=== PATIENT | male | born 1995 | race African-American/Black ===

== ENCOUNTER 2018-06-14 01:41 | Emergency (ER) | payer OTHER, SELFPAY ==
--- OUTSIDE RECORDS SUMMARY | 2018-06-14 01:43 | XMS REPORT | Summary of Care ---
:1995 Author Organization [facility] Address [address] [place], [place] [address]- Encounter HQ Encntr_alias(FIN) [id number] Date(s): 09/19/16 - 09/19/[address] [address]- [place] Discharge Disposition: Home or Self Care Attending Physician: Afshin Epperson MD Referring Physician: Afshin Epperson MD Vital Signs No data available for this section Problem List Condition Effective Dates Status Health Status Informant Seizures(Confirmed) Resolved Allergies, Adverse Reactions, Alerts Substance Reaction Severity Status NKDA Active Medications No data available for this section Results No data available for this section Immunizations No data available for this section Procedures Procedure Date Related Diagnosis Body Site CT brain w/o contrast EEG Social History No data available for this section Assessment and Plan No data available for this section
--- OUTSIDE RECORDS SUMMARY | 2018-06-14 01:43 | XMS REPORT | Continuity of Care Document ---
:1995 Author Organization Interface Problems Problem Status Onset Classification Date Comments Source Date Reported G40.[address] Seizures Resolved Problem 09/22/2016 [facility] Medications Medication Details Route Status Patient Ordering Order Source Instructions Provider Date Allergies, Adverse Reactions, Alerts Substance Category Reaction Severity Reaction Status Date Comments Source type Reported NKDA Assertion Drug Active [facility] Immunizations Immunization Date Given Site Status Last Updated Comments Source Results Order Results Value Reference Date Interpretation Comments Source Name Range Vital Signs Vital Sign Value Date Comments Source Encounters Location Location Encounter Encounter Reason Attending ADM DC Status Source Details Type Number For Provider Date Date Visit [facility] Outpatient [id number] Afshin 09/19 09/20 [facility] Edgardo Epperson /2015 [facility] Procedures Procedure Code Date Perfomer Comments Source CT brain w/o [id number] [facility] EEG [id number] [facility]
[2018-06-14] MEDS ORDERED: LORazepam 2 MG/ML VIAL ONE (02:27)
[2018-06-14] MEDS ORDERED: LEVETIRACETAM 500 MG/5 ML VIAL IV ONE (02:27)
[2018-06-14] MEDS ORDERED: NA CHLORIDE 0.9% 1,000 ML ONE (02:27)
[2018-06-14] MEDS ORDERED: FOSPHENYTOIN PE 500 MG/10 ML VIAL ONE (02:28)
[2018-06-14] MEDS ORDERED: NA CHLORIDE 0.9% 200 ML IV ONE (02:34)
[2018-06-14 02:42] LABS: Absolute Lymphocytes (CBC) 1.2 K/uL (0.7-4.9); Absolute Monocytes 0.6 K/uL (0.1-1.3); Absolute Neutrophil 3.4 K/uL (1.8-8.0); Basophils % 0.6 % (0-1.3); Eosinophils % 6.3 % (0-4.4); Hematocrit 45.5 % (39.6-49.0); Lymphocytes % 21.2 % (15.3-44.8); MCH 30.2 pg (27.0-35.0); MCV 86.9 fL (80-100); MPV 8.3 fL (7.6-11.3); Monocytes % 11.3 % (3.3-12.3); RBC Red Blood Cell Count 5.23 M/uL (4.33-5.43)
[2018-06-14 02:46] LABS: Protime INR 1.13
[2018-06-14 02:48] LABS: Urine Blood NEGATIVE (NEG); Urine Glucose NEGATIVE (NEG); Urine Protein NEGATIVE (NEG)
[2018-06-14 02:58] LABS: Barbiturates NEGATIVE (NEGATIVE); Benzodiazepines NEGATIVE (NEGATIVE); Cocaine NEGATIVE (NEGATIVE); METHAMPHETAM NEGATIVE (NEGATIVE); Methadone NEGATIVE (NEGATIVE); Opiates NEGATIVE (NEGATIVE); Phencyclidine NEGATIVE (NEGATIVE); THC Cannibis NEGATIVE (NEGATIVE)
[2018-06-14 03:14] LABS: ALT/SGPT 50 U/L (12-78); AST/SGOT 26 U/L (15-37); Albumin 4.2 g/dL (3.4-5.0); Alcohol Serum/Plasma 6 mg/dL (<3); Alkaline Phosphatase 117 U/L (45-117); BUN Blood Urea Nitrogen 7 mg/dL (7-18); Bicarbonate 30 mmol/L (21-32); Bilirubin Direct < 0.1 mg/dL (0-0.2); Bilirubin Total 0.2 mg/dL (0.2-1.0); Glucose Level 108 mg/dL (74-106); Phenytoin (Dilantin) Level 17.2 ug/mL (10.0-20.0); Potassium 3.2 mmol/L (3.5-5.1); Protein, Total 8.3 g/dL (6.4-8.2); Sodium Level 140 mmol/L (136-145)
--- NOTE | 2018-06-14 03:37 | ER ---
Nurse's Notes [facility] Name: Mari Mercado Age: 22 yrs Sex: Male : 1995 Arrival Date: 06/14/2018 Time: 01:42 Bed 3 Private MD: Diagnosis: Epilepsy and recurrent seizures;Hypokalemia Presentation: 06/14 01:44 Presenting complaint: EMS states: Arrival to home after family called for patient lp1 having seizure, unable to obtain details of seizure activity; Patient post-ictal on arrival of EMS; Hx of seizures. Transition of care: patient was not received from another setting of care. Onset of symptoms was June 14, 2018. Risk Assessment: Do you want to hurt yourself or someone else? Patient reports no desire to harm self or others. Initial Sepsis Screen: Does the patient meet any 2 criteria? No. Patient's initial sepsis screen is negative. Does the patient have a suspected source of infection? No. Patient's initial sepsis screen is negative. Care prior to arrival: Glucose check: 116. 01:44 Method Of Arrival: EMS: [facility] lp1 01:44 Acuity: ERASMO 3 lp1 Historical: - Allergies: 01:52 NKA; lp1 - Home Meds: 01:52 Dilantin Oral 100 mg four times a day [Active]; Keppra 500 mg oral tab 3 tabs 2 times lp1 per day [Active]; - PMHx: 01:52 Seizures; lp1 - PSHx: 01:52 None; lp1 - Immunization history:: Adult Immunizations unknown. - Social history:: Smoking status: Patient/guardian denies using tobacco. - Ebola Screening: : No symptoms or risks identified at this time. - Family history:: not pertinent. Screenin:47 Abuse screen: Denies threats or abuse. Denies injuries from another. Nutritional aa1 screening: No deficits noted. Tuberculosis screening: No symptoms or risk factors identified. Fall Risk None identified. Assessment: 01:47 General: Appears in no apparent distress. comfortable, Behavior is calm, cooperative, aa1 appropriate for age. Pain: Denies pain. Neuro: Level of Consciousness is awake, alert, obeys commands, Oriented to person, place, Moves all extremities. Speech is normal, Pupils are PERRLA. Respiratory: Airway is patent Respiratory effort is even, unlabored, Respiratory pattern is regular, symmetrical. GI: No signs and/or symptoms were reported involving the gastrointestinal system. : No signs and/or symptoms were reported regarding the genitourinary system. EENT: No signs and/or symptoms were reported regarding the EENT system. Derm: Skin is intact, is healthy with good turgor, Skin is pink, warm \T\ dry. Musculoskeletal: Circulation, motion, and sensation intact. Capillary refill < 3 seconds. 03:01 Reassessment: Patient appears in no apparent distress at this time. Patient and/or tl2 family updated on plan of care and expected duration. Pain level reassessed. General: Behavior is drowsy. Neuro:. Neuro: Level of Consciousness is awake, alert, obeys commands, Oriented to person, place. 03:47 Reassessment: Patient appears in no apparent distress at this time. Patient and/or aa1 family updated on plan of care and expected duration. Pain level reassessed. Patient is alert, oriented x 3, equal unlabored respirations, skin warm/dry/pink. Pt for d/c. Attempting to call mother to pick him up Patient denies pain at this time. Patient states symptoms have improved. 04:55 Reassessment: Patient appears in no apparent distress at this time. Patient is alert, aa1 oriented x 3, equal unlabored respirations, skin warm/dry/pink. Mother present to take pt home. Discussed d/c \T\ f/u instructions with pt \T\ mother; denies questions or concerns at this time. Vital Signs: 01:48 BP 144 / 85; Pulse 86; Resp 18; Temp 98.7(TE); Pulse Ox 98% on R/A; Weight 87.09 kg; lp1 Height 5 ft. 8 in. (172.72 cm); Pain 0/10; 03:00 BP 133 / 83; Pulse 91; Resp 18; Pulse Ox 100% on R/A; tl2 03:21 BP 124 / 75; Pulse 75; Resp 16; Pulse Ox 97% on R/A; Pain 0/10; aa1 04:55 BP 127 / 76; Pulse 87; Resp 16; Pulse Ox 100% on R/A; Pain 0/10; aa1 01:48 Body Mass Index 29.19 (87.09 kg, 172.72 cm) lp1 Koko Coma Score: 04:57 Eye Response: spontaneous(4). Verbal Response: oriented(5). Motor Response: obeys aa1 commands(6). Total: 15. ED Course: 01:42 Patient arrived in ED. aa1 01:47 Jennifer Santacruz, RN is Primary Nurse. aa1 01:47 Patient has correct armband on for positive identification. Bed in low position. Call aa1 light in reach. Seizure precautions initiated. Pulse ox on. NIBP on. 01:48 Triage completed. lp1 01:48 Arm band placed on right wrist. lp1 01:54 Elroy Gonzalez MD is Attending Physician. keturah 02:05 Inserted saline lock: 20 gauge in left EJ, using aseptic technique. Blood collected. By lp1 Dr. Gonzalez. 02:23 [facility]. Lab Test Sent. cc 03:36 Ha Fernandez MD is Referral Physician. keturah 04:55 No provider procedures requiring assistance completed. IV discontinued, intact, aa1 bleeding controlled, No redness/swelling at site. Pressure dressing applied. Administered Medications: 02:42 Drug: Fosphenytoin 500 mg Route: IVPB; Site: left jugular; lp1 02:58 Follow up: IV Status: Completed infusion; IV Intake: 100ml lp1 02:59 Follow up: IV Status: Completed infusion tl2 02:42 Drug: Ativan 1 mg Route: IVP; Site: left jugular; lp1 04:33 Follow up: Response: No adverse reaction; Marked relief of symptoms aa1 02:42 Drug: NS 0.9% 1000 ml Route: IV; Rate: 1 bolus; Site: left jugular; lp1 03:15 Follow up: IV Status: Completed infusion aa1 02:59 Drug: Keppra 1000 mg Route: IV; Rate: per protocol; Site: left jugular; tl2 03:30 Follow up: IV Status: Completed infusion aa1 Intake: 02:58 IV: 100ml; Total: 100ml. lp1 Outcome: 03:36 Discharge ordered by . keturah 04:55 Discharged to home ambulatory, with family. aa1 04:55 Condition: good 04:55 Discharge instructions given to patient, family, Instructed on discharge instructions, follow up and referral plans. medication usage, Demonstrated understanding of instructions, follow-up care, medications. 04:58 Patient left the ED. aa1 Signatures: Jennifer Santacruz RN RN aa1 Elroy Gonzalez MD MD cha Christian, Chelsea cc Pena, Laura, RN RN lp1 Rosalba Nichols RN RN tl2
--- NOTE | 2018-06-14 03:37 | EDPHYS ---
Physician Documentation [facility] Name: Mari Mercado Age: 22 yrs Sex: Male : 1995 Arrival Date: 06/14/2018 Time: 01:42 Bed 3 Private MD: ED Physician Elroy Gonzalez HPI: 06/14 02:06 This 22 yrs old Black Male presents to ER via EMS with complaints of Probable Seizure. keturah 02:06 The patient presents after having a single isolated seizure, that lasted 1 minute(s), keturah an unknown period of time. Character of seizure(s): Motor activity: focal activity. Seizure onset: this morning. Context: the seizure(s) was witnessed, by family. Seizure Hx: Cause: unknown, Last seizure: The patient's last seizure is unknown. Associated injury: The patient did not suffer any apparent associated injury. Historical: - Allergies: 01:52 NKA; lp1 - Home Meds: 01:52 Dilantin Oral 100 mg four times a day [Active]; Keppra 500 mg oral tab 3 tabs 2 times lp1 per day [Active]; - PMHx: 01:52 Seizures; lp1 - PSHx: 01:52 None; lp1 - Immunization history:: Adult Immunizations unknown. - Social history:: Smoking status: Patient/guardian denies using tobacco. - Ebola Screening: : No symptoms or risks identified at this time. - Family history:: not pertinent. ROS: 02:06 Constitutional: Negative for fever, chills, and weight loss, Eyes: Negative for injury, keturah pain, redness, and discharge, ENT: Negative for injury, pain, and discharge, Neck: Negative for injury, pain, and swelling, Cardiovascular: Negative for chest pain, palpitations, and edema, Respiratory: Negative for shortness of breath, cough, wheezing, and pleuritic chest pain, Abdomen/GI: Negative for abdominal pain, nausea, vomiting, diarrhea, and constipation, Back: Negative for injury and pain, : Negative for injury, bleeding, discharge, and swelling, MS/Extremity: Negative for injury and deformity, Skin: Negative for injury, rash, and discoloration, Psych: Negative for depression, anxiety, suicide ideation, homicidal ideation, and hallucinations, Allergy/Immunology: Negative for hives, rash, and allergies, Endocrine: Negative for neck swelling, polydipsia, polyuria, polyphagia, and marked weight changes, Hematologic/Lymphatic: Negative for swollen nodes, abnormal bleeding, and unusual bruising. 02:06 Neuro: Positive for seizure activity. Exam: 02:06 Constitutional: This is a well developed, well nourished patient who is awake, alert, keturah and in no acute distress. Head/Face: Normocephalic, atraumatic. Eyes: Pupils equal round and reactive to light, extra-ocular motions intact. Lids and lashes normal. Conjunctiva and sclera are non-icteric and not injected. Cornea within normal limits. Periorbital areas with no swelling, redness, or edema. ENT: Nares patent. No nasal discharge, no septal abnormalities noted. Tympanic membranes are normal and external auditory canals are clear. Oropharynx with no redness, swelling, or masses, exudates, or evidence of obstruction, uvula midline. Mucous membranes moist. Neck: Trachea midline, no thyromegaly or masses palpated, and no cervical lymphadenopathy. Supple, full range of motion without nuchal rigidity, or vertebral point tenderness. No Meningismus. Chest/axilla: Normal chest wall appearance and motion. Nontender with no deformity. No lesions are appreciated. Cardiovascular: Regular rate and rhythm with a normal S1 and S2. No gallops, murmurs, or rubs. Normal PMI, no JVD. No pulse deficits. Respiratory: Lungs have equal breath sounds bilaterally, clear to auscultation and percussion. No rales, rhonchi or wheezes noted. No increased work of breathing, no retractions or nasal flaring. Abdomen/GI: Soft, non-tender, with normal bowel sounds. No distension or tympany. No guarding or rebound. No evidence of tenderness throughout. Back: No spinal tenderness. No costovertebral tenderness. Full range of motion. Male : Normal genitalia with no discharge or lesions. Skin: Warm, dry with normal turgor. Normal color with no rashes, no lesions, and no evidence of cellulitis. MS/ Extremity: Pulses equal, no cyanosis. Neurovascular intact. Full, normal range of motion. Neuro: Awake and alert, GCS 15, oriented to person, place, time, and situation. Cranial nerves II-XII grossly intact. Motor strength 5/5 in all extremities. Sensory grossly intact. Cerebellar exam normal. Normal gait. Psych: Awake, alert, with orientation to person, place and time. Behavior, mood, and affect are within normal limits. Vital Signs: 01:48 BP 144 / 85; Pulse 86; Resp 18; Temp 98.7(TE); Pulse Ox 98% on R/A; Weight 87.09 kg; lp1 Height 5 ft. 8 in. (172.72 cm); Pain 0/10; 03:00 BP 133 / 83; Pulse 91; Resp 18; Pulse Ox 100% on R/A; tl2 03:21 BP 124 / 75; Pulse 75; Resp 16; Pulse Ox 97% on R/A; Pain 0/10; aa1 04:55 BP 127 / 76; Pulse 87; Resp 16; Pulse Ox 100% on R/A; Pain 0/10; aa1 01:48 Body Mass Index 29.19 (87.09 kg, 172.72 cm) lp1 Koko Coma Score: 04:57 Eye Response: spontaneous(4). Verbal Response: oriented(5). Motor Response: obeys aa1 commands(6). Total: 15. Procedures: 02:08 Peripheral line: by aseptic technique a peripheral line was placed in the left external keturah jugular vein. MDM: 01:55 Patient medically screened. [facility] 02:08 Data reviewed: vital signs, nurses notes, lab test result(s). [facility] 06/14 02:05 Order name: Dilantin; Complete Time: 03:34 cc 06/14 02:05 Order name: Acetaminophen; Complete Time: 03:34 keturah 06/14 02:05 Order name: Basic Metabolic Panel; Complete Time: 03:34 keturah 06/14 02:05 Order name: CBC with Diff; Complete Time: 03:34 keturah 06/14 02:05 Order name: ETOH Level; Complete Time: 03:34 keturah 06/14 02:05 Order name: Hepatic Function; Complete Time: 03:34 keturah 06/14 02:05 Order name: PT-INR; Complete Time: 03:34 keturah 06/14 02:05 Order name: Ptt, Activated; Complete Time: 03:34 keturah 06/14 02:05 Order name: Salicylate; Complete Time: 03:34 keturah 06/14 02:05 Order name: Urine Drug Screen; Complete Time: 03:34 keturah 06/14 02:08 Order name: Misc. Lab Test cc 06/14 02:39 Order name: KEPPRA (LEVETIRACETAM) EDMS 06/14 02:05 Order name: EKG; Complete Time: 02:06 [facility] 06/14 02:05 Order name: EKG - Nurse/Tech; Complete Time: 02:43 [facility] 06/14 02:05 Order name: IV Saline Lock; Complete Time: 02:23 [facility] 06/14 02:05 Order name: Labs collected and sent; Complete Time: 02:23 [facility] 06/14 02:05 Order name: Urine Dipstick-Ancillary (obtain specimen); Complete Time: 02:43 [facility] 06/14 02:05 Order name: Seizure Precautions; Complete Time: 02:08 [facility] 06/14 02:44 Order name: Urine Dipstick--Ancillary (enter results); Complete Time: 03:34 ms Administered Medications: 02:42 Drug: Fosphenytoin 500 mg Route: IVPB; Site: left jugular; lp1 02:58 Follow up: IV Status: Completed infusion; IV Intake: 100ml lp1 02:59 Follow up: IV Status: Completed infusion tl2 02:42 Drug: Ativan 1 mg Route: IVP; Site: left jugular; lp1 04:33 Follow up: Response: No adverse reaction; Marked relief of symptoms aa1 02:42 Drug: NS 0.9% 1000 ml Route: IV; Rate: 1 bolus; Site: left jugular; lp1 03:15 Follow up: IV Status: Completed infusion aa1 02:59 Drug: Keppra 1000 mg Route: IV; Rate: per protocol; Site: left jugular; tl2 03:30 Follow up: IV Status: Completed infusion aa1 Disposition: 06/14/18 03:36 Discharged to Home. Impression: Epilepsy and recurrent seizures, Hypokalemia. - Condition is Stable. - Discharge Instructions: Potassium Content of Foods, Seizure, Adult, Seizure, Adult, [id number], Hypokalemia. - Medication Reconciliation Form, Thank You Letter, Antibiotic Education, Prescription Opioid Use form. - Follow up: Private Physician; When: 2 - 3 days; Reason: Recheck today's complaints, Continuance of care, Re-evaluation by your physician. Follow up: Ha Fernandez; When: 2 - 3 days; Reason: Recheck today's complaints, Continuance of care, Re-evaluation by your physician. - Problem is new. - Symptoms have improved. Signatures: Dispatcher [employer] EDMS Jennifer Santacruz, RN RN aa1 Elroy Gonzalez MD MD cha Pena, Laura, RN RN lp1 Rosalba Nichols RN RN tl2 Corrections: (The following items were deleted from the chart) 02:39 02:08 Miscellaneous Test Lab ordered. EDWI EDWI 04:58 03:36 06/14/2018 03:36 Discharged to Home. Impression: Epilepsy and recurrent seizures; aa1 Hypokalemia. Condition is Stable. Discharge Instructions: Seizure, Adult, Seizure, Adult, [id number]. Forms are Medication Reconciliation Form, Thank You Letter, Antibiotic Education, Prescription Opioid Use. Follow up: Private Physician; When: 2 - 3 days; Reason: Recheck today's complaints, Continuance of care, Re-evaluation by your physician. Follow up: Ha Fernandez; When: 2 - 3 days; Reason: Recheck today's complaints, Continuance of care, Re-evaluation by your physician. Problem is new. Symptoms have improved. keturah
[2018-06-14 05:03] VITALS: TEMP 98.7
[2018-06-14 05:06] VITALS: BP 127/76; O2SAT 100
--- NOTE | 2018-06-14 07:02 | EKG ---
Test Date: 2018-06-14 Test Time: 02:32:06 Presiding Judge: MARCY MEASUREMENT RESULTS: Intervals: Rate: 81 TN: 136 QRSD: 94 QT: 362 QTc: 420 [place]: P: 67 TN: 136 QRS: 78 T: 57 INTERPRETIVE STATEMENTS: Normal sinus rhythm with sinus arrhythmia Normal ECG Compared to ECG 05/25/2017 19:17:37 No significant changes Electronically Signed On 06-14-18 07:01:17 CDT by Billy Valle
== END 2018-06-14 04:58 | disposition home or self-care (01) ==
LOC: ER 01:41
PROC: 05HQ33Z Insertion of Infusion Device into Left External Jugular Vein, Percutaneous Approach (ICD-10-PCS; principal; 2018-06-14)
DX: E87.6 Hypokalemia (principal)
CPT/HCPCS: 36415; 80048; 80076; 80177; 80185; 80307; 80320; 80329; 81003; 85025; 85610; 85730; 93005; 96365; 96367; 96375; 99284; J1953; J7030; Q2009

== ENCOUNTER 2019-03-10 02:22 | Emergency (ER) | payer OTHER ==
--- OUTSIDE RECORDS SUMMARY | 2019-03-10 02:24 | XMS REPORT ---
:1995 Author Organization [facility] Address [address] [place] [address] [address] [place] [address] Care Team Providers Name Role Phone Unavailable Unavailable Unavailable Problems This patient has no known problems. Allergies, Adverse Reactions, Alerts This patient has no known allergies or adverse reactions. Medications This patient has no known medications.
--- OUTSIDE RECORDS SUMMARY | 2019-03-10 02:24 | XMS REPORT | Continuity of Care Document ---
:1995 Author Organization Interface Problems Problem Status Onset Classification Date Comments Source Date Reported G40.[address] Seizures Resolved Problem 09/22/2016 [facility] Medications Medication Details Route Status Patient Ordering Order Source Instructions Provider Date Allergies, Adverse Reactions, Alerts Substance Category Reaction Severity Reaction Status Date Comments Source type Reported Immunizations Immunization Date Given Site Status Last Updated Comments Source Results Order Results Value Reference Date Interpretation Comments Source Name Range Vital Signs Vital Sign Value Date Comments Source Encounters Location Location Encounter Encounter Reason Attending ADM DC Status Source Details Type Number For Provider Date Date Visit [facility] Outpatient [id number] Afshin 09/19 09/20 [facility] Edgardo Epperson /2015 [facility] Procedures Procedure Code Date Perfomer Comments Source CT brain w/o [id number] [facility] EEG [id number] [facility]
[2019-03-10] MEDS ORDERED: NA CHLORIDE 0.9% 250 ML ONE (03:11)
[2019-03-10] MEDS ORDERED: LEVETIRACETAM 500 MG/5 ML VIAL IV ONE (03:11)
[2019-03-10 03:35] LABS: Absolute Lymphocytes (CBC) 0.5 K/uL (0.7-4.9); Absolute Monocytes 1.1 K/uL (0.1-1.3); Absolute Neutrophil 15.2 K/uL (1.8-8.0); Basophils % 0.4 % (0-1.3); Hematocrit 45.9 % (39.6-49.0); Lymphocytes % 2.7 % (15.3-44.8); MPV 8.9 fL (7.6-11.3); Monocytes % 6.4 % (3.3-12.3); RBC Red Blood Cell Count 5.21 M/uL (4.33-5.43)
[2019-03-10 03:47] LABS: ALT/SGPT 23 U/L (12-78); AST/SGOT 19 U/L (15-37); Albumin 3.9 g/dL (3.4-5.0); Alkaline Phosphatase 100 U/L (45-117); BUN Blood Urea Nitrogen 9 mg/dL (7-18); Bicarbonate 24 mmol/L (21-32); Bilirubin Total 0.6 mg/dL (0.2-1.0); Glucose Level 89 mg/dL (74-106); Protein, Total 7.6 g/dL (6.4-8.2); Sodium Level 137 mmol/L (136-145)
[2019-03-10 04:03] LABS: Blood Morphology Comment NOT SEEN (NOT SEEN); Platelet Estimate ADEQ
--- NOTE | 2019-03-10 06:35 | ER ---
Nurse's Notes [facility] Name: Mari Mercado Age: 23 yrs Sex: Male : 1995 Arrival Date: 03/10/2019 Time: 02:30 Bed 2 Private MD: Diagnosis: Epilepsy and recurrent seizures Presentation: 03/10 02:36 Presenting complaint: EMS states: pt's family reports that pt has been having seizures aa1 since 0400 this am. States he takes keppra and dilantin and was still having seizures. States pt vomited on himself and was also incontinent of urine. Upon arrival to ED pt will open his opens but no verbal response and will not participate with assessment or follow commands. Transition of care: patient was not received from another setting of care. Onset of symptoms was March 09, 2019 at 04:00. Risk Assessment: Do you want to hurt yourself or someone else? Unable to obtain. Initial Sepsis Screen: Does the patient meet any 2 criteria? HR > 90 bpm. Does the patient have a suspected source of infection? No. Patient's initial sepsis screen is negative. Care prior to arrival: Medication(s) given: Normal saline infusion, Tylenol, 1000 mg, IVP Ativan 2 mg IVP IV initiated. 22 GA, in the right antecubital area, Glucose check: 98. 02:36 Method Of Arrival: EMS: [facility] aa1 02:36 Acuity: ERASMO 2 aa1 Historical: - Allergies: 03:37 NKA; aa1 - Home Meds: 03:37 Dilantin Oral 100 mg four times a day [Active]; Keppra 500 mg Oral tab 3 tabs 2 times aa1 per day [Active]; - PMHx: 03:37 Seizures; aa1 - PSHx: 03:37 None; aa1 - Immunization history:: Adult Immunizations unknown. - Social history:: Smoking status: unknown. - Ebola Screening: : No symptoms or risks identified at this time. Screenin:40 Abuse screen: Denies threats or abuse. Denies injuries from another. Nutritional aa1 screening: No deficits noted. Tuberculosis screening: No symptoms or risk factors identified. Fall Risk None identified. Assessment: 02:40 General: Appears in no apparent distress. comfortable, unkempt, well developed, aa1 Behavior is unresponsive. Pain: Unable to use pain scale. FLACC scale score is 0 out of 10. Patient is unresponsive. Neuro: Level of Consciousness is listless, but will open eyes when moved. Moves all extremities. Facial symmetry appears normal, Pupils are PERRLA. Cardiovascular: Heart tones S1 S2 present Rhythm is regular. Respiratory: Airway is patent Respiratory effort is even, unlabored, Respiratory pattern is regular, symmetrical, Breath sounds are clear bilaterally. GI: Abdomen is non-distended, Abd is soft X 4 quads. : No signs and/or symptoms were reported regarding the genitourinary system. EENT: No signs and/or symptoms were reported regarding the EENT system. Derm: Skin is intact, is healthy with good turgor, Skin is pink, warm \T\ dry. Musculoskeletal: Circulation, motion, and sensation intact. Capillary refill < 3 seconds. 03:50 Reassessment: Patient appears in no apparent distress at this time. No changes from aa1 previously documented assessment. Awaiting provider reassessment. Pt resting quietly, eyes closed. 04:50 Reassessment: Patient appears in no apparent distress at this time. No changes from aa1 previously documented assessment. Pt still resting quietly; will continue to monitor for appropriateness for d/c. 05:50 Reassessment: Patient appears in no apparent distress at this time. Patient is alert, rr5 oriented x 3, equal unlabored respirations, skin warm/dry/pink. GCS 15/15 .linen changed,morning care done. mild drowsiness noted able to stand and walk at bedside going to sink area to wash his face. instructed to call someone to pick him up. 06:30 Reassessment: Patient appears in no apparent distress at this time. Patient is alert, rr5 oriented x 3, equal unlabored respirations, skin warm/dry/pink. awake not in distress. spoke to Cora De Paz (mother) [phone] to arrange transport for the patient going home. 06:46 Reassessment: Patient appears in no apparent distress at this time. Patient is alert, rr5 oriented x 3, equal unlabored respirations, skin warm/dry/pink. awaiting for his transport. no complaints made. Patient states feeling better. Patient states symptoms have improved. 07:05 Reassessment: Discharge ordered, awaiting transportation at this time. NAD, GCS 15, hb VSS. No seizure activity noted. Vital Signs: 02:36 BP 112 / 49; Pulse 105; Resp 14; Temp 99.2(A); Pulse Ox 99% on R/A; Pain 0/10; aa1 03:30 BP 113 / 53; Pulse 102; Resp 16; Pulse Ox 97% on R/A; Pain 0/10; aa1 04:50 BP 106 / 52; Pulse 99; Resp 20; Temp 98.9; Pulse Ox 97% on R/A; Pain 0/10; aa1 06:00 BP 132 / 70; Pulse 100; Resp 16; Temp 98.2; Pulse Ox 100% on R/A; rr5 06:49 BP 128 / 65; Pulse 100; Resp 20; Temp 98.2; Pulse Ox 98% on R/A; rr5 07:30 BP 124 / 63; Pulse 99; Resp 15; Pulse Ox 100% on R/A; hb [place] Coma Score: 07:43 Eye Response: spontaneous(4). Verbal Response: oriented(5). Motor Response: obeys hb commands(6). Total: 15. ED Course: 02:30 Patient arrived in ED. aa1 02:35 Jennifer Morin RN is Primary Nurse. aa1 02:36 Arm band placed on left wrist. aa1 02:40 Patient has correct armband on for positive identification. Placed in gown. Bed in low aa1 position. Call light in reach. Adult w/ patient. Seizure precautions initiated. cardiac monitor technician on. Pulse ox on. NIBP on. 02:42 Ralph Brink MD is Attending Physician. tw4 02:43 Triage completed. aa1 03:08 Initial lab(s) drawn, by me, sent to lab. Maintain EMS IV. Dressing intact. Site clean aa1 \T\ dry. Gauge \T\ site: 22g RAC. 06:56 No provider procedures requiring assistance completed. rr5 07:42 IV discontinued, intact, bleeding controlled, No redness/swelling at site. Pressure hb dressing applied. Administered Medications: 03:08 Drug: Keppra 1000 mg Route: IV; Rate: calculated rate; Site: right antecubital; aa1 05:00 Follow up: Response: No adverse reaction; IV Status: Completed infusion; IV Intake: rr5 250ml Intake: 05:00 IV: 250ml; Total: 250ml. rr5 Outcome: 06:34 Discharge ordered by . tw4 06:54 Condition: stable rr5 06:54 Discharge instructions given to patient, Instructed on discharge instructions, follow up and referral plans. medication usage, Demonstrated understanding of instructions, follow-up care, medications, Prescriptions given X 1. 07:42 Discharged to home ambulatory, with family. hb 07:47 Patient left the ED. hb Signatures: Jennifer Morin RN RN aa1 Renetta Maya RN RN Ralph Brink MD MD tw4 William Ochoa RN RN rr5 Corrections: (The following items were deleted from the chart) 06:50 06:30 Reassessment: Patient appears in no apparent distress at this time. Patient is rr5 alert, oriented x 3, equal unlabored respirations, skin warm/dry/pink. awake not in distress. spoke to Cora De Paz (mother) [phone] to arrange transport for the patient going home. aa1 06:50 06:46 Reassessment: Patient appears in no apparent distress at this time. Patient is rr5 alert, oriented x 3, equal unlabored respirations, skin warm/dry/pink. awaiting for his transport. no complaints made. Patient states feeling better. Patient states symptoms have improved. aa1 06:51 06:49 BP 128 / 65; Pulse 100bpm; Resp 20bpm; Pulse Ox 98% RA; Temp 98.2F; aa1 rr5
--- NOTE | 2019-03-10 06:35 | EDPHYS ---
Physician Documentation [facility] Name: Mari Mercado Age: 23 yrs Sex: Male : 1995 Arrival Date: 03/10/2019 Time: 02:30 Bed 2 Private MD: ED Physician Ralph Brink HPI: 03/10 03:42 This 23 yrs old Black Male presents to ER via EMS with complaints of Seizure. tw4 03:42 The patient presents with a history of multiple seizures, an unknown number. Character tw4 of seizure(s): Loss of consciousness: it is not known if the patient experienced loss of consciousness, Motor activity: the motor activity is unknown, Incontinence:. Seizure onset: today. Context: occurred at home. Associated injury: The patient did not suffer any apparent associated injury. The patient has not experienced similar symptoms in the past. Historical: - Allergies: 03:37 NKA; aa1 - Home Meds: 03:37 Dilantin Oral 100 mg four times a day [Active]; Keppra 500 mg Oral tab 3 tabs 2 times aa1 per day [Active]; - PMHx: 03:37 Seizures; aa1 - PSHx: 03:37 None; aa1 - Immunization history:: Adult Immunizations unknown. - Social history:: Smoking status: unknown. - Ebola Screening: : No symptoms or risks identified at this time. ROS: 03:42 Constitutional: Negative for fever, chills, and weight loss, Eyes: Negative for injury, tw4 pain, redness, and discharge, Cardiovascular: Negative for chest pain, palpitations, and edema, Respiratory: Negative for shortness of breath, cough, wheezing, and pleuritic chest pain, Abdomen/GI: Negative for abdominal pain, nausea, vomiting, diarrhea, and constipation, Back: Negative for injury and pain, MS/Extremity: Negative for injury and deformity, Skin: Negative for injury, rash, and discoloration. 03:42 Neuro: Positive for seizure activity, Negative for altered mental status, dizziness, gait disturbance, headache, hearing loss, loss of consciousness, numbness, speech changes, syncope, near syncope, tingling, tinnitus, tremor, visual changes. Exam: 03:42 Constitutional: The patient appears somnolent tw4 03:48 Head/Face: Normocephalic, atraumatic. Chest/axilla: Normal chest wall appearance and tw4 motion. Nontender with no deformity. No lesions are appreciated. Cardiovascular: Regular rate and rhythm with a normal S1 and S2. No gallops, murmurs, or rubs. Normal PMI, no JVD. No pulse deficits. Respiratory: Lungs have equal breath sounds bilaterally, clear to auscultation and percussion. No rales, rhonchi or wheezes noted. No increased work of breathing, no retractions or nasal flaring. Abdomen/GI: Soft, non-tender, with normal bowel sounds. No distension or tympany. No guarding or rebound. No evidence of tenderness throughout. Back: No spinal tenderness. No costovertebral tenderness. Full range of motion. MS/ Extremity: Pulses equal, no cyanosis. Neurovascular intact. Full, normal range of motion. Vital Signs: 02:36 BP 112 / 49; Pulse 105; Resp 14; Temp 99.2(A); Pulse Ox 99% on R/A; Pain 0/10; aa1 03:30 BP 113 / 53; Pulse 102; Resp 16; Pulse Ox 97% on R/A; Pain 0/10; aa1 04:50 BP 106 / 52; Pulse 99; Resp 20; Temp 98.9; Pulse Ox 97% on R/A; Pain 0/10; aa1 06:00 BP 132 / 70; Pulse 100; Resp 16; Temp 98.2; Pulse Ox 100% on R/A; rr5 06:49 BP 128 / 65; Pulse 100; Resp 20; Temp 98.2; Pulse Ox 98% on R/A; rr5 07:30 BP 124 / 63; Pulse 99; Resp 15; Pulse Ox 100% on R/A; hb [place]ie Coma Score: 07:43 Eye Response: spontaneous(4). Verbal Response: oriented(5). Motor Response: obeys hb commands(6). Total: 15. MDM: 02:42 Patient medically screened. tw4 06:11 Differential diagnosis: cerebral vascular accident, drug overdose, cardiac arrhythmia. tw4 Data reviewed: vital signs, nurses notes. Data interpreted: Pulse oximetry: Interpretation: normal. Counseling: I had a detailed discussion with the patient and/or guardian regarding: the historical points, exam findings, and any diagnostic results supporting the discharge/admit diagnosis, lab results. 06:33 Special discussion: I discussed with the patient/guardian in detail that at this point tw4 there is no indication for admission to the hospital. It is understood, however, that if the symptoms persist or worsen the patient needs to return immediately for re-evaluation. ED course: Pt was awake and alert oriented times threeand able to call a ride to take him home. 03/10 02:43 Order name: CBC with Diff; Complete Time: 06:11 tw4 03/10 06:11 Interpretation: Normal except: WBC 16.8; LYM% 2.7; NAKITA% 90.5; NEUT A 15.2. tw4 03/10 02:43 Order name: CMP; Complete Time: 06:11 tw4 03/10 03:38 Order name: Manual Differential; Complete Time: 06:11 EDLA 03/10 06:11 Interpretation: Normal except: LYM 4; BANDS [F] 3; SEGS 88. tw4 Administered Medications: 03:08 Drug: Keppra 1000 mg Route: IV; Rate: calculated rate; Site: right antecubital; aa1 05:00 Follow up: Response: No adverse reaction; IV Status: Completed infusion; IV Intake: rr5 250ml Disposition: 03/10/19 06:34 Discharged to Home. Impression: Epilepsy and recurrent seizures. - Condition is Stable. - Discharge Instructions: Seizure, Adult. - Prescriptions for Keppra 750 mg Oral Tablet - take 1 tablet by ORAL route every 12 hours; 20 tablet. - Medication Reconciliation Form, Thank You Letter, Antibiotic Education, Prescription Opioid Use form. - Follow up: Private Physician; When: Upon discharge from the Emergency Department; Reason: If symptoms return, Recheck today's complaints, Continuance of care. - Problem is an ongoing problem. - Symptoms have improved. Signatures: Dispatcher [employer] EDJennifer Almaguer RN RN aa1 Renetta Maya RN RN Ralph Brink MD MD tw4 William Ochoa RN rr5 Corrections: (The following items were deleted from the chart) 07:47 06:34 03/10/2019 06:34 Discharged to Home. Impression: Epilepsy and recurrent seizures. hb Condition is Stable. Forms are Medication Reconciliation Form, Thank You Letter, Antibiotic Education, Prescription Opioid Use. Follow up: Private Physician; When: Upon discharge from the Emergency Department; Reason: If symptoms return, Recheck today's complaints, Continuance of care. Problem is an ongoing problem. Symptoms have improved. tw4
[2019-03-10 07:59] VITALS: TEMP 98.2
[2019-03-10 08:05] VITALS: BP 124/63; O2SAT 100
== END 2019-03-10 07:47 | disposition home or self-care (01) ==
LOC: ER 02:22
DX: G40.909 Epilepsy, unspecified, not intractable, without status epilepticus (principal)
CPT/HCPCS: 36415; 80053; 85025; 96365; 96366; 99284; J1953

== ENCOUNTER 2019-11-29 04:36 | Emergency (ER) | payer OTHER ==
--- OUTSIDE RECORDS SUMMARY | 2019-11-29 04:50 | XMS REPORT ---
:1995 [facility] Address [address] [place] [address] [address] [place] [address] Care Team Providers Name Role Phone Unavailable Unavailable Unavailable Problems This patient has no known problems. Allergies, Adverse Reactions, Alerts This patient has no known allergies or adverse reactions. Medications This patient has no known medications.
--- OUTSIDE RECORDS SUMMARY | 2019-11-29 04:50 | XMS REPORT | Summary of Care ---
:1995 Author Organization [facility] Address [address] [place] [id number] Care Team Providers Name Role Phone George Francis Ashley Primary Care Provider Reason for Visit MRI/CAT Scan (Routine) Status Reason Specialty Diagnoses / Referred By Referred To Procedures Contact Contact Closed Diagnostic Diagnoses Seizure cerebral Shalom Scherer Radiology Procedures MR BRAIN W WO CONTRAST WITH NEUROQUANT MR BRAIN W WO CONTRAST MD Fei [address] [place] [address]. [place] [address] Encounter Details Date Type Department Care Team Description 05/22/2019 Hospital Encounter [facility] Magnetic Shalom Scherer, Arrived Resonance Imaging [address] [place] [address]. [place] [phone] Allergies No Known Allergiesdocumented as of this encounter (statuses as of 05/23/2019) Medications Medication Sig Dispensed Refills Start Date End Date Status levETIRAcetam 500 mg Take 1,500 mg by 0 03/07/2019 Active tablet mouth 2 (two) times daily. phenytoin Extended 100 Take 100 mg by 0 03/07/2019 Active mg capsule mouth 4 (four) times daily. documented as of this encounter (statuses as of 05/23/2019) Active Problems No known active problemsdocumented as of this encounter (statuses as of 2018) Social History Tobacco Use Types Packs/Day Years Used Date Unknown If Ever Smoked Smokeless Tobacco: Current User Chew Alcohol Use Drinks/Week oz/Week Comments Yes Sex Assigned at Date Recorded Not on file Job Start Date Occupation Industry Not on file Not on file Not on file Travel History Travel Start Travel End No recent travel history available. documented as of this encounter Last Filed Vital Signs Not on filedocumented in this encounter Plan of Treatment Health Maintenance Due Date Last Done Comments VARICELLA VACCINES (1 of 2 - 13+ 2006 2-dose series) DTaP,Tdap,and Td Vaccines (1 - 2012 Tdap) INFLUENZA VACCINE 06/29/2019 HPV VACCINES Aged Out No longer eligible based on patient's age to complete this topic PNEUMOCOCCAL 0-64 YEARS COMBINED Aged Out No longer eligible based on SERIES patient's age to complete this topic documented as of this encounter Procedures Procedure Name Priority Date/Time Associated Comments Diagnosis MR BRAIN W WO Routine 05/22/2019 1:52 PM Seizure cerebral Results for this CONTRAST WITH CDT procedure are in NEUROQUANT the results section. documented in this encounter Results MR BRAIN W WO CONTRAST WITH NEUROQUANT (05/22/2019 1:52 PM CDT) Specimen Impressions Performed At PACS/VR/DOSE No acute intracranial abnormality. No evidence of mesial temporal sclerosis. The Neuroquant values for hippocampal volume listed above are within normal limits for the matched age. No structural abnormality identified to account for patient's seizures. IZuleika MD., have reviewed this study and agree with the above report. Narrative Performed At MR BRAIN W WO CONTRAST WITH NEUROQUANT PACS/VR/DOSE COMPARISON: None HISTORY: grand mal seizure TECHNIQUE: Multisequence multiplanar MRI of the brain was performed before and after the administration of 20 cc IV dotarem contrast on a 3 Maria L. Quantitative volumetry of the brain was performed using NeuroQuant ([employer], [place], [place]) software package. The NeuroQuant analysis was based on a sagittal 3D volumetric MPRAGE pulse sequence. Sequence-checking was performed to ensure appropriate high-resolution and contrast image parameters. Correction for field/gradient inhomogeneities, removal of the overlying calvaria, alignment to the probabilistic atlas of stereotypical anatomy and segmented volumetry of predetermined anatomic areas derived from multiple subjects of multiple age groups was performed. Two automated reports were generated. FINDINGS: The ventricles and cerebral sulci are normal in caliber and configuration. No midline shift, hydrocephalus or pathological extra-axial fluid collection is present. The basal cisterns are unremarkable. No restricted diffusion is present to suggest acute infarct. No parenchymal signal abnormality. No abnormal gradient blooming. No enhancing lesions are identified. The T2 flow voids for the major intracranial vessels are unremarkable. No abnormal fluid signal is present in the mastoid air cells or paranasal air sinuses. The hippocampi are normal in size and symmetric. No abnormal signal or enhancement identified in the mesial temporal lobes. No evidence of migrational disorders or cortical dysplasia. The Hippocampal volume report demonstrates: Left Hippocampal volume: 4.15 cm3 Right Hippocampal volume: 4.31 cm3 Asymmetry Index: -3.6 Procedure Note [facility], Radiant Results Inft User - 05/22/2019 3:29 PM CDT MR BRAIN W WO CONTRAST WITH NEUROQUANT COMPARISON: None HISTORY: grand mal seizure TECHNIQUE: Multisequence multiplanar MRI of the brain was performed before and after the administration of 20 cc IV dotarem contrast on a 3 Maria L. Quantitative volumetry of the brain was performed using NeuroQuant ([employer], [place], [place]) software package. The NeuroQuant analysis was based on a sagittal 3D volumetric MPRAGE pulse sequence. Sequence-checking was performed to ensure appropriate high-resolution and contrast image parameters. Correction for field/gradient inhomogeneities, removal of the overlying calvaria, alignment to the probabilistic atlas of stereotypical anatomy and segmented volumetry of predetermined anatomic areas derived from multiple subjects of multiple age groups was performed. Two automated reports were generated. FINDINGS: The ventricles and cerebral sulci are normal in caliber and configuration. No midline shift, hydrocephalus or pathological extra-axial fluid collection is present. The basal cisterns are unremarkable. No restricted diffusion is present to suggest acute infarct. No parenchymal signal abnormality. No abnormal gradient blooming. No enhancing lesions are identified. The T2 flow voids for the major intracranial vessels are unremarkable. No abnormal fluid signal is present in the mastoid air cells or paranasal air sinuses. The hippocampi are normal in size and symmetric. No abnormal signal or enhancement identified in the mesial temporal lobes. No evidence of migrational disorders or cortical dysplasia. The Hippocampal volume report demonstrates: Left Hippocampal volume: 4.15 cm3 Right Hippocampal volume: 4.31 cm3 Asymmetry Index: -3.6 IMPRESSION No acute intracranial abnormality. No evidence of mesial temporal sclerosis. The Neuroquant values for hippocampal volume listed above are within normal limits for the matched age. No structural abnormality identified to account for patient's seizures. Zuleika Zarate MD., have reviewed this study and agree with the above report. Performing Organization Address City/State/Zipcode Phone Number PACS/VR/DOSE documented in this encounter Visit Diagnoses Diagnosis Seizure cerebral Acute, but ill-defined, cerebrovascular disease documented in this encounter Administered Medications Medication Order MAR Action Action Date Dose Rate Site gadoterate meglumine Given 05/22/2019 2:00 PM CDT 20 mL Right Arm (DOTAREM-20 mL) injection 0.2 mL/kg 0.2 mL/kg, Intravenous, ONCE, 1 dose, Verónica 05/22/19 at 1400, Routine documented in this encounter Insurance Payer Benefit Plan / Subscriber ID Effective Phone Address Type Group Dates [employer] [address] [place] [id number] [place] [address] documented as of this encounter
[2019-11-29 05:33] LABS: Urine Blood NEGATIVE (NEG); Urine Glucose NEGATIVE (NEG); Urine Protein NEGATIVE (NEG); Urine Specific Gravity <1.005 (1.005-1.030)
[2019-11-29 05:37] LABS: Barbiturates NEGATIVE (NEGATIVE); Benzodiazepines NEGATIVE (NEGATIVE); Cocaine NEGATIVE (NEGATIVE); METHAMPHETAM NEGATIVE (NEGATIVE); Methadone NEGATIVE (NEGATIVE); Opiates NEGATIVE (NEGATIVE); Phencyclidine NEGATIVE (NEGATIVE); THC Cannibis NEGATIVE (NEGATIVE)
[2019-11-29 05:46] LABS: Absolute Lymphocytes (CBC) 1.3 K/uL (0.7-4.9); Basophils % 0.8 % (0-1.3); Lymphocytes % 13.9 % (15.3-44.8); MPV 8.5 fL (7.6-11.3); RBC Red Blood Cell Count 5.34 M/uL (4.33-5.43)
[2019-11-29 05:50] LABS: Protime INR 1.14
[2019-11-29 06:07] LABS: ALT/SGPT 50 U/L (12-78); AST/SGOT 37 U/L (15-37); Albumin 4.1 g/dL (3.4-5.0); Alkaline Phosphatase 113 U/L (45-117); BUN Blood Urea Nitrogen 8 mg/dL (7-18); Bicarbonate 27 mmol/L (21-32); Bilirubin Direct < 0.1 mg/dL (0-0.2); Bilirubin Total 0.2 mg/dL (0.2-1.0); Glucose Level 80 mg/dL (74-106); Potassium 3.7 mmol/L (3.5-5.1); Protein, Total 8.7 g/dL (6.4-8.2); Sodium Level 141 mmol/L (136-145)
[2019-11-29] MEDS ORDERED: PHENYTOIN ER 100 MG CAP PO ONE ×2 (06:27→06:29)
--- NOTE | 2019-11-29 06:46 | ER ---
Nurse's Notes [facility] Name: Mari Mercado Age: 23 yrs Sex: Male : 1995 Arrival Date: 11/29/2019 Time: 04:37 Bed 18 Private MD: Diagnosis: Epilepsy and recurrent seizures Presentation: 11/29 04:56 Presenting complaint: EMS states: they were toned out by patient for report of possible bb seizure pt states he "woke up walking down the street naked with a towel" pt has hx of seizures and takes dilantin and keppra. Transition of care: patient was not received from another setting of care. Onset of symptoms is unknown. Risk Assessment: Do you want to hurt yourself or someone else? Patient reports no desire to harm self or others. Initial Sepsis Screen: Does the patient meet any 2 criteria? No. Patient's initial sepsis screen is negative. Does the patient have a suspected source of infection? No. Patient's initial sepsis screen is negative. Care prior to arrival: None. 04:56 Method Of Arrival: EMS: [facility] 04:56 Acuity: ERASMO 3 bb Triage Assessment: 05:00 General: Appears in no apparent distress. unkempt, Behavior is calm, cooperative, mild rr5 delay in response. Historical: - Allergies: 05:01 NKA; bb - Home Meds: 05:01 Dilantin Oral 100 mg four times a day [Active]; Keppra 500 mg Oral tab 3 tabs 2 times bb per day [Active]; - PMHx: 05:01 Seizures; bb - PSHx: 05:01 None; bb - Immunization history:: Adult Immunizations up to date. - Coronavirus screen:: The patient has NOT traveled to [place], [place], or [place] in the past 14 days. Proceed with normal triage process as indicated. - Social history:: Smoking status: Patient reports use of chewing tobacco. Patient uses alcohol. - Ebola Screening: : No symptoms or risks identified at this time. Screenin:36 Abuse screen: Denies threats or abuse. Denies injuries from another. Nutritional rr5 screening: No deficits noted. Tuberculosis screening: No symptoms or risk factors identified. Fall Risk Secondary diagnosis (15 points) seizures, IV access (20 points). Total Wilson Fall Scale indicates Low Risk Score (25-44 pts). Fall prevention measures have been instituted. Side Rails Up X 2 Placed close to Nursing Station Frequent Obs/Assesments occuring As available Patient and Family Educated on Fall Prevention Program and strategies. Assessment: 05:00 General: Appears in no apparent distress. unkempt, Behavior is calm, cooperative, EMS rr5 report had an episode of seizure.. 05:00 Pain: Denies pain. Neuro: Level of Consciousness is awake, alert, obeys commands, rr5 Oriented to person, place, situation, mild delay in response. Cardiovascular: Capillary refill < 3 seconds Patient's skin is warm and dry. Respiratory: Airway is patent Respiratory effort is even, unlabored, Respiratory pattern is regular, symmetrical. GI: No signs and/or symptoms were reported involving the gastrointestinal system. : No signs and/or symptoms were reported regarding the genitourinary system. EENT: No signs and/or symptoms were reported regarding the EENT system. Derm: Skin is intact, is healthy with good turgor, Skin temperature is warm. Musculoskeletal: Circulation, motion, and sensation intact. Capillary refill < 3 seconds. 06:09 Reassessment: Patient appears in no apparent distress at this time. Patient is alert, rr5 oriented x 3, equal unlabored respirations, skin warm/dry/pink. came back from CT scan, awaiting for result. 06:56 Reassessment: Patient is alert, oriented x 3, equal unlabored respirations, skin bb warm/dry/pink. pt verbalized understanding of and agrees to plan of care discharge instructions given pt called his mother for transportation home and will wait in the [facility] for her arrival. Pt ambulated with steady gait to the [facility]. Vital Signs: 05:01 BP 117 / 81; Pulse 91; Resp 16 S; Temp 98(O); Pulse Ox 97% on R/A; Weight 84.37 kg (R); bb Height 6 ft. 1 in. (185.42 cm) (R); 06:05 BP 134 / 81; Pulse 97; Resp 16; Temp 98.1; Pulse Ox 99% on R/A; rr5 06:57 BP 136 / 78; Pulse 102; Resp 16 S; Pulse Ox 98% on R/A; bb 05:01 Body Mass Index 24.54 (84.37 kg, 185.42 cm) bb [place] Coma Score: 05:00 Eye Response: spontaneous(4). Verbal Response: oriented(5). Motor Response: obeys rr5 commands(6). Total: 15. ED Course: 04:37 Patient arrived in ED. cl3 04:44 Yoni Ching MD is Attending Physician. kdr 05:00 Triage completed. bb 05:00 Patient has correct armband on for positive identification. Placed in gown. Bed in low rr5 position. Call light in reach. Side rails up X2. Seizure precautions initiated. playground monitor on. Pulse ox on. NIBP on. 05:01 Arm band placed on Patient placed in an exam room, on a stretcher, on pulse oximetry. bb 05:19 Urine collected: clean catch specimen, clear. bb 05:33 Radiology exam delayed due to Nurse is attempting to start an IV for labs. kw1 05:35 William Ochoa, RN is Primary Nurse. rr5 05:35 Inserted saline lock: 24 gauge in right hand, using aseptic technique. Blood collected. rr5 06:07 CT Head Brain wo Cont In Process Unspecified. EDMS 06:45 Ha Fernandez MD is Referral Physician. kdr 06:58 No provider procedures requiring assistance completed. IV discontinued, intact, bb bleeding controlled, No redness/swelling at site. Pressure dressing applied. Administered Medications: 06:35 Drug: Dilantin 500 mg Route: PO; rr5 06:56 Follow up: Response: No adverse reaction bb Output: 05:49 Urine: 600ml (Voided); Total: 600ml. rr5 Outcome: 06:45 Discharge ordered by . kdr 06:58 Discharged to home ambulatory, with family. bb 06:58 Condition: stable 06:58 Discharge instructions given to patient, Instructed on discharge instructions, follow up and referral plans. Demonstrated understanding of instructions, follow-up care. 06:58 Patient left the ED. bb Signatures: Dispatcher [employer] EDMS Yoni Ching MD MD kdr Maren Canales RN RN bb Blanca Tapia kw1 William Ochoa, RN RN rr5 hSeldon Gates cl3 Corrections: (The following items were deleted from the chart) 06:11 05:00 Neuro: Level of Consciousness is awake, alert, obeys commands, Oriented to rr5 person, place, situation, rr5 06:12 05:00 General: Appears in no apparent distress. unkempt, Behavior is calm, cooperative, rr5 rr5
--- NOTE | 2019-11-29 06:46 | EDPHYS ---
Physician Documentation [facility] Name: Mari Mercado Age: 23 yrs Sex: Male : 1995 Arrival Date: 11/29/2019 Time: 04:37 Bed 18 Private MD: ED Physician Yoni Ching HPI: 11/29 04:53 This 23 yrs old Black Male presents to ER via Unassigned with complaints of Seizure. kdr 04:53 The patient reported to EMS that he had had a seizure earlier today and found himself kdr walking down the road naked except for a towel. He apparently went home and got dressed and called EMS. He now has no focal complaints. 06:46 Seizure onset: today. Context: Unknown. Seizure Hx: Seizure medications: Keppra, kdr phenytoin. Associated injury: The patient did not suffer any apparent associated injury. EMS care: none. Current symptoms: Currently, the patient is not experiencing any symptoms, the patient feels back to baseline. The patient has experienced similar episodes in the past, multiple times, chronically. The patient has not recently seen a physician. Historical: - Allergies: 05:01 NKA; bb - Home Meds: 05:01 Dilantin Oral 100 mg four times a day [Active]; Keppra 500 mg Oral tab 3 tabs 2 times bb per day [Active]; - PMHx: 05:01 Seizures; bb - PSHx: 05:01 None; bb - Immunization history:: Adult Immunizations up to date. - Coronavirus screen:: The patient has NOT traveled to [place], [place], or [place] in the past 14 days. Proceed with normal triage process as indicated. - Social history:: Smoking status: Patient reports use of chewing tobacco. Patient uses alcohol. - Ebola Screening: : No symptoms or risks identified at this time. ROS: 06:46 Constitutional: Negative for fever, chills, and weight loss, Eyes: Negative for injury, kdr pain, redness, and discharge, ENT: Negative for injury, pain, and discharge, Neck: Negative for injury, pain, and swelling, Cardiovascular: Negative for chest pain, palpitations, and edema, Respiratory: Negative for shortness of breath, cough, wheezing, and pleuritic chest pain, Abdomen/GI: Negative for abdominal pain, nausea, vomiting, diarrhea, and constipation, Back: Negative for injury and pain, : Negative for injury, bleeding, discharge, and swelling, MS/Extremity: Negative for injury and deformity, Skin: Negative for injury, rash, and discoloration, Psych: Negative for depression, anxiety, suicide ideation, homicidal ideation, and hallucinations, Allergy/Immunology: Negative for hives, rash, and allergies, Endocrine: Negative for neck swelling, polydipsia, polyuria, polyphagia, and marked weight changes, Hematologic/Lymphatic: Negative for swollen nodes, abnormal bleeding, and unusual bruising. 06:46 Neuro: Positive for altered mental status, seizure activity, weakness, Negative for headache, hearing loss, loss of consciousness, The patient was a poor historian. Exam: 06:46 Constitutional: This is a well developed, well nourished patient who is awake, alert, kdr and in no acute distress. Head/Face: Normocephalic, atraumatic. Eyes: Pupils equal round and reactive to light, extra-ocular motions intact. Lids and lashes normal. Conjunctiva and sclera are non-icteric and not injected. Cornea within normal limits. Periorbital areas with no swelling, redness, or edema. Neck: Trachea midline, no thyromegaly or masses palpated, and no cervical lymphadenopathy. Supple, full range of motion without nuchal rigidity, or vertebral point tenderness. No Meningismus. Chest/axilla: Normal chest wall appearance and motion. Nontender with no deformity. No lesions are appreciated. Cardiovascular: Regular rate and rhythm with a normal S1 and S2. No gallops, murmurs, or rubs. Normal PMI, no JVD. No pulse deficits. Respiratory: Lungs have equal breath sounds bilaterally, clear to auscultation and percussion. No rales, rhonchi or wheezes noted. No increased work of breathing, no retractions or nasal flaring. Abdomen/GI: Soft, non-tender, with normal bowel sounds. No distension or tympany. No guarding or rebound. No evidence of tenderness throughout. Back: No spinal tenderness. No costovertebral tenderness. Full range of motion. Skin: Warm, dry with normal turgor. Normal color with no rashes, no lesions, and no evidence of cellulitis. MS/ Extremity: Pulses equal, no cyanosis. Neurovascular intact. Full, normal range of motion. Neuro: Awake and alert, GCS 15, oriented to person, place, time, and situation. Cranial nerves II-XII grossly intact. Motor strength 5/5 in all extremities. Sensory grossly intact. Cerebellar exam normal. Normal gait. Psych: Awake, alert, with orientation to person, place and time. Behavior, mood, and affect are within normal limits. Vital Signs: 05:01 BP 117 / 81; Pulse 91; Resp 16 S; Temp 98(O); Pulse Ox 97% on R/A; Weight 84.37 kg (R); bb Height 6 ft. 1 in. (185.42 cm) (R); 06:05 BP 134 / 81; Pulse 97; Resp 16; Temp 98.1; Pulse Ox 99% on R/A; rr5 06:57 BP 136 / 78; Pulse 102; Resp 16 S; Pulse Ox 98% on R/A; bb 05:01 Body Mass Index 24.54 (84.37 kg, 185.42 cm) bb [place] Coma Score: 05:00 Eye Response: spontaneous(4). Verbal Response: oriented(5). Motor Response: obeys rr5 commands(6). Total: 15. MDM: 06:45 Patient medically screened. kdr 06:46 Data reviewed: vital signs, nurses notes, lab test result(s), radiologic studies. kdr Counseling: I had a detailed discussion with the patient and/or guardian regarding: the historical points, exam findings, and any diagnostic results supporting the discharge/admit diagnosis, lab results, radiology results, the need for outpatient follow up. 11/29 04:53 Order name: Acetaminophen; Complete Time: 06:16 kdr 11/29 04:53 Order name: Basic Metabolic Panel; Complete Time: 06:16 kdr 11/29 04:53 Order name: CBC with Diff; Complete Time: 05:55 kdr 11/29 04:53 Order name: ETOH Level; Complete Time: 06:16 kdr 11/29 04:53 Order name: Hepatic Function; Complete Time: 06:16 kdr 11/29 04:53 Order name: PT-INR; Complete Time: 05:55 kdr 11/29 04:53 Order name: Ptt, Activated; Complete Time: 05:55 kdr 11/29 04:53 Order name: Salicylate; Complete Time: 06:16 kdr 11/29 04:53 Order name: Urine Drug Screen; Complete Time: 05:55 kdr 11/29 04:53 Order name: IV Saline Lock; Complete Time: 05:36 kdr 11/29 04:53 Order name: Dilantin; Complete Time: 06:16 kdr 11/29 04:53 Order name: CT Head Brain wo Cont kdr 11/29 05:21 Order name: Urine Dipstick--Ancillary (enter results); Complete Time: 05:55 mw2 11/29 04:53 Order name: Labs collected and sent; Complete Time: 05:36 kdr 11/29 04:53 Order name: Urine Dipstick-Ancillary (obtain specimen); Complete Time: 05:31 kdr Administered Medications: 06:35 Drug: Dilantin 500 mg Route: PO; rr5 06:56 Follow up: Response: No adverse reaction bb Disposition: 11/29/19 06:45 Discharged to Home. Impression: Epilepsy and recurrent seizures. - Condition is Stable. - Discharge Instructions: Seizure, Adult, [id number]. - Medication Reconciliation Form, Thank You Letter form. - Follow up: Private Physician; When: 2 - 3 days; Reason: If symptoms return, Further diagnostic work-up, Recheck today's complaints, Continuance of care, Re-evaluation by your physician. Follow up: Ha Fernandez MD; When: 2 - 3 days; Reason: If symptoms return, Further diagnostic work-up, Recheck today's complaints, Continuance of care, Re-evaluation by your physician. - Problem is an acute exacerbation. - Symptoms are resolved. - Notes: Continue with your current medications Signatures: Dispatcher [employer] EDLA Yoni Ching MD MD kdr Maren Canales, RN RN bb William Ochoa, RN RN rr5 Corrections: (The following items were deleted from the chart) 06:58 06:45 11/29/2019 06:45 Discharged to Home. Impression: Epilepsy and recurrent seizures. bb Condition is Stable. Forms are Medication Reconciliation Form, Thank You Letter, Antibiotic Education, Prescription Opioid Use. Follow up: Private Physician; When: 2 - 3 days; Reason: If symptoms return, Further diagnostic work-up, Recheck today's complaints, Continuance of care, Re-evaluation by your physician. Follow up: Ha Fernandez; When: 2 - 3 days; Reason: If symptoms return, Further diagnostic work-up, Recheck today's complaints, Continuance of care, Re-evaluation by your physician. Problem is an acute exacerbation. Symptoms are resolved. kdr
[2019-11-29 07:08] VITALS: TEMP 98.1
[2019-11-29 07:09] VITALS: BP 136/78; O2SAT 98
--- NOTE | 2019-12-01 13:15 | RAD REPORT ---
EXAM DESCRIPTION: CT Head Without Intravenous Contrast CLINICAL HISTORY: The patient is 23 years old and is Male; Confused;Syncope;Seizure TECHNIQUE: Axial computed tomography images of the head/brain without intravenous contrast. Sagitt al and coronal reformatted images were created and reviewed. This CT exam was performed using one o r more of the following dose reduction techniques: automated exposure control, adjustment of the mA and/or kV according to patient size, and/or use of iterative reconstruction technique. COMPARISON: No relevant prior studies available. FINDINGS: BRAIN: Unremarkable. The bonds-white matter differentiation is preserved . No hemorrhag e. No significant white matter disease. No edema. No extra-axial fluid collections. VENTRICLES: Unremarkable. No ventriculomegaly. BONES/JOINTS: No acute fracture. SOFT TISSUES: Unremarkable. SINUSES: Unremarkable as visualized. No acute sinusitis. MASTOID AIR CELLS: Unremarkable as visualized. No mastoid effusion. ORBITS: Unremarkable as visualized. IMPRESSION: No acute intracranial findings. Electronically signed by: Yessenia Poe MD 11/29/2019 6:12 AM CIRCULATION LIBRARIAN Due to temporary technical issues with the PACS/Fluency reporting system, reports are being signed by the in house radiologist as a courtesy to ensure prompt reporting. The interpreting radiologist is f ully responsible for the content of the report.
== END 2019-11-29 06:58 | disposition home or self-care (01) ==
LOC: ER 04:36
DX: G40.802 Other epilepsy, not intractable, without status epilepticus (principal); F17.220 Nicotine dependence, chewing tobacco, uncomplicated
CPT/HCPCS: 36415; 70450; 80048; 80076; 80185; 80307; 80320; 80329; 81003; 85025; 85610; 85730; 99284

== ENCOUNTER 2021-03-30 16:30 | Emergency (ER) | payer OTHER ==
--- OUTSIDE RECORDS SUMMARY | 2021-03-30 16:33 | XMS REPORT | Continuity of Care Document ---
:1995 Author Organization [facility] t Address [address] [place] [address] Care Team Providers Name Role Phone Doctor Unassigned, Name Attending Clinician Unavailable Niesha CUMMINGS, Gene Attending Clinician Jayce Epperson Attending Clinician Problems Condition Condition Condition Status Onset Resolution Last Treating Co mments Source Name Details Category Date Date Treatment Clinician Date G40.909 Diagnosis Active 2015-102016-09-19 Me moria -16 16:07:00 l G40.909 00:00: [place] 00 Active 09/13/2016 [facility] Seizure Problem Resolve 2016-09-22 Mem oria (finding) d 02:38:55 l Seizure Edgardo (finding) Resolved Problem 09/22/2016 [facility] Allergies, Adverse Reactions, Alerts This patient has no known allergies or adverse reactions. Social History Social Habit Start Date Stop Date Quantity Comments Source Social History 2016-09-20 2016-09-20 [facility] lety 05:59:00 05:59:00 Medications This patient has no known medications. Procedures Procedure Date / Time Performed Performing Clinician Sourc e CT brain w/o contrast [facility] lety EEG [facility] Encounters Start End Encounter Admission Attending Care Care Encounter Source Date/Time Date/Time Type Type Clinicians Facility Department ID 2020-09-28 2020-09-28 Orders Doctor CRAWFORD [id number] 00:00:00 00:00:00 Only Unassigned, ESTER [id number] [place] [facility] [id number] 2020-08-24 2020-08-24 Office Niesha TXCHEMO [id number] 15:09:23 16:20:08 Visit Shalom Duran [id number] Var[place] [id number] Marycruz [id number] [facility] 2016-09-19 2016-09-19 Outpatient Zhou [facility] [id number] 10:26:00 23:59:00 Afshin 00 Jayce Results This patient has no known results.
[2021-03-30 17:09] LABS: Absolute Lymphocytes (CBC) 0.8 K/uL (0.7-4.9); Basophils % 0.9 % (0-1.3); Hematocrit 45.7 % (39.6-49.0); MPV 8.4 fL (7.6-11.3); RBC Red Blood Cell Count 5.23 M/uL (4.33-5.43)
[2021-03-30 17:14] LABS: Protime INR 1.21
--- NOTE | 2021-03-30 17:24 | RAD REPORT ---
EXAM DESCRIPTION: CT - [id number] - 03/30/2021 5:01 pm CLINICAL HISTORY: fall and hit head, possible seizure COMPARISON: No comparisons TECHNIQUE: Axial 5 mm thick images of the head were obtained. Axial 2 mm thick images of the cervic al spine were obtained with sagittal and coronal reconstruction images generated and reviewed. All CT scans are performed using dose optimization technique as appropriate and may include automated exposure control or mA/KV adjustment according to patient size. FINDINGS: No intracranial hemorrhage, mass, edema or acute intracranial finding. No suspicion for ac vasquez infarction. No extra-axial fluid collections. Mastoid air cells and paranasal sinuses are clear. No globe or orbit abnormality seen. Cervical body height and alignment are normal. No disk space narrowing. No fracture or acute bony abn ormality. Central canal detail is inherently limited. No paraspinal mass or hematoma. IMPRESSION: Negative CT head examination for acute or significant finding. Negative CT cervical spine examination for acute or significant finding.
[2021-03-30] MEDS ORDERED: NA CHLORIDE 0.9% 1,000 ML ONE (17:38)
[2021-03-30 17:43] LABS: Urine Blood Negative (Negative); Urine Glucose Negative (Negative); Urine Protein Negative (Negative); Urine Specific Gravity 1.025 (1.005-1.030)
[2021-03-30 18:00] LABS: Barbiturates NEGATIVE (NEGATIVE); Benzodiazepines NEGATIVE (NEGATIVE); Cocaine NEGATIVE (NEGATIVE); METHAMPHETAM NEGATIVE (NEGATIVE); Methadone NEGATIVE (NEGATIVE); Opiates NEGATIVE (NEGATIVE); Phencyclidine NEGATIVE (NEGATIVE); THC Cannibis NEGATIVE (NEGATIVE)
[2021-03-30 18:09] LABS: ALT/SGPT 45 U/L (12-78); AST/SGOT 33 U/L (15-37); Albumin 3.8 g/dL (3.4-5.0); Alkaline Phosphatase 119 U/L (45-117); BUN Blood Urea Nitrogen 6 mg/dL (7-18); Bicarbonate 27 mmol/L (21-32); Bilirubin Direct < 0.1 mg/dL (0-0.2); Bilirubin Total 0.3 mg/dL (0.2-1.0); Glucose Level 90 mg/dL (74-106); Potassium 3.7 mmol/L (3.5-5.1); Protein, Total 8.2 g/dL (6.4-8.2); Sodium Level 139 mmol/L (136-145)
--- NOTE | 2021-03-30 20:21 | ER ---
Nurse's Notes [facility] Name: Mari Mercado Age: 25 yrs Sex: Male : 1995 Arrival Date: 03/30/2021 Time: 16:32 Bed 24 Private MD: Diagnosis: Epilepsy and recurrent seizures Presentation: 03/30 16:41 Chief complaint: EMS states: His mom dropped him at the police station reporting he's jl7 not acting right, possible seizure/ Pt reports having a seizure this morning and hitting his head on the concrete. Pt A\T\Ox1, to self only. Coronavirus screen: Client denies travel out of the [place] in the last 14 days. At this time, the client does not indicate any symptoms associated with coronavirus-19. Ebola Screen: No symptoms or risks identified at this time. Initial Sepsis Screen: Does the patient meet any 2 criteria? No. Patient's initial sepsis screen is negative. Does the patient have a suspected source of infection? No. Patient's initial sepsis screen is negative. Risk Assessment: Do you want to hurt yourself or someone else? Patient reports no desire to harm self or others. Onset of symptoms was March 30, 2021. Care prior to arrival: Glucose check: 100. 16:41 Method Of Arrival: EMS: [facility] [place] 16:41 Acuity: ERASMO 2 jl7 Triage Assessment: 16:46 General: Appears in no apparent distress. uncomfortable, Behavior is calm, cooperative. jl7 Pain: Complains of pain in right roman catholic Pain does not radiate. Unable to use pain scale. Does not appear to understand pain scale. Neuro: Level of Consciousness is awake, alert, obeys commands, Oriented to person. Cardiovascular: Patient's skin is warm and dry. Respiratory: Airway is patent Respiratory effort is even, unlabored, Respiratory pattern is regular, symmetrical. Derm: Skin is pink, warm \T\ dry. Historical: - Allergies: 16:46 NKA; jl7 - Home Meds: 16:46 Dilantin Oral 100 mg four times a day [Active]; Keppra 500 mg Oral tab 3 tabs 2 times jl7 per day [Active]; - PMHx: 16:46 Seizures; jl7 - PSHx: 16:46 None; jl7 - Immunization history:: Adult Immunizations unknown. - Social history:: Smoking status: Patient reports use of chewing tobacco. Patient/guardian denies using alcohol, street drugs. Screenin:59 Abuse screen: Denies threats or abuse. Denies injuries from another. Nutritional jl7 screening: No deficits noted. Tuberculosis screening: No symptoms or risk factors identified. Fall Risk IV access (20 points). Mental Status- Overestimates/Forgets Limitations (15 pts.). Total Wilson Fall Scale indicates Low Risk Score (25-44 pts). Fall prevention measures have been instituted. Side Rails Up X 2 Placed close to Nursing Station Frequent Obs/Assesments occuring As available Patient and Family Educated on Fall Prevention Program and strategies. Assessment: 16:59 General: See triage assessment. jl7 19:11 Reassessment: Patient and/or family updated on plan of care and expected duration. Pain cr4 level reassessed. Pain: Denies pain. Neuro: Level of Consciousness is awake, alert, obeys commands, Oriented to person, place, patient knows it is Sunday nut does not know month.. Handkerchief Folder are equal bilaterally. Neuro: Denies light sinsitivity.. Neuro: Moves all extremities. Speech slow to respond to questions.. Respiratory: Airway is patent Respiratory effort is even, unlabored. EENT: full of chewing tobacco, had the patient spit it out.. 20:35 Reassessment: No changes from previously documented assessment. Patient and/or family cr4 updated on plan of care and expected duration. Pain level reassessed. Patient states feeling better. patient stated PgaePa was going to dc him. family called to pick him up.. Vital Signs: 16:41 BP 142 / 94; Pulse 86; Resp 15 S; Temp 98.7(O); Pulse Ox 99% on R/A; jl7 17:57 BP 119 / 71; Pulse 90; Resp 19; Pulse Ox 100% on R/A; ap3 18:46 BP 118 / 76; Pulse 82; Resp 19; Pulse Ox 100% on R/A; ap3 19:15 BP 136 / 79; Pulse 77; Resp 16; Temp 98.7; Pulse Ox 100% ; Pain 0/10; cr4 20:30 BP 131 / 82; Pulse 83; Resp 16; Temp 98.4; Pulse Ox 96% ; Pain 0/10; cr4 Koko Coma Score: 16:46 Eye Response: to voice(3). Verbal Response: confused(4). Motor Response: obeys jl7 commands(6). Total: 13. ED Course: 16:32 Patient arrived in ED. ds1 16:33 Elroy Barron PA is PHCP. cp 16:33 Ralph Brink MD is Attending Physician. cp 16:41 Kal Francis, RN is Primary Nurse. jl7 16:45 Triage completed. jl7 16:46 Arm band placed on right wrist. jl7 16:59 Patient has correct armband on for positive identification. Bed in low position. Call jl7 light in reach. Side rails up X2. Seizure precautions initiated. alarm security or surveillance monitor on. Pulse ox on. NIBP on. 16:59 Initial lab(s) drawn, by me, sent to lab. Maintain EMS IV. Dressing intact. Good blood jl7 return noted. Site clean \T\ dry. Gauge \T\ site: 20 left FA. 17:01 CT Head C Spine In Process Unspecified. EDMS 17:30 Urine collected: clean catch specimen, cloudy, EKG done, by ED staff, reviewed by Elroy ARAUJO. 18:02 Basic Metabolic Panel Sent. jl7 18:02 Acetaminophen Sent. jl7 18:02 Dilantin Sent. jl7 19:21 Primary Nurse role handed off by Kal Francis, RN cr4 19:21 Cora White, RN is Primary Nurse. cr4 20:20 Ha Fernandez MD is Referral Physician. cp 20:46 No provider procedures requiring assistance completed. IV discontinued, intact, cr4 bleeding controlled, No redness/swelling at site. Administered Medications: 07:15 Drug: NS 0.9% 1000 ml Route: IV; Rate: 1 bolus; Site: left forearm; jl7 18:01 Follow up: Response: No adverse reaction; IV Status: Completed infusion; IV Intake: jl7 1000ml 19:25 Follow up: IV Status: Completed infusion; IV Intake: 1000ml cr4 Intake: 18:01 IV: 1000ml; Total: 1000ml. jl7 19:25 IV: 1000ml; Total: 2000ml. cr4 Outcome: 20:20 Discharge ordered by . cp 20:40 Patient left the ED. cr4 20:50 Discharge instructions given to patient, Instructed on discharge instructions, follow cr4 up and referral plans. Demonstrated understanding of instructions, follow-up care. 21:08 Discharged to home via wheelchair, with family. cr4 21:08 Condition: stable Signatures: Dispatcher [employer] EDTN Jeni Hummel ds1 Cora White RN RN cr4 Elroy Barron PA PA cp Leal, Jahala RN RN jl7 Tatianna Hooker RN RN ap3 Corrections: (The following items were deleted from the chart) 17:01 16:46 Pain: Denies pain. talat jl7
--- NOTE | 2021-03-30 20:21 | EDPHYS ---
Physician Documentation [facility] Name: Mari Mercado Age: 25 yrs Sex: Male : 1995 Arrival Date: 03/30/2021 Time: 16:32 Bed 24 Private MD: ED Physician Ralph Brink HPI: 03/30 16:50 This 25 yrs old Black Male presents to ER via EMS with complaints of Possibe Seizure. cp 16:50 The patient presents after having a possible seizure episode, generalized shaking. cp 16:50 Seizure onset: today. cp 16:50 Seizure Hx: Usual frequency: unknown, Seizure medications: Keppra, Dilantin. Associated cp injury: The patient did not suffer any apparent associated injury. Current symptoms: confusion. Historical: - Allergies: 16:46 NKA; jl7 - Home Meds: 16:46 Dilantin Oral 100 mg four times a day [Active]; Keppra 500 mg Oral tab 3 tabs 2 times jl7 per day [Active]; - PMHx: 16:46 Seizures; jl7 - PSHx: 16:46 None; jl7 - Immunization history:: Adult Immunizations unknown. - Social history:: Smoking status: Patient reports use of chewing tobacco. Patient/guardian denies using alcohol, street drugs. ROS: 16:55 Constitutional: Negative for fever. cp 16:55 Unable to obtain ROS due to altered mental status. cp Exam: 17:00 Constitutional: The patient appears in no acute distress, alert, awake, cp non-diaphoretic, non-toxic, well developed, well nourished. 17:00 Head/Face: Normocephalic, atraumatic. cp 17:00 Eyes: Periorbital structures: appear normal, Pupils: equal, round, and reactive to light and accomodation, Conjunctiva: normal, no exudate, no injection, Sclera: no appreciated abnormality, Lids and lashes: appear normal, bilaterally. 17:00 ENT: External ear(s): are unremarkable, Nose: is normal, Mouth: Lips: moist, Oral mucosa: moist, Posterior pharynx: Airway: no evidence of obstruction, patent. 17:00 Neck: C-spine: vertebral tenderness, is not appreciated, crepitus, is not appreciated. 17:00 Chest/axilla: Inspection: normal, Palpation: is normal, no crepitus, no tenderness. 17:00 Cardiovascular: Rate: normal, Rhythm: regular. 17:00 Respiratory: the patient does not display signs of respiratory distress, Respirations: normal, no use of accessory muscles, no retractions, labored breathing, is not present, Breath sounds: are clear throughout, no decreased breath sounds. 17:00 Abdomen/GI: Inspection: abdomen appears normal, Palpation: abdomen is soft and non-tender, in all quadrants. 17:00 Musculoskeletal/extremity: Exam is negative for decreased range of motion, deformity, injury. 17:00 Neuro: Orientation: to person, Mentation: slow to respond, confused. 17:33 ECG was reviewed by the Attending Physician. cp Vital Signs: 16:41 BP 142 / 94; Pulse 86; Resp 15 S; Temp 98.7(O); Pulse Ox 99% on R/A; jl7 17:57 BP 119 / 71; Pulse 90; Resp 19; Pulse Ox 100% on R/A; ap3 18:46 BP 118 / 76; Pulse 82; Resp 19; Pulse Ox 100% on R/A; ap3 19:15 BP 136 / 79; Pulse 77; Resp 16; Temp 98.7; Pulse Ox 100% ; Pain 0/10; cr4 20:30 BP 131 / 82; Pulse 83; Resp 16; Temp 98.4; Pulse Ox 96% ; Pain 0/10; cr4 Koko Coma Score: 16:46 Eye Response: to voice(3). Verbal Response: confused(4). Motor Response: obeys jl7 commands(6). Total: 13. MDM: 16:35 Patient medically screened. cp 20:20 Data reviewed: vital signs, nurses notes, lab test result(s), EKG, radiologic studies, cp CT scan, and as a result, I will discharge patient. 20:20 Counseling: I had a detailed discussion with the patient and/or guardian regarding: the cp historical points, exam findings, and any diagnostic results supporting the discharge/admit diagnosis, lab results, radiology results, to return to the emergency department if symptoms worsen or persist or if there are any questions or concerns that arise at home. 20:20 ED course: VSS. Patient alert times 3 and resting comfortably in exam room. No seizure cp activity observed while monitoring patient in ED. Will discharge to home for continued monitoring. 03/30 16:42 Order name: Acetaminophen cp 03/30 16:42 Order name: Basic Metabolic Panel cp 03/30 16:42 Order name: CBC with Diff; Complete Time: 17:31 cp /02 19:03 Interpretation: Reviewed. cp 03/30 16:42 Order name: ETOH Level; Complete Time: 17:31 cp 03/30 16:42 Order name: Hepatic Function; Complete Time: 19:01 cp /02 19:03 Interpretation: Normal except: ALK 119; GLOB 4.4; A/G 0.9. cp / 16:42 Order name: PT-INR; Complete Time: 17:31 cp 02 16:42 Order name: Ptt, Activated; Complete Time: 17:31 cp 03/30 16:42 Order name: Salicylate; Complete Time: 17:31 cp 03/30 16:42 Order name: Urine Drug Screen; Complete Time: 19:01 cp 03/30 16:42 Order name: Acetaminophen Level; Complete Time: 19:01 EDMS / 16:42 Order name: Basic Metabolic Panel; Complete Time: 19:01 EDMS /02 19:20 Interpretation: Normal except: BUN 6. cp 03/30 16:54 Order name: Dilantin cp 03/30 16:55 Order name: Phenytoin (Dilantin) Level; Complete Time: 20:17 EDMS /02 17:43 Order name: Urine Dipstick-Ancillary; Complete Time: 19:01 EDMS 02 16:42 Order name: EKG; Complete Time: 16:42 cp 03/30 16:42 Order name: EKG - Nurse/Tech; Complete Time: 18:02 cp 03/30 16:42 Order name: IV Saline Lock; Complete Time: 16:58 cp 03/30 16:42 Order name: Labs collected and sent; Complete Time: 16:58 cp 03/30 16:42 Order name: Suicide Screening (Stewart); Complete Time: 16:58 cp 03/30 16:42 Order name: Urine Dipstick-Ancillary (obtain specimen); Complete Time: 18:23 cp 03/30 16:42 Order name: CT Head C Spine; Complete Time: 17:31 cp 03/30 17:31 Interpretation: Reviewed report. cp EC:33 Rate is 82 beats/min. Rhythm is regular. OH interval is normal. QRS interval is normal. cp QT interval is normal. T waves are Inverted in lead aVR. Interpreted by me. Reviewed by me. Administered Medications: 07:15 Drug: NS 0.9% 1000 ml Route: IV; Rate: 1 bolus; Site: left forearm; jl7 18:01 Follow up: Response: No adverse reaction; IV Status: Completed infusion; IV Intake: jl7 1000ml 19:25 Follow up: IV Status: Completed infusion; IV Intake: 1000ml cr4 Disposition: 20:45 Chart complete. cp Disposition: 03/30/21 20:20 Discharged to Home. Impression: Epilepsy and recurrent seizures. - Condition is Stable. - Discharge Instructions: Seizure, Adult. - Medication Reconciliation Form, Thank You Letter, Antibiotic Education, Prescription Opioid Use form. - Follow up: Ha Fernandez MD; When: 2 - 3 days; Reason: Recheck today's complaints. - Problem is an ongoing problem. - Symptoms have improved. Signatures: Dispatcher [employer] EDCora Sunshine, RN RN cr4 Elroy Barron PA PA cp Leal, Jahala, RN RN jl7 Corrections: (The following items were deleted from the chart) 20:40 20:20 03/30/2021 20:20 Discharged to Home. Impression: Epilepsy and recurrent seizures. cr4 Condition is Stable. Forms are Medication Reconciliation Form, Thank You Letter, Antibiotic Education, Prescription Opioid Use. Follow up: Ha Fernandez; When: 2 - 3 days; Reason: Recheck today's complaints. Problem is an ongoing problem. Symptoms have improved. cp
[2021-03-30 20:47] VITALS: TEMP 98.7
[2021-03-30 20:49] VITALS: O2SAT 100
[2021-03-30 20:52] VITALS: BP 136/79
--- NOTE | 2021-03-31 07:51 | EKG ---
Test Date: 2021-03-30 Test Time: 17:27:11 Precision Devices Inspector/Tester: JERSON MEASUREMENT RESULTS: Intervals: Rate: 82 OR: 134 QRSD: 90 QT: 368 QTc: 429 [place]: P: 78 OR: 134 QRS: 79 T: 61 INTERPRETIVE STATEMENTS: Normal sinus rhythm with sinus arrhythmia Normal ECG Compared to ECG 06/14/2018 02:32:06 No significant changes Electronically Signed On 03-31-21 07:50:28 CDT by Billy Valle
== END 2021-03-30 20:40 | disposition home or self-care (01) ==
LOC: ER 16:30
DX: G40.802 Other epilepsy, not intractable, without status epilepticus (principal)
CPT/HCPCS: 85025; 80048; 36415; 80320; 80329 ×2; 85610; 80076; 80307 ×8; 85730; 80185; 81003; 70450; 72125; J7030; 93005; 96360; 96361; 99284

== ENCOUNTER 2021-05-24 23:55 | Emergency (ER) | payer OTHER, SELFPAY ==
--- OUTSIDE RECORDS SUMMARY | 2021-05-24 23:58 | XMS REPORT | Continuity of Care Document ---
:1995 Author Organization [facility] t Address [address] [place] [address] Care Team Providers Name Role Phone Doctor Unassigned, Name Attending Clinician Unavailable Niesha CUMMINGS, Gene Attending Clinician Jayce Epperson Attending Clinician Problems Condition Condition Condition Status Onset Resolution Last Treating Co mments Source Name Details Category Date Date Treatment Clinician Date G40.909 Diagnosis Active 2015-102016-09-19 Me moria 16 16:07:00 l G40.909 00:00: Fitz[place]ugh 00 Active 09/13/2016 [facility] Seizure Problem Resolve 2016-09-22 Mem oria (finding) d 02:38:55 l Seizure Fitzhugh (finding) Resolved Problem 09/22/2016 [facility] Allergies, Adverse Reactions, Alerts This patient has no known allergies or adverse reactions. Social History Social Habit Start Date Stop Date Quantity Comments Source Social History 2016-09-20 2016-09-20 [facility] lety 05:59:00 05:59:00 Medications This patient has no known medications. Procedures Procedure Date / Time Performed Performing Clinician Sourc e CT brain w/o contrast [facility] lety EEG [facility] Encounters Start End Encounter Admission Attending Care Care Encounter Source Date/Time Date/Time Type Type Clinicians Facility Department ID 2020-09-28 2020-09-28 Orders Doctor CRAWFORD [id number] 00:00:00 00:00:00 Only Unassigned, ESTER [id number] [place] [facility] [id number] 2020-08-24 2020-08-24 Office Niesha [facility] [id number] 15:09:23 16:20:08 Visit Shalom Fei Duran [id number] Varun [id number] Marycruz [id number] [facility] 2016-09-19 2016-09-19 [facility] [id number] 10:26:00 23:59:00 Afshin 00 Jayce Results This patient has no known results.
[2021-05-25 00:11] LABS: Urine Blood Negative (Negative); Urine Glucose Negative (Negative); Urine Protein 2+ (Negative); Urine Specific Gravity >=1.030 (1.005-1.030)
[2021-05-25 00:49] LABS: Absolute Lymphocytes (CBC) 0.9 K/uL (0.7-4.9); Basophils % 0.7 % (0-1.3); Hematocrit 44.5 % (39.6-49.0); Lymphocytes % 10.8 % (15.3-44.8); MPV 8.8 fL (7.6-11.3); RBC Red Blood Cell Count 5.03 M/uL (4.33-5.43)
[2021-05-25 00:50] LABS: Protime INR 1.33
[2021-05-25 01:00] LABS: Barbiturates NEGATIVE (NEGATIVE); Benzodiazepines NEGATIVE (NEGATIVE); Cocaine NEGATIVE (NEGATIVE); METHAMPHETAM NEGATIVE (NEGATIVE); Methadone NEGATIVE (NEGATIVE); Opiates NEGATIVE (NEGATIVE); Phencyclidine NEGATIVE (NEGATIVE); THC Cannibis NEGATIVE (NEGATIVE)
[2021-05-25 01:23] LABS: ALT/SGPT 47 U/L (12-78); AST/SGOT 82 U/L (15-37); Alkaline Phosphatase 83 U/L (45-117); BUN Blood Urea Nitrogen 7 mg/dL (7-18); Bicarbonate 22 mmol/L (21-32); Bilirubin Direct 0.1 mg/dL (0-0.2); Bilirubin Total 0.4 mg/dL (0.2-1.0); Glucose Level 99 mg/dL (74-106); Potassium 3.2 mmol/L (3.5-5.1); Protein, Total 8.1 g/dL (6.4-8.2); Sodium Level 142 mmol/L (136-145)
--- NOTE | 2021-05-25 04:54 | ER ---
Nurse's Notes [facility] Name: Mari Mercado Age: 25 yrs Sex: Male : 1995 Arrival Date: 05/24/2021 Time: 23:57 Bed 3 Private MD: Diagnosis: Delusional disorders Presentation: 05/25 00:10 Coronavirus screen: At this time, the client does not indicate any symptoms associated ea with coronavirus-19. Ebola Screen: No symptoms or risks identified at this time. Initial Sepsis Screen: Does the patient meet any 2 criteria? No. Patient's initial sepsis screen is negative. Does the patient have a suspected source of infection? No. Patient's initial sepsis screen is negative. Risk Assessment: Do you want to hurt yourself or someone else? Patient reports no desire to harm self or others. Onset of symptoms was May 25, 2021. 00:10 Acuity: ERASMO 3 ea 00:10 Method Of Arrival: EMS: [facility] ea 00:10 Chief complaint: EMS states: called out for delirium, pt was found out on the road em being combative and hitting himself with a stick, was restrained and given 300 mg ketamine IM, mental health deputy at bedside with DAT. Coronavirus screen: Client denies travel out of the [place] in the last 14 days. Ebola Screen: Patient negative for fever greater than or equal to 101.5 degrees Fahrenheit, and additional compatible Ebola Virus Disease symptoms Patient denies exposure to infectious person. Patient denies travel to an Ebola-affected area in the 21 days before illness onset. No symptoms or risks identified at this time. Onset of symptoms was May 25, 2021. 00:10 Method Of Arrival: EMS: [facility] em 00:10 Acuity: ERASMO 3 em Historical: - Allergies: 00:14 NKA; ea - Home Meds: 00:14 Dilantin Oral 100 mg four times a day [Active]; Keppra 500 mg Oral tab 3 tabs 2 times ea per day [Active]; - PMHx: 00:14 Seizures; ea - Immunization history:: Adult Immunizations unknown. - Social history:: Patient/guardian denies using alcohol, street drugs, The patient lives with family, Smoking status: unknown. - Family history:: not pertinent. Screenin:10 Abuse screen: Denies threats or abuse. Nutritional screening: No deficits noted. ea Tuberculosis screening: No symptoms or risk factors identified. Fall Risk None identified. Assessment: 00:50 General: Appears in no apparent distress. Behavior is sedated . Pain: Unable to use ea pain scale. FLACC scale score is 0 out of 10. Neuro: Level of Consciousness is unresponsive. Respiratory: Airway is patent Respiratory effort is even, unlabored, Respiratory pattern is regular, symmetrical. Derm: Skin is pink, warm \T\ dry. 01:00 Reassessment: Resting with eyes closed, respirations even and unlabored, chest ea expansions even and unlabored. 02:00 Reassessment: Patient and/or family updated on plan of care and expected duration. Pain ea level reassessed. Resting with eyes closed, respirations even and unlabored, chest expansions even and unlabored. 03:30 Reassessment: Patient and/or family updated on plan of care and expected duration. Pain ea level reassessed. Resting with eyes closed, respirations even and unlabored, chest expansions even and unlabored. 05:14 Reassessment: Patient and/or family updated on plan of care and expected duration. Pain ea level reassessed. Patient is alert, oriented x 3, equal unlabored respirations, skin warm/dry/pink. Awaiting on family to call back for transportation back home. Vital Signs: 00:10 BP 147 / 99; Pulse 126; Resp 16; Temp 100(TE); Pulse Ox 100% ; ea 00:49 BP 152 / 106; Pulse 106; Resp 19; Pulse Ox 100% ; ea 01:00 BP 156 / 94; Pulse 99; Resp 18; Pulse Ox 99% ; ea 02:30 BP 151 / 90; Pulse 90; Resp 18; Pulse Ox 98% ; ea 05:16 BP 150 / 85; Pulse 89; Resp 18; Pulse Ox 98% ; ea ED Course: 05/24 23:57 Patient arrived in ED. mw2 23:57 Brandy Covington MD is Attending Physician. ma2 05/25 00:09 Sandhya Galaviz RN is Primary Nurse. ea 00:10 Patient has correct armband on for positive identification. Placed in gown. Bed in low ea position. Call light in reach. Side rails up X2. 00:13 Triage completed. ea 00:13 Arm band placed on right wrist. Patient placed on a stretcher, on playground monitor. ea 00:13 No provider procedures requiring assistance completed. Maintain EMS IV. Dressing ea intact. Good blood return noted. Site clean \T\ dry. Gauge \T\ site: 18G to right forearm . 00:28 CT Head Brain wo Cont In Process Unspecified. EDMS 05:16 IV discontinued, intact, bleeding controlled, No redness/swelling at site. Pressure ea dressing applied. Administered Medications: No medications were administered Outcome: 04:53 Discharge ordered by MD. moore 05:18 Discharge instructions given to patient, Instructed on discharge instructions, follow ea up and referral plans. Demonstrated understanding of instructions, follow-up care. 05:24 Discharged to home ambulatory. ea 05:24 Condition: stable 05:24 Patient left the ED. ea Signatures: Dispatcher [employer] Anthony Greene RN Sandhya Dowling RN RN ea Alzahri, Mohammad, MD MD ma2 Norma Bella [facility]
--- NOTE | 2021-05-25 04:54 | EDPHYS ---
Physician Documentation [facility] Name: Mari Mercado Age: 25 yrs Sex: Male : 1995 Arrival Date: 05/24/2021 Time: 23:57 Bed 3 Private MD: ED Physician Brandy Covington HPI: 05/25 00:01 This 25 yrs old Black Male presents to ER via Unassigned with complaints of ma2 intoxication. 00:01 Patient was incoherent delirious, he was combative in the streets, under police ma2 custody, possible intoxication, given ketamine by EMS. For sedation. Onset: The symptoms/episode began/occurred. Severity of symptoms: At their worst the symptoms were severe in the emergency department the symptoms have improved. Severity of symptoms:. The patient has experienced similar episodes in the past. Historical: - Allergies: 00:14 NKA; ea - Home Meds: 00:14 Dilantin Oral 100 mg four times a day [Active]; Keppra 500 mg Oral tab 3 tabs 2 times ea per day [Active]; - PMHx: 00:14 Seizures; ea - Immunization history:: Adult Immunizations unknown. - Social history:: Patient/guardian denies using alcohol, street drugs, The patient lives with family, Smoking status: unknown. - Family history:: not pertinent. ROS: 00:01 Unable to obtain ROS due to altered mental status. ma2 04:53 Constitutional: Negative for fever, chills, and weight loss. ma2 Exam: 00:01 Constitutional: This is a well developed, well nourished patient who is awake, alert, ma2 and in no acute distress. Head/Face: Normocephalic, atraumatic. Eyes: Pupils equal round and reactive to light, extra-ocular motions intact. Lids and lashes normal. Conjunctiva and sclera are non-icteric and not injected. Cornea within normal limits. Periorbital areas with no swelling, redness, or edema. ENT: Nares patent. No nasal discharge, no septal abnormalities noted. Tympanic membranes are normal and external auditory canals are clear. Oropharynx with no redness, swelling, or masses, exudates, or evidence of obstruction, uvula midline. Mucous membranes moist. Neck: Trachea midline, no thyromegaly or masses palpated, and no cervical lymphadenopathy. Supple, full range of motion without nuchal rigidity, or vertebral point tenderness. No Meningismus. Chest/axilla: Normal chest wall appearance and motion. Nontender with no deformity. No lesions are appreciated. Cardiovascular: Regular rate and rhythm with a normal S1 and S2. No gallops, murmurs, or rubs. Normal PMI, no JVD. No pulse deficits. Respiratory: Lungs have equal breath sounds bilaterally, clear to auscultation and percussion. No rales, rhonchi or wheezes noted. No increased work of breathing, no retractions or nasal flaring. Abdomen/GI: Soft, non-tender, with normal bowel sounds. No distension or tympany. No guarding or rebound. No evidence of tenderness throughout. Skin: Warm, dry with normal turgor. Normal color with no rashes, no lesions, and no evidence of cellulitis. MS/ Extremity: Pulses equal, no cyanosis. Neurovascular intact. Full, normal range of motion. 00:01 Neuro: Moving all extremities, otherwise unable to assess due to sedation. 00:01 Psych: Unable to assess because patient is sedated. Vital Signs: 00:10 BP 147 / 99; Pulse 126; Resp 16; Temp 100(TE); Pulse Ox 100% ; ea 00:49 BP 152 / 106; Pulse 106; Resp 19; Pulse Ox 100% ; ea 01:00 BP 156 / 94; Pulse 99; Resp 18; Pulse Ox 99% ; ea 02:30 BP 151 / 90; Pulse 90; Resp 18; Pulse Ox 98% ; ea 05:16 BP 150 / 85; Pulse 89; Resp 18; Pulse Ox 98% ; ea MDM: 05/24 23:57 Patient medically screened. [facility] 05/25 04:52 Differential Diagnosis altered mental status, sepsis, flu. Data reviewed: vital signs, il2 nurses notes. Counseling: I had a detailed discussion with the patient and/or guardian regarding: the historical points, exam findings, and any diagnostic results supporting the discharge/admit diagnosis, the presence of at least one elevated blood pressure reading (>120/80) during this emergency department visit, the need for outpatient follow up. Response to treatment: the patient's symptoms have markedly improved after treatment. 05/24 23:58 Order name: Acetaminophen ma 05/24 23:58 Order name: Basic Metabolic Panel il05/24 23:58 Order name: CBC with Diff [facility] 05/24 23:58 Order name: ETOH Level; Complete Time: 04:30 [facility] 05/24 23:58 Order name: Hepatic Function; Complete Time: 04:30 05/24 23:58 Order name: PT-INR; Complete Time: 04:30 il05/24 23:58 Order name: Ptt, Activated; Complete Time: 04:30 05/24 23:58 Order name: Salicylate; Complete Time: 04:30 05/24 23:58 Order name: Urine Drug Screen; Complete Time: 04:30 05/24 23:58 Order name: Acetaminophen Level; Complete Time: 04:30 EDMS 05/24 23:58 Order name: Basic Metabolic Panel; Complete Time: 04:30 EDMS 05/24 23:58 Order name: CBC with Automated Diff; Complete Time: 04:30 EDMS 05/25 00:06 Order name: Dilantin; Complete Time: 04:30 05/25 00:11 Order name: Urine Dipstick-Ancillary; Complete Time: 04:30 EDMS 05/24 23:58 Order name: EKG; Complete Time: 23:58 05/24 23:58 Order name: EKG - Nurse/Tech; Complete Time: 00:09 05/24 23:58 Order name: IV Saline Lock; Complete Time: 00:09 05/24 23:58 Order name: Labs collected and sent; Complete Time: 00:09 il05/24 23:58 Order name: Urine Dipstick-Ancillary (obtain specimen); Complete Time: 00:09 05/25 00:06 Order name: CT Head Brain wo Cont ma2 Administered Medications: No medications were administered Disposition Summary: 05/25/21 04:53 Discharge Ordered Location: Home ma2 Condition: Stable ma2 Diagnosis - Delusional disorders ma2 Followup: ma2 - With: Private Physician - When: Tomorrow - Reason: Continuance of care Discharge Instructions: - Discharge Summary Sheet ma2 - Psychosis ma2 Forms: - Medication Reconciliation Form ma2 - Thank You Letter ma2 - Antibiotic Education ma2 - Prescription Opioid Use ma2 Signatures: Dispatcher [employer] Sandhya Shultz RN RN ea Brandy Covington, MD ma2
--- NOTE | 2021-05-25 11:27 | RAD REPORT ---
EXAM DESCRIPTION: Head Brain Wo Cont CLINICAL HISTORY: 25 years Male CONFUSED COMPARISON: March 30, 2021 TECHNIQUE: Images were obtained in axial, sagittal, and coronal planes. This exam was performed according to our departmental dose-optimization program which includes use of Automated Exposure Control, adjustment of the mA and/or kV according to patient size and/or use o f iterative reconstruction technique. FINDINGS: Ventricular system appears normal. No abnormal areas of increased attenuation seen. No extra-axial fluid collections noted. No evidence for skull fracture. Symmetric aeration mastoid air cells bilaterally. Unremarkable parana trey sinuses. IMPRESSION: No acute intracranial abnormality. No evidence for hemorrhage, mass lesion, or large acu te infarction. Electronically signed by: Geetha Vidal MD 05/25/2021 12:51 AM CDT Due to temporary technical issues with the PACS/Fluency reporting system, reports are being signed by the in house radiologist without review as a courtesy to ensure prompt reporting. The interpreting r adiologist is fully responsible for the content of the report.
[2021-05-26 07:13] VITALS: TEMP 100
[2021-05-26 07:18] VITALS: O2SAT 98
[2021-05-26 07:20] VITALS: BP 150/85
--- NOTE | 2021-05-26 07:32 | EKG ---
Test Date: 2021-05-25 Test Time: 00:03:41 Smudger: NIDHI MEASUREMENT RESULTS: Intervals: Rate: 124 AL: 134 QRSD: 84 QT: 314 QTc: 451 [place]: P: 79 AL: 134 QRS: 80 T: 40 INTERPRETIVE STATEMENTS: Sinus tachycardia Right atrial enlargement Borderline ECG Compared to ECG 03/30/2021 17:27:11 Atrial abnormality now present Sinus rhythm no longer present Sinus arrhythmia no longer present Electronically Signed On 05-26-21 07:28:46 CDT by Billy Valle
== END 2021-05-25 05:24 | disposition home or self-care (01) ==
LOC: ER 23:55
DX: F22 Delusional disorders (principal); G40.909 Epilepsy, unspecified, not intractable, without status epilepticus
CPT/HCPCS: 36415; 70450; 80048; 80076; 80185; 80307; 80320; 80329; 81003; 85025; 85610; 85730; 93005; 99283

== ENCOUNTER 2021-05-28 05:35 | Emergency (ER) | payer SELFPAY ==
--- OUTSIDE RECORDS SUMMARY | 2021-05-28 05:38 | XMS REPORT | Continuity of Care Document ---
:1995 Author Organization [facility] t Address [address] [place] [address] Care Team Providers Name Role Phone Doctor Unassigned, Name Attending Clinician Unavailable Niesha CUMMINGS, Gene Attending Clinician Jayce Epperson Attending Clinician Problems Condition Condition Condition Status Onset Resolution Last Treating Co mments Source Name Details Category Date Date Treatment Clinician Date G40.909 Diagnosis Active 2015-102016-09-19 Me moria 16 16:07:00 l G40.909 00:00: Edgardo 00 Active 09/13/2016 [facility] Seizure Problem Resolve 2016-09-22 Mem oria (finding) d 02:38:55 l Seizure [place] (finding) Resolved Problem 09/22/2016 [facility] Allergies, Adverse Reactions, Alerts This patient has no known allergies or adverse reactions. Social History Social Habit Start Date Stop Date Quantity Comments Source Social History 2016-09-20 2016-09-20 [facility] ltey 05:59:00 05:59:00 Medications This patient has no known medications. Procedures Procedure Date / Time Performed Performing Clinician Sourc e CT brain w/o contrast [facility] EEG [facility] Encounters Start End Encounter Admission Attending Care Care Encounter Source Date/Time Date/Time Type Type Clinicians Facility Department ID 2020-09-28 2020-09-28 Orders Doctor CRAWFORD [id number] 31 00:00:00 00:00:00 Only UnassignedESTER [id number] [place] [facility] [id number] 2020-08-24 2020-08-24 Office Niesha RHINA [id number] 15:09:23 16:20:08 Visit Shalom Fei Duran [id number] [place] [id number] [place] [id number] [facility] 2016-09-19 2016-09-19 [facility] [id number] 10:26:00 23:59:00 Afshin 00 Jayce Results This patient has no known results.
--- NOTE | 2021-05-28 06:21 | ER ---
Nurse's Notes [facility] Name: Mari Mercado Age: 25 yrs Sex: Male : 1995 Arrival Date: 05/28/2021 Time: 05:38 Bed 4 Private MD: Diagnosis: Fall (on)(from) sidewalk curb Presentation: 05/28 05:42 Chief complaint: EMS states: Pt was found on the side of the road sleeping by ea bystanders PD at scene reported pt was not answering questions appropriately. Coronavirus screen: At this time, the client does not indicate any symptoms associated with coronavirus-19. Ebola Screen: No symptoms or risks identified at this time. Initial Sepsis Screen: Does the patient meet any 2 criteria? No. Patient's initial sepsis screen is negative. Does the patient have a suspected source of infection? No. Patient's initial sepsis screen is negative. Risk Assessment: Do you want to hurt yourself or someone else? Patient reports no desire to harm self or others. Onset of symptoms was May 28, 2021. 05:42 Acuity: ERASMO 3 ea 05:42 Method Of Arrival: EMS: [facility] ea Historical: - Allergies: 05:46 NKA; ea - Home Meds: 05:46 Dilantin Oral 100 mg four times a day [Active]; Keppra 500 mg Oral tab 3 tabs 2 times ea per day [Active]; - PMHx: 05:46 Seizures; ea - Immunization history:: Adult Immunizations up to date. - Social history:: Smoking status: Patient denies any tobacco usage or history of. Screenin:41 Abuse screen: Denies threats or abuse. Nutritional screening: No deficits noted. ea Tuberculosis screening: No symptoms or risk factors identified. Fall Risk None identified. Assessment: 05:47 General: Appears in no apparent distress. Behavior is calm, cooperative, appropriate ea for age. Pain: Denies pain. Neuro: Level of Consciousness is awake, alert, obeys commands, Oriented to person, place. Cardiovascular: Patient's skin is warm and dry. Respiratory: Airway is patent Respiratory effort is even, unlabored, Respiratory pattern is regular, symmetrical. Derm: Skin is pink, warm \T\ dry. Vital Signs: 05:42 BP 135 / 84; Pulse 98; Resp 18; Temp 98; Pulse Ox 98% ; Weight 77.11 kg; Height 6 ft. 2 ea in. (187.96 cm); 05:42 Body Mass Index 21.83 (77.11 kg, 187.96 cm) ea ED Course: 05:38 Patient arrived in ED. mw2 05:46 Triage completed. ea 05:46 Arm band placed on right wrist. Patient placed in an exam room, on a stretcher, on ea pulse oximetry. 05:46 Patient has correct armband on for positive identification. Bed in low position. Call ea light in reach. 05:47 Maintain EMS IV. Dressing intact. Good blood return noted. Site clean \T\ dry. Gauge \T\ ea site: 18G RAC. 06:11 Fernando Grayson PA is PHCP. jrJuan 06:11 Kings Al MD is Attending Physician. [facility] 06:33 Sandhya Galaviz, VALERIA is Primary Nurse. ea 06:33 No provider procedures requiring assistance completed. IV discontinued, intact, ea bleeding controlled, No redness/swelling at site. Pressure dressing applied. Administered Medications: No medications were administered Outcome: 06:20 Discharge ordered by . jr8 06:33 Discharged to home ambulatory. ea 06:33 Condition: stable 06:33 Discharge instructions given to patient, Instructed on discharge instructions, follow up and referral plans. Demonstrated understanding of instructions, follow-up care. 06:34 Patient left the ED. ea Signatures: Fernando Grayson PA PA jrSandhya Pleitez, RN RN Norma Gudino mw2
[2021-05-28 06:41] VITALS: BP 135/84; TEMP 98; O2SAT 98
--- NOTE | 2021-05-29 06:34 | EDPHYS ---
Physician Documentation [facility] Name: Mari Mercado Age: 25 yrs Sex: Male : 1995 Arrival Date: 05/28/2021 Time: 05:38 Bed 4 Private MD: ED Physician Kings Al HPI: 05/28 06:42 This 25 yrs old Black Male presents to ER via EMS with complaints of Nothing. jr8 06:42 This is a 25-year-old male that was brought in by EMS after being found on the side of jr8 the road sleeping. Patient stated that he was resting. Patient stated that earlier he had fallen but did not sustain any injury. Stated that he did not know why they picked him up and brought him to the emergency room. Wants to go home at this time.. Severity of symptoms: At their worst the symptoms were very mild. It is unknown whether or not the patient has had similar symptoms in the past. The patient has not recently seen a physician. Historical: - Allergies: 05:46 NKA; ea - Home Meds: 05:46 Dilantin Oral 100 mg four times a day [Active]; Keppra 500 mg Oral tab 3 tabs 2 times ea per day [Active]; - PMHx: 05:46 Seizures; ea - Immunization history:: Adult Immunizations up to date. - Social history:: Smoking status: Patient denies any tobacco usage or history of. ROS: 06:42 Constitutional: Negative for fever, chills, and weight loss, ENT: Negative for injury, jr8 pain, and discharge, Cardiovascular: Negative for chest pain, palpitations, and edema, Respiratory: Negative for shortness of breath, cough, wheezing, and pleuritic chest pain, Abdomen/GI: Negative for abdominal pain, nausea, vomiting, diarrhea, and constipation, Neuro: Negative for headache, weakness, numbness, tingling, and seizure. 06:42 All other systems are negative. Exam: 06:42 Constitutional: This is a well developed, well nourished patient who is awake, alert, jr8 and in no acute distress. Head/Face: Normocephalic, atraumatic. Neck: Trachea midline, no thyromegaly or masses palpated, and no cervical lymphadenopathy. Supple, full range of motion without nuchal rigidity, or vertebral point tenderness. No Meningismus. Chest/axilla: Normal chest wall appearance and motion. Nontender with no deformity. No lesions are appreciated. Cardiovascular: Regular rate and rhythm with a normal S1 and S2. No gallops, murmurs, or rubs. Normal PMI, no JVD. No pulse deficits. Respiratory: Lungs have equal breath sounds bilaterally, clear to auscultation and percussion. No rales, rhonchi or wheezes noted. No increased work of breathing, no retractions or nasal flaring. Abdomen/GI: Soft, non-tender, with normal bowel sounds. No distension or tympany. No guarding or rebound. No evidence of tenderness throughout. Back: No spinal tenderness. No costovertebral tenderness. Full range of motion. Skin: Warm, dry with normal turgor. Normal color with no rashes, no lesions, and no evidence of cellulitis. MS/ Extremity: Pulses equal, no cyanosis. Neurovascular intact. Full, normal range of motion. Neuro: Awake and alert, GCS 15, oriented to person, place, time, and situation. Cranial nerves II-XII grossly intact. Motor strength 5/5 in all extremities. Sensory grossly intact. Cerebellar exam normal. Normal gait. Vital Signs: 05:42 BP 135 / 84; Pulse 98; Resp 18; Temp 98; Pulse Ox 98% ; Weight 77.11 kg; Height 6 ft. 2 ea in. (187.96 cm); 05:42 Body Mass Index 21.83 (77.11 kg, 187.96 cm) MDM: 06:11 Patient medically screened. [facility] 06:42 Data reviewed: vital signs, nurses notes, and as a result, I will discharge patient. [facility] Data interpreted: Pulse oximetry: on room air is 98 %. Interpretation: normal. Counseling: I had a detailed discussion with the patient and/or guardian regarding: the historical points, exam findings, and any diagnostic results supporting the discharge/admit diagnosis, the need for outpatient follow up, a family practitioner, to return to the emergency department if symptoms worsen or persist or if there are any questions or concerns that arise at home. ED course: Patient hemodynamically stable while in the emergency room. No acute distress and no physical exam findings. Patient did not want further work-up or evaluation and wants to go home. Patient with GCS of 15. Cognizant of his surroundings and could answer all questions appropriately. Knows he can come back if he has any new changes or if he were to feel ill.. Administered Medications: No medications were administered Disposition Summary: 05/28/21 06:20 Discharge Ordered Location: Home jr8 Problem: new jr8 Symptoms: are resolved jr8 Condition: Stable jr8 Diagnosis - Fall (on)(from) sidewalk curb jr8 Followup: jr8 - With: Private Physician - When: As needed - Reason: Recheck today's complaints, Continuance of care, Re-evaluation by your physician Discharge Instructions: - Discharge Summary Sheet jr8 - Understanding Your Risk for Falls jr8 Forms: - Medication Reconciliation Form jr8 - Thank You Letter jr8 - Antibiotic Education jr8 - Prescription Opioid Use jr8 Addendum: 05/29/2021 19:00 Co-signature as Attending Physician, Kings Al MD. p Signatures: Kings Al MD MD pkFernando Melendez PA PA jr8 Sandhya Galaviz, RN RN dominic
== END 2021-05-28 06:34 | disposition home or self-care (01) ==
LOC: ER 05:35
DX: Z04.3 Encounter for examination and observation following other accident (principal); W10.1XXA Fall (on)(from) sidewalk curb, initial encounter; G40.909 Epilepsy, unspecified, not intractable, without status epilepticus
CPT/HCPCS: 99283

== ENCOUNTER 2021-06-17 03:34 | Emergency (ER) | payer OTHER ==
--- OUTSIDE RECORDS SUMMARY | 2021-06-17 03:37 | XMS REPORT | Continuity of Care Document ---
:1995 Author Organization [facility] t Address [address] [place] [address] Care Team Providers Name Role Phone Doctor Unassigned, Name Attending Clinician Unavailable Niesha CUMMINGS, Gene Attending Clinician Jayce Epperson Attending Clinician Problems Condition Condition Condition Status Onset Resolution Last Treating Co mments Source Name Details Category Date Date Treatment Clinician Date G40.909 Diagnosis Active 2015-102016-09-19 Me moria 16 16:07:00 l G40.909 00:00: Beatrice 00 Active 09/13/2016 [facility] Seizure Problem Resolve 2016-09-22 Mem oria (finding) d 02:38:55 l Seizure [place] (finding) Resolved Problem 09/22/2016 [facility] Allergies, Adverse Reactions, Alerts This patient has no known allergies or adverse reactions. Social History Social Habit Start Date Stop Date Quantity Comments Source Social History 2016-09-20 2016-09-20 [facility] 05:59:00 05:59:00 Medications This patient has no known medications. Procedures Procedure Date / Time Performed Performing Clinician Sourc e CT brain w/o contrast [facility] EEG [facility] Encounters Start End Encounter Admission Attending Care Care Encounter Source Date/Time Date/Time Type Type Clinicians Facility Department ID 2020-09-28 2020-09-28 Orders Doctor CRAWFORD [id number] 31 00:00:00 00:00:00 Only UnassignedESTER [id number] [place] [facility] [id number] 2020-08-24 2020-08-24 Office RHINA Scherer [id number] 15:09:23 16:20:08 Visit Shalom Duran [id number] [place] [id number] Mary[place] [id number] [facility] 2016-09-19 2016-09-20 Outpatient [facility] [id number] Gi 16:26:00 05:59:00 [facility] 2016-09-19 2016-09-[address] [facility] [id number] 10:26:00 23:59:00 Afshin Eduardo Results This patient has no known results.
[2021-06-17 04:07] LABS: Absolute Lymphocytes (CBC) 1.6 K/uL (0.7-4.9); Basophils % 0.7 % (0-1.3); Hematocrit 41.9 % (39.6-49.0); Lymphocytes % 11.9 % (15.3-44.8); MPV 7.7 fL (7.6-11.3)
[2021-06-17 04:12] LABS: Protime INR 1.2
[2021-06-17 04:31] LABS: Urine Blood 1+ (Negative); Urine Glucose Negative (Negative); Urine Protein 2+ (Negative); Urine Specific Gravity >=1.030 (1.005-1.030)
[2021-06-17 04:50] LABS: Potassium 3.7 mmol/L (3.5-5.1)
[2021-06-17 05:00] LABS: Barbiturates NEGATIVE (NEGATIVE); Benzodiazepines NEGATIVE (NEGATIVE); Cocaine NEGATIVE (NEGATIVE); METHAMPHETAM NEGATIVE (NEGATIVE); Methadone NEGATIVE (NEGATIVE); Opiates NEGATIVE (NEGATIVE); Phencyclidine NEGATIVE (NEGATIVE); THC Cannibis NEGATIVE (NEGATIVE)
[2021-06-17] MEDS ORDERED: NA CHLORIDE 0.9% 1,000 ML ONE (05:21)
[2021-06-17 05:36] LABS: Urine Appearance CLOUDY (Clear); Urine Bilirubin NEGATIVE (Negative); Urine Blood TRACE (Negative); Urine Color YELLOW (Yellow); Urine Glucose NEGATIVE (Negative); Urine Protein 1+ (Negative); Urine Specific Gravity 1.015 (1.005-1.030); Urine Urobilinogen 0.2 mg/dL (0.2-1.0)
[2021-06-17 05:37] LABS: Urine Microscopic Reflex ORDER UMIC
[2021-06-17] MEDS ORDERED: NA CHLORIDE 0.9% 100 ML ONE (06:02)
[2021-06-17 06:09] LABS: Urine Bacteria >50 /HPF (NONE SEEN)
[2021-06-17 06:10] LABS: Urine Amorphous Sediment 2+ /HPF (NONE SEEN); Urine Mucus 2+ /HPF (NONE SEEN)
--- NOTE | 2021-06-17 09:08 | RAD REPORT ---
EXAM DESCRIPTION: RAD - Chest Single View - 06/17/2021 4:17 am CLINICAL HISTORY: AMS COMPARISON: June 2015 TECHNIQUE: AP portable chest image was obtained 06/17/2021 4:17 am . FINDINGS: No focal lung parenchymal process. Interstitial pattern is increased compared to the prior study due mostly to differences in film technique and shallow inspiration. No significant failure or volume overload. Heart and vasculature are normal. No measurable pleural effusion and no pneumothora x. No acute bony abnormality seen. No acute aortic findings suspected. IMPRESSION: No acute cardiopulmonary process.
--- NOTE | 2021-06-17 11:09 | EKG ---
Test Date: 2021-06-17 Test Time: 03:42:38 Frame Cleaner: TLT MEASUREMENT RESULTS: Intervals: Rate: 115 [place]: 124 QRSD: 88 QT: 340 QTc: 470 [place]: P: 67 [place]: 124 QRS: 81 T: 50 INTERPRETIVE STATEMENTS: Sinus tachycardia Possible Left atrial enlargement Borderline ECG Compared to ECG 05/25/2021 00:03:41 No significant changes Electronically Signed On 06-17-21 11:07:27 CDT by Billy Valle
--- NOTE | 2021-06-17 11:12 | RAD REPORT ---
EXAM DESCRIPTION: CT - Ct Stroke Brain Wo Cont - 06/17/2021 6:52 am COMPARISON: CT head May 25, 2021 CLINICAL HISTORY: SEIZURE TECHNIQUE: Axial images were obtained from skull base to vertex without intravenous contrast. Imag es viewed on bone and brain windows. Multiplanar reformats were performed. Automated exposure contr ol was utilized on this examination as a dose lowering technique. FINDINGS: Brain parenchyma, ventricles, dura, meninges, and extra-axial spaces: Ventricles and sulci are normal. No abnormal attenuation of brain parenchyma is present. No acute intracranial hemor rhage or abnormal extra-axial fluid collections are present. Vascular structures: No hyperdense arteries or veins. Calvarium, mastoid air cells, paranasal sinuses and orbits: The calvarium is normal. The mastoid air cells are clear. Visualized paranasal sinuses are unremarkable. Orbital structures are unremarkable. IMPRESSION: No acute intracranial abnormality. Electronically signed by: Иван Haddad MD 06/17/2021 4:23 AM CDT Due to temporary technical issues with the PACS/Fluency reporting system, reports are being signed by the in house radiologist without review as a courtesy to ensure prompt reporting. The interpreting r adiologist is fully responsible for the content of the report.
--- NOTE | 2021-06-17 11:45 | ER ---
Nurse's Notes [facility] Name: Mari Mercado Age: 25 yrs Sex: Male : 1995 Arrival Date: 06/17/2021 Time: 03:52 Bed 20 Private MD: Diagnosis: Epileptic seizures related to external causes Presentation: 06/17 03:40 Acuity: ERASMO 2 lp1 03:40 Coronavirus screen: Client denies travel out of the [place] in the last 14 days. Ebola lp1 Screen: No symptoms or risks identified at this time. Initial Sepsis Screen: Does the patient meet any 2 criteria? No. Patient's initial sepsis screen is negative. Does the patient have a suspected source of infection? No. Patient's initial sepsis screen is negative. Risk Assessment: Do you want to hurt yourself or someone else? Unable to obtain. Onset of symptoms was June 17, 2021. 03:40 Method Of Arrival: EMS: [facility] lp1 04:22 Chief complaint: EMS states: EMS states that family had 5 unwitnessed seizures at home, lh3 pt has been drinking tonight and is non-compliant with seizure medications. EMS states that he had a witnessed seizure en route and was give 2mg of Ativan and has been "out of it" ever since. 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 Triage Assessment: 04:26 General: Appears in no apparent distress. Behavior is postictal. Neuro: Seizure lh3 activity reported prior to arrival. Patient is post-ictal at this time. Historical: - Immunization history:: Adult Immunizations unknown. - Social history:: Smoking status: unknown. Screenin:34 Abuse screen: unable to answer at this time. Nutritional screening: No deficits noted. lh3 Tuberculosis screening: No symptoms or risk factors identified. Fall Risk IV access (20 points). Assessment: 04:34 General: Appears in no apparent distress. lh3 13:49 Reassessment: Patient appears in no apparent distress at this time. Patient and/or ss family updated on plan of care and expected duration. Pain level reassessed. awaiting ride. Vital Signs: 03:40 BP 105 / 38; Pulse 117; Resp 22; Pulse Ox 96% on R/A; Weight 86.18 kg; lp1 04:33 BP 103 / 38; Pulse 118; Resp 18; Pulse Ox 94% ; lh3 04:36 Pulse 101; lh3 05:16 BP 117 / 54; Pulse 101; Resp 22; Pulse Ox 95% on R/A; lp1 07:06 BP 105 / 53; Pulse 86; Resp 18; Pulse Ox 100% on 2 lpm NC; lh3 07:15 BP 116 / 66; Pulse 96; Resp 18; Temp 98.6; Pulse Ox 100% ; ms4 08:12 BP 113 / 62; Pulse 93; Resp 18; Pulse Ox 96% on R/A; ms4 12:00 BP 113 / 72; Pulse 86; Resp 15; Pulse Ox 100% on R/A; Pain 0/10; ss [place] Coma Score: 03:40 Eye Response: to pain(2). Verbal Response: none(1). Motor Response: localizes pain(5). lp1 Total: 8. ED Course: 03:52 Patient arrived in ED. lp1 03:52 Arm band placed on left wrist. lp1 03:52 Patient has correct armband on for positive identification. Bed in low position. Side lp1 rails up X2. Seizure precautions initiated. quality assurance monitor body on. Pulse ox on. NIBP on. 03:52 Maintain EMS IV. Dressing intact. Good blood return noted. Site clean \\T\\ dry. Gauge \\T\\ lp 1 site: 18g to R FA. 03:53 Nena Weeks is Attending Physician. sp3 03:56 Ariana Baugh, VALERIA is Primary Nurse. lh3 03:56 Basic Metabolic Panel Sent. lh3 03:56 CBC with Diff Sent. lh3 03:56 Protime (+inr) Sent. lh3 03:56 Ptt, Activated Sent. lh3 04:06 Triage completed. lp1 04:13 CT Stroke Brain w/o Contrast In Process Unspecified. EDMS 04:18 Stroke CXR 1 View In Process Unspecified. EDMS 04:34 No provider procedures requiring assistance completed. Inserted saline lock: 18 gauge lh3 in right antecubital area, using aseptic technique. EMS placed IV. 13:49 IV discontinued, intact, bleeding controlled, No redness/swelling at site. Pressure ss dressing applied. Administered Medications: 05:00 Drug: NS 0.9% 1000 ml Route: IV; Rate: 1 bolus; Site: right forearm; lh3 05:43 Drug: Fosphenytoin 1 grams Route: IVPB; Site: right antecubital; 3 06:24 Follow up: Response: No adverse reaction; IV Status: Completed infusion 3 Outcome: 11:44 Discharge ordered by . kb 13:49 Discharged to home via wheelchair, with family. ss 13:49 Condition: good 13:49 Discharge instructions given to patient, family, Instructed on discharge instructions, follow up and referral plans. Demonstrated understanding of instructions, follow-up care. 13:50 Patient left the ED. ss Signatures: Dispatcher [employer] EDMS Amy Rincon, FINANCE ADVISOR-C FINANCE ADVISOR-Gracie Baez RN RN ss Susana Foss RN RN lp1 Nena Weeks sp3 Ksenia Mello RN RN ms4 Ariana Baugh RN RN lh3 Corrections: (The following items were deleted from the chart) 04:26 04:26 PMHx: Seizures; 3 3
--- NOTE | 2021-06-17 11:45 | EDPHYS ---
Physician Documentation [facility] Name: Mari Mercado Age: 25 yrs Sex: Male : 1995 Arrival Date: 06/17/2021 Time: 03:52 Bed 20 Private MD: ED Physician Nena Weeks HPI: 06/17 04:18 This 25 yrs old Black Male presents to ER via EMS with complaints of Seizure. sp3 04:18 1-year-old male with a history of recurrent seizures and epilepsy currently on Dilantin sp3 and Keppra presents to the ED again for multiple seizures. EMS was activated and they administered 2 mg of Ativan prior to arrival. Patient had also been consuming alcohol today. Patient arrives in a postictal state. ROS is not obtainable due to altered mental status and patient being postictal. No further information available.. Historical: - Immunization history:: Adult Immunizations unknown. - Social history:: Smoking status: unknown. ROS: 04:19 Unable to obtain ROS due to obtunded state. sp3 Exam: 04:19 Constitutional: This is a well developed, well nourished patient who is awake, alert, sp3 and in no acute distress. ENT: Nares patent. No nasal discharge, no septal abnormalities noted. External auditory canals are clear. Oropharynx with no redness, swelling, or masses, exudates, or evidence of obstruction, uvula midline. Mucous membranes moist. Neck: Trachea midline, no thyromegaly or masses palpated, and no cervical lymphadenopathy. Supple, full range of motion without nuchal rigidity, or vertebral point tenderness. No Meningismus. Chest/axilla: Normal chest wall appearance and motion. Nontender with no deformity. No lesions are appreciated. Cardiovascular: Regular rate and rhythm with a normal S1 and S2. No gallops, murmurs, or rubs. Normal PMI, no JVD. No pulse deficits. Respiratory: Lungs have equal breath sounds bilaterally, clear to auscultation and percussion. No rales, rhonchi or wheezes noted. No increased work of breathing, no retractions or nasal flaring. Abdomen/GI: Soft, non-tender, with normal bowel sounds. No distension or tympany. No guarding or rebound. No evidence of tenderness throughout. Back: No spinal tenderness. No costovertebral tenderness. Full range of motion. Skin: Warm, dry with normal turgor. Normal color with no rashes, no lesions, and no evidence of cellulitis. 04:19 Neuro: Orientation: unable to test, Mentation: somnolent, Memory: seizure activity, is not currently displayed, but the patient is post-ictal. 04:55 ECG was reviewed by the Attending Physician. EKG demonstrates sinus tachycardia at 115 sp3 bpm with normal intervals, normal QRS, normal axis, normal ST/T segments. Vital Signs: 03:40 BP 105 / 38; Pulse 117; Resp 22; Pulse Ox 96% on R/A; Weight 86.18 kg; lp1 04:33 BP 103 / 38; Pulse 118; Resp 18; Pulse Ox 94% ; lh3 04:36 Pulse 101; lh3 05:16 BP 117 / 54; Pulse 101; Resp 22; Pulse Ox 95% on R/A; lp1 07:06 BP 105 / 53; Pulse 86; Resp 18; Pulse Ox 100% on 2 lpm NC; lh3 07:15 BP 116 / 66; Pulse 96; Resp 18; Temp 98.6; Pulse Ox 100% ; ms4 08:12 BP 113 / 62; Pulse 93; Resp 18; Pulse Ox 96% on R/A; ms4 12:00 BP 113 / 72; Pulse 86; Resp 15; Pulse Ox 100% on R/A; Pain 0/10; ss [place] Coma Score: 03:40 Eye Response: to pain(2). Verbal Response: none(1). Motor Response: localizes pain(5). lp1 Total: 8. MDM: 03:55 Patient medically screened. sp3 04:20 Data reviewed: vital signs, nurses notes, EMS record, old medical records, lab test sp3 result(s), radiologic studies. ED course: CT scan and chest x-ray reviewed by me demonstrate no acute significant abnormality. Laboratory values are pending. Assuming no significant abnormalities, and patient recovers from his inebriation and postictal state, we will will be able to discharge patient home. Will replace Dilantin if level returned is low. Patient does have bottles of both Dilantin and Keppra with him today. At this point I am not suspicious of intracranial hemorrhage, sepsis, meningitis, trauma, ischemia, psychosis, or any other critical emergency at this time.. 05:27 ED course: Alcohol level is negative. I believe the patient's gap acidosis is primarily sp3 due to dehydration and mild lactic acidosis secondary to seizures given the fact that he has trace ketones in his urine creatinine is slightly elevated. His Dilantin level is also 1.7 so we will be loading him with 1 g of fosphenytoin and also normal saline 1 L. Once patient wakes up and we can verify his mental status he will discharge him safely with his phenytoin levels at therapeutic point again. CT scan is viewed by me demonstrates no acute abnormality or bleed. Will look for radiology report as well.. 06:18 ED course: Patient is more arousable to sternal rub than when he first got here. Urine sp3 drug screen is negative. Patient's vital signs are normal again with heart rate in the 90s and blood pressure 125/67. Will reassess at shift change otherwise signed patient out to a.m. team.. 06/17 03:55 Order name: Basic Metabolic Panel; Complete Time: 05:19 sp3 06/17 03:55 Order name: CBC with Diff; Complete Time: 04:30 sp3 06/17 03:55 Order name: Protime (+inr); Complete Time: 04:30 sp3 06/17 03:55 Order name: Ptt, Activated; Complete Time: 04:30 sp3 06/17 04:00 Order name: Dilantin; Complete Time: 05:19 sp3 06/17 04:00 Order name: Alcohol Level; Complete Time: 05:19 sp3 06/17 03:55 Order name: CT Stroke Brain w/o Contrast sp3 06/17 04:00 Order name: Urine Drug Screen; Complete Time: 05:19 sp3 06/17 04:00 Order name: UA; Complete Time: 06:16 sp3 06/17 04:13 Order name: Glucose, Ancillary Testing; Complete Time: 04:30 EDMS 06/17 04:30 Order name: Urine Dipstick-Ancillary; Complete Time: 04:46 EDMS 06/17 05:38 Order name: Urine Microscopic Only; Complete Time: 06:16 EDMS 06/17 05:39 Order name: Glucose, Ancillary Testing; Complete Time: 06:16 EDMS 06/17 06:10 Order name: Urine Culture EDMS 08/20 03:55 Order name: Stroke CXR 1 View; Complete Time: 09:59 sp3 06/17 03:55 Order name: EKG; Complete Time: 03:55 sp3 06/17 03:55 Order name: Accucheck; Complete Time: 04:04 sp3 06/17 03:55 Order name: Cardiac monitoring; Complete Time: 03:56 sp3 06/17 03:55 Order name: EKG - Nurse/Tech; Complete Time: 03:56 sp3 06/17 03:55 Order name: IV Saline Lock; Complete Time: 03:56 sp3 06/17 03:55 Order name: Labs collected and sent; Complete Time: 03:56 sp3 06/17 03:55 Order name: NPO; Complete Time: 03:56 sp3 06/17 03:55 Order name: O2 Per Protocol; Complete Time: 03:56 sp3 06/17 03:55 Order name: O2 Sat Monitoring; Complete Time: 03:56 sp3 Administered Medications: 05:00 Drug: NS 0.9% 1000 ml Route: IV; Rate: 1 bolus; Site: right forearm; 3 05:43 Drug: Fosphenytoin 1 grams Route: IVPB; Site: right antecubital; 3 06:24 Follow up: Response: No adverse reaction; IV Status: Completed infusion 3 Disposition Summary: 06/17/21 11:44 Discharge Ordered Location: Home kb Condition: Stable kb Diagnosis - Epileptic seizures related to external causes kb Followup: kb - With: Emergency Department - When: As needed - Reason: Worsening of condition Followup: kb - With: Private Physician - When: 2 - 3 days - Reason: Recheck today's complaints, Continuance of care, Re-evaluation by your physician Discharge Instructions: - Discharge Summary Sheet kb - Seizure, Adult, [id number] kb Forms: - Medication Reconciliation Form kb - Thank You Letter kb - Antibiotic Education kb - Prescription Opioid Use kb Signatures: Dispatcher [employer] EDMS Amy Rincon FNP-C FNP-Susana Mckenzie, RN RN lp1 Nena Weeks sp3 Ariana Baugh RN RN lh3 Corrections: (The following items were deleted from the chart) 04:26 04:26 PMHx: Seizures; 3 lh3 06:16 05:27 ED course: Alcohol level is negative. I believe the patient's gap acidosis is sp3 primarily due to dehydration given the fact that he has ketones in his urine. His Dilantin level is also 1.7 so we will be loading him with 1 g of fosphenytoin. Since patient wakes up and we can verify his mental status he will discharge him safely with his phenytoin levels at therapeutic point again. CT scan is viewed by me demonstrates no acute abnormality or bleed. Will look for radiology report as well.. sp3 06:21 05:27 ED course: Alcohol level is negative. I believe the patient's gap acidosis is sp3 primarily due to dehydration given the fact that he has ketones in his urine. His Dilantin level is also 1.7 so we will be loading him with 1 g of fosphenytoin. Once patient wakes up and we can verify his mental status he will discharge him safely with his phenytoin levels at therapeutic point again. CT scan is viewed by me demonstrates no acute abnormality or bleed. Will look for radiology report as well.. sp3
[2021-06-17 14:37] VITALS: TEMP 98.6
[2021-06-17 14:39] VITALS: BP 113/72; O2SAT 100
== END 2021-06-17 13:50 | disposition home or self-care (01) ==
LOC: ER 03:34
DX: G40.509 Epileptic seizures related to external causes, not intractable, without status epilepticus (principal)
CPT/HCPCS: 96365; 93005; 85025; 87086; 80048; 36415; 80320; 85610; 82947 ×2; 85730; 80185; 80307; 70450; 71045; 99284; J1165; J7030; 81003; 81015; 87088

== ENCOUNTER 2021-12-20 21:41 | Emergency (ER) | payer OTHER ==
--- OUTSIDE RECORDS SUMMARY | 2021-12-20 21:44 | XMS REPORT | Continuity of Care Document ---
:1995 Author Organization [facility] t Address [address] [place] [address] Care Team Providers Name Role Phone Kika BARRERA Attending Clinician Unavailable GILMA SCHERER Attending Clinician Unavailable GILMA SCHERER Attending Clinician Unavailable Doctor Unassigned, Name Attending Clinician Unavailable Gilma Scherer MD Attending Clinician Payers Payer Name Policy Type Policy Number Effective Date Expiration Date [facility] [id number] 2016 00:00:00 Problems Condition Condition Condition Status Onset Resolution Last Treating Co mments Source Name Details Category Date Date Treatment Clinician Date G40.909 Diagnosis Active 2015-102016-09-19 Me moria 11-13 16:07:00 l G40.909 00:00: [place] 00 Active 09/13/2016 [facility] Seizure Problem Resolve 2016-09-22 Mem oria (finding) d 02:38:55 l Seizure [place] (finding) Resolved Problem 09/22/2016 [facility] Allergies, Adverse Reactions, Alerts Allergy Allergy Status Severity Reaction(s) Onset Inactive Treating Comm ents Source Name Type Date Date Clinician NO KNOWN Drug Active Univers ALLERGIE Class ity of [facility] Social History Social Habit Start Date Stop Date Quantity Comments Source Social History 2016-09-20 2016-09-20 Leonardo davidson 05:59:00 05:59:00 Medications This patient has no known medications. Procedures Procedure Date / Time Performed Performing Clinician Sour e CT brain w/o contrast [facility] lety EEG [facility] Encounters Start End Encounter Admission Attending Care Care Encounter Source Date/Time Date/Time Type Type Clinicians Facility Department ID 2021-04-27 2021-04-27 Outpatient Nathan BRUCE [facility] NUT [id number] Univers 00:00:00 00:00:00 JAQUELINE [id number] [facility] 2021-04-27 2021-04-27 Outpatient Nathan BARRERA, [facility] NUT [id number] Univers 00:00:00 00:00:00 JAQUELINE [facility] 2020-09-28 2020-09-28 Outpatient R [facility] [id number] Univers 09:00:00 09:00:00 [facility] 2020-09-28 2020-09-28 Outpatient SHALOM QUILES [facility] [id number] Univers 09:00:00 09:00:00 SHALOM SCHERER [facility] 2020-09-28 2020-09-28 Orders Doctor CRAWFORD [id number] 00:00:00 00:00:00 Only Unassigned, ESTER [id number] [place] [facility] [id number] 2020-09-17 2020-09-17 Outpatient R [facility] [id number] Univers 13:00:00 13:00:00 [facility] 2020-09-17 2020-09-17 Outpatient SHALOM QUILES [facility] [id number] Univers 13:00:00 13:00:00 SHALOM SCHERER jaspreet [facility] 2020-09-16 2020-09-16 Outpatient R [facility] [id number] Univers 13:00:00 13:00:00 [id number] jaspreet [facility] 2020-09-16 2020-09-16 Outpatient SHALOM QUILES [facility] [id number] Univers 13:00:00 13:00:00 SHALOM SCHERER jaspreet [facility] 2020-08-24 2020-08-24 Office Niesha NJCHEMO [id number] 15:09:23 16:20:08 Visit Shalom Duran [id number] [place] [id number] [facility] [id number] [facility] 2020-08-24 2020-08-24 Outpatient SHALOM QUILES [facility] [id number] Univers 16:00:00 16:00:00 SHALOM SCHERER [facility] 2020-08-24 2020-08-24 Outpatient NIESHA, SHALOM [facility] [id number] Univers 15:40:00 15:40:00 SHALOM SCHERER [id number] [facility] 2020-08-24 2020-08-24 Outpatient Nathan SCHERER SHALOM [facility] [id number] Univers 15:40:00 15:40:00 SHALOM SCHERER [facility] 2016-09-19 2016-09-20 Outpatient [facility] [id number] Memoria 16:26:00 05:59:[address] Results This patient has no known results.
--- NOTE | 2021-12-20 22:23 | ER ---
Nurse's Notes [facility] Name: Mari Mercado Age: 25 yrs Sex: Male : 1995 Arrival Date: 12/20/2021 Time: 21:42 Bed 17 Private MD: Diagnosis: Presentation: 12/20 21:57 Chief complaint: Patient states: "someone is following me" and is repeatedly trying to al4 hit them, but there is nobody there. Coronavirus screen: Vaccine status: Patient reports receiving the 2nd dose of the covid vaccine. Ebola Screen: No symptoms or risks identified at this time. Initial Sepsis Screen: Does the patient meet any 2 criteria? No. Patient's initial sepsis screen is negative. Does the patient have a suspected source of infection? No. Patient's initial sepsis screen is negative. Risk Assessment: Do you want to hurt yourself or someone else? Patient reports no desire to harm self or others. Onset of symptoms is unknown. 21:57 Method Of Arrival: EMS: [facility] 21:57 Acuity: ERASMO 2 al4 Triage Assessment: 22:02 General: Appears in no apparent distress. comfortable, Behavior is agitated, anxious, al4 Reports feeling like someone is following him. Pain: Denies pain. Neuro: Level of Consciousness is awake, alert, Oriented to person, place. Cardiovascular: Capillary refill < 3 seconds Patient's skin is warm and dry. Respiratory: Airway is patent Respiratory effort is unlabored, Respiratory pattern is regular. Musculoskeletal: Range of motion: intact in all extremities. Historical: - Allergies: 22:02 No Known Allergies; al4 - Home Meds: 22:02 Dilantin Oral [Active]; Keppra Oral [Active]; al4 - Immunization history:: Adult Immunizations up to date, Client reports receiving the 2nd dose of the Covid vaccine. - Social history:: Smoking status: Patient reports use of chewing tobacco. Patient uses alcohol. Vital Signs: 21:57 BP 139 / 89; Pulse 89; Resp 18; Temp 99.1; Pulse Ox 100% ; Weight 61.23 kg; Height 6 al4 ft. 5 in. (195.58 cm); Pain 0/10; 21:57 Body Mass Index 16.01 (61.23 kg, 195.58 cm) al4 ED Course: 21:42 Patient arrived in ED. wm 21:59 Triage completed. al4 22:02 Arm band placed on. al4 22:04 Guero Obregon MD is Attending Physician. Katrina Administered Medications: No medications were administered Outcome: 22:22 Patient left the ED. sf1 Signatures: Guero Obregon MD MD 7 Wilmer Angelic Phil, Sascha al4 Connie Alberto RN RN sf1 Corrections: (The following items were deleted from the chart) 22:16 22:02 Neuro: Level of Consciousness is awake, alert, obeys commands, Oriented to al4 person, place, al4
[2021-12-21 00:37] VITALS: BP 139/89; TEMP 99.1; O2SAT 100
== END 2021-12-20 22:22 | disposition left against medical advice (07) ==
LOC: ER 21:41
DX: Z53.21 Procedure and treatment not carried out due to patient leaving prior to being seen by health care provider (principal)
CPT/HCPCS: 99282

== ENCOUNTER → 2022-01-28 | Emergency (ER) | payer OTHER ==
[~2022-01-28] MED LIST: D5.45NS W/KCL 20MEQ 1,000 ML IV ONE; DIVALPROEX DR 250 MG TAB PO ONE; ENOXAPARIN 40 MG/0.4 ML SQ ONE; FOSPHENYTOIN PE 500 MG/10 ML VIAL ONE; HALOPERIDOL LACT 5 MG/ML INJ ONE; LEVETIRACETAM 500 MG/5 ML VIAL IV ONE; LORazepam 2 MG/ML VIAL ONE; MORPHINE 4 MG/ML SYR ONE; NA CHLORIDE 0.9% 1,000 ML ONE; NA CHLORIDE 0.9% 100 ML IV ONE; NA CHLORIDE 0.9% 250 ML ONE; NA CHLORIDE 0.9% 50 ML ONE; WATER FOR INJ,STERILE 10 ML ONE; ZIPRASIDONE MESYLA 20 MG/VIAL IM ONE; clonazePAM 0.5 MG TAB ONE; levETIRAcetam 500 MG TAB ONE
--- OUTSIDE RECORDS SUMMARY | 2022-01-28 22:48 | XMS REPORT | Continuity of Care Document ---
:[address] [facility] t Address [address] [place] [address] Care Team Providers Name Role Phone Kika BARRERA Attending Clinician Unavailable GILMA SCHERER Attending Clinician Unavailable GILMA SCHERER Attending Clinician Unavailable Doctor Unassigned, Name Attending Clinician Unavailable Gilma Scherer MD Attending Clinician Payers Payer Name Policy Type Policy Number Effective Date Expiration Date [facility] [id number] 2016 00:00:00 Problems Condition Condition Condition Status Onset Resolution Last Treating Co mments Source Name Details Category Date Date Treatment Clinician Date G40.909 Diagnosis Active 2015-102016-09-19 Me moria -16 16:07:00 l G40.909 00:00: [place] 00 Active 09/13/2016 [facility] Seizure Problem Resolve 2016-09-22 Mem oria (finding) d 02:38:55 l Seizure [place] (finding) Resolved Problem 09/22/2016 [facility] Allergies, Adverse Reactions, Alerts Allergy Allergy Status Severity Reaction(s) Onset Inactive Treating Comm ents Source Name Type Date Date Clinician NO KNOWN Drug Active Univers ALLERGIE Class ity of [facility] Social History Social Habit Start Date Stop Date Quantity Comments Source Social History 2016-09-20 2016-09-20 [facility] lety 05:59:00 05:59:00 Medications This patient has no known medications. Procedures Procedure Date / Time Performed Performing Clinician Sour e CT brain w/o contrast [facility] lety EEG [facility] Encounters Start End Encounter Admission Attending Care Care Encounter Source Date/Time Date/Time Type Type Clinicians Facility Department ID 2021-04-27 2021-04-27 Outpatient Nathan BLACKMONBARRERA, [facility] NUT [id number] Univers 00:00:00 00:00:00 JAQUELINE [id number] [facility] 2021-04-27 2021-04-27 Outpatient Nathan BARRERA [facility] NUT [id number] Univers 00:00:00 00:00:00 JAQUELINE [facility] 2020-09-28 2020-09-[address] [facility] [id number] Univers 09:00:00 09:00:00 [facility] 2020-09-28 2020-09-28 Outpatient R [address]IA SCHERER [facility] [id number] Univers 09:00:00 09:00:00 OPHELIA SCHERER [facility] 2020-09-28 2020-09-28 Orders Doctor CRAWFORD [id number] 00:00:00 00:00:00 Only Unassigned, ESTER [id number] [place] [facility] [id number] 2020-09-17 2020-09-[address] [facility] [id number] Univers 13:00:00 13:00:00 [facility] 2020-09-17 2020-09-[address] [facility] [id number] Univers 13:00:00 13:00:00 OP[address]IA [address] [facility] 2020-09-16 2020-09-[address] [facility] [id number] Univers 13:00:00 13:00:00 [id number] [facility] 2020-09-16 2020-09-[address] [facility] [id number] Univers 13:00:00 13:00:[address] [facility] 2020-08-24 2020-08-24 Office Niesha [facility] [id number] 15:09:23 16:20:08 Visit Ophelia Duran [id number] [place] [id number] [facility] [id number] 2020-08-24 2020-08-[address] [facility] [id number] Univers 16:00:00 16:00:00 OPHELIA SCHERER [facility] 2020-08-24 2020-08-[address] [facility] [id number] Univers 15:40:00 15:40:00 OPHELIA SCHERER [id number] [facility] 2020-08-24 2020-08-[address] [facility] [id number] Univers 15:40:00 15:40:00 OPHELIA SCHERER [facility] 2016-09-19 2016-09-20 Outpatient [facility] [id number] Memoria 16:26:00 05:59:[address] Results This patient has no known results.
[2022-01-29 03:40] LABS: Absolute Lymphocytes (CBC) 0.6 K/uL (0.7-4.9); Lymphocytes % 7.7 % (15.3-44.8); MPV 8.2 fL (7.6-11.3); RBC Red Blood Cell Count 5.19 M/uL (4.33-5.43)
[2022-01-29 03:45] LABS: Protime INR 1.25
[2022-01-29 04:01] LABS: ALT/SGPT 31 U/L (12-78); AST/SGOT 33 U/L (15-37); Alkaline Phosphatase 76 U/L (45-117); BUN Blood Urea Nitrogen 9 mg/dL (7-18); Bicarbonate 27 mmol/L (21-32); Bilirubin Direct 0.1 mg/dL (0-0.2); Bilirubin Total 0.3 mg/dL (0.2-1.0); Glucose Level 88 mg/dL (74-106); Phenytoin (Dilantin) Level 7.6 ug/mL (10.0-20.0); Potassium 3.3 mmol/L (3.5-5.1); Protein, Total 8.3 g/dL (6.4-8.2); Sodium Level 138 mmol/L (136-145)
[2022-01-29 04:13] LABS: Barbiturates NEGATIVE (NEGATIVE); Benzodiazepines NEGATIVE (NEGATIVE); Cocaine NEGATIVE (NEGATIVE); METHAMPHETAM NEGATIVE (NEGATIVE); Methadone NEGATIVE (NEGATIVE); Opiates NEGATIVE (NEGATIVE); Phencyclidine NEGATIVE (NEGATIVE); THC Cannibis NEGATIVE (NEGATIVE)
--- NOTE | 2022-01-29 11:48 | ER ---
Nurse's Notes [facility] Name: Mari Mercado Age: 26 yrs Sex: Male : 1995 Arrival Date: 01/29/2022 Time: 02:35 Bed 20 Private MD: Diagnosis: Altered mental status, unspecified;Epileptic seizures related to external causes, not intractable, without status epilepticus Presentation: 01/29 02:48 Chief complaint: EMS states: Patient sitting in road on cell phone. Dispatched per [address] Coronavirus screen: Unable to assess. Ebola Screen: Unable to complete the Ebola screening because: Altered. Initial Sepsis Screen: Does the patient meet any 2 criteria? Altered Mental Status. No. Patient's initial sepsis screen is negative. Does the patient have a suspected source of infection? No. Patient's initial sepsis screen is negative. Risk Assessment: Do you want to hurt yourself or someone else? Unable to obtain. Onset of symptoms is unknown. 02:48 Method Of Arrival: EMS: [facility] tk1 02:48 Acuity: ERASMO 3 tk1 Triage Assessment: 02:48 General: Appears unkempt, well developed, well nourished, Behavior is Difficulty tk1 understanding questions or directives. Confused like.. Pain: Unable to use pain scale. Does not appear to understand pain scale. EENT: No deficits noted. 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 Speech Unable to understand what patient is saying. Slow to respond.. Cardiovascular: Patient's skin is warm and dry. Respiratory: Airway is patent Respiratory effort is even, unlabored, Respiratory pattern is regular, symmetrical. GI: No deficits noted. : No deficits noted. Derm: No deficits noted. Musculoskeletal: No deficits noted. Historical: - Allergies: 07:31 No Known Allergies; jd3 - Home Meds: 07:31 Dilantin Oral [Active]; Keppra Oral [Active]; jd3 - PMHx: 16:05 Seizure; Bipolar disorder; jd3 - Immunization history:: Adult Immunizations unknown. - Social history:: Smoking status: unknown. - Unable to obtain history due to: altered mental status. Screenin:31 Abuse screen: Denies threats or abuse. Nutritional screening: No deficits noted. jd3 Tuberculosis screening: No symptoms or risk factors identified. Fall Risk Ambulatory Aid- None/Bed Rest/Nurse Assist (0 pts). Gait- Normal/Bed Rest/Wheelchair (0 pts) Mental Status- Oriented to own ability (0 pts). Total Wilson Fall Scale indicates No Risk (0-24 pts). Assessment: 02:57 Reassessment: See triage assessment. tk1 03:45 Reassessment: Patient escorted back from CT to ED RM 20. Patient moving head during CT tk1 then got off of CT bed to urinate. Specimen collected sent to lab. Dr. Obregon updated. 04:10 Reassessment: Reassessment: Patient out of bed pulling monitor cables with him to leave tk1 unit. Escorted patient back in room, removed monitor cables. Patient proceeded towards exit. Greg bonds called. Security able to escort patient to Pod 1. Refusing to return to stretcher. VALERIA Santillan and Security in room with patient. 04:24 General: escorted patient back to room with security. attached patient back up to BP tw5 and pulse ox monitoring. . 04:25 Reassessment: Patient returned to CT with tech for scan. tk1 04:37 Reassessment: Patient returned from CT. Tech able to complete exam while patient slept. tk1 Patient placed back on monitor. 05:38 Reassessment: Patient resting with eyes closed. No subsequent issue with patient tk1 attempting to leave. VSS, respirations even and unlabored. Will continue to monior.. 07:30 Reassessment: Patient and/or family updated on plan of care and expected duration. Pain jd3 level reassessed. pt resting with eyes closed, even and unlabored respirations. 09:17 Reassessment: Patient appears in no apparent distress at this time. No changes from jd3 previously documented assessment. Patient and/or family updated on plan of care and expected duration. Pain level reassessed. 09:59 Reassessment: Patient appears in no apparent distress at this time. Patient and/or jd3 family updated on plan of care and expected duration. Pain level reassessed. attempted to wake pt up. pt looking at nurse, but refusing to respond. responds to verbal stimulus. charge nurse notified. 10:45 Reassessment: Patient and/or family updated on plan of care and expected duration. Pain jd3 level reassessed. seizure activity noted for 5 seconds. provider notified. post ictal at this time. 11:45 Reassessment: Patient appears in no apparent distress at this time. No changes from jd3 previously documented assessment. Patient and/or family updated on plan of care and expected duration. Pain level reassessed. 12:33 Reassessment: Patient appears in no apparent distress at this time. No changes from jd3 previously documented assessment. Patient and/or family updated on plan of care and expected duration. Pain level reassessed. remains post ictal. drowsy. opens eyes and watches nurse at bedside, but does not respond with speech. 13:56 Reassessment: Patient appears in no apparent distress at this time. Patient and/or jd3 family updated on plan of care and expected duration. Pain level reassessed. awaiting admission. pt wake up to voice, and watches nurse move around room. continues to not communicate with staff. lays head back down and closes eyes when staff exits room. resting in bed comfortably, no distress noted at this time. 15:10 Reassessment: Patient appears in no apparent distress at this time. No changes from jd3 previously documented assessment. Patient and/or family updated on plan of care and expected duration. Pain level reassessed. 16:40 Reassessment: Patient appears in no apparent distress at this time. Patient and/or lai family updated on plan of care and expected duration. Pain level reassessed. report given to Betsy SHAW. pt up and pulling on cords trying to get to restroom. pt redirected back to sit in bed and pt cleaned of incontinence. pt with continued altered mental status. A\T\O X 1. Vital Signs: 02:48 BP 124 / 75 LA Supine (auto/reg); Pulse 94 MON; Resp 18 S; Temp 98.5(O); Pulse Ox 95% tk1 on R/A; 02:48 BP 124 / 75 LA Supine (auto/reg); Pulse 90 MON; Resp 18 S; Pulse Ox 95% on R/A; tk1 04:00 BP 119 / 63 LA Supine (auto/reg); Pulse 99 MON; Resp 20 S; Pulse Ox 98% on R/A; tk1 05:00 BP 110 / 69 LA Supine (auto/reg); Pulse 88; Resp 20; Pulse Ox 98% on R/A; tk1 06:32 BP 112 / 78 LA Supine (auto/reg); Pulse 88 MON; Resp 16 S; Pulse Ox 100% on R/A; tk1 07:30 BP 131 / 98; Pulse 87; Resp 16 S; Pulse Ox 100% on R/A; jd3 09:17 BP 131 / 75; Pulse 87; Resp 17 S; Pulse Ox 100% on R/A; jd3 10:00 BP 121 / 80; Pulse 85; Resp 17 S; Pulse Ox 100% on R/A; jd3 10:49 BP 129 / 86; Pulse 87; Resp 18 S; Pulse Ox 100% on R/A; jd3 12:34 BP 104 / 64; Pulse 83; Resp 18 S; Pulse Ox 100% on R/A; jd3 13:58 BP 111 / 76; Pulse 80; Resp 18 S; Pulse Ox 100% on R/A; jd3 15:10 BP 120 / 78; Pulse 78; Resp 18 S; Pulse Ox 100% on R/A; jd3 16:42 BP 123 / 83; Pulse 77; Resp 17 S; Pulse Ox 100% on R/A; lai ED Course: 02:35 Patient arrived in ED. la1 02:48 Ana María Augustin is Primary Nurse. tk1 02:48 Arm band placed on right wrist. tk1 02:49 Guero Obregon MD is Attending Physician. [facility] 02:52 Triage completed. tk1 02:57 Patient has correct armband on for positive identification. Bed in low position. Call tk1 light in reach. Side rails up X2. Pulse ox on. NIBP on. 02:57 No provider procedures requiring assistance completed. tk1 03:25 Inserted saline lock: 18 gauge in right hand, using aseptic technique. Blood collected. tk1 04:04 Urine Drug Screen Sent. tk1 05:08 CT Head C Spine In Process Unspecified. EDMS 08:00 Attending Physician role handed off by Guero Obregon MD rn 08:00 Dereje Mcgraw MD is Attending Physician. rn 08:14 Primary Nurse role handed off by Ana María Augustin eb 08:14 Poncho Gómez, VALERIA is Primary Nurse. jd3 11:47 Colton Lazo MD is Hospitalizing Provider. rn 16:43 IV discontinued, intact, bleeding controlled, No redness/swelling at site. Pressure lai dressing applied. 17:07 Inserted saline lock: 22 gauge in right antecubital area, using aseptic technique. jl7 Administered Medications: 04:04 Drug: Ativan (LORazepam) 1 mg Route: IVP; Rate: 0.5 mg/min; Infused Over: 2 mins; Site: tk1 right hand; 04:16 Follow up: Response: No change in condition tk1 04:21 Drug: Ativan (LORazepam) 1 mg Route: IVP; Site: right hand; tw5 05:08 Follow up: Response: Marked relief of symptoms tk1 10:40 Drug: Keppra (levETIRAcetam) 1000 mg Route: IV; Rate: calculated rate; Site: right jd3 antecubital; 11:00 Follow up: Response: No adverse reaction; IV Status: Completed infusion jd3 11:02 Drug: Phenytoin 1 grams Route: IVPB; Site: right hand; jd3 11:20 Follow up: Response: No adverse reaction; IV Status: Completed infusion jd3 12:00 Drug: D5-1/2 NS with KCl 20 mEq/L 1000 ml Route: IV; Rate: 100 ml/hr; Site: right hand; jd3 18:03 Follow up: Response: No adverse reaction; IV Status: Infusion continued upon admission jd3 Outcome: 11:48 Decision to Hospitalize by Provider. rn 16:42 Admitted to Med/surg accompanied by tech, via wheelchair, room 205, with chart, Report lai called to Betsy RN 16:42 Condition: stable 16:42 Instructed on the need for admit. 17:13 Patient left the ED. jd3 Signatures: Dispatcher [employer] EDMS Dereje Mcgraw MD MD rn Attema, Lee, PAPER PLATE MACHINE TENDER-C PAPER PLATE MACHINE TENDER-Cla1 Kal Francis RN RN jl7 Poncho Gómez RN RN jd3 Rachel Erazo Maurice, MD MD Jacque Sneed tw5 Lorri-StagerRenetta RN RN ha Kirby, Tammie tk1 Corrections: (The following items were deleted from the chart) 04:16 04:07 Reassessment: Patient escorted back from CT to ED RM 20. Patient moving head tk1 during CT then got off of CT bed to urinate. Specimen collected sent to lab. Dr. Obregno updated. tk1 16:44 16:40 Reassessment: Patient appears in no apparent distress at this time. Patient lai and/or family updated on plan of care and expected duration. Pain level reassessed. report given to Betsy RN. pt up and pulling on cords trying to get to restroom. pt redirected back to sit in bed and pt cleaned of incontinence. lai
--- NOTE | 2022-01-29 11:48 | EDPHYS ---
Physician Documentation [facility] Name: Mari Mercado Age: 26 yrs Sex: Male : 1995 Arrival Date: 01/29/2022 Time: 02:35 Bed 20 Private MD: ED Physician Dereje Mcgraw HPI: 01/29 03:30 This 26 yrs old Black Male presents to ER via EMS with complaints of Altered mental mh7 status. 03:30 The patient presents with confusion. Onset: The symptoms/episode began/occurred last mh7 night. Possible causes: unknown. Associated signs and symptoms: Pertinent positives: agitation, confusion. Current symptoms: In the emergency department the patient's symptoms have improved, moderately. Patient's baseline: unknown. 03:30 Unable to obtain HPI due to altered mental status. mh7 03:30 Brought in by EMS after being seen walking on the side of the road. . mh7 Historical: - Allergies: 07:31 No Known Allergies; jd3 - Home Meds: 07:31 Dilantin Oral [Active]; Keppra Oral [Active]; jd3 - PMHx: 16:05 Seizure; Bipolar disorder; jd3 - Immunization history:: Adult Immunizations unknown. - Social history:: Smoking status: unknown. - Unable to obtain history due to: altered mental status. ROS: 03:30 Unable to obtain ROS due to altered mental status. mh7 Exam: 03:30 Eyes: Pupils equal round and reactive to light, extra-ocular motions intact. Lids and mh7 lashes normal. Conjunctiva and sclera are non-icteric and not injected. Cornea within normal limits. Periorbital areas with no swelling, redness, or edema. Neck: Trachea midline, no thyromegaly or masses palpated, and no cervical lymphadenopathy. Supple, full range of motion without nuchal rigidity, or vertebral point tenderness. No Meningismus. Chest/axilla: Normal chest wall appearance and motion. Nontender with no deformity. No lesions are appreciated. Cardiovascular: Regular rate and rhythm with a normal S1 and S2. No gallops, murmurs, or rubs. Normal PMI, no JVD. No pulse deficits. Respiratory: Lungs have equal breath sounds bilaterally, clear to auscultation and percussion. No rales, rhonchi or wheezes noted. No increased work of breathing, no retractions or nasal flaring. Abdomen/GI: Soft, non-tender, with normal bowel sounds. No distension or tympany. No guarding or rebound. No evidence of tenderness throughout. Back: No spinal tenderness. No costovertebral tenderness. Full range of motion. Skin: Warm, dry with normal turgor. Normal color with no rashes, no lesions, and no evidence of cellulitis. MS/ Extremity: Pulses equal, no cyanosis. Neurovascular intact. Full, normal range of motion. 03:30 Constitutional: The patient appears in no acute distress, alert, awake. 03:30 Head/face: Noted is contusion, that is superficial, of the posterior scalp. 03:30 Neuro: Orientation: unable to test, AMS, Mentation: responsive to voice confused, Memory: unable to test, AMS, Cranial nerves: unable to test, AMS, Cerebellar function: unable to test, AMS, Motor: moves all fours, Sensation: no obvious gross deficits, Gait: is steady, at a normal pace, without difficulty, seizure activity, is not displayed by the patient, Abnormal movements: there are no abnormal movements. Vital Signs: 02:48 BP 124 / 75 LA Supine (auto/reg); Pulse 94 MON; Resp 18 S; Temp 98.5(O); Pulse Ox 95% tk1 on R/A; 02:48 BP 124 / 75 LA Supine (auto/reg); Pulse 90 MON; Resp 18 S; Pulse Ox 95% on R/A; tk1 04:00 BP 119 / 63 LA Supine (auto/reg); Pulse 99 MON; Resp 20 S; Pulse Ox 98% on R/A; tk1 05:00 BP 110 / 69 LA Supine (auto/reg); Pulse 88; Resp 20; Pulse Ox 98% on R/A; tk1 06:32 BP 112 / 78 LA Supine (auto/reg); Pulse 88 MON; Resp 16 S; Pulse Ox 100% on R/A; tk1 07:30 BP 131 / 98; Pulse 87; Resp 16 S; Pulse Ox 100% on R/A; jd3 09:17 BP 131 / 75; Pulse 87; Resp 17 S; Pulse Ox 100% on R/A; jd3 10:00 BP 121 / 80; Pulse 85; Resp 17 S; Pulse Ox 100% on R/A; jd3 10:49 BP 129 / 86; Pulse 87; Resp 18 S; Pulse Ox 100% on R/A; jd3 12:34 BP 104 / 64; Pulse 83; Resp 18 S; Pulse Ox 100% on R/A; jd3 13:58 BP 111 / 76; Pulse 80; Resp 18 S; Pulse Ox 100% on R/A; jd3 15:10 BP 120 / 78; Pulse 78; Resp 18 S; Pulse Ox 100% on R/A; jd3 16:42 BP 123 / 83; Pulse 77; Resp 17 S; Pulse Ox 100% on R/A; lai MDM: 08:00 Patient medically screened. rn 10:37 ED course: Signed out to me by Dr. Obregon, he was not sure what was going on, states rn patient was found on side of road, picked up by police or mental health, DAT filed, apparently for bizarre behavior but no specifics. Patient given ativan prior to my arrival so unable to cooperate with exam. Had brief seizure just now, approx 15 seconds, stopped on its own, will load with phenytoin and keppra since subtherapeutic. Will cont to observe. Not really clear why on DAT and patient cannot participate with exam.. 11:43 Differential Diagnosis: electrolyte abnormality, alcohol intoxication, hypoglycemia, rn intracranial bleed, volume depletion. 11:45 Data reviewed: vital signs, nurses notes, lab test result(s), EKG, radiologic studies, rn CT scan, and as a result, I will admit patient. Counseling: I had a detailed discussion with the patient and/or guardian regarding: the historical points, exam findings, and any diagnostic results supporting the discharge/admit diagnosis, lab results, radiology results, the need for further work-up and treatment in the hospital. Response to treatment: the patient's symptoms have mildly improved after treatment, and as a result, I will admit patient. ED course: Pt still altered, has had 2 or 3 brief seizures here, will have to admit, loaded with keppra and dilantin. Admitted to hospitalist service.. 01/29 03:15 Order name: Acetaminophen; Complete Time: 04:13 mh7 01/29 03:15 Order name: Basic Metabolic Panel; Complete Time: 04:13 mh7 01/29 03:15 Order name: CBC with Diff; Complete Time: 04:13 [facility] 01/29 03:15 Order name: ETOH Level; Complete Time: 04:13 [facility] 01/29 03:15 Order name: Hepatic Function; Complete Time: 04:13 [facility] 01/29 03:15 Order name: PT-INR; Complete Time: 04:13 [facility] 01/29 03:15 Order name: Ptt, Activated; Complete Time: 04:13 [facility] 01/29 03:15 Order name: Salicylate; Complete Time: 04:13 [facility] 01/29 03:15 Order name: Urine Drug Screen; Complete Time: 04:13 [facility] 01/29 03:15 Order name: Dilantin; Complete Time: 04:13 [facility] 01/29 03:15 Order name: CT Head C Spine [facility] 01/29 11:51 Order name: COVID-19 SARS RT PCR (Document "Date of Onset" if Symptomatic); Complete ss Time: 13:21 01/29 03:15 Order name: EKG; Complete Time: 03:16 [facility] 01/29 03:15 Order name: EKG - Nurse/Tech; Complete Time: 04:03 [facility] 01/29 03:15 Order name: IV Saline Lock; Complete Time: 04:03 [facility] 01/29 03:15 Order name: Labs collected and sent; Complete Time: 04:03 [facility] 01/29 03:15 Order name: Urine Dipstick-Ancillary (obtain specimen); Complete Time: 04:04 [facility] Administered Medications: 04:04 Drug: Ativan (LORazepam) 1 mg Route: IVP; Rate: 0.5 mg/min; Infused Over: 2 mins; Site: tk1 right hand; 04:16 Follow up: Response: No change in condition tk1 04:21 Drug: Ativan (LORazepam) 1 mg Route: IVP; Site: right hand; tw5 05:08 Follow up: Response: Marked relief of symptoms tk1 10:40 Drug: Keppra (levETIRAcetam) 1000 mg Route: IV; Rate: calculated rate; Site: right jd3 antecubital; 11:00 Follow up: Response: No adverse reaction; IV Status: Completed infusion jd3 11:02 Drug: Phenytoin 1 grams Route: IVPB; Site: right hand; jd3 11:20 Follow up: Response: No adverse reaction; IV Status: Completed infusion jd3 12:00 Drug: D5-1/2 NS with KCl 20 mEq/L 1000 ml Route: IV; Rate: 100 ml/hr; Site: right hand; jd3 18:03 Follow up: Response: No adverse reaction; IV Status: Infusion continued upon admission jd3 Disposition Summary: 01/29/22 11:48 Hospitalization Ordered Hospitalization Status: Inpatient Admission rn Provider: Colton Lazo rn Location: [facility] ([facility]patient) rn Condition: Stable rn Problem: new rn Symptoms: are unchanged rn Bed/Room Type: Standard rn Room Assignment: 205(01/29/22 14:55) eb Diagnosis - Altered mental status, unspecified rn - Epileptic seizures related to external causes, not intractable, without status rn epilepticus Forms: - Medication Reconciliation Form rn - SBAR form rn Signatures: Dispatcher [employer] Dereje Cuellar MD MD rn Davies, Jonathon, RN RN Rachel Mcpherson Maurice, MD MD [facility] Jacque Toussaint 5 Ana María Augustin tk1 Corrections: (The following items were deleted from the chart) 14:55 11:48 rn eb
[2022-01-29 18:07] VITALS: TEMP 98.5
[2022-01-29 18:11] VITALS: O2SAT 100
[2022-01-29 18:22] VITALS: BP 123/83
--- NOTE | 2022-01-29 18:40 | RAD REPORT ---
EXAM DESCRIPTION: CT HEAD AND CERVICAL SPINE WITHOUT CONTRAST on 01/29/2022 3:15 AM CDT CLINICAL HISTORY: Fall COMPARISON: None. TECHNIQUE: CT HEAD AND CERVICAL SPINE WITHOUT CONTRAST This exam was performed according to our departmental dose-optimization program, which includes autom ated exposure control, adjustment of the mA and/or kV according to patient size and/or use of iterati ve reconstruction technique. FINDINGS: Brain: There is no acute hemorrhage, mass effect or midline shift. Olvio-white differentiat ion is preserved. There is no hydrocephalus. There is no significant volume loss for age. The calvarium is intact. Orbits and globes are unremarkable. The paranasal sinuses are clear. Mastoid air cells are clear. Cervical Spine: There is no acute fracture. Alignment is anatomic. Disc spaces are maintained. Vertebral body heights are preserved. Soft tissues are unremarkable. IMPRESSION: No acute postraumatic findings. Electronically signed by: Salvador Suero MD 01/29/2022 6:28 AM CDT Due to temporary technical issues with the PACS/Fluency reporting system, reports are being signed by the in house radiologists without review as a courtesy to insure prompt reporting. The interpreting radiologist is fully responsible for the content of the report.
--- NOTE | 2022-01-30 11:16 | EKG ---
Test Date: 2022-01-29 Test Time: 03:28:04 Diamond Merchant: AARON MEASUREMENT RESULTS: Intervals: Rate: 88 IA: 128 QRSD: 88 QT: 364 QTc: 440 [place]: P: 75 IA: 128 QRS: 81 T: 58 INTERPRETIVE STATEMENTS: Normal sinus rhythm Normal ECG Compared to ECG 06/17/2021 03:42:38 Sinus tachycardia no longer present Electronically Signed On 01-30-22 11:12:22 CDT by Billy Valle
== END ==
LOC: ER 22:45
DX: G40.509 Epileptic seizures related to external causes, not intractable, without status epilepticus (principal); F31.9 Bipolar disorder, unspecified; Z20.822 Contact with and (suspected) exposure to COVID-19
CPT/HCPCS: 85025; 80048; 36415; 80320; 80329 ×2; 85610; 80076; 85730; 80185; 80307; U0003; 70450; 72125; 93005; 99285

== ENCOUNTER 2022-01-29 02:54 | Inpatient (IN) | payer OTHER ==
--- OUTSIDE RECORDS SUMMARY | 2022-01-29 02:58 | XMS REPORT | Continuity of Care Document ---
:1995 Author Organization [facility] t Address [address] [place] [address] Care Team Providers Name Role Phone Kika BARRERA Attending Clinician Unavailable GILMA SCHERER Attending Clinician Unavailable GILMA SCHERER Attending Clinician Unavailable Doctor Unassigned, Name Attending Clinician Unavailable Gilma Scherer MD Attending Clinician Payers Payer Name Policy Type Policy Number Effective Date Expiration Date [facility] [id number] 2016 00:00:00 Problems Condition Condition Condition Status Onset Resolution Last Treating Co mments Source Name Details Category Date Date Treatment Clinician Date G40.909 Diagnosis Active 2015-102016-09-19 Me moria 11-13 16:07:00 l G40.909 00:00: [place] 00 Active 09/13/2016 [facility] Seizure Problem Resolve 2016-09-22 Mem oria (finding) d 02:38:55 l Seizure [place] (finding) Resolved Problem 09/22/2016 [facility] Allergies, Adverse Reactions, Alerts Allergy Allergy Status Severity Reaction(s) Onset Inactive Treating Comm ents Source Name Type Date Date Clinician NO KNOWN Drug Active [facility] Social History Social Habit Start Date Stop Date Quantity Comments Source Social History 2016-09-20 2016-09-20 Leonardo davidson 05:59:00 05:59:00 Medications This patient has no known medications. Procedures Procedure Date / Time Performed Performing Clinician Sourc e CT brain w/o contrast [facility] lety EEG [facility] Encounters Start End Encounter Admission Attending Care Care Encounter Source Date/Time Date/Time Type Type Clinicians Facility Department ID 2021-04-27 2021-04-27 Outpatient Nathan BARRERA, [facility] NUT [id number] Univers 00:00:00 00:00:00 JAQUELINE [id number] [facility] 2021-04-27 2021-04-27 Outpatient Nathan BARRERA [facility] NUT [id number] Univers 00:00:00 00:00:00 JAQUELINE [facility] 2020-09-28 2020-09-28 Outpatient R [facility] [id number] Univers 09:00:00 09:00:00 [facility] 2020-09-28 2020-09-28 Outpatient R SHALOM SCHERER [facility] [id number] Univers 09:00:00 09:00:00 SHALOM SCHERER [facility] 2020-09-28 2020-09-28 Orders Doctor CRAWFORD [id number] 00:00:00 00:00:00 Only Unassigned, ESTER [id number] Ethel [facility] [id number] 2020-09-17 2020-09-17 Outpatient R [facility] [id number] Univers 13:00:00 13:00:00 jaspreet [facility] 2020-09-17 2020-09-17 Outpatient R SHALOM SCHERER [facility] [id number] Univers 13:00:00 13:00:00 SHALOM SCHERER jaspreet [facility] 2020-09-16 2020-09-16 Outpatient R [facility] [id number] Univers 13:00:00 13:00:00 [id number] jaspreet [facility] 2020-09-16 2020-09-16 Outpatient SHALOM QUILES [facility] [id number] Univers 13:00:00 13:00:00 SHALOM SCHERER jaspreet [facility] 2020-08-24 2020-08-24 Office Niesha [facility] [id number] 15:09:23 16:20:08 Visit Shalom Duran [id number] [place] [id number] Marycruz [id number] [facility] 2020-08-24 2020-08-24 Outpatient Nathan SCHERER SHALOM [facility] [id number] Univers 16:00:00 16:00:00 SHALOM SCHERER [facility] 2020-08-24 2020-08-24 Outpatient NIESHA, SHALOM [facility] [id number] Univers 15:40:00 15:40:00 SHALOM SCHERER [id number] [facility] 2020-08-24 2020-08-24 Outpatient Nathan PUGAAna Cristina SHALOM [facility] [id number] Univers 15:40:00 15:40:00 SHALOM SCHERER [facility] 2016-09-19 2016-09-20 Outpatient [facility] [id number] Memoria 16:26:00 05:59:[address] Results This patient has no known results.
[2022-01-29 03:57] LABS: Urine Blood Trace-lysed (Negative); Urine Glucose Negative (Negative); Urine Protein Negative (Negative); Urine Specific Gravity 1.015 (1.005-1.030); Urine pH 6.5 (5.0-7.0)
[2022-01-29] MEDS ORDERED: LORazepam 2 MG/ML VIAL ONE ×2 (04:03→04:22)
[2022-01-29] MEDS ORDERED: ACETAMINOPHEN 500 MG TAB PO PRN (13:29)
[2022-01-29] MEDS ORDERED: ONDANSETRON 4 MG/2 ML VIAL IV PRN (13:29)
[2022-01-29] MEDS ORDERED: KETOROLAC 30 MG/ML INJ IV PRN (13:37)
--- NOTE | 2022-01-29 13:38 | P.HP ---
Certification for Inpatient Patient admitted to: Inpatient With expected LOS: >2 Midnights Patient will require the following post-hospital care: None Practitioner: I am a practitioner with admitting privileges, knowledge of patient current condition, hospital course, and medical plan of care. Services: Services provided to patient in accordance with Admission requirements found in Title 42 Section 412.3 of the Code of Federal Regulations Patient History Date of Service: 01/29/22 Reason for admission: AMS History of Present Illness: Patient is a 26-year-old male with a past medical history significant for seizures, hallucination, delusional disorder who presents with complaints of altered mental status. Patient currently confused and unresponsive to verbal commands. Patient was found sitting on the street and checking on his cell phone. No other signs or symptoms reported. Symptoms are aggravated or relieved by anything. Patient was brought to the hospital by the police. No other signs or symptoms reported. Symptoms are aggravated or relieved by nothing. Of note, while patient was in the ER patient had 2 episodes of seizures. Allergies No Known Drug Allergies Allergy (Unverified 11/11/14 18:46) Unknown No Known Allerg Allergy (Mild, Uncoded 12/22/17 23:44) Unknown NKA Allergy (Uncoded 05/25/17 21:33) Unknown No Known All Allergy (Uncoded 05/25/17 21:33) Unknown No Known Allergies Allergy (Uncoded 06/14/18 05:02) Unknown Home medications list reviewed: Yes Home Medications: Levetiracetam [Keppra] 1,000 mg PO BID #60 tablet 04/13/14 Phenytoin Sodium Extended [Dilantin] 200 mg PO BID #60 capsule 04/13/14 - Past Medical/Surgical History Diabetic: No -: seizures - Family History Family History: Reviewed- Non-Contributory - Social History Smoking Status: Unknown if ever smoked Smoking therapy provided: No Alcohol use: No CD- Drugs: No Caffeine use: Yes Place of Residence: Home Review of Systems is unable to be obtained (Patient not responding to commands) Physical Examination - Physical Exam General: Confused, Unresponsive HEENT: Normocephalic Neck: Supple, 2+ carotid pulse no bruit, JVD not distended Respiratory: Clear to auscultation bilaterally, Normal air movement Cardiovascular: No edema, Normal pulses Capillary refill: <2 Seconds Gastrointestinal: Normal bowel sounds Musculoskeletal: No clubbing Integumentary: No rashes, No breakdown Neurological: Other (AMS) Lymphatics: No axilla or inguinal lymphadenopathy Assessment and Plan - Plan --Seizures. Patient given Keppra IV in the ER. Neurology consulted. Neurology recommends MRI brain and EEG. Continue Keppra seizure precautions. --Acute encephalopathy. UDS and UA negative. Patient likely postictal from 2 seizures experience in the ER. Continue supportive care --History of hallucination. Continue supportive care. --Delusional disorder. Continue supportive care --DVT prophylaxis with Lovenox subQ Discharge Plan: Home Plan to discharge in: 48 Hours - Advance Directives Does patient have a Living Will: No Does patient have a Durable POA for Healthcare: No - Code Status/Comfort Care Code Status Assessed: Yes Code Status: Full Code Physician Review: Patient Assessed, Agree with Above Assessment and Plan Critical Care: No
[2022-01-29] MEDS: levETIRAcetam 1,000 MG in NA CHLORIDE 0.9% 100 ML IV SCH (15:00)
[2022-01-29 17:48] VITALS: BMI 24.8
[2022-01-29] MEDS: NA CHLORIDE 0.9% 1,000 ML IV SCH (17:52)
[2022-01-29] MEDS: PHENYTOIN ER 100 MG CAP PO SCH (21:00)
[2022-01-29 21:35] LABS: ALT/SGPT 27 U/L (12-78); AST/SGOT 31 U/L (15-37); Albumin 3.8 g/dL (3.4-5.0); Alkaline Phosphatase 78 U/L (45-117); BUN Blood Urea Nitrogen 5 mg/dL (7-18); Bicarbonate 28 mmol/L (21-32); Bilirubin Total 0.4 mg/dL (0.2-1.0); Glucose Level 90 mg/dL (74-106); Potassium 3.9 mmol/L (3.5-5.1); Sodium Level 139 mmol/L (136-145)
[2022-01-29] MEDS: LORazepam 2 MG/ML VIAL IV PRN (22:17)
[2022-01-29] MEDS ORDERED: DIPHENHYDRAMINE 50 MG/ML VIAL IV ONE (22:31)
[2022-01-30] MEDS: levETIRAcetam 1,000 MG in NA CHLORIDE 0.9% 100 ML IV SCH ×3 (01:10→23:22)
[2022-01-30] MEDS ORDERED: NA CHLORIDE 0.9% 100 ML ONE (01:11)
[2022-01-30] MEDS: NA CHLORIDE 0.9% 1,000 ML IV SCH ×2 (03:20→10:32)
[2022-01-30 05:52] LABS: ALT/SGPT 27 U/L (12-78); AST/SGOT 23 U/L (15-37); Albumin 3.4 g/dL (3.4-5.0); Alkaline Phosphatase 77 U/L (45-117); BUN Blood Urea Nitrogen 7 mg/dL (7-18); Bicarbonate 27 mmol/L (21-32); Bilirubin Total 0.5 mg/dL (0.2-1.0); Glucose Level 75 mg/dL (74-106); Potassium 3.9 mmol/L (3.5-5.1); Protein, Total 7.5 g/dL (6.4-8.2); Sodium Level 138 mmol/L (136-145)
[2022-01-30] MEDS: PHENYTOIN ER 100 MG CAP PO SCH ×2 (09:00→21:00)
[2022-01-30] MEDS: ENOXAPARIN 40 MG/0.4 ML SQ SCH (10:25)
--- NOTE | 2022-01-30 13:04 | P.PN ---
Subjective Date of Service: 01/30/22 Chief Complaint: AMS Patient awake and interactive but still drowsy this morning. No more seizure episodes. Physical Examination - Vital Signs Temperature: 96.7 F Blood Pressure: 108/54 Pulse: 87 Respirations: 16 Pulse Ox (%): 96 Assessment And Plan - Plan Physical Exam General: Somnolent HEENT: Normocephalic Neck: Supple, JVD not distended Respiratory: Clear to auscultation bilaterally, no rhonchi. Cardiovascular: No edema, Normal pulses, heart sounds 1 and 2-normal rate and regular rhythm Gastrointestinal: Normal bowel sounds, no tenderness Integumentary: No rashes, No breakdown Neurological: Somnolent, no focal motor deficit. Assessment: Seizures Acute encephalopathy Delusional disorder Plan: Continue IV Keppra. Continue home dose phenytoin. Check phenytoin level Neurology consulted MRI of the brain and EEG ordered Seizure precautions Supportive care. Physician Review: Patient Assessed, Agree with Above Assessment and Plan
[2022-01-31 05:43] LABS: Absolute Lymphocytes (CBC) 1.3 K/uL (0.7-4.9); Hematocrit 43.2 % (39.6-49.0); Lymphocytes % 21.2 % (15.3-44.8); MPV 7.9 fL (7.6-11.3)
[2022-01-31 05:56] LABS: BUN Blood Urea Nitrogen 10 mg/dL (7-18); Bicarbonate 25 mmol/L (21-32); Glucose Level 61 mg/dL (74-106); Sodium Level 138 mmol/L (136-145)
[2022-01-31] MEDS: NA CHLORIDE 0.9% 1,000 ML IV SCH (06:11)
[2022-01-31] MEDS: levETIRAcetam 1,000 MG in NA CHLORIDE 0.9% 100 ML IV SCH (08:17)
[2022-01-31] MEDS: ENOXAPARIN 40 MG/0.4 ML SQ SCH (08:17)
[2022-01-31] MEDS: PHENYTOIN ER 100 MG CAP PO SCH ×2 (08:17→20:37)
[2022-01-31] MEDS ORDERED: levETIRAcetam 500 MG TAB PO SCH ×2 (09:00→21:00)
[2022-01-31] MEDS ORDERED: VALPROATE SODIUM INJ 1,000 MG in NA CHLORIDE 0.9% 100 ML IV ONE ×2 (10:08→21:00)
--- NOTE | 2022-01-31 10:11 | P.PN ---
Subjective Date of Service: 01/31/22 Chief Complaint: AMS Patient is more awake and interactive but generally not forthcoming and suspect behavioral issues. No seizure episodes. Physical Examination - Vital Signs Temperature: 98.7 F Blood Pressure: 104/44 Pulse: 76 Respirations: 16 Pulse Ox (%): 98 Assessment And Plan - Plan Physical Exam General: Awake HEENT: Normocephalic Neck: Supple, JVD not distended Respiratory: Clear to auscultation bilaterally, no rhonchi. Cardiovascular: No edema, Normal pulses, heart sounds 1 and 2-normal rate and regular rhythm Gastrointestinal: Normal bowel sounds, no tenderness Integumentary: No rashes, No breakdown Neurological: no focal motor deficit. Assessment: Seizures Acute encephalopathy Delusional disorder/behavioral abnormalities Plan: Case discussed with Dr. Fernandez. He recommend switching Keppra to Depakote given his behavioral issues including delusional disorder Continue home dose phenytoin. Phenytoin level is therapeutic. Neurology to follow. EEG done and the result is pending MRI of the brain is pending Seizure precautions Supportive care. Diet as tolerated. Physician Review: Patient Assessed, Agree with Above Assessment and Plan
[2022-01-31] MEDS: DIVALPROEX DR 500MG TAB PO SCH (20:37)
[2022-01-31] MEDS: LORazepam 2 MG/ML VIAL IV PRN (21:39)
--- NOTE | 2022-02-01 08:36 | EEG ---
CHART: [id number] TEST ID#: [id number] DATE OF STUDY: 01-30-2022 THE EEG WAS RECORDED PORTABLE IN THE PATIENT'S ROOM ON A 17 CHANNEL MACHINE. ELECTRODES WERE APPLIED IN THE USUAL MANNER USING THE INTERNATIONAL 10-20 SYSTEM. THE WAKING BACKGROUND RHYTHM IN THIS RECORD CONSISTS OF POORLY DEVELOPED AND POORLY ORGANIZED WAVES OF 5-7 HZ., IN A WIDE DISTRIBUTION WHICH DO NOT ATTENUATE NORMALLY WITH EYE OPENING. THE AMPLITUDES ARE DEPRESSED THROUGHOUT THE STUDY. OCCASIONAL SHARP WAVES ARE NOTED IN THE LEFT FRONTO TEMPORAL REGIONS. THERE ARE NO FOCAL OR LATERALIZING FEATURES. NO EPILEPTIFORM ACTIVITY APPEARS. SLEEP DID NOT OCCUR. HYPERVENTILATION WAS NOT PERFORMED. PHOTIC STIMULATION PRODUCED NO DRIVING BILATERALLY. IMPRESSION: THIS IS A MODERATELY ABNORMAL ROUTINE EEG DUE TO A LOW-AMPLITUDE MODERATELY SLOW BACKGROUND WITH OCCASIONAL LEFT FRONTO TEMPORAL SHARP WAVES. THESE FINDINGS ARE CONSISTENT WITH A DIFFUSE DISTURBANCES IN CEREBRAL FUNCTION AND POTENTIALLY EPILEPTOGENIC LESION IN THE LEFT FRONTO TEMPORAL REGION.
[2022-02-01 08:54] VITALS: O2SAT 96
[2022-02-01] MEDS: ENOXAPARIN 40 MG/0.4 ML SQ SCH (09:00)
[2022-02-01] MEDS: PHENYTOIN ER 100 MG CAP PO SCH (10:44)
[2022-02-01] MEDS: DIVALPROEX DR 500MG TAB PO SCH (10:44)
--- NOTE | 2022-02-01 11:06 | P.DS ---
Admission Date: 01/29/22 Discharge Date: 02/01/22 Disposition: ROUTINE DISCHARGE Discharge Condition: FAIR Reason for Admission: AMS - Problems (1) Bipolar disorder Current Visit: Yes Status: Acute (2) Complex partial seizures Current Visit: No Status: Acute Qualifiers: Epilepsy type: partial symptomatic Brief History of Present Illness: Patient is a 26-year-old male with a past medical history significant for seizures, hallucination, delusional disorder who presented with complaints of altered mental status. Patient currently confused and unresponsive to verbal commands. Patient was found sitting on the street and checking on his cell phone. No other signs or symptoms reported. Patient was brought to the hospital by the police. No other signs or symptoms reported. Patient reported to have had 2 episodes of fever while in the ED. He was given loading dose of Keppra and admitted for further management. Hospital Course: Assessment: Seizures Acute encephalopathy Delusional disorder/behavioral abnormalities Patient admitted to the medical floor and treated with IV Keppra and IV Depakote. Neurology consulted, case discussed with Dr. Fernandez. He recommend switching Keppra to Depakote given his behavioral issues including delusional disorder. Patient was stable on the Dilantin and Depakote. EEG was done which demonstrated slowing and abnormal activity in the temporal lobe. 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 Phenytoin level is therapeutic on his home dose phenytoin. Patient previous MRI of the brain and multiple CT scans reviewed with neurology. Patient has been ambulatory and tolerated diet. Vitals are stable and he is deemed stable for discharge. Vital Signs/Physical Exam: Temp Pulse Resp BP Pulse Ox 97.5 F 82 18 114/56 L 96 02/01/22 04:00 02/01/22 05:33 02/01/22 04:00 02/01/22 05:33 02/01/22 04:00 General: Alert, In no apparent distress, Oriented x3 HEENT: Mucous membr. moist/pink Neck: Supple, JVD not distended Respiratory: Clear to auscultation bilaterally, Normal air movement Cardiovascular: No edema, Regular rate/rhythm, Normal S1 S2 Gastrointestinal: Normal bowel sounds, Soft and benign, Non-distended, No tenderness Musculoskeletal: No swelling Integumentary: No rashes Neurological: Normal strength at 5/5 x4 extr Laboratory Data at Discharge: WBC 6.0 K/uL (4.3-10.9) D 01/31/22 05:15 Hgb 14.7 g/dL (13.6-17.9) 01/31/22 05:15 Hct 43.2 % (39.6-49.0) 01/31/22 05:15 Plt Count 254 K/uL (152-406) 01/31/22 05:15 Sodium 138 mmol/L (136-145) 01/31/22 05:15 Potassium 4.0 mmol/L (3.5-5.1) 01/31/22 05:15 BUN 10 mg/dL (7-18) 01/31/22 05:15 Creatinine 0.89 mg/dL (0.55-1.3) 01/31/22 05:15 Glucose 61 mg/dL (74-106) L 01/31/22 05:15 Total Bilirubin 0.5 mg/dL (0.2-1.0) 01/30/22 05:19 AST 23 U/L (15-37) 01/30/22 05:19 ALT 27 U/L (12-78) 01/30/22 05:19 Alkaline Phosphatase 77 U/L (45-117) 01/30/22 05:19 Home Medications: Phenytoin Sodium Extended [Dilantin] 200 mg PO BID #60 capsule 01/31/22 Divalproex Sodium [Depakote] 500 mg PO BID #60 tablet. 02/01/22 Folic Acid 1 mg PO DAILY #30 tablet 02/01/22 New Medications: Divalproex Sodium [Depakote] 500 mg PO BID #60 tablet. Phenytoin Sodium Extended [Dilantin] 200 mg PO BID #60 capsule Folic Acid 1 mg PO DAILY #30 tablet Physician Discharge Instructions: Seizure precautions Diet: Regular Activity: Fall precautions Followup: Unknown,U [Primary Care Provider] - Keith Linton MD [ACTIVE - CAN ADMIT] - 1 Week Time spent managing pt's care (in minutes): 37
[2022-02-01] MEDS: LORazepam 2 MG/ML VIAL IV PRN (11:08)
[2022-02-01 11:26] VITALS: BP 104/56; TEMP 98.4
== END 2022-02-01 13:19 | disposition home or self-care (01) | DRG 101 ==
LOC: ER 02:54 → ERHOLD 13:24 → 2ND 16:42
PROVIDERS: ADMIT Internal Medicine; ATTEND Internal Medicine Sleep Medicine
DX: G40.209 Localization-related (focal) (partial) symptomatic epilepsy and epileptic syndromes with complex partial seizures, not intractable, without status epilepticus (principal); G93.40 Encephalopathy, unspecified; F22 Delusional disorders; F91.9 Conduct disorder, unspecified; F31.9 Bipolar disorder, unspecified
CPT/HCPCS: 36415; 70450; 72125; 80048; 80053; 80185; 81003; 82947; 85025; 93005; 95819; 99285; J1200; J1650; J1953; J7030

== ENCOUNTER 2022-02-01 22:53 | Inpatient (IN) | payer OTHER ==
--- OUTSIDE RECORDS SUMMARY | 2022-02-01 22:55 | XMS REPORT | Continuity of Care Document ---
:1995 Author Organization [facility] t Address [address] [place] [address] Care Team Providers Name Role Phone Kika BARRERA Attending Clinician Unavailable GILMA SCHERER Attending Clinician Unavailable GILMA SCHERER Attending Clinician Unavailable Doctor Unassigned, Name Attending Clinician Unavailable Gilma Scherer MD Attending Clinician Payers Payer Name Policy Type Policy Number Effective Date Expiration Date [facility] [id number] 2016 00:00:00 Problems Condition Condition Condition Status Onset Resolution Last Treating Co mments Source Name Details Category Date Date Treatment Clinician Date G40.909 Diagnosis Active 2015-102016-09-19 Me moria 11-13 16:07:00 l G40.909 00:00: [place] 00 Active 09/13/2016 [facility] Seizure Problem Resolve 2016-09-22 Mem oria (finding) d 02:38:55 l Seizure [place] (finding) Resolved Problem 09/22/2016 [facility] Allergies, Adverse Reactions, Alerts Allergy Allergy Status Severity Reaction(s) Onset Inactive Treating Comm ents Source Name Type Date Date Clinician NO KNOWN Drug Active [facility]ERGIE Class [facility] of [facility] Social History Social Habit Start Date Stop Date Quantity Comments Source Social History 2016-09-20 2016-09-20 Leonardo davidson 05:59:00 05:59:00 Medications This patient has no known medications. Procedures Procedure Date / Time Performed Performing Clinician Sourc e CT brain w/o contrast [facility] lety EEG [facility] Encounters Start End Encounter Admission Attending Care Care Encounter Source Date/Time Date/Time Type Type Clinicians Facility Department ID 2021-04-27 2021-04-27 Outpatient Nathan BARRERA, [facility] NUT [id number] Univers 00:00:00 00:00:00 JAQUELINE [id number] [facility] 2021-04-27 2021-04-27 Outpatient Nathan BARRERA [facility] N[facility] [id number] Univers 00:00:00 00:00:00 JAQUELINE [facility] 2020-09-28 2020-09-28 Outpatient R [facility] [id number] Univers 09:00:00 09:00:00 [facility] 2020-09-28 2020-09-28 Outpatient R SHALOM SCHERER [facility] [id number] Univers 09:00:00 09:00:00 SHALOM SCHERER [facility] 2020-09-28 2020-09-28 Orders Doctor CRAWFORD [id number] 00:00:00 00:00:00 Only Unassigned, ESTER [id number] [place] [facility] [id number] 2020-09-17 2020-09-17 Outpatient R [facility] [id number] Univers 13:00:00 13:00:00 jaspreet [facility] 2020-09-17 2020-09-17 Outpatient R SHALOM SCHERER [facility] [id number] Univers 13:00:00 13:00:00 SHALOM SCHERER jaspreet [facility] 2020-09-16 2020-09-16 Outpatient R [facility] [id number] Univers 13:00:00 13:00:00 [id number] jaspreet [facility] 2020-09-16 2020-09-16 Outpatient SHALOM QUILES [facility] [id number] Univers 13:00:00 13:00:00 SHALOM SCHERER jaspreet [facility] 2020-08-24 2020-08-24 Office Niesha [facility] [id number] 15:09:23 16:20:08 Visit Shalom Duran [id number] [place] [id number] [place] [id number] nal [id number] [facility] 2020-08-24 2020-08-24 Outpatient Nathan SCHERER SHALOM [facility] [id number] Univers 16:00:00 16:00:00 SHALOM SCHERER [facility] 2020-08-24 2020-08-24 Outpatient NIESHA, SHALOM [facility] [id number] Univers 15:40:00 15:40:00 SHALOM SCHERER [id number] [facility] 2020-08-24 2020-08-24 Outpatient Nathan PUGAAna Cristina SHALOM [facility] [id number] Univers 15:40:00 15:40:00 SHALOM SCHERER [facility] 2016-09-19 2016-09-20 Outpatient [facility] [id number] [place] 16:26:00 05:59:[address] Results This patient has no known results.
[2022-02-02 00:14] LABS: Urine Blood Trace-intact (Negative); Urine Glucose Negative (Negative); Urine Protein Negative (Negative); Urine Specific Gravity 1.015 (1.005-1.030); Urine pH 6.5 (5.0-7.0)
[2022-02-02 00:40] LABS: Barbiturates NEGATIVE (NEGATIVE); Benzodiazepines NEGATIVE (NEGATIVE); Cocaine NEGATIVE (NEGATIVE); METHAMPHETAM NEGATIVE (NEGATIVE); Methadone NEGATIVE (NEGATIVE); Opiates NEGATIVE (NEGATIVE); Phencyclidine NEGATIVE (NEGATIVE); THC Cannibis NEGATIVE (NEGATIVE)
[2022-02-02 00:52] LABS: Absolute Lymphocytes (CBC) 1.2 K/uL (0.7-4.9); Hematocrit 46.2 % (39.6-49.0); Lymphocytes % 15.5 % (15.3-44.8); MPV 8.3 fL (7.6-11.3); RBC Red Blood Cell Count 5.21 M/uL (4.33-5.43)
[2022-02-02 00:53] LABS: Protime INR 1.16
[2022-02-02 02:47] LABS: Phenytoin (Dilantin) Level 5.5 ug/mL (10.0-20.0)
[2022-02-02 03:39] LABS: ALT/SGPT 37 U/L (12-78); Albumin 3.8 g/dL (3.4-5.0); Alkaline Phosphatase 94 U/L (45-117); BUN Blood Urea Nitrogen 7 mg/dL (7-18); Bicarbonate 26 mmol/L (21-32); Bilirubin Total 0.2 mg/dL (0.2-1.0); Glucose Level 90 mg/dL (74-106); Protein, Total 8.4 g/dL (6.4-8.2); Sodium Level 137 mmol/L (136-145)
[2022-02-02 03:40] LABS: AST/SGOT 31 U/L (15-37); Bilirubin Direct < 0.1 mg/dL (0-0.2); Potassium 3.8 mmol/L (3.5-5.1)
--- NOTE | 2022-02-02 21:43 | ER ---
Nurse's Notes [facility] Name: Mari Mercado Age: 26 yrs Sex: Male : 1995 Arrival Date: 02/01/2022 Time: 22:55 Bed 20 Private MD: Diagnosis: Other seizures;Catatonic disorder due to known physiological condition;Altered mental status, unspecified Presentation: 02/01 23:19 Chief complaint: EMS states: pt was discharged from hospital this morning went home mom bb gave him his medication and states she can't deal with him so EMS was called. Coronavirus screen: At this time, the client does not indicate any symptoms associated with coronavirus-19. Ebola Screen: No symptoms or risks identified at this time. Initial Sepsis Screen: Does the patient meet any 2 criteria? No. Patient's initial sepsis screen is negative. Does the patient have a suspected source of infection? No. Patient's initial sepsis screen is negative. Risk Assessment: Do you want to hurt yourself or someone else? Patient reports no desire to harm self or others. Onset of symptoms was February 01, 2022. 23:19 Method Of Arrival: [facility] [place] 23:19 Acuity: ERASMO 2 bb 02/06 10:00 Note tech at bedside assisting patient with breakfast. ap3 Historical: - Allergies: 02/01 23:22 No Known Allergies; bb - Home Meds: 23:22 Dilantin Oral [Active]; Keppra Oral [Active]; bb - PMHx: 23:22 Bipolar disorder; Seizure; bb - Immunization history:: Adult Immunizations unknown. - Social history:: Smoking status: unknown. - Family history:: not pertinent. Screenin:00 Abuse screen: unable to determine. Nutritional screening: No deficits noted. bb Tuberculosis screening: No symptoms or risk factors identified. Fall Risk Secondary diagnosis (15 points) seizures, IV access (20 points). Ambulatory Aid- None/Bed Rest/Nurse Assist (0 pts). Gait- Normal/Bed Rest/Wheelchair (0 pts) Mental Status- Overestimates/Forgets Limitations (15 pts.). Total Wilson Fall Scale indicates High Risk Score (45 or more points). Fall prevention measures have been instituted. Side Rails Up X 2 Placed Close to Nursing Station. Assessment: 23:00 General: Appears slender, unkempt, Behavior is uncooperative. General: pt unable to bb control secretions mouth full of saliva Dr Gonzalez notified. Pt smells of urine and feces during triage pt stood up from bed and urinated on floor through his clothes, pt redirected back to bed but does not understand pt helped back to bed. Pt taken to decon room via wheelchair and given shower to clean him of incontinence of bowel and bladder. Pt placed back in clean gown, socks and a warm blanket before being placed back in bed. Pain: Unable to use pain scale. FLACC scale score is 0 out of 10. Neuro: Level of Consciousness is awake, Oriented to none. Cardiovascular: Capillary refill < 3 seconds Patient's skin is warm and dry. Respiratory: Respiratory effort is even, unlabored, Respiratory pattern is regular. GI: No deficits noted. Derm: Skin is dry, Skin is normal, Skin temperature is warm. Musculoskeletal: Circulation, motion, and sensation intact. 02/02 00:00 Reassessment: pt resting quietly in bed no signs of distress noted. bb 01:00 Reassessment: pt sleeping, eyes closed, resp unlabored. bb 01:56 Reassessment: pt resting in bed resp unlabored, makes an occasional groan/outcry, bb oriented to none. 03:11 Reassessment: pt sleeping, eyes closed, resp unlabored, will continue to monitor. bb 04:57 Reassessment: pt is awake, resp unlabored, oriented to none, IV site intact, patent bb with fluids infusing. 05:11 Reassessment: pt had possible seizure lasting approx [address] Gonzalez notified new bb orders received pt medicated see DEC. 06:12 Reassessment: pt resting quietly, resp unlabored, oriented to none, IV site intact, bb patent with fluids infusing. 07:00 Reassessment: RECD REPORT FROM APARNA SHAW. 26YO BM P/W AMS. SOCIAL WORK C/S PENDING. bp 07:33 Reassessment: order placed in [facility] for social services specialist consult. ss 08:50 Reassessment: Spoke with Tali, dependency case manager with social services specialist who suggest to call PD to go to address listed for mother. PO box only listed. Attempted to call Tali back, no answer. Awaiting return phone call. Memo, ED director notified of delay. 10:34 Reassessment: Patient appears in no apparent distress at this time. No changes from bp previously documented assessment. 10:59 Reassessment: PT OOB EXPOSING HIMSELF AND URINATING ON FLOOR. AOx0 AND NOT VERBAL, NOT bp RESPONDING TO REDIRECTION, REQUIRING PHYSICAL REDIRECTION TO RETURN TO BED. 15:00 Reassessment: Patient appears in no apparent distress at this time. PT QUIET. NO DISPO ke1 AT THIS TIME. 19:15 Derm: abrasion L side forehead. ke1 20:01 Reassessment: Patient appears in no apparent distress at this time. No changes from ke1 previously documented assessment. 21:08 Reassessment: Patient appears in no apparent distress at this time. ke1 22:00 Reassessment: Patient appears in no apparent distress at this time. sleeping. ke1 23:00 Reassessment: No changes from previously documented assessment. ke1 0408 00:00 Reassessment: No changes from previously documented assessment. ke1 01:00 Reassessment: No changes from previously documented assessment. ke1 02:00 Reassessment: Patient appears in no apparent distress at this time. No changes from ke1 previously documented assessment. sleeping. 02:30 Reassessment: Spoke to Elian Holman from [facility], patient does not meet ke1 criteria because he will need DAT or Warrant. 03:28 Reassessment: No changes from previously documented assessment. ke1 05:26 Reassessment: Patient awake and non verbal agitated in bed. ke1 05:38 Reassessment:. Neuro: Seizure activity noted at this time. ke1 05:42 Reassessment:. Neuro: Seizure activity Seizure lasted approximately 1 minutes. no ke1 injuries post seizure. 06:23 Reassessment: Patient appears in no apparent distress at this time. sleeping. ke1 06:40 Reassessment: Patient appears in no apparent distress at this time. notified of ke1 change in BP patient sleeping. 07:39 Reassessment: Patient appears in no apparent distress at this time. Pt asleep w/ arms ph above head in bed, respirations even and unlabored. 10:21 Reassessment: Spoke to Dereck at [facility] who had questions as to whether the ph pt is usually incontinent, I informed him that I had not witnessed the pt have any incontinence but that the previous nurse documented the pt was urinating on the floor. 10:45 Reassessment: Patient appears in no apparent distress at this time. [facility] counselor at bedside to assess pt, pt is refusing to speak. 12:01 Reassessment: Patient's mother, Cora called stating that she is headed up to the hospital to discuss patients disposition. 13:00 Reassessment: Patient appears in no apparent distress at this time. No changes from previously documented assessment. Pt remains asleep family at bedside waiting to speak w/ Dr Mcdaniel. 14:15 Reassessment: Patient appears in no apparent distress at this time. Pt's mother left ED, told clinical case manager that she would return to pear picker pt because she did not have room in her vehicle at this time and needed to drop some people off. Said that she would return in 1 hour. 15:34 Reassessment: Patient appears in no apparent distress at this time. [facility] again at bedside, pt refusing to speak to them, head covered w/ blanket, attempted to call mother who is supposed to come back to hospital to pear picker pt upon d/c but no answer. 17:08 Reassessment: Marisol with intake at [facility] called stating that they would have to deny him at this time as he does not "fit their patient population.". 17:50 Reassessment: Pt is selectively mute at this time. Is able to perform ADLs with ss prompting by medical staff. 02/06 07:15 Reassessment: patient up out of bed, A/O x's 0. Patient states he needs to use the ap3 restroom. head grinder assisted patient to restroom, without incident. head grinder reports patient didn't use the restroom, instead looked at himself in the mirror. Patient was easily redirected and assisted back into the bed, Bed is locked in lowest position, side rails are up X's 2 and the call light is within reach. Respirations are even and unlabored at this time. 11:25 Reassessment: patient awake, stating he needs to go to the restroom. Patient was ap3 assisted to the restroom without incident, however patient didn't utilize the commode. PT was easily redirected and assisted to his room where the behavioral technician assisted pt with use of urinal at the bedside. 12:42 Reassessment: patient was able to feed himself lunch without assistance. ap3 14:32 Reassessment: [facility] is at the bedside at this time. ap3 15:10 General: patient up out of bed, with behavioral technician at the bedside. patient was easily ap3 redirected and assisted into the bed without incident. bed is locked in lowest position, side rails are up X's 2. . 19:32 Reassessment: The pt is in both [employer] and [employer]. MAR is in [employer] and [employer] boy documentation is there, as well. The pt recv'd Geodon 10 mg IM to rt thigh at this time. 02/07 02:48 Reassessment: The pt is sleeping. boy 19:53 Reassessment: Most of the pt's documentation is in [employer], but the pt remains boy sleeping, occasionally rousing. He is in 2 pt restraint, so that we can protect his IVs, given his seizures. Vital Signs: 02/01 23:19 BP 135 / 87; Pulse 101; Resp 12 S; Temp 98.6(TE); Pulse Ox 99% on R/A; Weight 68.04 kg bb (R); Height 5 ft. 9 in. (175.26 cm); 02/02 03:24 BP 119 / 68; Pulse 87; Resp 16 S; Pulse Ox 97% on R/A; bb 04:57 BP 113 / 57; Pulse 82; Resp 16 S; Pulse Ox 97% on R/A; bb 06:12 BP 127 / 81; Pulse 82; Resp 16 S; Pulse Ox 99% on R/A; bb 08:00 BP 105 / 58; Pulse 75; Resp 16; Pulse Ox 97% ; bp 10:00 BP 104 / 56; Pulse 72; Resp 16; Pulse Ox 99% ; bp 13:00 Pulse 89; Resp 16; Pulse Ox 99% ; bp 15:00 Pulse 72; Resp 12; Pulse Ox 98% ; bp 19:37 BP 118 / 72; Pulse 77; Resp 17; Pulse Ox 100% on R/A; ke1 02/03 06:14 BP 127 / 69; Pulse 110; Resp 16; Pulse Ox 94% on R/A; ke1 06:31 BP 98 / 51; Pulse 101; Resp 17; Pulse Ox 93% on R/A; ke1 06:35 BP 92 / 46; Pulse 100; ke1 06:39 BP 101 / 52; Pulse 101; Resp 18; Pulse Ox 94% ; ke1 06:43 BP 98 / 48; Pulse 98; Resp 17; Pulse Ox 94% on R/A; ke1 06:50 BP 102 / 54; Pulse 97; Resp 18; Pulse Ox 94% on R/A; ke1 07:40 BP 98 / 52; Pulse 90; Resp 18; Pulse Ox 91% on R/A; ph 08:45 BP 101 / 52; Pulse 91; Resp 16; Pulse Ox 92% on R/A; ph 10:00 BP 103 / 65; Pulse 78; Resp 16; Pulse Ox 98% on R/A; ph 11:00 BP 107 / 79; Pulse 74; Resp 18; Pulse Ox 96% on R/A; ph 12:30 BP 102 / 56; Pulse 79; Resp 18; Pulse Ox 95% on R/A; ph 13:47 BP 110 / 52; Pulse 89; Resp 18; Pulse Ox 98% on R/A; ph 04/ 23:19 Body Mass Index 22.15 (68.04 kg, 175.26 cm) bb 07:40 arms elevated above head during BP, pt asleep ph [employer] Coma Score: 02/02 01:11 Eye Response: spontaneous(4). Verbal Response: oriented(5). Motor Response: obeys keturah commands(6). Total: 15. ED Course: 02/01 22:55 Patient arrived in ED. mw2 23:00 Elroy Gonzalez MD is Attending Physician. keturah 23:00 Patient has correct armband on for positive identification. Placed in gown. Bed in low bb position. Side rails up X2. Warm blanket given. Pillow given. 23:19 Maren Canales, VALERIA is Primary Nurse. bb 23:22 Triage completed. bb 23:22 Arm band placed on Patient placed in an exam room, on a stretcher, on pulse oximetry. bb 02/02 00:10 Straight cath inserted, using sterile technique, 16 Fr. Returned clear yellow urine. bb Patient tolerated well. 00:15 Initial lab(s) drawn, by ED staff, sent to lab. Inserted saline lock: 18 gauge in right bb upper arm, using aseptic technique. ,using aseptic technique. by Yonatan Mclaughlin RN Blood collected. 07:08 Primary Nurse role handed off by Maren Canales, VALERIA bp 07:08 Rick Arellano, RN is Primary Nurse. bp 07:48 Attending Physician role handed off by Elroy Gonzalez MD kdr 07:48 Yoni Ching MD is Attending Physician. kdr 19:12 Attending Physician role handed off by Yoni Ching MD ms3 19:12 Ziggy Taylor DO is Attending Physician. ms3 02/03 02:01 faxed transfer paperwork to [facility], [facility], [address], [facility], [facility], [facility], [facility], [facility]. 05:50 Joseph Mcgill is Hospitalizing Provider. ms3 06:08 Hospitalizing Provider role handed off by Joseph Mcgill ms3 06:08 Brandy Gunter MD is Hospitalizing Provider. ms3 06:08 Placed in gown. Bed in low position. Side rails up X2. Seizure precautions initiated. tw5 Pulse ox on. NIBP on. Noise minimized. Bath given. Cleaned of incontinence. Linen changed. 08:35 called and left a message for Sumit from [facility] at [phone]/. eb 08:40 faxed over patient info to the following facilities in attempt to find placement./ [facility], [facility], and [facility]. 08:47 spoke with Sumit from [facility] he will see what he can do from his end but asks if eb i would call [facility] and see if they could try to screen him. 08:49 called the [facility] Crisis Line / Clotilde took patient info and will reach out to her eb screeners. 10:18 connected Dereck Shaw from [facility] with Maco for nurse to nurse. eb 10:23 screener from [facility] here to attempt a screening/. eb 11:06 Monserrat from the [facility] was unable to screen patient due to patient no eb responding/ She consulted [facility]/ He's going to see what he can do on his end/ we are to call the police department and see if they can find patient's mother, he also wants APS to be called and made aware of the situation. We are to call her if we hear anything on her cell at [phone]. 11:43 called the [facility] police department/ spoke with dispatch / she said she would eb try to make contact with the mother. and have her call up here. I let her know we would really like her to come up here if she could let the mother know the doctors caring for her son are needing to speak to her. 15:44 faxed patient records to [facility] at the recommendation of mejia German from [facility]. 15:47 called the [facility] spoke with Caren/ she will be looking out eb for the chart for review. 02/04 07:37 Austin Gates RN is Primary Nurse. 1 19:22 Primary Nurse role handed off by Austin Gates RN [facility] 20:57 Refaxed again to [facility], [facility], [facility] and [address] 02/06 07:[address] [facility]. bd 08:07 pt denied at [facility]. hospital unable to take pts insurance. bd 08:46 Tatianna Hooker, VALERIA is Primary Nurse. ap3 17:06 refaxed chart to [facility]. bd 02/07 23:27 Jacque Toussaint is Primary Nurse. tw5 23:46 Primary Nurse role handed off by Jacque Toussaint tw5 23:46 Maren Holguin, RN is Primary Nurse. tw5 02/08 07:25 Primary Nurse role handed off by Maren Holguin, VALERIA bd Administered Medications: 02/02 03:24 Drug: NS 0.9% 500 ml Route: IV; Rate: bolus; Site: right upper arm; bb 04:30 Follow up: IV Status: Completed infusion; IV Intake: 500ml bb 04:35 Drug: NS 0.9% 1000 ml Route: IV; Rate: 125 ml/hr; Site: right upper arm; bb 05:11 Drug: Keppra (levETIRAcetam) 1000 mg Route: IV; Rate: per protocol; Site: right upper bb arm; 11:08 Drug: Ativan (LORazepam) 2 mg Route: IVP; Site: right upper arm; bp 19:03 Follow up: Response: No adverse reaction bp 14:39 Drug: Ativan (LORazepam) 2 mg Route: IVP; Site: right upper arm; bp 19:03 Follow up: Response: No adverse reaction bp 14:40 Drug: HALdol (haloperidol) 5 mg Route: IVP; Site: right upper arm; bp 19:04 Follow up: Response: No adverse reaction bp 08 05:54 Drug: Ativan (LORazepam) 2 mg Route: IVP; Site: right upper arm; ke1 06:14 Follow up: Response: Marked relief of symptoms ke1 06:14 Drug: Fosphenytoin 15 mg/kg Route: IVPB; Infused Over: 15 mins; Site: right upper arm; ke1 06:33 Follow up: Response: Blood pressure is lowered ke1 06:33 Follow up: IV Status: Completed infusion ke1 02/06 07:30 Drug: Ativan (LORazepam) 2 mg {Note: administered by Rick Arellano RN in the right ap3 deltoid.} Route: IVP; Site: Other; 11:07 Follow up: Response: No adverse reaction ap3 17:42 Drug: Ativan (LORazepam) 2 mg Route: IVP; Site: right upper arm; ap3 Intake: 02/02 04:30 IV: 500ml; Total: 500ml. bb Outcome: 21:42 ER care complete, transfer ordered by . ms3 02/03 05:51 Decision to Hospitalize by Provider. ms3 02/08 12:04 Patient left the ED. ph Signatures: Susan Verde Corey, MD MD cha Rittger, Kevin, MD MD kdr Ballard, Brenda, RN RN bb Smirch, Shelby, RN RN ss Hall, Patricia, RN RN ph Peltier, Brian, RN RN bp Prokisch, Amanda, RN RN ap3 Norma Bella 2 Rachel Erazo Lynsay, RN RN 1 Ziggy Taylor, DO ms3 Jacque Toussaint [facility] Joslyn Paige cs9 Maren Holguin, RN Yusuf Chamorro RN RN ke1 Corrections: (The following items were deleted from the chart) 02/02 20:01 15:00 Reassessment: Patient appears in no apparent distress at this time. PT QUIET. NO ke1 DISPO AT THIS TIME bp 20:02 19:15 Reassessment: . ke1 ke1 02/03 02:19 04 23:19 Chief complaint: EMS states: pt was discharged from hospital this morning ke1 went home mom gave him his medication and states she can't deal with him so EMS was called bb 02/03 05:29 05:26 Reassessment: Patient awake and non verbal lying in bed. ke1 ke1 05:55 05:54 Ativan (LORazepam) 2 mg IVP in right antecubital ke1 ke1 06:24 02/02 19:15 Derm: abrasion L side forehead ke1 ke1 02/03 06:58 06:40 Reassessment: Patient appears in no apparent distress at this time. MD notified ke of change in BP sleeping. ke1 10:32 10:18 connected RUSLAN Rn from [facility] with Pj for nurse to nurse eb eb 02/06 16:45 07:15 Reassessment: patient up out of bed, A/O x's 0. Patient states he needs to use ap3 the restroom. head grinder assisted patient to restroom, without incident. head grinder reports patient didn't use the restroom, instead looked at himself in the mirror. Patient was assisted back into the bed. Bed is locked in lowest position, side rails are up X's 2 and the call light is within reach. Respirations are even and unlabored at this time. ap3 16:45 11:25 Reassessment: patient awake, stating he needs to go to the restroom. Patient was ap3 assisted to the restroom without incident, however patient didn't utilize the commode. behavioral technician assisted pt with use of urinal at the bedside. ap3
--- NOTE | 2022-02-02 21:43 | EDPHYS ---
Physician Documentation [facility] Name: Mari Mercado Age: 26 yrs Sex: Male : 1995 Arrival Date: 02/01/2022 Time: 22:55 Bed 20 Private MD: ED Physician Ziggy Taylor HPI: 02/02 01:10 This 26 yrs old Black Male presents to ER via EMS with complaints of ams, bipolar do keturah and uncooperative. 01:10 The patient presents with trouble concentrating. Onset: The symptoms/episode keturah began/occurred 3 day(s) ago. Possible causes: unknown. Associated signs and symptoms: Pertinent positives: confusion. Current symptoms: In the emergency department the patient's symptoms are unchanged from the initial presentation. Patient's baseline: Neuro: alert and fully oriented. The patient has experienced similar episodes in the past, several times. Historical: - Allergies: 02/01 23:22 No Known Allergies; bb - Home Meds: 23:22 Dilantin Oral [Active]; Keppra Oral [Active]; bb - PMHx: 23:22 Bipolar disorder; Seizure; bb - Immunization history:: Adult Immunizations unknown. - Social history:: Smoking status: unknown. - Family history:: not pertinent. ROS: 02/02 01:10 Constitutional: Negative for fever, chills, and weight loss, Eyes: Negative for injury, keturah pain, redness, and discharge, ENT: Negative for injury, pain, and discharge, Neck: Negative for injury, pain, and swelling, Cardiovascular: Negative for chest pain, palpitations, and edema, Respiratory: Negative for shortness of breath, cough, wheezing, and pleuritic chest pain, Abdomen/GI: Negative for abdominal pain, nausea, vomiting, diarrhea, and constipation, Back: Negative for injury and pain, : Negative for injury, bleeding, discharge, and swelling, MS/Extremity: Negative for injury and deformity, Skin: Negative for injury, rash, and discoloration, Neuro: Negative for headache, weakness, numbness, tingling, and seizure, Allergy/Immunology: Negative for hives, rash, and allergies, Endocrine: Negative for neck swelling, polydipsia, polyuria, polyphagia, and marked weight changes, Hematologic/Lymphatic: Negative for swollen nodes, abnormal bleeding, and unusual bruising. Psych: Positive for depression, non verbal. Exam: 01:11 Constitutional: This is a well developed, well nourished patient who is awake, alert, keturah and in no acute distress. Head/Face: Normocephalic, atraumatic. Eyes: Pupils equal round and reactive to light, extra-ocular motions intact. Lids and lashes normal. Conjunctiva and sclera are non-icteric and not injected. Cornea within normal limits. Periorbital areas with no swelling, redness, or edema. ENT: Nares patent. No nasal discharge, no septal abnormalities noted. Tympanic membranes are normal and external auditory canals are clear. Oropharynx with no redness, swelling, or masses, exudates, or evidence of obstruction, uvula midline. Mucous membranes moist. Neck: Trachea midline, no thyromegaly or masses palpated, and no cervical lymphadenopathy. Supple, full range of motion without nuchal rigidity, or vertebral point tenderness. No Meningismus. Chest/axilla: Normal chest wall appearance and motion. Nontender with no deformity. No lesions are appreciated. Cardiovascular: Regular rate and rhythm with a normal S1 and S2. No gallops, murmurs, or rubs. Normal PMI, no JVD. No pulse deficits. Respiratory: Lungs have equal breath sounds bilaterally, clear to auscultation and percussion. No rales, rhonchi or wheezes noted. No increased work of breathing, no retractions or nasal flaring. Abdomen/GI: Soft, non-tender, with normal bowel sounds. No distension or tympany. No guarding or rebound. No evidence of tenderness throughout. Back: No spinal tenderness. No costovertebral tenderness. Full range of motion. Male : Normal genitalia with no discharge or lesions. Skin: Warm, dry with normal turgor. Normal color with no rashes, no lesions, and no evidence of cellulitis. MS/ Extremity: Pulses equal, no cyanosis. Neurovascular intact. Full, normal range of motion. Neuro: Awake and alert, GCS 15, oriented to person, place, time, and situation. Cranial nerves II-XII grossly intact. Motor strength 5/5 in all extremities. Sensory grossly intact. Cerebellar exam normal. Normal gait. 06:41 ECG was reviewed by the Attending Physician. [facility] Vital Signs: 02/01 23:19 BP 135 / 87; Pulse 101; Resp 12 S; Temp 98.6(TE); Pulse Ox 99% on R/A; Weight 68.04 kg bb (R); Height 5 ft. 9 in. (175.26 cm); 02/02 03:24 BP 119 / 68; Pulse 87; Resp 16 S; Pulse Ox 97% on R/A; bb 04:57 BP 113 / 57; Pulse 82; Resp 16 S; Pulse Ox 97% on R/A; bb 06:12 BP 127 / 81; Pulse 82; Resp 16 S; Pulse Ox 99% on R/A; bb 08:00 BP 105 / 58; Pulse 75; Resp 16; Pulse Ox 97% ; bp 10:00 BP 104 / 56; Pulse 72; Resp 16; Pulse Ox 99% ; bp 13:00 Pulse 89; Resp 16; Pulse Ox 99% ; bp 15:00 Pulse 72; Resp 12; Pulse Ox 98% ; bp 19:37 BP 118 / 72; Pulse 77; Resp 17; Pulse Ox 100% on R/A; ke1 08 06:14 BP 127 / 69; Pulse 110; Resp 16; Pulse Ox 94% on R/A; ke1 06:31 BP 98 / 51; Pulse 101; Resp 17; Pulse Ox 93% on R/A; ke1 06:35 BP 92 / 46; Pulse 100; ke1 06:39 BP 101 / 52; Pulse 101; Resp 18; Pulse Ox 94% ; ke1 06:43 BP 98 / 48; Pulse 98; Resp 17; Pulse Ox 94% on R/A; ke1 06:50 BP 102 / 54; Pulse 97; Resp 18; Pulse Ox 94% on R/A; ke1 07:40 BP 98 / 52; Pulse 90; Resp 18; Pulse Ox 91% on R/A; ph 08:45 BP 101 / 52; Pulse 91; Resp 16; Pulse Ox 92% on R/A; ph 10:00 BP 103 / 65; Pulse 78; Resp 16; Pulse Ox 98% on R/A; ph 11:00 BP 107 / 79; Pulse 74; Resp 18; Pulse Ox 96% on R/A; ph 12:30 BP 102 / 56; Pulse 79; Resp 18; Pulse Ox 95% on R/A; ph 13:47 BP 110 / 52; Pulse 89; Resp 18; Pulse Ox 98% on R/A; ph 04/06 23:19 Body Mass Index 22.15 (68.04 kg, 175.26 cm) bb 07:40 arms elevated above head during BP, pt asleep ph Koko Coma Score: 02/02 01:11 Eye Response: spontaneous(4). Verbal Response: oriented(5). Motor Response: obeys [facility] commands(6). Total: 15. MDM: 02/01 23:00 Patient medically screened. [facility] 02/02 01:12 Differential Diagnosis: hypoglycemia, seizure. Data reviewed: vital signs, nurses keturah notes, lab test result(s). 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 Counseling: I had a detailed discussion with the patient and/or guardian regarding: the historical points, exam findings, and any diagnostic results supporting the discharge/admit diagnosis, lab results. 17:02 ED course: Patient continues to be stable in the ED. For most of the afternoon he has kdr been sleeping. Occasionally he arouses and becomes somewhat belligerent. At that time he has been medicated for behavior control. At one point he did urinate on the floor in the room but otherwise has been resting comfortably in bed and without need for other intervention. nutritional services host was contacted and came to the patient's room and after evaluation had little to offer at this time. They felt that as long as the patient was nonverbal that they would not have much success in placement. Patient is again currently nontoxic and not requiring any further intervention for management of his behavior. 02/03 05:49 ED course: While awaiting transfer to [facility] patient had 2 generalized seizures ms3 with rightward eye gaze. 2 mg Ativan and 15 mg/kg Fosphenytoin ordered. Patient given IV Keppra earlier in ED. Will admit to hospital for seizures.. 06:09 ED course: Discussed case with Dr Gunter and he accepts patient. All questions answered.. ms3 02/06 14:37 ED course: Pt was agitated this AM, nursing requested sedation, 2mg ativan given and rn patient improved. Now more alert and ambulatory, no longer agitated. Being reevaluated by [facility]. . 02/01 23:00 Order name: Acetaminophen; Complete Time: 05:05 keturah 02/01 23:00 Order name: Basic Metabolic Panel; Complete Time: 05:05 [facility] 02/01 23:00 Order name: CBC with Diff; Complete Time: 03:04 [facility] 02/01 23:00 Order name: ETOH Level; Complete Time: 03:04 [facility] 02/01 23:00 Order name: Hepatic Function; Complete Time: 05:05 [facility] 02/01 23:00 Order name: PT-INR; Complete Time: 03:04 [facility] 02/01 23:00 Order name: Ptt, Activated; Complete Time: 03:04 [facility] 02/01 23:00 Order name: Salicylate; Complete Time: 03:04 [facility] 02/01 23:00 Order name: Urine Drug Screen; Complete Time: 03:04 [facility] 02/01 23:21 Order name: Dilantin; Complete Time: 03:04 [facility] 02/01 23:21 Order name: Depakote; Complete Time: 03:04 [facility] 02/02 00:14 Order name: Urine Dipstick-Ancillary; Complete Time: 03:04 EDWA 02/03 06:25 Order name: SARS-COV-2 RT PCR (Document "Date of Onset" if Symptomatic); Complete Time: ke1 21:13 02/03 08:08 Order name: Glucose, Ancillary Testing; Complete Time: 21:13 EDMS 02/03 06:35 Order name: EEG Request EDMS 02/04 04:28 Order name: CBC with Automated Diff; Complete Time: 21:13 EDMS 02/04 04:42 Order name: Comprehensive Metabolic Panel; Complete Time: 21:13 EDMS 02/07 08:45 Order name: CBC with Automated Diff EDMS 02/07 08:56 Order name: Basic Metabolic Panel EDMS 02/07 08:56 Order name: Valproic Acid (Depakene) Level EDMS 02/07 15:49 Order name: CT EDMS 02/07 18:21 Order name: Glucose, Ancillary Testing EDMS 02/08 05:35 Order name: Phenytoin (Dilantin) Level EDMS 02/08 05:35 Order name: Valproic Acid (Depakene) Level EDMS 02/01 23:00 Order name: EKG - Nurse/Tech; Complete Time: 06:42 [facility] 02/01 23:00 Order name: IV Saline Lock; Complete Time: 00:39 [facility] 02/01 23:00 Order name: Labs collected and sent; Complete Time: 00:39 [facility] 02/01 23:00 Order name: Suicide Precautions; Complete Time: 00:39 keturah 02/01 23:00 Order name: Urine Dipstick-Ancillary (obtain specimen); Complete Time: 00:39 keturah 02/01 23:21 Order name: Seizure Precautions; Complete Time: 00:39 keturah 02/02 07:35 Order name: Social Service Consult EDMS 02/03 07:21 Order name: EKG Electrocardiogram EDMS 02/03 16:57 Order name: Diet Finger Food; Complete Time: 16:58 ph 02/06 08:21 Order name: Diet Finger Food; Complete Time: 08:21 bd 02/06 11:23 Order name: Diet Finger Food; Complete Time: 11:23 bd 02/06 15:25 Order name: Diet Finger Food; Complete Time: 15:25 bd 02/07 07:21 Order name: Diet Regular; Complete Time: 07:21 aa5 02/07 07:21 Order name: Diet Finger Food; Complete Time: 07:22 bd 02/07 11:02 Order name: Diet Finger Food; Complete Time: 11:02 bd EC/07 06:41 Rate is 80 beats/min. Rhythm is regular. QRS [place] is Normal. MT interval is normal. QRS keturah interval is normal. QT interval is normal. No Q waves. T waves are Normal. No ST changes noted. Clinical impression: Normal ECG and No evidence of ischemia. Interpreted by me. Reviewed by me. Administered Medications: 03:24 Drug: NS 0.9% 500 ml Route: IV; Rate: bolus; Site: right upper arm; bb 04:30 Follow up: IV Status: Completed infusion; IV Intake: 500ml 04:35 Drug: NS 0.9% 1000 ml Route: IV; Rate: 125 ml/hr; Site: right upper arm; bb 05:11 Drug: Keppra (levETIRAcetam) 1000 mg Route: IV; Rate: per protocol; Site: right upper bb arm; 11:08 Drug: Ativan (LORazepam) 2 mg Route: IVP; Site: right upper arm; bp 19:03 Follow up: Response: No adverse reaction bp 14:39 Drug: Ativan (LORazepam) 2 mg Route: IVP; Site: right upper arm; bp 19:03 Follow up: Response: No adverse reaction bp 14:40 Drug: HALdol (haloperidol) 5 mg Route: IVP; Site: right upper arm; bp 19:04 Follow up: Response: No adverse reaction bp 02/03 05:54 Drug: Ativan (LORazepam) 2 mg Route: IVP; Site: right upper arm; ke1 06:14 Follow up: Response: Marked relief of symptoms ke1 06:14 Drug: Fosphenytoin 15 mg/kg Route: IVPB; Infused Over: 15 mins; Site: right upper arm; ke1 06:33 Follow up: Response: Blood pressure is lowered ke1 06:33 Follow up: IV Status: Completed infusion ke1 02/06 07:30 Drug: Ativan (LORazepam) 2 mg {Note: administered by Rick Arellano RN in the right ap3 deltoid.} Route: IVP; Site: Other; 11:07 Follow up: Response: No adverse reaction ap3 17:42 Drug: Ativan (LORazepam) 2 mg Route: IVP; Site: right upper arm; ap3 Disposition Summary: 02/03/22 05:51 Hospitalization Ordered Hospitalization Status: Inpatient Admission ms3 Condition: Stable(02/03/22 05:51) ms3 Problem: new(02/03/22 05:51) ms3 Symptoms: are unchanged(02/03/22 05:51) ms3 Bed/Room Type: Standard ms3 Provider: Brandy Gunter(02/03/22 06:08) ms3 Location: [facility] ER HOLD(02/03/22 14:24) Room Assignment: ERHOLD-(02/03/22 14:24) Diagnosis - Other seizures ms3 - Catatonic disorder due to known physiological condition(02/03/22 05:51) ms3 - Altered mental status, unspecified ms3 Forms: - Medication Reconciliation Form ms3 - SBAR form ms3 Signatures: Dispatcher [employer] EDMS Elroy Gonzalez MD MD cha Rittger, Kevin, MD MD kdr Ballard, Brenda, RN RN bb Nieto, Roman, MD MD rn Smirch, Shelby, RN RN ss Rick Arellano RN RN bp Prokisch, Amanda, RN RN ap3 Ziggy Taylor DO DO ms3 Yusuf Gomez RN RN ke1 Faith Villela PA PA sb3 Corrections: (The following items were deleted from the chart) 02/02 00:39 02/01 23:00 Suicide Screening ([place]) ordered. keturah clay 02/03 05:50 02/02 21:42 Psychiatric facility ms3 ms3 02/03 05:50 02/02 21:42 Psych Facility ms3 ms3 02/03 05:50 02/02 21:42 Higher level of care ms3 ms3 02/03 05:50 02/02 21:42 Stable ms3 ms3 02/03 05:50 02/02 21:42 new ms3 ms3 02/03 05:50 02/02 21:42 are unchanged ms3 ms3 02/03 05:50 02/02 21:42 Catatonic disorder due to known physiological condition ms3 ms3 02/03 06:08 05:51 Joseph Mcgill ms3 ms3 14:24 05:51 Telemetry/MedSurg (Inpatient) ms3 ss 14:24 05:51 ms3 ss
--- NOTE | 2022-02-03 07:49 | EKG ---
Test Date: 2022-02-02 Test Time: 06:33:01 Sales Management Trainee: ALEX MEASUREMENT RESULTS: Intervals: Rate: 80 AK: 128 QRSD: 90 QT: 370 QTc: 426 [place]: P: 71 AK: 128 QRS: 73 T: 46 INTERPRETIVE STATEMENTS: Normal sinus rhythm ST elevation, probably due to early repolarization Borderline ECG Compared to ECG 01/29/2022 03:28:04 ST (T wave) deviation now present Early repolarization now present Electronically Signed On 02-03-22 07:46:18 CDT by Billy Valle
[2022-02-03] MEDS ORDERED: QUETIAPINE 25 MG TAB PO SCH (09:00)
[2022-02-03] MEDS: levETIRAcetam 1,000 MG in NA CHLORIDE 0.9% 100 ML IV SCH ×2 (15:30→20:19)
[2022-02-03] MEDS: DIVALPROEX DR 250 MG TAB PO SCH ×2 (15:30→20:19)
[2022-02-03] MEDS: clonazePAM 0.5 MG TAB PO SCH ×2 (15:30→20:19)
[2022-02-03 16:57] VITALS: BMI 22.1
[2022-02-03] MEDS: ENOXAPARIN 40 MG/0.4 ML SQ SCH (17:00)
[2022-02-03] MEDS ORDERED: ONDANSETRON 4 MG/2 ML VIAL IV PRN (17:21)
[2022-02-03] MEDS: NA CHLORIDE 0.9% 1,000 ML IV SCH (18:00)
[2022-02-03] MEDS: HALOPERIDOL LACT 5 MG/ML INJ IV PRN (19:40)
[2022-02-03] MEDS: QUETIAPINE 100MG TAB PO SCH (20:20)
[2022-02-04] MEDS: HALOPERIDOL LACT 5 MG/ML INJ IV PRN ×2 (02:50→18:15)
[2022-02-04 04:19] LABS: Absolute Lymphocytes (CBC) 1.6 K/uL (0.7-4.9); Hematocrit 45.6 % (39.6-49.0); Lymphocytes % 37.7 % (15.3-44.8); MPV 8.1 fL (7.6-11.3); RBC Red Blood Cell Count 5.16 M/uL (4.33-5.43)
[2022-02-04 04:42] LABS: ALT/SGPT 44 U/L (12-78); AST/SGOT 35 U/L (15-37); Albumin 3.3 g/dL (3.4-5.0); Alkaline Phosphatase 83 U/L (45-117); BUN Blood Urea Nitrogen 5 mg/dL (7-18); Bicarbonate 26 mmol/L (21-32); Bilirubin Total 0.4 mg/dL (0.2-1.0); Glucose Level 68 mg/dL (74-106); Potassium 3.8 mmol/L (3.5-5.1); Protein, Total 7.4 g/dL (6.4-8.2); Sodium Level 139 mmol/L (136-145)
[2022-02-04] MEDS: levETIRAcetam 1,000 MG in NA CHLORIDE 0.9% 100 ML IV SCH ×2 (08:40→21:00)
[2022-02-04] MEDS: NA CHLORIDE 0.9% 1,000 ML IV SCH ×2 (08:41→20:40)
[2022-02-04] MEDS: DIVALPROEX DR 250 MG TAB PO SCH ×3 (09:00→21:00)
[2022-02-04] MEDS: QUETIAPINE 100MG TAB PO SCH ×2 (09:00→21:00)
[2022-02-04] MEDS: clonazePAM 0.5 MG TAB PO SCH ×3 (09:00→21:00)
[2022-02-04] MEDS ORDERED: clonazePAM 0.5 MG TAB ONE ×2 (13:55→20:58)
[2022-02-04] MEDS ORDERED: DIVALPROEX DR 250 MG TAB PO ONE ×2 (13:56→20:59)
[2022-02-04] MEDS ORDERED: ENOXAPARIN 40 MG/0.4 ML SQ ONE (13:56)
[2022-02-04] MEDS: ENOXAPARIN 40 MG/0.4 ML SQ SCH (17:00)
[2022-02-04] MEDS ORDERED: HALOPERIDOL LACT 5 MG/ML INJ ONE (18:05)
--- NOTE | 2022-02-04 20:15 | CON ---
Reason For Consultation: Consultation called because of seizures. History Of Present Illness: Mr. Mercado is a 26-year-old right handed patient with bipolar disorder and long-standing epilepsy, who was largely nonverbal and has had multiple admission s to [facility] with recurrent seizures and low anti-epileptic medication levels and comes aga in with another episode of seizures and low anti-epileptic medication level. The event is reportedly generalized tonic colonic. His Dilantin level was 5.5. He has a toxicology screen, otherwise unrem arkable. COVID-19 test was negative. His complete blood count with differential was normal. Coagul ation panel shows INR 1.16. Chemistries essentially unremarkable. Liver function studies were chevy l. Urinalysis showed a trace blood, otherwise unremarkable. The patient was treated with 1 g of lev etiracetam in addition to Depakote 250 mg twice daily and has been on Seroquel. He has not had addit ional seizures since his hospitalization. The patient's mother apparently has not been able to be co ntacted. He lives with her and as the discharge is attempted it is difficult to reach her and Adult Protective Services are being contacted and asked to assist with the case. Past Medical History: As noted above with bipolar disorder and seizures. Allergies: NO KNOWN DRUG ALLERGIES. Home Medications: Dilantin 300 mg at night, he should be on that and Keppra 500 mg twice daily as we ll apparently noncompliant. Social History: Lives with his parents, largely nonverbal. Review of Systems: Not possible at this point. Physical Examination: Vital Signs: Blood pressure 111/61, pulse 84, respiratory rate 17, and temperature 98.1, oxygen satu ration 99%, weight 150 pounds, height 5 feet 9 inches, BMI 22. General: Mr. Mercado is lying on his left side in bed. He does have a snack of chopped pudding, it is actually spilled on his bed on his feet. He get alert to his name and covered his head, which was covered with the sheet. Looked over and smile, but did not verbalize. He did not follow any instru ctions when asked to count fingers, move his arms or legs, but spontaneously moves all extremities wi thout any difficulty. Face did appear symmetric as appears to be breathing without any difficulty an d does not have any cyanosis, clubbing, edema in the extremities. Neurologically: Unable to really assess fully, but he does not have any focal deficits, just on obse rvation of his movement of his face, arm, and leg. Assessment: Mr. Mercado is a 26-year-old patient with schizophrenia, bipolar disorder and long-stand ing epilepsy, who is not compliant with anti-epileptic medications and likely requires 24-hour superv ision for management of his medications and his well-being. Plan: He may be best served by Adult Protective Services stepping in to manage medications and addre ss his well being including his diet, his medications, his living arrangements, and other situations such that he is unable to manage or maintain himself. Currently, Keppra 500 mg twice daily, Depakote 250 mg twice daily, and Dilantin 300 mg daily may be used. He may be discharged once his mother can be contacted. SHOBHA/MARLON Voice ID: [id number] Report ID: [id number]
[2022-02-04] MEDS ORDERED: WATER FOR INJ,STERILE 10 ML IM PRN (20:28)
[2022-02-04] MEDS ORDERED: LORazepam 2 MG/ML VIAL ONE (21:15)
[2022-02-04] MEDS ORDERED: LEVETIRACETAM 500 MG/5 ML VIAL IV ONE (21:15)
[2022-02-04] MEDS ORDERED: NA CHLORIDE 0.9% 100 ML IV ONE (21:15)
[2022-02-04] MEDS ORDERED: QUETIAPINE 100MG TAB ONE (21:32)
[2022-02-04] MEDS: LORazepam 2 MG/ML VIAL IV PRN (21:53)
[2022-02-05] MEDS ORDERED: LORazepam 2 MG/ML VIAL ONE (03:58)
[2022-02-05] MEDS ORDERED: NA CHLORIDE 0.9% 1,000 ML ONE (03:59)
[2022-02-05] MEDS: LORazepam 2 MG/ML VIAL IV PRN (05:23)
[2022-02-05] MEDS: levETIRAcetam 1,000 MG in NA CHLORIDE 0.9% 100 ML IV SCH (09:00)
[2022-02-05] MEDS: clonazePAM 0.5 MG TAB PO SCH ×3 (09:00→20:01)
[2022-02-05] MEDS: DIVALPROEX DR 250 MG TAB PO SCH ×3 (09:00→20:01)
--- NOTE | 2022-02-05 16:57 | P.HP ---
Certification for Inpatient Patient admitted to: Inpatient With expected LOS: >2 Midnights Patient will require the following post-hospital care: None Practitioner: I am a practitioner with admitting privileges, knowledge of patient current condition, hospital course, and medical plan of care. Services: Services provided to patient in accordance with Admission requirements found in Title 42 Section 412.3 of the Code of Federal Regulations Patient History Date of Service: 02/03/22 Reason for admission: Acute psychosis/seizure disorder History of Present Illness: Patient is a 26-year-old gentleman who has a history of seizure disorder. Patient has been coming into the hospital for quite a while with seizure disorder. He came to the emergency room because he has been acting very differently. He has not been really interacting appropriately. He normally is at home with his family and likes to play basketball and play with his friends. Over the last few months he has had some issues with paranoid and delusional thoughts. He has not been to [facility]. He has had some issues with having paranoid thoughts after his seizures. Recent EEG showed epileptiform discharges as well. We will go ahead and repeat the EEG as patient is currently having seizures. He is having the seizures whenever he does not take his antiepileptics. He has had a recurrent issue with noncompliance since 2012 but he did not have paranoid and delusional thoughts until a few months ago according to his mother. Since then he has been a little hard for them to manage at home because he really gets upset and leaves the house. They have been trying to get him some help but unfortunately they have not been able to obtain that help. He is brought into the hospital for acute psychosis. He has been in the emergency room from February 01 at 2253. He has been there for almost 36 hours. While waiting for psychiatric placement, he was refusing his antiepileptics and had 2 seizures. I was contacted by the emergency room physician, Dr. Taylor to assist with admitting the patient to the hospital since he was having some medical issues that need to be stabilized prior to transfer to a psychiatric facility. He could get transferred to a medical psychiatric facility. But at this time since he has been in the ER for so long we will go ahead and admit him to our service to assist the ER staff. We will get another EEG and consult neurology for assistance with patient's management. Allergies No Known Drug Allergies Allergy (Unverified 11/11/14 18:46) Unknown No Known Allerg Allergy (Mild, Uncoded 12/22/17 23:44) Unknown NKA Allergy (Uncoded 05/25/17 21:33) Unknown No Known All Allergy (Uncoded 05/25/17 21:33) Unknown No Known Allergies Allergy (Uncoded 06/14/18 05:02) Unknown Home Medications: Phenytoin Sodium Extended [Dilantin] 200 mg PO BID #60 capsule 01/31/22 Divalproex Sodium [Depakote] 500 mg PO BID #60 tablet. 02/01/22 Folic Acid 1 mg PO DAILY #30 tablet 02/01/22 - Past Medical/Surgical History Diabetic: No -: seizures Past Surgical History: Patient denies surgical history - Family History Father Family History: Reviewed- Non-Contributory - Social History Smoking Status: Unknown if ever smoked Alcohol use: No CD- Drugs: No Caffeine use: No Review of Systems is unable to be obtained Physical Examination - Vital Signs Temperature: 97.8 F Blood Pressure: 132/64 Pulse: 86 Respirations: 16 Pulse Ox (%): 100 - Physical Exam General: Other (Patient is catatonic and does not really answer questions) HEENT: Atraumatic, PERRLA, Mucous membr. moist/pink, EOMI, Sclerae nonicteric Neck: Supple, 2+ carotid pulse no bruit, No LAD, Without JVD or thyroid abnormality Respiratory: Clear to auscultation bilaterally, Normal air movement Cardiovascular: Regular rate/rhythm, Normal S1 S2 Gastrointestinal: Normal bowel sounds, Soft and benign, Non-distended, No tenderness Musculoskeletal: No clubbing, No swelling, No tenderness Integumentary: Other (Laceration to the scalp) Neurological: Normal gait, Normal speech, Normal strength at 5/5 x4 extr, Normal tone, Sensation intact, Cranial nerves 3-12 intact, Normal affect Lymphatics: No axilla or inguinal lymphadenopathy Assessment & Plan - Problems (Diagnosis) (1) Acute psychosis Current Visit: Yes Status: Acute (2) Bipolar disorder Current Visit: No Status: Acute (3) Complex partial seizures Current Visit: No Status: Acute Qualifiers: Epilepsy type: partial symptomatic - Plan PLAN: 1. EEG 2. Neurology consultation 3. Start antipsychotics 4. Antiepileptics 5. [facility] consultation 6. Transfer for inpatient psych/medical therapy 7. GI DVT prophylaxis Discharge Plan: Psychiatry Plan to discharge in: Greater than 2 days - Advance Directives Does patient have a Living Will: No Does patient have a Durable POA for Healthcare: No - Code Status/Comfort Care Code Status Assessed: Yes Code Status: Full Code Critical Care: No Time Spent Managing PTS Care (In Minutes): 45
[2022-02-05] MEDS: ENOXAPARIN 40 MG/0.4 ML SQ SCH ×2 (17:00→19:30)
--- NOTE | 2022-02-05 17:33 | P.PN ---
Subjective Date of Service: 02/04/22 Subjective: No new changes, No C/O voiced, Improving Review of Systems 10-point ROS is otherwise unremarkable Physical Examination - Vital Signs Temperature: 97.8 F Blood Pressure: 132/64 Pulse: 86 Respirations: 16 Pulse Ox (%): 100 - Physical Exam General: Alert, In no apparent distress HEENT: Atraumatic, PERRLA, EOMI Neck: Supple, JVD not distended Respiratory: Clear to auscultation bilaterally, Normal air movement Cardiovascular: Regular rate/rhythm, Normal S1 S2 Gastrointestinal: Normal bowel sounds, No tenderness Musculoskeletal: No tenderness Integumentary: No rashes Neurological: Normal speech, Normal tone, Normal affect Lymphatics: No axilla or inguinal lymphadenopathy - Studies Medications List Reviewed: Yes Assessment & Plan - Problems (Diagnosis) (1) Acute psychosis Current Visit: Yes Status: Acute (2) Bipolar disorder Current Visit: No Status: Acute (3) Complex partial seizures Current Visit: No Status: Acute Qualifiers: Epilepsy type: partial symptomatic - Plan PLAN: 1. EEG 2. Neurology consultation appreciated 3. Start antipsychotics 4. Antiepileptics 5. [facility] consultation appreciated; attempting transfer 6. Transfer for inpatient psych/medical therapy 7. GI DVT prophylaxis - Advance Directives Does patient have a Living Will: No Does patient have a Durable POA for Healthcare: No - Code Status/Comfort Care Code Status Assessed: Yes Code Status: Full Code Critical Care: No Time Spent Managing PTS Care (In Minutes): 35
--- NOTE | 2022-02-05 17:34 | P.PN ---
Date of Service: 02/05/22 Subjective Subjective: Patient looks to be improving. He try to eat some of his breakfast. He is a little lethargic but overall he is more calm and relaxed. He tends to be more engaging and smiles and even spoke to the nurse. He seems to be coming out of his catatonic state. May adjust his antipsychotics a little bit more. Continue with antiepileptics. Review of Systems 10-point ROS is otherwise unremarkable Physical Examination - Vital Signs reviewed - Physical Exam General: Alert, In no apparent distress Respiratory: Clear to auscultation bilaterally, Normal air movement Cardiovascular: Regular rate/rhythm, Normal S1 S2 Gastrointestinal: Normal bowel sounds, No tenderness Musculoskeletal: No tenderness Neurological: Normal speech, Normal tone, Normal affect Assessment & Plan - Problems (Diagnosis) (1) Acute psychosis Current Visit: Yes Status: Acute (2) Bipolar disorder Current Visit: No Status: Acute (3) Complex partial seizures Current Visit: No Status: Acute Qualifiers: Epilepsy type: partial symptomatic - Plan PLAN: 1. EEG results from 02/03 pending 2. Increase Seroquel 3. Continue with antiepileptics 4. OOB and ambulate 5. Advance diet 6. Spoke to patient's mother and if she continues to improve she may be willing to take him home. She is really concerned about his psychosis. However, he is eating and engaging more. We will continue the Depakote as well as the Seroquel. Transfer still pending at this time. However, if he improves Ms. Stuart, , patient's mother, may be open to taking him home. - Advance Directives Does patient have a Living Will: No Does patient have a Durable POA for Healthcare: No
[2022-02-05] MEDS: ZIPRASIDONE MESYLA 20 MG/VIAL IM PRN (18:36)
[2022-02-05] MEDS ORDERED: LORazepam 2 MG/ML VIAL IM PRN (19:26)
[2022-02-05] MEDS: QUETIAPINE 100MG TAB PO SCH (20:01)
[2022-02-05] MEDS: levETIRAcetam 500 MG TAB PO SCH (20:01)
[2022-02-06] MEDS: ZIPRASIDONE MESYLA 20 MG/VIAL IM PRN ×2 (01:05→19:29)
--- NOTE | 2022-02-06 07:45 | EEG ---
CHART: [id number] TEST ID#: [id number] DATE OF STUDY: 02/03/2022 THE EEG WAS RECORDED [place] IN THE EMERGENCY ROOM ON A 17 CHANNEL MACHINE. ELECTRODES WERE APPLIED IN THE USUAL MANNER USING THE INTERNATIONAL 10-20 SYSTEM. THE WAKING BACKGROUND RHYTHM IN THIS RECORD CONSISTS OF POORLY DEVELOPED AND POORLY ORGANIZED WAVES OF 4-5 HZ., IN A WIDE DISTRIBUTION WHICH DO NOT ATTENUATE NORMALLY WITH EYE OPENING. MODERATE VOLTAGE 1.5-3 HZ ACTIVITY IS EXPRESSED IN THE FRONTAL REGIONS. AMPLITUDES ARE DEPRESSED THROUGHOUT THE STUDY. THERE ARE NO FOCAL OR LATERALIZING FEATURES. NO EPILEPTIFORM ACTIVITY APPEARS. SLEEP DID NOT OCCUR. HYPERVENTILATION WAS NOT PERFORMED. PHOTIC STIMULATION PRODUCED NO DRIVING BILATERALLY. IMPRESSION: THIS IS A MODERATELY ABNORMAL ROUTINE EEG DUE TO A MODERATELY SLOW BACKGROUND. THIS IS A NON-SPECIFIC FINDING CONSISTENT WITH THE PRESENCE OF A MODERATE DIFFUSE DISTURBANCE IN CEREBRAL FUNCTION. NO EPILEPTIFORM ACTIVITY WAS RECORDED.
[2022-02-06] MEDS: QUETIAPINE 100MG TAB PO SCH ×2 (09:00→20:21)
[2022-02-06] MEDS: DIVALPROEX DR 250 MG TAB PO SCH ×3 (09:00→20:20)
[2022-02-06] MEDS: levETIRAcetam 500 MG TAB PO SCH ×2 (09:00→21:00)
[2022-02-06] MEDS: clonazePAM 0.5 MG TAB PO SCH ×3 (09:00→20:21)
[2022-02-06] MEDS: NA CHLORIDE 0.9% 1,000 ML IV SCH (12:40)
[2022-02-06] MEDS: ENOXAPARIN 40 MG/0.4 ML SQ SCH (14:51)
[2022-02-06] MEDS ORDERED: LORazepam 2 MG/ML VIAL ONE (17:42)
[2022-02-06] MEDS ORDERED: clonazePAM 0.5 MG TAB ONE (20:15)
[2022-02-06] MEDS ORDERED: DIVALPROEX DR 250 MG TAB PO ONE (20:16)
[2022-02-07] MEDS: NA CHLORIDE 0.9% 1,000 ML IV SCH ×2 (02:00→15:20)
--- NOTE | 2022-02-07 07:46 | P.PN ---
Subjective Date of Service: 02/07/22 Chief Complaint: Acute psychosis/seizure disorder Subjective: No new changes, Improving Physical Examination - Vital Signs Temperature: 97.9 F Blood Pressure: 126/79 Pulse: 76 Respirations: 17 Pulse Ox (%): 99 - Physical Exam General: Alert, Cooperative HEENT: Atraumatic, Normocephalic Neck: Supple Respiratory: Normal air movement Cardiovascular: Regular rate/rhythm, Normal S1 S2 Gastrointestinal: Soft and benign - Studies Medications List Reviewed: Yes Assessment And Plan - Plan Seizure disorder Agitation Medication noncompliant Psychosis Plan: Patient continued to have episode of altered mentation and wandering. We will continue to address seizures with antiseizure medication as per neurology. We will monitor drug levels for appropriate therapeutic range. He has been scheduled for evaluation by psychiatrist/psychiatric service provider secondary to altered mentation/lethargy in the setting of psychosis. We will follow patient's lab and clinical symptomatology while admitted.
[2022-02-07] MEDS ORDERED: levETIRAcetam 1,000 MG in NA CHLORIDE 0.9% 100 ML IV ONE (08:00)
[2022-02-07 08:43] LABS: Hematocrit 45.2 % (39.6-49.0); Lymphocytes % 19.5 % (15.3-44.8); MPV 7.7 fL (7.6-11.3); RBC Red Blood Cell Count 5.18 M/uL (4.33-5.43)
[2022-02-07] MEDS ORDERED: LORazepam 2 MG/ML VIAL IV ONE (08:45)
[2022-02-07 08:55] LABS: Potassium 3.4 mmol/L (3.5-5.1)
[2022-02-07] MEDS: DIVALPROEX DR 250 MG TAB PO SCH (09:00)
[2022-02-07] MEDS: QUETIAPINE 100MG TAB PO SCH ×2 (09:00→20:20)
[2022-02-07] MEDS: clonazePAM 0.5 MG TAB PO SCH ×3 (09:00→21:00)
[2022-02-07] MEDS: levETIRAcetam 500 MG TAB PO SCH (09:00)
[2022-02-07] MEDS ORDERED: VALPROATE SODIUM INJ 1,000 MG in NA CHLORIDE 0.9% 100 ML IV ONE (09:06)
[2022-02-07] MEDS ORDERED: LORazepam 2 MG/ML VIAL IV PRN (09:09)
[2022-02-07] MEDS: HALOPERIDOL LACT 5 MG/ML INJ IV PRN (11:03)
[2022-02-07] MEDS ORDERED: HALOPERIDOL LACT 5 MG/ML INJ ONE (11:04)
[2022-02-07] MEDS ORDERED: LORazepam 2 MG/ML VIAL ONE (12:30)
--- NOTE | 2022-02-07 12:31 | P.PN ---
Subjective Date of Service: 02/07/22 Chief Complaint: Acute psychosis/seizure disorder Subjective: Worsening (had recurrent seizure this am.) Physical Examination - Vital Signs Temperature: 97.4 F Blood Pressure: 99/57 Pulse: 85 Respirations: 16 Pulse Ox (%): 97 - Physical Exam General: Delirious HEENT: Atraumatic, Normocephalic Neck: Supple Respiratory: Normal air movement Cardiovascular: Regular rate/rhythm, Normal S1 S2 Gastrointestinal: Soft and benign Musculoskeletal: No swelling Neurological: Other (delirious.) - Studies Medications List Reviewed: Yes
[2022-02-07] MEDS ORDERED: VALPROATE SODIUM INJ 500 MG in NA CHLORIDE 0.9% 100 ML IV ONE ×3 (13:15→16:15)
[2022-02-07] MEDS ORDERED: PHENYTOIN IV STA (13:55)
[2022-02-07] MEDS ORDERED: NA CHLORIDE 0.9% IV STA (13:55)
--- NOTE | 2022-02-07 15:48 | RAD REPORT ---
EXAM DESCRIPTION: CT - Head Brain Wo Cont - 02/07/2022 3:30 pm CLINICAL HISTORY: seizures COMPARISON: CT head 06/17/2021 TECHNIQUE: Axial 5 mm thick images of the head were obtained without IV contrast. All CT scans are performed using dose optimization technique as appropriate and may include automated exposure control or mA/KV adjustment according to patient size. FINDINGS: No intracranial hemorrhage, mass, edema or shift of mid-line structures. No acute infarcti on changes seen. No abnormal extra-axial fluid collections. Ventricles are normal. Mastoid air cells and visualized portions of the paranasal sinuses are clear. No acute bony findings. No significant change from comparison. IMPRESSION: Negative non-contrast CT head examination.
[2022-02-07] MEDS: ENOXAPARIN 40 MG/0.4 ML SQ SCH (16:59)
--- NOTE | 2022-02-07 17:28 | P.DS ---
Admission Date: 02/03/22 Discharge Date: 02/07/22 Disposition: TRANSFER TO [facility] Discharge Condition: SERIOUS Reason for Admission: Acute psychosis/seizure disorder Consultations: Neurology, neuro critical care Brief History of Present Illness: 26-year-old male patient with history of seizure disorder and psychosis was evaluated for episode of altered mentation and agitation. He was also noted to have significantly low drug levels of phenytoin and he was started on other medication for seizure management which include Keppra and Depakote with as needed lorazepam. He was admitted for inpatient care. Neurology was consulted to assist with management recommendation for his seizure disorder and abnormal labs. Hospital Course: He was put on antiseizure medication and he had significant amounts of breakthrough seizures despite appropriate levels of Keppra and Depakote. Overnight today he began to get more agitated and he had significant repeat seizures which were more than 7 since daybreak. He has never had recovery of full neurologic function to baseline in between seizure and he was deemed to be having status epilepticus neurology was asked to evaluate patient and recommendation was the patient she was sent to the lab level of care for ICU level care because of concerns for suspected status epilepticus. No injury to the head reported overnight admission, no fever no chills no rigors. There was no nuchal rigidity. He was discussed with loan documentation specialist at [facility] in [facility] and he was in agreement to have patient transferred. Patient patient had significant headway compromise he was to be intubated prior to transfer. Vital Signs/Physical Exam: Temp Pulse Resp BP Pulse Ox 97.8 F 76 15 105/68 100 02/07/22 16:00 02/07/22 17:00 02/07/22 17:00 02/07/22 17:00 02/07/22 17:00 General: Delirious HEENT: Atraumatic, Normocephalic Neck: Supple Respiratory: Normal air movement Cardiovascular: Regular rate/rhythm, Normal S1 S2 Gastrointestinal: Soft and benign Musculoskeletal: No swelling Neurological: Other (Delirium.), Abnormal affect Laboratory Data at Discharge: WBC 5.0 K/uL (4.3-10.9) D 02/07/22 08:34 Hgb 15.3 g/dL (13.6-17.9) 02/07/22 08:34 Hct 45.2 % (39.6-49.0) 02/07/22 08:34 Plt Count 275 K/uL (152-406) 02/07/22 08:34 PT 12.8 SECONDS (9.5-12.5) H 02/02/22 00:14 INR 1.16 02/02/22 00:14 APTT 23.5 SECONDS (24.3-36.9) L 02/02/22 00:14 Sodium 141 mmol/L (136-145) 02/07/22 08:34 Potassium 3.4 mmol/L (3.5-5.1) L 02/07/22 08:34 BUN 4 mg/dL (7-18) L 02/07/22 08:34 Creatinine 1.20 mg/dL (0.55-1.3) 02/07/22 08:34 Glucose 89 mg/dL (74-106) 02/07/22 08:34 Total Bilirubin 0.4 mg/dL (0.2-1.0) 02/04/22 04:01 AST 35 U/L (15-37) 02/04/22 04:01 ALT 44 U/L (12-78) 02/04/22 04:01 Alkaline Phosphatase 83 U/L (45-117) 02/04/22 04:01 Home Medications: Phenytoin Sodium Extended [Dilantin] 200 mg PO BID #60 capsule 01/31/22 Divalproex Sodium [Depakote] 500 mg PO BID #60 tablet. 02/01/22 Folic Acid 1 mg PO DAILY #30 tablet 02/01/22 Physician Discharge Instructions: Ok to discharge to ICU level of care for status epilepticus. Activity: Fall precautions Followup: Unknown,U [Primary Care Provider] -
[2022-02-07] MEDS: levETIRAcetam 1,000 MG in NA CHLORIDE 0.9% 100 ML IV SCH (20:57)
[2022-02-07] MEDS ORDERED: DIVALPROEX DR 500MG TAB PO SCH (21:00)
[2022-02-07] MEDS: PHENYTOIN NA 100 MG/2 ML IV SCH (22:00)
--- NOTE | 2022-02-08 00:09 | PN ---
Subjective: Mr. Mercado has been having multiple seizures throughout the day, at least se izures, while on now 3 antiepileptic medications, Keppra, Dilantin, Depakote, and multiple doses of A tivan. However, after his most recent loading of Dilantin 500 mg with a maintenance 3 patria es daily along with his Keppra 1000 mg daily and Depakote 500 mg daily, he has not had a seizure in 1 or 2 hours. However, it is not clear, the patient has actually stopped seizures, which may not lois fest externally with obvious semiology. His head CT scan showed no acute ischemic or hemorrhagic fin dings. Study was unremarkable. No hemorrhage. It should be noted he does have a psychiatric histor y and has been practically nonverbal, responding to 1 or 2 answers at times; however, in my interacti on with the patient, I have not got him to respond at all to any verbal interaction. Objective: VITAL SIGNS: Blood pressure 103/65, pulse 81, respiratory rate 18, temperature 97.9, O2 saturation 100%. GENERAL: Mr. Mercado again is resting in bed. He has had seizures where it begin in legs extensivel y, head arches up and eyes rolls. Events may last less than 30 seconds and he responds to Ativan and now a load of Dilantin along with Depakote and Keppra. His level of responsiveness is at this point to noxious stimulus only with local withdrawals. Laboratory Studies: Complete blood count with differential is completely normal. Coagulation panel; INR 1.13. Chemistries; sodium 141, potassium 3.4, creatinine 1.20, glucose of 79, calcium 9.0. Belkys er function studies are normal. Urinalysis shows a trace of blood, otherwise unremarkable. His toxi cology screen shows Dilantin level on the 7th was low at 5.5 and Depakote drawn today was 52 and no p ositives on that screen and his COVID-19 test is negative. Assessment: Mr. Mercado is a 26-year-old patient, likely status epilepticus. He does have a psychia tric history, is on psychiatric medications including Haldol and Seroquel. He received multiple dose s of lorazepam after having status epilepticus and is now on Dilantin and Keppra. Plan: The patient should be transferred for higher level of care. Continue his bedside EEG monitori ng to determine brain function electrically and rule out ongoing seizures. He may require additional antiepileptic medications, however, that would not be advisable without bedside monitoring. As a re sult, the patient should be transferred for a higher level of care where there is continuous bedside monitoring available. At this point, we will continue his current regimen of anti-epileptic medicati ons, which includes levetiracetam 1000 mg twice daily, phenytoin 100 mg every 8 hours IV, and the Dep akote 500 mg IV 12 hours. SHOBHA/MARLON Voice ID: [id number] Report ID: [id number]
[2022-02-08 05:35] LABS: Phenytoin (Dilantin) Level 4.8 ug/mL (10.0-20.0); Valproic Acid (Depakene) Level 76.5 ug/mL (50-100)
[2022-02-08] MEDS ORDERED: NA CHLORIDE 0.9% 50 ML ONE (08:52)
[2022-02-08] MEDS ORDERED: NA CHLORIDE 0.9% 1,000 ML ONE (08:53)
[2022-02-08] MEDS ORDERED: VALPROATE SODIUM INJ 500 MG in NA CHLORIDE 0.9% 100 ML IV SCH (09:00)
[2022-02-08] MEDS: PHENYTOIN NA 100 MG/2 ML IV SCH (09:00)
[2022-02-08] MEDS: NA CHLORIDE 0.9% 1,000 ML IV SCH (09:00)
[2022-02-08] MEDS: levETIRAcetam 1,000 MG in NA CHLORIDE 0.9% 100 ML IV SCH (09:15)
[2022-02-08 09:53] VITALS: BP 106/56; TEMP 98.3
[2022-02-08 09:59] VITALS: O2SAT 100
== END 2022-02-08 12:00 | disposition short-term general hospital (02) | DRG 101 ==
LOC: ER 22:53 → ERHOLD 02-03 16:26
PROVIDERS: ADMIT Hospitalist; ATTEND Internal Medicine Nephrology
DX: G40.201 Localization-related (focal) (partial) symptomatic epilepsy and epileptic syndromes with complex partial seizures, not intractable, with status epilepticus (principal); F23 Brief psychotic disorder; F31.9 Bipolar disorder, unspecified; F20.9 Schizophrenia, unspecified; F06.1 Catatonic disorder due to known physiological condition; R45.1 Restlessness and agitation; Z91.14 Patient's other noncompliance with medication regimen; Z79.899 Other long term (current) drug therapy; Z20.822 Contact with and (suspected) exposure to COVID-19
CPT/HCPCS: 36415; 51702; 70450; 80048; 80053; 80164; 80177; 80185; 80307; 82947; 85025; 93005; 95819; 99285; J1165; J1630; J1650; J1953; J7030; U0003

== ENCOUNTER 2022-07-02 04:04 | Emergency (ER) | payer OTHER ==
--- OUTSIDE RECORDS SUMMARY | 2022-07-02 04:09 | XMS REPORT | Continuity of Care Document ---
:1995 Author Organization [facility] t Address [address] [place] [address] Care Team Providers Name Role Phone DIANA QUILES Attending Clinician Unavailable NALLELY BARROS Attending Clinician Unavailable Diana Quiles MD Attending Clinician [phone] Nallely Barros MD Attending Clinician JAQUELINE BARRERA Attending Clinician Unavailable SHALOM SCHERER Attending Clinician Unavailable SHALOM SCHERER Attending Clinician Unavailable Doctor Unassigned, [address] Attending Clinician Unavailable Shalom Scherer MD Attending Clinician Afshin Epperson Attending Clinician DIANA QUILES Admitting Clinician Unavailable NALLELY BARROS Admitting Clinician Unavailable Payers Payer Name Policy Type Policy Number Effective Date Expiration Date S ource MEDICAID [employer] [id number] 2021 00:00:00 [facility] [id number] 2016 00:00:00 Problems Condition Condition Condition Status Onset Resolution Last Treating Co mments Source Name Details Category Date Date Treatment Clinician Date High risk High risk Disease Active [facility] social social 4-19 [facility] situation situation 00:00: Medi kiesha 00 Center Seizure Seizure Disease Active [facility] 00:[facility]: [facility] 00 [place] Epileptic Epileptic Disease Active [facility] psychosis psychosis 4-13 [facility] 00:00: Medical 00 [place] G40.909 G40.909 Diagnosis Active 2015-102016-09-19 Memoria Active 11-13 16:07:00 l 09/13/2016 00:00: Eliel bird [address] Allergies, Adverse Reactions, Alerts Allergy Allergy Status Severity Reaction(s) Onset Inactive Treating Comm ents Source Name Type Date Date Clinician No Known DA Active [facility] Allergie 00:00: s 00 NO KNOWN Drug Active [facility] ALLERGIE Class ity of S [facility] NO KNOWN Allergy Active [facility] ALLERGIE [facility] Social History Social Habit Start Date Stop Date Quantity Comments Source Social History 2016-09-20 2016-09-20 [facility] 05:59:00 05:59:00 Sex Assigned At [address] Mariah kes 00:00:00 00:00:00 [facility] Medications Ordered Filled Start Stop Current Ordering Indication Dosage Frequency Signature Comments Components Source Medication Medication Date Date Medication? Clinician (SIG) Name Name phenytoin Yes 400mg QD Take 2 [facility] extended [facility] (DILANTIN) 00:00: (400 mg Medi kiesha 200 MG ER 00 total) by Cente r capsule mouth daily. phenytoin 2021- No 400mg QD Take [address] (DILANTIN) 4-19 04-18 capsules Luke s 200 MG ER 00:00: 00:00 (400 mg Medi kiesha capsule 00 :00 total) by Center mouth daily. levETIRAcet Yes 1500mg Q.5D Take [address] (KEPPRA) 4-18 tablets [facility] 750 MG 00:00: (1,500 mg Medica l tablet 00 total) by Center mouth 2 (two) times daily. levETIRAcet 2021- No 1500mg Q.5D Take [address] [facility] (KEPPRA) 4-18 04-18 tablets Luke s 750 MG 00:00: 00:00 (1,500 mg Medic al tablet 00 :00 total) by Center mouth 2 (two) times daily. Vital Signs Vital Name Observation Time Observation Value Comments Source Diastolic blood 2022-02-13 15:17:00 57 mm[Hg] [facility] Heart rate 2022-02-13 15:17:00 82 /min [facility] Body temperature 2022-02-13 15:17:00 36.44 [facility] Respiratory rate 2022-02-13 15:17:00 16 /min [facility] Oxygen saturation in 2022-02-13 15:17:00 100 /min [facility] Arterial blood by Medical Ce nter Pulse oximetry Systolic blood 2022-02-13 15:17:00 108 mm[Hg] [facility] Procedures Procedure Date / Time Performed Performing Clinician Sour e EEG 12-26 HR CONTINUOUS 2022-02-10 06:05:00 Nallely Barros [facility] MONITORING WITH VIDEO Medical Ce nter PHENYTOIN LEVEL, TOTAL 2022-02-09 10:51:00 Luzmaria Rodriguez [facility] EEG 12-26 HR CONTINUOUS 2022-02-09 06:15:00 Kelly Johnson [facility] MONITORING WITH VIDEO Medical Ce nter BASIC METABOLIC PANEL 2022-02-09 04:28:00 [facility] (7) [facility] MAGNESIUM 2022-02-09 04:28:00 [facility] PHOSPHORUS 2022-02-09 04:28:00 [facility] CBC W/PLT COUNT & AUTO 2022-02-09 04:28:00 [facility] DIFFERENTIAL [facility] CBC W/PLT COUNT & AUTO 2022-02-09 04:28:00 [facility] ECG 12-LEAD 2022-02-08 21:19:01 Elliot Caballero [facility] EKG-SCANNED 2022-02-08 00:00:00 Provider, Ko [facility] CT brain w/o contrast [facility] EEG [facility] Plan of Care Planned Activity Planned Date Details Comments Source Future Scheduled 2022-06-[address] [facility] Test 00:00:00 (#1) [code = Medical Center INFLUENZA VACCINE (#1)] Future Scheduled 2021-10-[address] [facility] Test 00:00:00 (12+) [code = Medical Center DEPRESSION SCREENING (12+)] Future Scheduled 2012 DTAP/TDAP/TD VACCINES [facility] Test 00:00:00 (1 - Tdap) [code = Medical C enter DTAP/TDAP/TD VACCINES (1 - Tdap)] Future Scheduled 2011-12-30 HEPATITIS C SCREENING [facility] Test 00:00:00 [code = HEPATITIS C Medical Center SCREENING] Future Scheduled 1994-07-01 COVID-19 VACCINE (#1) [facility] Test 00:00:00 [code = COVID-[address] VACCINE (#1)] Encounters Start End Encounter Admission Attending Care Care Encounter Source Date/Time Date/Time Type Type Clinicians Facility Department ID 2022-02-07 Inpatient ER [facility] Neurology [id number] [facility] 20:41:50 [facility] 2022-02-07 Inpatient ER [facility] Neurology [id number] 20:28:16 [facility] 2022-02-07 Inpatient ER [facility] Neuro ICU [id number] 14:31:43 [facility] 2022-02-03 Outpatient [facility] [id number] [facility] 10:44:[address] [place] [address] 2021-04-27 Inpatient [facility] [id number] [facility] 05:42:00 64 2022-02-08 2022-02-13 Inpatient ER [facility] Neurology [id number] [facility] 12:54:00 18:44:00 NALLELY 2022-02-08 2022-02-13 [facility] [id number] [facility] 12:54:00 18:44:00 Encounter Nallely Barros [facility] 2022-02-08 2022-02-08 Outpatient [facility] [id number] 00:00:00 23:59:00 [facility] 2021-04-27 2021-04-27 Emergency [facility] [id number] [facility] 05:42:00 05:42:00 64 2021-04-27 2021-04-27 Outpatient Nathan [facility]ARRERA [facility] NUT [id number] Univers 00:00:00 00:00:[id number] [facility] 2021-04-27 2021-04-27 Outpatient Nathan BARRERA [facility] NUT [id number] Univers 00:00:00 00:00:[address] [facility] 2020-09-28 2020-09-28 Outpatient R [facility] [id number] Univers 09:00:00 09:00:[address] [facility] 2020-09-28 2020-09-28 Outpatient R SHALOM SCHERER [facility] [id number] Univers 09:00:00 09:00:[address] [facility] 2020-09-28 2020-09-28 Orders Doctor CRAWFORD [id number] 00:00:00 00:00:00 Only Unassigned, ESTER [id number] [facility] [id number] 2020-09-17 2020-09-17 Outpatient R [facility] [id number] Univers 13:00:00 13:00:[address] [facility] 2020-09-17 2020-09-17 Outpatient SHALOM QUILES [facility] [id number] Univers 13:00:00 13:00:00 SHALOM SCHERER [facility] 2020-09-16 2020-09-16 Outpatient R [facility] [id number] Univers 13:00:00 13:00:[id number] [facility] 2020-09-16 2020-09-16 Outpatient R SHALOM SCHERER [facility] [id number] Univers 13:00:00 13:00:[address] [facility] 2020-08-24 2020-08-24 Office Niesha VACHEMO [id number] 15:09:23 16:20:08 Visit Shalom Duran [id number] [place] [id number] Marycruz [id number] [facility] 2020-08-24 2020-08-24 Outpatient SHALOM QUILES [facility] [id number] Univers 16:00:00 16:00:[address] [facility] 2020-08-24 2020-08-24 Outpatient SHALOM SCHERER [facility] [id number] Univers 15:40:00 15:40:00 SHALOM SCHERER [id number] [facility] 2020-08-24 2020-08-24 Outpatient SHALOM QUILES [facility] [id number] Univers 15:40:00 15:40:[address] [facility] 2016-09-19 2016-09-20 Outpatient [facility] [id number] Memoria 16:26:00 05:59:[address] 2016-09-19 2016-09-20 Outpatient [facility] [id number] Memoria 16:26:00 05:59:[address] 2016-09-19 2016-09-19 Outpatient Zhou [facility] [id number] 10:26:00 23:59:00 Afshin Roma Jayce Results Test Description Test Time Test Comments Results Result Comments Source PHENYTOIN LEVEL, TOTAL 2022-02-09 11:29:09 Test Item Value Reference Range Interpretation Comme nts PHENYTOIN (DILANTIN) (BEAKER) (test code = 605) 18.3 ug/mL 10.0-2 0.0 [employer] [employer] Installer ID - [id number] 05:11:05 Test Item Value Reference Range Interpretation Comments MAGNESIUM (BEAKER) (test code = 1.9 mg/dL 1.6-2.6 627) [facility]idential [employer] Installer ID - [id number] 05:11:05 Test Item Value Reference Range Interpretation Comments PHOSPHORUS (BEAKER) (test code = 4.9 mg/dL 2.3-4.7 H 604) Residential [employer] Installer ID - ADMINBASIC METABOLIC [id number] 05:11:04 Test Item Value Reference Range Interpretation Comments SODIUM (BEAKER) 143 meq/L 136-145 (test code = 381) POTASSIUM (BEAKER) 5.3 meq/L 3.5-5.1 H (test code = 379) CHLORIDE (BEAKER) 105 meq/L 98-107 (test code = 382) CO2 (BEAKER) (test 25 meq/L 22-29 code = 355) BLOOD UREA NITROGEN 7 mg/dL 7-21 (BEAKER) (test code = 354) CREATININE (BEAKER) 0.99 mg/dL 0.57-1.25 (test code = 358) GLUCOSE RANDOM 95 mg/dL 70-105 (BEAKER) (test code = 652) CALCIUM (BEAKER) 9.5 mg/dL 8.4-10.2 (test code = 697) EGFR (BEAKER) (test 109 mL/min/1.73 ESTIM ATED GFR IS code = 1092) sq m NOT ACCURATE CREATININE CLEARANCE IN PREDICTING GLOMERULAR FILTRATION RATE . ESTIMATED GFR I S NOT APPLICABLE FOR DIALYSIS PATIEN TS. Residential Door Installer ID - ADMINCBC W/PLT COUNT & AUTO [id number] 04:41:57 Test Item Value Reference Range Interpretation Comments WHITE BLOOD CELL COUNT (BEAKER) 8.1 K/ L 3.5-10.5 (test code = 775) RED BLOOD CELL COUNT (BEAKER) 5.14 M/ L 4.63-6.08 (test code = 761) HEMOGLOBIN (BEAKER) (test code = 15.1 GM/DL 13.7-17.5 410) HEMATOCRIT (BEAKER) (test code = 44.5 % 40.1-51.0 411) MEAN CORPUSCULAR VOLUME (BEAKER) 86.6 fL 79.0-92.2 (test code = 753) MEAN CORPUSCULAR HEMOGLOBIN 29.4 pg 25.7-32.2 (BEAKER) (test code = 751) MEAN CORPUSCULAR HEMOGLOBIN CONC 33.9 GM/DL 32.3-36.5 (BEAKER) (test code = 752) RED CELL DISTRIBUTION WIDTH 12.0 % 11.6-14.4 (BEAKER) (test code = 412) PLATELET COUNT (BEAKER) (test 246 K/CU MM 150-450 code = 756) MEAN PLATELET VOLUME (BEAKER) 9.5 fL 9.4-12.4 (test code = 754) NUCLEATED RED BLOOD CELLS 0 /100 WBC 0-0 (BEAKER) (test code = 413) NEUTROPHILS RELATIVE PERCENT 80 % (BEAKER) (test code = 429) LYMPHOCYTES RELATIVE PERCENT 11 % (BEAKER) (test code = 430) MONOCYTES RELATIVE PERCENT 8 % (BEAKER) (test code = 431) EOSINOPHILS RELATIVE PERCENT 1 % (BEAKER) (test code = 432) BASOPHILS RELATIVE PERCENT 0 % (BEAKER) (test code = 437) NEUTROPHILS ABSOLUTE COUNT 6.43 K/ L 1.78-5.38 H (BEAKER) (test code = 670) LYMPHOCYTES ABSOLUTE COUNT 0.89 K/ L 1.32-3.57 L (BEAKER) (test code = 414) MONOCYTES ABSOLUTE COUNT (BEAKER) 0.63 K/ L 0.30-0.82 (test code = 415) EOSINOPHILS ABSOLUTE COUNT 0.04 K/ L 0.04-0.54 (BEAKER) (test code = 416) BASOPHILS ABSOLUTE COUNT (BEAKER) 0.03 K/ L 0.01-0.08 (test code = 417) IMMATURE GRANULOCYTES-RELATIVE 0 % 0-1 PERCENT (BEAKER) (test code = 2801) Complete Blood Count Auto [id number] 07:30:00 Test Item Value Reference Range Interpretation Comments White Blood Count (test code = 6.4 x10 3/uL 4.4-10.5 N WBCT) Red Blood Count (test code = 5.05 x10 6/uL 4.10-5.70 N RBC) Hemoglobin (test code = HGBT) 14.6 g/dL 13.4-17.4 N Hematocrit (test code = HCTT) 43.3 % 38.7-52.0 N Mean Corpuscular Volume (test 85.70 fL 80.00-100.00 N code = MCV) Mean Corpuscular Hemoglobin 28.9 pg 27.0-32.5 N (test code = MCH) Mean Corpuscular HGB Conc 33.70 g/dL 32.00-37.50 N (test code = MCHC) RDW Coefficient of Variation 12.1 % 11.5-14.5 N (test code = RDWCV) Platelet Count (test code = 246.0 x10 3/uL 140.0-440.0 N PLTT) Mean Platelet Volume (test 9.7 fL code = MPV) Immature Granulocytes % (Auto) 0.2 % 0.0-5.0 N (test code = IMMGRAN%) Neutrophils % (Auto) (test 49.5 % 36.0-70.0 N code = NE%) Lymphocytes % (Auto) (test 32.6 % 12.0-44.0 N code = LY%) Monocytes % (Auto) (test code 8.5 % 0.0-11.0 N = MO%) Eosinophils % (Auto) (test 8.6 % 0.0-7.0 H code = EO%) Basophils % (Auto) (test code 0.6 % 0.0-2.0 N = BA%) Immature Granulocytes # (Auto) 0.01 x10 3/uL (test code = IMMGRAN#) Neutrophils # (Auto) (test 3.2 x10 3/uL 1.6-7.4 N code = NE#) Lymphocytes # (Auto) (test 2.08 x10 3/uL 0.50-4.60 N code = LY#) Monocytes # (Auto) (test code 0.54 x10 3/uL 0.00-1.20 N = MO#) Eosinophils # (Auto) (test 0.55 x10 3/uL 0.00-0.74 N code = EO#) Basophils # (Auto) (test code 0.04 x10 3/uL 0.00-0.21 N = BA#) nRBC Abs (test code = NRBCA) 0 nRBC Pct (test code = NRBCP) 0 % Comprehensive Metabolic [id number] 07:30:00 Test Item Value Reference Range Interpretation Comments SODIUM (test code = NA) 138.0 mmol/L 136.0-145.0 N Potassium,K (test code = K) 4.0 mmol/L 3.0-5.1 N Chloride (test code = CL) 106 mmol/L 98-107 N Carbon Dioxide (test code = 28 mmol/L 20-31 N CO2) Anion Gap (test code = GAP) 4 mmol/L 5-15 L Blood Urea Nitrogen (test code 10 mg/dL 9-23 N = BUN) Creatinine (test code = CREATT) 0.92 mg/dL 0.55-1.02 N Creatinine Clr Calc Pharmacy 136.30 mL/min (test code = CRCLPHA) Estimated GFR ( Darcy > 60 mL/min/1.73m2 (test code = EGFRAA) Estimated GFR (Non Afr Darcy > 60 mL/min/1.73m2 (test code = EGFRNAA) BUN/Creatinine Ratio (test code 11 ratio 10-20 N = BCRATIO) Glucose (test code = GLU) 93 mg/dL 74-106 N Osmolality,Calculated (test 284.5 code = OSMOC) Calcium (test code = CA) 8.9 mg/dL 8.3-10.6 N Bilirubin,Total (test code = 0.2 mg/dL 0.2-1.1 N BILIT) Aspartate Amino Transferase 34 U/L 0-34 N (test code = AST) Alanine Aminotransferase (test 38 U/L 10-49 N code = ALT) Total Protein (test code = TP) 7.7 g/dL 5.7-8.2 N Albumin Level (test code = ALB) 4.4 g/dL 3.2-4.8 N Globulin (test code = GLOB) 3.3 mg/dL 2.3-3.5 N Albumin/Globulin Ratio (test 1.3 ratio 0.8-2.0 N code = AGRATIO) Alkaline Phosphatase (test code 112 U/L 46-116 N = ALP) Ethanol [id number] 07:30:00 Test Item Value Reference Range Interpretation Comments Ethanol (test code = ETOH) < 3 mg/dL Coronavirus PCR, COVID19 [id number] 07:30:00 Test Item Value Reference Range Interpretation Comments Coronavirus PCR, For use under Emergency COVID19 Rapid (test Use Authorization (EUA) code = SARSCOV2) only. Coronavirus PCR, Reference Range: COVID19 Rapid (test Negative code = KTSSIFE56.1) SARS-CoV-2 PCR Result: Negative by PCR (test code = SARS-CoV-2 PCR Result:) Comment: psych clearanceCOVID-19 Status: AsymptomaticDrug Screen,[id number] 06:32:00 Test Item Value Reference Range Interpretation Comments PCP Phencyclidine Screen,Urine (test Negative Negative code = PCPU) Amphetamine Screen,Urine (test code Negative Negative = AMPU) Methadone Screen,Urine (test code = Negative Negative METHU) Opiate Screen,Urine (test code = Negative Negative UOPIS) Barbituates Screen,Urine (test code Negative Negative = BARBU) Benzodiazepines Screen,Urine (test Negative Negative code = UBENZS) Cocaine Screen,Urine (test code = Negative Negative UCOCS) Cannabinoid Screen,Urine (test code Negative Negative = UTHCS) Propoxyphene Screen, Urine (test Negative Negative code = UPROP) UA, Urinalysis w [id number] 06:32:00 Test Item Value Reference Range Interpretation Comments Color,Urine (test code = Yellow Y UCOL) Clarity,Urine (test code = Clear Clear UCLAR) Ph, Urine (test code = UPH) 7.0 5.0-8.0 N Specific Mallie,Urine 1.015 1.005-1.030 N (test code = USG) Blood,Urine (test code = Negative cells/uL Negative UBLD) Protein,Urine (test code = Negative mg/dL Negative UPRO) Glucose,Urine (UA) (test Negative mg/dL Negative code = UGLU) Ketones,Urine (test code = Negative mg/dL Negative UKET) Nitrate,Urine (test code = Negative Negative UNIT) Bilirubin,Urine (test code Negative mg/dL Negative = UBIL) Urobilinogen,Urine (test 0.2 mg/dL Negative code = UURO) Leukocyte Esterase,Urine Negative cells/uL Negative (test code = ULEU) RBC,Urine (test code = 0-1 /HPF None Seen URBC.XX) WBC,Urine (test code = 0-1 /HPF None Seen UWBC.XX)
[2022-07-02 04:53] LABS: Absolute Lymphocytes (CBC) 0.7 K/uL (0.7-4.9); Hematocrit 42.2 % (39.6-49.0); Lymphocytes % 9.6 % (15.3-44.8); MCV 88.6 fL (80-100); MPV 8.4 fL (7.6-11.3); RBC Red Blood Cell Count 4.76 M/uL (4.33-5.43)
[2022-07-02] MEDS ORDERED: NA CHLORIDE 0.9% 1,000 ML ONE (04:54)
[2022-07-02] MEDS ORDERED: NA CHLORIDE 0.9% 100 ML ONE ×3 (04:54→05:47)
[2022-07-02] MEDS ORDERED: LEVETIRACETAM 500 MG/5 ML VIAL IV ONE ×2 (04:54→05:29)
[2022-07-02 04:58] LABS: Protime INR 1.25
[2022-07-02] MEDS ORDERED: NA CHLORIDE 0.9% 50 ML ONE (05:12)
[2022-07-02] MEDS ORDERED: FOSPHENYTOIN PE 500 MG/10 ML VIAL ONE ×3 (05:12→05:46)
[2022-07-02 05:15] LABS: ALT/SGPT 20 U/L (12-78); AST/SGOT 19 U/L (15-37); Albumin 3.7 g/dL (3.4-5.0); Alkaline Phosphatase 83 U/L (45-117); BUN Blood Urea Nitrogen 5 mg/dL (7-18); Bicarbonate 25 mmol/L (21-32); Bilirubin Direct < 0.1 mg/dL (0-0.2); Bilirubin Total 0.2 mg/dL (0.2-1.0); Glomerular Filtration Rate 82 ml/min (=/>90); Glucose Level 109 mg/dL (74-106); Potassium 3.4 mmol/L (3.5-5.1); Protein, Total 7.5 g/dL (6.4-8.2); Sodium Level 138 mmol/L (136-145)
[2022-07-02] MEDS ORDERED: LORazepam 2 MG/ML VIAL ONE (05:24)
--- NOTE | 2022-07-02 06:11 | ER ---
Nurse's Notes [facility] Name: Mari Mercado Age: 26 yrs Sex: Male : 1995 Arrival Date: 07/02/2022 Time: 04:08 Bed 18 Private MD: Diagnosis: Epileptic seizures related to external causes, not intractable;Bipolar disorder, unspecified;Abnormal level of other drugs, medicaments and biological substances in specimens from other organs, systems and tissues;Hypokalemia Presentation: 07/02 04:09 Chief complaint: EMS states: pt with witnessed seizure, lasted approximately a minute. kd3 pt now post ictal. Coronavirus screen: Vaccine status:. Ebola Screen: No symptoms or risks identified at this time. Initial Sepsis Screen: Does the patient meet any 2 criteria? No. Patient's initial sepsis screen is negative. Does the patient have a suspected source of infection? No. Patient's initial sepsis screen is negative. Risk Assessment: Do you want to hurt yourself or someone else? Patient reports no desire to harm self or others. Onset of symptoms was July 02, 2022. 04:09 Method Of Arrival: EMS: [facility] [place] [place] [facility] kd3 04:09 Acuity: ERASMO 3 kd3 Triage Assessment: 04:12 General: Appears in no apparent distress. Behavior is post ictal . Pain: Unable to use kd3 pain scale. Patient is disoriented. Neuro: Level of Consciousness is post ictal. Historical: - Home Meds: 04:12 Dilantin Oral [Active]; Keppra Oral [Active]; kd3 - PMHx: 04:12 Bipolar disorder; Seizure; kd3 - Immunization history:: Adult Immunizations up to date. - Social history:: Smoking status: unknown. - Family history:: not pertinent. Screenin:13 Abuse screen: Denies threats or abuse. Denies injuries from another. Nutritional kd3 screening: No deficits noted. Tuberculosis screening: No symptoms or risk factors identified. Fall Risk Secondary diagnosis (15 points) post ictal . IV access (20 points). Assessment: 04:13 General: see triage . kd3 04:20 General: suction set up in the room. . tw5 04:20 Cardiovascular: Patient's skin is warm and dry. Rhythm is sinus rhythm. tw5 05:51 Reassessment: Patient and/or family updated on plan of care and expected duration. Pain tw5 level reassessed. Patient is alert, oriented x 3, equal unlabored respirations, skin warm/dry/pink. PT seen resting quietly, eyes closed. PT snoring. Pt head of bed raised to 30 degrees to improve breathing. 06:40 General: delay in pt discharge. pt respond to painful stimuli. pt vitals stable. . kd3 07:13 Reassessment: Patient will not wake up to answer questions, unable to discharge until mb8 patient is more alert. . 07:53 Reassessment: Dr. Gonzalez came to re-evaluate patient. Patient will respond to painful mb8 stimuli, open eyes and move his head but will not speak. Blood glucose is 84.. 08:29 Reassessment: supervisor sound technician reports patient woke up when they move him to their exam table mb8 and spoke to them. Patient still only opening eyes to painful stimuli and will not speak to me. . 09:06 Reassessment: Patient still not waking up fully to answer questions. . mb8 10:09 Reassessment: Patient still only responding to painful stimuli, this time he woke up a mb8 little more and said "yo" this time but would not answer any questions. . 11:18 Reassessment: Patient speaking more this time, was able to tell me where he is. Reports mb8 his niece could possible come get him. He does not have a phone number. . 12:06 Reassessment: Attempted to contact family with numbers listed on chart but no luck.. mb8 12:13 Reassessment: Spoke with Augusto on patient's contact sheet, he is at work but will mb8 contact other family to arrange transport for patient. . 12:50 Reassessment: Patient's mom called and said she will be here to filler picker patient. mb8 Patient is answering questions more, still tired due to medications given in ED. Patient ambulated in room to wheelchair on his own. IV removed and paperwork gone over with patient. . Vital Signs: 04:09 BP 127 / 40; Pulse 101; Resp 16; Temp 99.1; Pulse Ox 95% on R/A; Weight 82 kg; kd3 05:53 BP 108 / 62; Pulse 88; Resp 18; Pulse Ox 97% on R/A; tw5 06:07 BP 115 / 56; Pulse 89; Resp 18; Pulse Ox 98% on R/A; kd3 06:40 BP 108 / 57; Pulse 87; Resp 19; Pulse Ox 97% on R/A; kd3 07:38 BP 111 / 60; Pulse 82; Resp 22 S; Pulse Ox 97% on R/A; mb8 08:23 BP 111 / 67; Pulse 75; Resp 18; Pulse Ox 100% on R/A; mb8 09:06 BP 104 / 58; Pulse 81; Resp 18; Pulse Ox 99% ; mb8 10:09 BP 106 / 62; Pulse 75; Resp 18; Pulse Ox 99% ; mb8 11:18 BP 125 / 85; Pulse 73; Resp 14; Pulse Ox 99% ; mb8 12:49 BP 116 / 79; Pulse 79; Resp 20; Pulse Ox 97% ; mb8 Vitals: 07:38 Cardiac Rhythm Assessment Sinus rhythm. mb8 10:09 Cardiac Rhythm Assessment Sinus rhythm. mb8 [place] Coma Score: 04:12 Eye Response: to voice(3). Verbal Response: confused(4). Motor Response: obeys kd3 commands(6). Total: 13. ED Course: 04:08 Patient arrived in ED. kd3 04:12 Triage completed. kd3 04:12 Arm band placed on right wrist. kd3 04:13 Seizure precautions initiated. kd3 04:15 Elroy Gonzalez MD is Attending Physician. [facility] 04:20 Makenzie Rocha RN is Primary Nurse. kd3 04:20 Client placed on continuous cardiac and pulse oximetry monitoring. NIBP monitoring tw5 applied. 04:39 Salicylate Sent. kd3 04:39 Ptt, Activated Sent. kd3 04:39 PT-INR Sent. kd3 04:39 Hepatic Function Sent. kd3 04:39 ETOH Level Sent. kd3 04:39 CBC with Diff Sent. kd3 04:39 Basic Metabolic Panel Sent. kd3 04:39 Acetaminophen Sent. kd3 04:40 Patient has correct armband on for positive identification. Placed in gown. Bed in low mh5 position. Call light in reach. Side rails up X2. Warm blanket given. alarm security or surveillance monitor on. Pulse ox on. NIBP on. 06:10 Ha Fernandez MD is Referral Physician. keturah 07:08 Primary Nurse role handed off by AjMakenzie ryan RN mb8 07:08 Valeriano Manuel, RN is Primary Nurse. mb8 08:14 CT Head Brain wo Cont In Process Unspecified. EDMS 12:51 IV discontinued, intact, bleeding controlled, No redness/swelling at site. Pressure mb8 dressing applied. 12:51 No provider procedures requiring assistance completed. mb8 Administered Medications: 05:07 Drug: NS 0.9% 1000 ml Route: IV; Rate: 1 bolus; Site: right forearm; kd3 05:08 Drug: Fosphenytoin 500 mg Route: IVPB; Site: right forearm; kd3 05:35 Drug: Keppra (levETIRAcetam) 1000 mg Route: IV; Rate: per protocol; Site: right forearm;kd3 06:09 Follow up: Response: No adverse reaction; Rate change 100 ml; IV Status: Completed kd3 infusion 05:35 Drug: Ativan (LORazepam) 1 mg Route: IVP; Site: right forearm; kd3 06:10 Follow up: Response: No adverse reaction kd3 05:47 Drug: Fosphenytoin 500 mg Route: IVPB; Site: right forearm; tw5 12:41 Drug: Potassium Effervescent Tablet 25 mEq Route: PO; mb8 12:51 Follow up: Response: No adverse reaction mb8 Medication: 04:14 VIS not applicable for this client. kd3 Outcome: 06:11 Discharge ordered by . keturah 13:30 Discharged to home ambulatory, discharged with patient's mom mb8 13:30 Condition: stable 13:30 Discharge instructions given to patient, family, Instructed on discharge instructions, follow up and referral plans. medication usage, Demonstrated understanding of instructions, follow-up care, medications, Prescriptions given X 2. 13:31 Patient left the ED. mb8 Signatures: Dispatcher [employer] EDMS Elroy Gonzalez MD MD cha Martinez, Maria Patito Toussaint Jacque tw5 Makenzie Rocha RN RN kd3 Bates, Michael, VALERIA RN mb8 Corrections: (The following items were deleted from the chart) 05:53 05:52 General: suction set up in the room. . tw5 tw5 11:23 11:18 Reassessment: Patient not speaking or opening his eyes. Will move his head and mb8 moan. . mb8
--- NOTE | 2022-07-02 06:11 | EDPHYS ---
Physician Documentation [facility] Name: Mari Mercado Age: 26 yrs Sex: Male : 1995 Arrival Date: 07/02/2022 Time: 04:08 Bed 18 Private MD: ED Physician Elroy Gonzalez HPI: 07/02 05:28 This 26 yrs old Black Male presents to ER via EMS with complaints of Seizure. keturah 05:28 The patient presents after having a single isolated seizure, that lasted 1 minute(s). keturah Character of seizure(s): Loss of consciousness: the patient experienced loss of consciousness, Motor activity: generalized, Incontinence: none, Apnea: the patient did not experience apnea, Circulation: the patient did not experience evidence of pulse disturbance. Seizure onset: just prior to arrival. Context: the seizure(s) was witnessed, by family, occurred at home. Seizure Hx: it is unknown whether or not the patient has a previous seizure history, Usual frequency: unknown. Associated injury: The patient did not suffer any apparent associated injury. EMS care: none. Current symptoms: confusion. The patient has experienced similar episodes in the past, several times. Historical: - Home Meds: 04:12 Dilantin Oral [Active]; Keppra Oral [Active]; kd3 - PMHx: 04:12 Bipolar disorder; Seizure; kd3 - Immunization history:: Adult Immunizations up to date. - Social history:: Smoking status: unknown. - Family history:: not pertinent. ROS: 05:28 Constitutional: Negative for fever, chills, and weight loss, Eyes: Negative for injury, keturah pain, redness, and discharge, ENT: Negative for injury, pain, and discharge, Neck: Negative for injury, pain, and swelling, Cardiovascular: Negative for chest pain, palpitations, and edema, Respiratory: Negative for shortness of breath, cough, wheezing, and pleuritic chest pain, Abdomen/GI: Negative for abdominal pain, nausea, vomiting, diarrhea, and constipation, Back: Negative for injury and pain, : Negative for injury, bleeding, discharge, and swelling, MS/Extremity: Negative for injury and deformity, Skin: Negative for injury, rash, and discoloration, Psych: Negative for depression, anxiety, suicide ideation, homicidal ideation, and hallucinations, Allergy/Immunology: Negative for hives, rash, and allergies, Endocrine: Negative for neck swelling, polydipsia, polyuria, polyphagia, and marked weight changes, Hematologic/Lymphatic: Negative for swollen nodes, abnormal bleeding, and unusual bruising. 05:28 Neuro: Positive for altered mental status, weakness. Exam: 05:28 Constitutional: This is a well developed, well nourished patient who is awake, alert, keturah and in no acute distress. Head/Face: Normocephalic, atraumatic. Eyes: Pupils equal round and reactive to light, extra-ocular motions intact. Lids and lashes normal. Conjunctiva and sclera are non-icteric and not injected. Cornea within normal limits. Periorbital areas with no swelling, redness, or edema. ENT: Nares patent. No nasal discharge, no septal abnormalities noted. Tympanic membranes are normal and external auditory canals are clear. Oropharynx with no redness, swelling, or masses, exudates, or evidence of obstruction, uvula midline. Mucous membranes moist. Neck: Trachea midline, no thyromegaly or masses palpated, and no cervical lymphadenopathy. Supple, full range of motion without nuchal rigidity, or vertebral point tenderness. No Meningismus. Chest/axilla: Normal chest wall appearance and motion. Nontender with no deformity. No lesions are appreciated. Cardiovascular: Regular rate and rhythm with a normal S1 and S2. No gallops, murmurs, or rubs. Normal PMI, no JVD. No pulse deficits. Respiratory: Lungs have equal breath sounds bilaterally, clear to auscultation and percussion. No rales, rhonchi or wheezes noted. No increased work of breathing, no retractions or nasal flaring. Abdomen/GI: Soft, non-tender, with normal bowel sounds. No distension or tympany. No guarding or rebound. No evidence of tenderness throughout. Back: No spinal tenderness. No costovertebral tenderness. Full range of motion. Male : Normal genitalia with no discharge or lesions. Skin: Warm, dry with normal turgor. Normal color with no rashes, no lesions, and no evidence of cellulitis. MS/ Extremity: Pulses equal, no cyanosis. Neurovascular intact. Full, normal range of motion. Psych: Awake, alert, with orientation to person, place and time. Behavior, mood, and affect are within normal limits. 05:28 Neuro: Orientation: to person, place, Not oriented to time, situation, Mentation: slow to respond, confused, Memory: unable to test, Cranial nerves: grossly normal, is grossly normal based on the patient's age, no acute changes, Cerebellar function: is grossly normal, is grossly normal based on the patient's age, Motor: moves all fours, strength is normal, Sensation: no obvious gross deficits, appropriate no acute changes, Gait: not tested. seizure activity, is not displayed by the patient. 05:38 ECG was reviewed by the Attending Physician. keturah Vital Signs: 04:09 BP 127 / 40; Pulse 101; Resp 16; Temp 99.1; Pulse Ox 95% on R/A; Weight 82 kg; kd3 05:53 BP 108 / 62; Pulse 88; Resp 18; Pulse Ox 97% on R/A; tw5 06:07 BP 115 / 56; Pulse 89; Resp 18; Pulse Ox 98% on R/A; kd3 06:40 BP 108 / 57; Pulse 87; Resp 19; Pulse Ox 97% on R/A; kd3 07:38 BP 111 / 60; Pulse 82; Resp 22 S; Pulse Ox 97% on R/A; mb8 08:23 BP 111 / 67; Pulse 75; Resp 18; Pulse Ox 100% on R/A; mb8 09:06 BP 104 / 58; Pulse 81; Resp 18; Pulse Ox 99% ; mb8 10:09 BP 106 / 62; Pulse 75; Resp 18; Pulse Ox 99% ; mb8 11:18 BP 125 / 85; Pulse 73; Resp 14; Pulse Ox 99% ; mb8 12:49 BP 116 / 79; Pulse 79; Resp 20; Pulse Ox 97% ; mb8 [place] Coma Score: 04:12 Eye Response: to voice(3). Verbal Response: confused(4). Motor Response: obeys kd3 commands(6). Total: 13. MDM: 04:15 Patient medically screened. keturah 05:28 Differential diagnosis: cerebral vascular accident, drug overdose, cardiac arrhythmia, keturah seizure. Data reviewed: vital signs, nurses notes, EMS record, lab test result(s), EKG, radiologic studies, CT scan. Data interpreted: compliance monitor: rate is 101 beats/min, rhythm is regular, Pulse oximetry: on room air is 95 %. Test interpretation: by ED physician or midlevel provider: ECG, plain radiologic studies. Counseling: I had a detailed discussion with the patient and/or guardian regarding: the historical points, exam findings, and any diagnostic results supporting the discharge/admit diagnosis, lab results, radiology results, the need for outpatient follow up, for definitive care, a family practitioner, a neurologist. 07/02 04:16 Order name: Acetaminophen; Complete Time: 05:26 [facility] 07/02 04:16 Order name: Basic Metabolic Panel; Complete Time: 05: [facility] 07/02 04:16 Order name: CBC with Diff; Complete Time: 05: [facility] 07/02 04:16 Order name: ETOH Level; Complete Time: 05: [facility] 07/02 04:16 Order name: Hepatic Function; Complete Time: 05: [facility] 07/02 04:16 Order name: PT-INR; Complete Time: 05: [facility] 07/02 04:16 Order name: Ptt, Activated; Complete Time: 05:26 [facility] 07/02 04:16 Order name: Salicylate; Complete Time: 05:26 [facility] 07/02 04:16 Order name: Urine Drug Screen; Complete Time: 07:47 [facility] 07/02 04:44 Order name: Glucose, Ancillary Testing; Complete Time: 05:26 [facility] 07/02 05:00 Order name: Dilantin; Complete Time: 06:04 [facility] 07/02 06:34 Order name: Urine Dipstick-Ancillary; Complete Time: 07:47 [facility] 07/02 07:56 Order name: CT Head Brain wo Cont; Complete Time: 16:51 [facility] 07/02 08:03 Order name: Glucose, Ancillary Testing; Complete Time: 16:51 [facility] 07/02 04:16 Order name: EKG; Complete Time: 04:17 [facility] 07/02 04:16 Order name: EKG - Nurse/Tech; Complete Time: 04:39 07/02 04:16 Order name: IV Saline Lock; Complete Time: 04:39 07/02 04:16 Order name: Labs collected and sent; Complete Time: 04:39 07/02 04:16 Order name: Suicide Screening ([place]); Complete Time: 04:39 07/02 04:16 Order name: Urine Dipstick-Ancillary (obtain specimen); Complete Time: 06:41 [facility] 09/04 04:16 Order name: Seizure Precautions; Complete Time: 04:39 keturah EC:38 Rate is 97 beats/min. Rhythm is regular. QRS [place] is Normal. TN interval is normal. QRS keturah interval is normal. QT interval is normal. No Q waves. T waves are Normal. No ST changes noted. Clinical impression: NSR w/ Non-specific ST/T Changes and No evidence of ischemia. Interpreted by me. Reviewed by me. Administered Medications: 05:07 Drug: NS 0.9% 1000 ml Route: IV; Rate: 1 bolus; Site: right forearm; kd3 05:08 Drug: Fosphenytoin 500 mg Route: IVPB; Site: right forearm; kd3 05:35 Drug: Keppra (levETIRAcetam) 1000 mg Route: IV; Rate: per protocol; Site: right forearm;kd3 06:09 Follow up: Response: No adverse reaction; Rate change 100 ml; IV Status: Completed kd3 infusion 05:35 Drug: Ativan (LORazepam) 1 mg Route: IVP; Site: right forearm; kd3 06:10 Follow up: Response: No adverse reaction kd3 05:47 Drug: Fosphenytoin 500 mg Route: IVPB; Site: right forearm; tw5 12:41 Drug: Potassium Effervescent Tablet 25 mEq Route: PO; mb8 12:51 Follow up: Response: No adverse reaction mb8 Disposition Summary: 07/02/22 06:11 Discharge Ordered Location: Home keturah Problem: new keturah Symptoms: have improved keturah Condition: Stable keturah Diagnosis - Epileptic seizures related to external causes, not intractable keturah - Bipolar disorder, unspecified keturah - Abnormal level of other drugs, medicaments and biological substances in specimens keturah from other organs, systems and tissues - Hypokalemia keturah Followup: keturah - With: Private Physician - When: 2 - 3 days - Reason: Recheck today's complaints, Continuance of care, Re-evaluation by your physician Followup: keturah - With: - When: 2 - 3 days - Reason: Recheck today's complaints, Re-evaluation by your physician Discharge Instructions: - Discharge Summary Sheet keturah - Seizure, Adult keturah - Seizure, Adult, [id number] keturah - Hypokalemia keturah - Supporting Someone With Bipolar Disorder keturah Forms: - Medication Reconciliation Form keturah - Thank You Letter keturah - Antibiotic Education keturah - Prescription Opioid Use keturah Prescriptions: - Dilantin [place] 100 mg Oral Capsule - take 1 capsule by ORAL route every 8 hours; 60 capsule; Refills: 0, Product [facility] Selection Permitted - Keppra 750 mg Oral Tablet - take 1 tablet by ORAL route every 12 hours; 40 tablet; Refills: 0, Product [facility] Selection Permitted Signatures: Dispatcher [employer] Elroy Benitez MD MD cha Rittger, Kevin, MD MD kdr Wood, Tiffany tw5 Makenzie Rocha RN RN kd3 Valeriano Manuel RN RN mb8 Corrections: (The following items were deleted from the chart) 06:41 04:16 Urine Test ordered. [facility] kd3
[2022-07-02 06:34] LABS: Urine Blood Trace-lysed (Negative); Urine Glucose Negative (Negative); Urine Protein 1+ (Negative)
[2022-07-02 06:52] LABS: Barbiturates NEGATIVE (NEGATIVE); Benzodiazepines NEGATIVE (NEGATIVE); Cocaine NEGATIVE (NEGATIVE); METHAMPHETAM NEGATIVE (NEGATIVE); Methadone NEGATIVE (NEGATIVE); Opiates NEGATIVE (NEGATIVE); Phencyclidine NEGATIVE (NEGATIVE); THC Cannibis NEGATIVE (NEGATIVE)
--- NOTE | 2022-07-02 08:20 | RAD REPORT ---
EXAM DESCRIPTION: CT - Head Brain Wo Cont - 07/02/2022 8:12 am CLINICAL HISTORY: Seizure/confusion COMPARISON: 2020 TECHNIQUE: Computed axial tomography of the head was obtained. IV contrast was not requested. All CT scans are performed using dose optimization technique as appropriate and may include automated exposure control or mA/KV adjustment according to patient size. FINDINGS: An intracranial bleed is not seen . The ventricles are normal in caliber. No significant hypodense areas within the brain visualized No extra-axial fluid collection is noted. Fluid within the sinuses/ mastoids is not seen. IMPRESSION: No acute intracranial abnormality is seen. If patient's symptoms persist MRI of the bra in would be recommended.
[2022-07-02] MEDS ORDERED: POTASSIUM 25 MEQ EFFERV TAB ONE (12:52)
[2022-07-02 13:47] VITALS: TEMP 99.1
[2022-07-02 14:09] VITALS: BP 116/79; O2SAT 97
--- NOTE | 2022-07-04 14:36 | EKG ---
Test Date: 2022-07-02 Test Time: 04:31:46 Crib Pad Maker: JOHANA MEASUREMENT RESULTS: Intervals: Rate: 97 SD: 124 QRSD: 86 QT: 350 QTc: 444 [place]: P: 74 SD: 124 QRS: 76 T: 60 INTERPRETIVE STATEMENTS: Normal sinus rhythm Normal ECG Compared to ECG 02/02/2022 06:33:01 ST (T wave) deviation no longer present Early repolarization no longer present Electronically Signed On 07-04-22 14:32:25 CDT by Jorge Luis Dumont
== END 2022-07-02 13:31 | disposition home or self-care (01) ==
LOC: ER 04:04
DX: G40.509 Epileptic seizures related to external causes, not intractable, without status epilepticus (principal); E87.6 Hypokalemia; R89.2 Abnormal level of other drugs, medicaments and biological substances in specimens from other organs, systems and tissues; F31.9 Bipolar disorder, unspecified
CPT/HCPCS: 96365; 93005; 85025; 80048; 36415; 80320; 80329 ×2; 85610; 82947 ×2; 80076; 85730; 80185; 81003; 80307; 70450; 96375; 99284; Q2009 ×2; J1953 ×2; J7030

== ENCOUNTER 2022-07-04 02:07 | Emergency (ER) | payer OTHER ==
--- OUTSIDE RECORDS SUMMARY | 2022-07-04 02:24 | XMS REPORT | Continuity of Care Document ---
:[address] [facility] t Address [address] [place] [address] Care Team Providers Name Role Phone DIANA QUILES Attending Clinician Unavailable NALLELY BARROS Attending Clinician Unavailable Diana Quiles MD Attending Clinician [phone] Nallely Barros MD Attending Clinician JAQUELINE BARRERA Attending Clinician Unavailable SHALOM SCHERER Attending Clinician Unavailable SHALOM SCHERER Attending Clinician Unavailable Doctor Unassigned, Jena Attending Clinician Unavailable Shalom Scherer MD Attending Clinician Afshin Epperson Attending Clinician DIANA QUILES Admitting Clinician Unavailable NALLELY BARROS Admitting Clinician Unavailable Payers Payer Name Policy Type Policy Number Effective Date Expiration Date S ource MEDICAID [employer] [id number] 2021 00:00:00 [facility] [id number] 2016 00:00:00 Problems Condition Condition Condition Status Onset Resolution Last Treating Co mments Source Name Details Category Date Date Treatment Clinician Date High risk High risk Disease Active [facility] situation situation 00:00: kiesha [address] [place] [address] Seizure Seizure Disease Active [facility] 00:[facility]: Medical 00 [place] Epileptic Epileptic Disease Active [facility] psychosis psychosis 4-13 [facility] 00:00: Medical 00 [place] G40.909 G40.909 Diagnosis Active 2015-102016-09-19 Memoria Active 11-13 16:07:00 l 09/13/2016 00:00: Eliel bird [address] Allergies, Adverse Reactions, Alerts Allergy Allergy Status Severity Reaction(s) Onset Inactive Treating Comm ents Source Name Type Date Date Clinician No Known DA Active [facility] Drug 6-30 Allergie 00:00: s 00 NO KNOWN Drug Active [facility] NO KNOWN Allergy Active [facility] Social History Social Habit Start Date Stop Date Quantity Comments Source Social History 2016-09-20 2016-09-20 [facility] 05:59:00 05:59:00 Sex Assigned At [address] Mariah kes 00:00:00 00:00:00 [facility] Medications Ordered Filled Start Stop Current Ordering Indication Dosage Frequency Signature Comments Components Source Medication Medication Date Date Medication? Clinician (SIG) Name Name phenytoin Yes 400mg QD Take 2 [facility] (DILANTIN) 00:00: (400 mg Medi kiesha 200 MG ER 00 total) by Cente r capsule mouth daily. phenytoin 2021-0 Yes 400mg QD Take 2 [facility] (DILANTIN) 00:00: (400 mg Medi kiesha 200 MG ER 00 total) by Cente r capsule mouth daily. phenytoin 2021-0 Yes 400mg QD Take 2 [facility] (DILANTIN) 00:00: (400 mg Medi kiesha 200 MG ER 00 total) by Cente r capsule mouth daily. phenytoin 2021- No 400mg QD Take [address] [facility] [address] (DILANTIN) 4-19 04-18 capsules Luke s 200 MG ER 00:00: 00:00 (400 mg Medi kiesha capsule 00 :00 total) by Center mouth daily. phenytoin 2021-0 2021- No 400mg QD Take [address] [facility] (DILANTIN) 4-19 04-18 capsules Luke s 200 MG ER 00:00: 00:00 (400 mg Medi kiesha capsule 00 :00 total) by Center mouth daily. phenytoin 2021- No 400mg QD Take [address] [facility] [address] (DILANTIN) 02-1418 capsules Luke s 200 MG ER 00:00: 00:00 (400 mg Medi kiesha capsule 00 :00 total) by Center mouth daily. levETIRAcet Yes 1500mg Q.5D Take [address] (KEPPRA) 18 tablets [facility] 750 MG 00:00: (1,500 mg Medica l tablet 00 total) by Center mouth 2 (two) times daily. levETIRAcet Yes 1500mg Q.5D Take [address] [facility] (KEPPRA) 18 tablets [facility] 750 MG 00:00: (1,500 mg Medica l tablet 00 total) by Center mouth 2 (two) times daily. levETIRAcet Yes 1500mg Q.5D Take [address] [facility] (KEPPRA) 18 tablets [facility] 750 MG 00:00: (1,500 mg Medica l tablet 00 total) by Center mouth 2 (two) times daily. levETIRAcet 2021- No 1500mg Q.5D Take [address] [facility] (KEPPRA) 02-13 tablets Luke s 750 MG 00:00: 00:00 (1,500 mg Medic al tablet 00 :00 total) by Center mouth 2 (two) times daily. levETIRAcet 2021- No 1500mg Q.5D Take [address] [facility] (KEPPRA) 02-1318 tablets Luke s 750 MG 00:00: 00:00 (1,500 mg Medic al tablet 00 :00 total) by Center mouth 2 (two) times daily. levETIRAcet 2021- No 1500mg Q.5D Take [address] [facility] (KEPPRA) 02-1318 tablets Luke s 750 MG 00:00: 00:00 (1,500 mg Medic al tablet 00 :00 total) by Center mouth 2 (two) times daily. Vital Signs Vital Name Observation Time Observation Value Comments Source Diastolic blood 2022-02-13 15:17:00 57 mm[Hg] [facility] Heart rate 2022-02-13 15:17:00 82 /min [facility] Body temperature 2022-02-13 15:17:00 36.44 [facility] Respiratory rate 2022-02-13 15:17:00 16 /min [facility] Oxygen saturation in 2022-02-13 15:17:00 100 /min [facility] Arterial blood by Medical Ce nter Pulse oximetry Systolic blood 2022-02-13 15:17:00 108 mm[Hg] [facility] Procedures Procedure Date / Time Performed Performing Clinician Sour e EEG 12-26 HR CONTINUOUS 2022-02-10 06:05:00 Nallely Barros [facility] MONITORING WITH VIDEO Medical Ce nter PHENYTOIN LEVEL, TOTAL 2022-02-09 10:51:00 Luzmaria Rodriguez [facility] EEG 12-26 HR CONTINUOUS 2022-02-09 06:15:00 Kelly Johnson [facility] MONITORING WITH VIDEO Medical Ce nter BASIC METABOLIC PANEL 2022-02-09 04:28:00 [facility] (7) [facility] MAGNESIUM 2022-02-09 04:28:00 [facility] PHOSPHORUS 2022-02-09 04:28:00 [facility] CBC W/PLT COUNT & AUTO 2022-02-09 04:28:00 [facility] DIFFERENTIAL [facility] CBC W/PLT COUNT & AUTO 2022-02-09 04:28:00 [facility] ECG 12-LEAD 2022-02-08 21:19:01 Elliot Caballero [facility] EKG-SCANNED 2022-02-08 00:00:00 Provider, Ko [facility] Scanning [facility] CT brain w/o contrast [facility] EEG [facility] Plan of Care Planned Activity Planned Date Details Comments Source Future Scheduled 2022-06-29 INFLUENZA VACCINE [facility] Test 00:00:00 (#1) [code = Medical Center INFLUENZA VACCINE (#1)] Future Scheduled 2022-06-[address] [facility] Test 00:00:00 (#1) [code = Medical Center INFLUENZA VACCINE (#1)] Future Scheduled 2022-06-[address] [facility] Test 00:00:00 (#1) [code = Medical Center INFLUENZA VACCINE (#1)] Future Scheduled 2021-10-[address] [facility] Test 00:00:00 (12+) [code = Medical Center DEPRESSION SCREENING (12+)] Future Scheduled 2021-10-[address] [facility] Test 00:00:00 (12+) [code = Medical Center DEPRESSION SCREENING (12+)] Future Scheduled 2021-10-[address] [facility] Test 00:00:00 (12+) [code = Medical Center DEPRESSION SCREENING (12+)] Future Scheduled 2012 DTAP/TDAP/TD VACCINES [facility] Test 00:00:00 (1 - Tdap) [code = Medical C enter DTAP/TDAP/TD VACCINES (1 - Tdap)] Future Scheduled 2012 DTAP/TDAP/TD VACCINES [facility] Test 00:00:00 (1 - Tdap) [code = Medical C enter DTAP/TDAP/TD VACCINES (1 - Tdap)] Future Scheduled 2012 DTAP/TDAP/TD VACCINES [facility] Test 00:00:00 (1 - Tdap) [code = Medical C enter DTAP/TDAP/TD VACCINES (1 - Tdap)] Future Scheduled 2011-12-30 HEPATITIS C SCREENING [facility] Test 00:00:00 [code = HEPATITIS C Medical Center SCREENING] Future Scheduled 2011-12-30 HEPATITIS C [facility]CREENING [facility] Test 00:00:00 [code = HEPATITIS C Medical Center SCREENING] Future Scheduled 2011-12-30 HEPATITIS C [facility]CREENING [facility] Test 00:00:00 [code = HEPATITIS C Medical Center SCREENING] Future Scheduled 1994-07-01 COVID-19 VACCINE (#1) [facility] Test 00:00:00 [code = COVID-[address] VACCINE (#1)] Future Scheduled 1994-07-01 COVID-19 VACCINE (#1) [facility] Test 00:00:00 [code = COVID-[address] VACCINE (#1)] Future Scheduled 1994-07-01 COVID-19 VACCINE (#1) [facility] Test 00:00:00 [code = COVID-[address] VACCINE (#1)] Encounters Start End Encounter Admission Attending Care Care Encounter Source Date/Time Date/Time Type Type Clinicians Facility Department ID 2022-02-07 Inpatient ER [facility] Neurology [id number] 20:41:50 [facility] 2022-02-07 Inpatient ER [facility] Neurology [id number] 20[facility]16 [facility] 2022-02-07 Inpatient ER [facility] Neuro ICU [id number] 14:31:43 [facility] 2022-02-03 Outpatient [facility] [id number] [place] 10:44:[address] [place] [address] 2021-04-27 Inpatient [facility] [id number] [facility] 05:42:00 64 2022-02-08 2022-02-13 Inpatient ER [facility] Neurology [id number] [facility] 12:54:00 18:44:00 NALLELY 2022-02-08 2022-02-13 [facility] [id number] [facility] 12:54:00 18:44:00 Encounter Nallely Barros [facility] 2022-02-08 2022-02-13 [facility] [id number] [facility] 12:54:00 18:44:00 Encounter Nallely Barros [facility] 2022-02-08 2022-02-08 Outpatient [facility] [id number] [facility] 00:00:00 23:59:00 Reji 2021-04-27 2021-04-27 Emergency [facility] [id number] [facility] 05:42:00 05:42:00 64 2021-04-27 2021-04-27 Outpatient Nathan BARRERA [facility] NUT [id number] Univers 00:00:00 00:00:00 JAQUELINE [id number] [facility] 2021-04-27 2021-04-27 Outpatient R BARRERA, [facility] [id number] Univers 00:00:00 00:00:00 JAQUELINE [facility] 2020-09-28 2020-09-28 Outpatient R [facility] [id number] Univers 09:00:00 09:00:00 [facility] 2020-09-28 2020-09-28 Outpatient R NIESHA, SHALOM [facility] [id number] Univers 09:00:00 09:00:00 NIESHASHALOM [facility] 2020-09-28 2020-09-28 Orders Doctor CRAWFORD [id number] 00:00:00 00:00:00 Only Unassigned, ESTER [id number] [facility] [id number] [facility] 2020-09-17 2020-09-17 Outpatient R [facility] [id number] Univers 13:00:00 13:00:00 jaspreet [facility] 2020-09-17 2020-09-17 Outpatient R NIESHA SHALOM [facility] [id number] Univers 13:00:00 13:00:00 NIESHASHALOM jaspreet [facility] 2020-09-16 2020-09-16 Outpatient R [facility] [id number] Univers 13:00:00 13:00:00 [id number] jaspreet [facility] 2020-09-16 2020-09-16 Outpatient R NIESHA SHALOM [facility] [id number] Univers 13:00:00 13:00:00 NIESHA SHALOM jaspreet [facility] 2020-08-24 2020-08-24 Office Niesha [facility] [id number] 15:09:23 16:20:08 Visit Shalom Duran [id number] Varun [id number] Professio [id number] community health2 [facility] 2020-08-24 2020-08-24 Outpatient Nathan NIESHA SHALOM [facility] [id number] Univers 16:00:00 16:00:00 SHALOM SCHERER [facility] 2020-08-24 2020-08-24 Outpatient SHALOM SCHERER [facility] [id number] Univers 15:40:00 15:40:00 SHALOM SCHERER [id number] [facility] 2020-08-24 2020-08-24 Outpatient R SHALOM SCHERER [facility] [id number] Univers 15:40:00 15:40:00 SHALOM SCHERER [facility] 2016-09-19 2016-09-20 Outpatient [facility] [id number] [facility]oria 16:26:00 05:59:[address] 2016-09-19 2016-09-20 Outpatient [facility] [id number] Memoria 16:26:00 05:59:[address] 2016-09-19 2016-09-19 Outpatient Zhou [facility] [id number] 10:26:00 23:59:00 Afshin Roma Eduardo Results Test Description Test Time Test Comments Results Result Comments Source PHENYTOIN LEVEL, TOTAL 2022-02-09 11:29:09 Test Item Value Reference Range Interpretation Comme nts PHENYTOIN (DILANTIN) (BEAKER) (test code = 605) 18.3 ug/mL 10.0-2 0.0 Applications Development Consultant ID - [id number] 05:11:05 Test Item Value Reference Range Interpretation Comments MAGNESIUM (BEAKER) (test code = 1.9 mg/dL 1.6-2.6 627) Applications Development Consultant ID - [id number] 05:11:05 Test Item Value Reference Range Interpretation Comments PHOSPHORUS (BEAKER) (test code = 4.9 mg/dL 2.3-4.7 H 604) Applications Development Consultant ID - ADMINBASIC METABOLIC [id number] 05:11:04 Test Item Value Reference Range Interpretation [...] S NOT APPLICABLE FOR DIALYSIS PATIEN TS. Applications Development Consultant ID - ADMINCBC W/PLT COUNT & AUTO [id number] 04:41:57 Test Item Value Reference Range Interpretation [...] code = 2801) Complete Blood Count Auto [id number] 07:30:00 Test Item Value Reference Range Interpretation [...] code = NRBCP) 0 % Comprehensive Metabolic [id number] 07:30:00 Test Item Value Reference Range Interpretation [...] 112 U/L 46-116 N = ALP) Ethanol [id number] 07:30:00 Test Item Value Reference Range Interpretation Comments Ethanol (test code = ETOH) < 3 mg/dL Coronavirus PCR, COVID19 [id number] 07:30:00 Test Item Value Reference Range Interpretation Comments Coronavirus PCR, For use under Emergency COVID19 Rapid (test Use Authorization (EUA) code = SARSCOV2) only. Coronavirus PCR, Reference Range: COVID19 Rapid (test Negative code = VAHXDNH38.1) SARS-CoV-2 PCR Result: Negative by PCR (test code = SARS-CoV-2 PCR Result:) Comment: psych clearanceCOVID-19 Status: AsymptomaticDrug Screen,[id number] 06:32:00 Test Item Value Reference Range Interpretation [...] Negative code = UPROP) UA, Urinalysis w [id number] 06:32:00 Test Item Value Reference Range Interpretation Comments Color,Urine (test code = Yellow Y UCOL) Clarity,Urine (test code = Clear Clear UCLAR) Ph, Urine (test code = UPH) 7.0 5.0-8.0 N Specific [place],Urine 1.015 1.005-1.030 N (test code = USG) [...]
[2022-07-04] MEDS ORDERED: LEVETIRACETAM 500 MG/5 ML VIAL IV ONE (04:13)
[2022-07-04 05:02] LABS: Absolute Lymphocytes (CBC) 1.3 K/uL (0.7-4.9); Hematocrit 46.4 % (39.6-49.0); Lymphocytes % 15.2 % (15.3-44.8); MCV 87.6 fL (80-100); MPV 8.5 fL (7.6-11.3)
[2022-07-04 05:07] LABS: ALT/SGPT 55 U/L (12-78); AST/SGOT 48 U/L (15-37); Albumin 4.1 g/dL (3.4-5.0); Alkaline Phosphatase 95 U/L (45-117); BUN Blood Urea Nitrogen 4 mg/dL (7-18); Bicarbonate 27 mmol/L (21-32); Bilirubin Direct 0.2 mg/dL (0-0.2); Bilirubin Total 0.4 mg/dL (0.2-1.0); Glomerular Filtration Rate 101 ml/min (=/>90); Glucose Level 92 mg/dL (74-106); Potassium 3.1 mmol/L (3.5-5.1); Protein, Total 8.5 g/dL (6.4-8.2); Sodium Level 141 mmol/L (136-145)
[2022-07-04] MEDS ORDERED: DIAZEPAM 10 MG/2 ML INJ SYRINGE ONE (05:26)
[2022-07-04] MEDS ORDERED: WATER FOR INJ,STERILE 10 ML ONE (05:26)
[2022-07-04] MEDS ORDERED: ZIPRASIDONE MESYLA 20 MG/VIAL IM ONE (05:26)
[2022-07-04 05:35] LABS: Protime INR 1.23
[2022-07-04] MEDS ORDERED: KCL 20 MEQ/100 mL IVPB 100 ML IV ONE (07:08)
--- NOTE | 2022-07-04 07:27 | ER ---
Nurse's Notes [facility] Name: Mari Mercado Age: 26 yrs Sex: Male : 1995 Arrival Date: 07/04/2022 Time: 02:09 Bed 6 Private MD: Diagnosis: Major depressive disorder, recurrent, moderate;Suicidal ideations;Epileptic seizures related to external causes, not intractable;Hypokalemia;Bipolar disorder, unspecified Presentation: 07/04 02:28 Chief complaint: Patient states: Patient previous brought in by EMS- denied wanting tw5 treatment. Patient later stated " I guess I want to be seen.". Coronavirus screen: uknown. Initial Sepsis Screen:. 02:28 Method Of Arrival: Ambulatory tw5 02:35 Ebola Screen: No symptoms or risks identified at this time. Initial Sepsis Screen: Does aa9 the patient meet any 2 criteria? No. Patient's initial sepsis screen is negative. Does the patient have a suspected source of infection? No. Patient's initial sepsis screen is negative. Risk Assessment: Do you want to hurt yourself or someone else? Patient reports no desire to harm self or others. 02:35 Onset of symptoms Onset of symptoms was July 04, 2022. aa9 02:38 Acuity: ERASMO 2 aa9 Triage Assessment: 02:28 General: Appears unkempt, Behavior is uncooperative. tw5 Historical: - Allergies: 05:15 Unable to obtain; aa9 - Home Meds: 05:15 Keppra Oral [Active]; Dilantin Oral [Active]; aa9 - PMHx: 05:15 Bipolar disorder; Seizure; aa9 - PSHx: 05:15 Unable to Obtain; aa9 - Immunization history:: unable to obtain. - Social history:: Smoking status: unknown. - Family history:: not pertinent. Screenin:16 Abuse screen: Denies threats or abuse. Denies injuries from another. Nutritional aa9 screening: No deficits noted. Tuberculosis screening: No symptoms or risk factors identified. Fall Risk None identified. Assessment: 02:38 General: Appears unkempt, Behavior is quiet. Respiratory: Airway is patent Trachea aa9 midline Respiratory effort is even, unlabored, Respiratory pattern is regular. 03:30 Reassessment: Patient and/or family updated on plan of care and expected duration. Pain vc1 level reassessed. General: Behavior is cooperative. 04:30 General: Behavior is cooperative. Pain: Denies pain. vc1 04:30 Reassessment: Patient and/or family updated on plan of care and expected duration. Pain vc1 level reassessed. 05:11 General: Behavior is combative, restless, police at the bedside. . tw5 05:11 Neuro: Level of Consciousness is confused, post ictal. tw5 06:41 Reassessment: pt low gomez's in bed, eyes closed, suction at bedside, VS WNL, seizure aa9 precautions established. Respiratory: Airway is patent Trachea midline Respiratory effort is even, unlabored, Respiratory pattern is regular, symmetrical. 07:00 Reassessment: RECD REPORT FROM ELIO SHAW. 26YO BM P/W AMS S/P SZ. KNOWN H/O SAME. bp 07:30 Reassessment: PT D/C OWN PIV OUT OF BED, URINATING IN ROOM. VERBALLY REDIRECTED TO BED. bp 08:00 Reassessment: ATTEMPTED TO CONTACT FAMILY, BOTH LISTED NUMBERS INOPERABLE. bp 10:39 Reassessment: PT AMBULATING TO BATHROOM WITH STEADY, DC HOME AMBULATORY. bp Vital Signs: 04:00 BP 132 / 79; Pulse 79; Resp 17; Pulse Ox 99% ; vc1 05:08 BP 132 / 79; Pulse 77; Resp 17 S; Pulse Ox 96% on R/A; aa9 05:44 BP 156 / 80; Pulse 72; Resp 19; Pulse Ox 97% on R/A; tw5 06:40 BP 118 / 75; Pulse 73; Resp 18 S; Pulse Ox 97% on R/A; aa9 ED Course: 02:09 Patient arrived in ED. ja2 02:28 Elroy Gonzalez MD is Attending Physician. keturah 02:28 Arm band placed on left wrist. tw5 03:09 CT Head C Spine In Process Unspecified. EDMS 04:53 Elio Persaud RN is Primary Nurse. vc1 05:10 Initial lab(s) drawn, by me, sent to lab. Inserted saline lock: 22 gauge in left tw5 forearm, using aseptic technique. Blood collected. 05:15 Triage completed. aa9 05:16 Patient has correct armband on for positive identification. aa9 07:27 Ha Fernandez MD is Referral Physician. keturah 07:35 No provider procedures requiring assistance completed. IV discontinued. bp 09:08 Primary Nurse role handed off by Elio Persaud RN em1 10:39 Rick Arellano, VALERIA is Primary Nurse. bp Administered Medications: 05:11 Drug: NS 0.9% 1000 ml Route: IV; Rate: 1 bolus; Site: left forearm; tw5 10:40 Follow up: IV Status: Completed infusion; IV Intake: 1000ml bp 05:11 Drug: Keppra (levETIRAcetam) 1000 mg Route: IV; Rate: per protocol; Site: left forearm; tw5 10:40 Follow up: IV Status: Completed infusion; IV Intake: 100ml bp 05:21 CANCELLED (Duplicate Order): Fosphenytoin 1 grams IVPB once; (mix in 50 to 100mL NS) keturah 05:29 Drug: Geodon (ziprasidone) 20 mg Route: IM; Site: right deltoid; tw5 10:41 Follow up: Response: No adverse reaction bp 05:30 Drug: Valium (diazepam) 5 mg Route: IVP; Site: left forearm; tw5 10:41 Follow up: Response: No adverse reaction bp 07:06 Drug: Potassium Chloride 20 mEq Route: IV; Rate: per protocol; Site: left forearm; vc1 10:40 Follow up: IV Status: Completed infusion; IV Intake: 100ml bp Intake: 10:40 IV: 100ml; Total: 100ml. bp 10:40 IV: 1000ml; Total: 1100ml. bp 10:40 IV: 100ml; Total: 1200ml. bp Outcome: 07:26 Discharge ordered by . keturah 10:40 Discharged to home via wheelchair. bp 10:40 Condition: stable 10:40 Discharge instructions given to patient, Instructed on discharge instructions, follow up and referral plans. medication usage, Demonstrated understanding of instructions, follow-up care, medications, Prescriptions given X 2. 10:41 Patient left the ED. bp Signatures: Dispatcher [employer] EDMS Elryo Gonzalez MD MD cha Martinez, Eric em1 Rick Arellano, VALERIA SHAW bp Néstor DonnaJacque Liao tw5 Elio Persaud RN RN vc1 Tatiana Horta RN RN aa9 Corrections: (The following items were deleted from the chart) 05:43 05:11 General: police at the bedside. . tw5 tw5
--- NOTE | 2022-07-04 07:28 | EDPHYS ---
Physician Documentation [facility] Name: Mari Mercado Age: 26 yrs Sex: Male : 1995 Arrival Date: 07/04/2022 Time: 02:09 Bed 6 Private MD: ED Physician Elroy Gonzalez HPI: 07/04 03:49 This 26 yrs old Black Male presents to ER via Ambulatory with complaints of psychosis. keturah 03:49 The patient presents to the emergency department with anxiety, depression, psychosis. keturah Onset: The symptoms/episode began/occurred yesterday. Past psychiatric history: Prior diagnosis: depression, schizophrenia, Psychiatric medications include: keppra, dilantin. psychosis. The patient presents after having a possible seizure episode. Character of seizure(s): Loss of consciousness: the patient experienced loss of consciousness, Motor activity:. Seizure onset: the onset is not known. Context:. Seizure Hx: Cause: unknown. Associated injury: The patient did not suffer any apparent associated injury. Historical: - Allergies: 05:15 Unable to obtain; aa9 - Home Meds: 05:15 Keppra Oral [Active]; Dilantin Oral [Active]; aa9 - PMHx: 05:15 Bipolar disorder; Seizure; aa9 - PSHx: 05:15 Unable to Obtain; aa9 - Immunization history:: unable to obtain. - Social history:: Smoking status: unknown. - Family history:: not pertinent. ROS: 03:52 Constitutional: Negative for fever, chills, and weight loss, Eyes: Negative for injury, keturah pain, redness, and discharge, ENT: Negative for injury, pain, and discharge, Neck: Negative for injury, pain, and swelling, Cardiovascular: Negative for chest pain, palpitations, and edema, Respiratory: Negative for shortness of breath, cough, wheezing, and pleuritic chest pain, Abdomen/GI: Negative for abdominal pain, nausea, vomiting, diarrhea, and constipation, Back: Negative for injury and pain, : Negative for injury, bleeding, discharge, and swelling, MS/Extremity: Negative for injury and deformity, Skin: Negative for injury, rash, and discoloration, Allergy/Immunology: Negative for hives, rash, and allergies, Endocrine: Negative for neck swelling, polydipsia, polyuria, polyphagia, and marked weight changes, Hematologic/Lymphatic: Negative for swollen nodes, abnormal bleeding, and unusual bruising. 03:52 Neuro: Positive for gait disturbance, weakness. Exam: 03:52 Constitutional: This is a well developed, well nourished patient who is awake, alert, keturah and in no acute distress. Head/Face: Normocephalic, atraumatic. Eyes: Pupils equal round and reactive to light, extra-ocular motions intact. Lids and lashes normal. Conjunctiva and sclera are non-icteric and not injected. Cornea within normal limits. Periorbital areas with no swelling, redness, or edema. ENT: Nares patent. No nasal discharge, no septal abnormalities noted. Tympanic membranes are normal and external auditory canals are clear. Oropharynx with no redness, swelling, or masses, exudates, or evidence of obstruction, uvula midline. Mucous membranes moist. Neck: Trachea midline, no thyromegaly or masses palpated, and no cervical lymphadenopathy. Supple, full range of motion without nuchal rigidity, or vertebral point tenderness. No Meningismus. Chest/axilla: Normal chest wall appearance and motion. Nontender with no deformity. No lesions are appreciated. Cardiovascular: Regular rate and rhythm with a normal S1 and S2. No gallops, murmurs, or rubs. Normal PMI, no JVD. No pulse deficits. Respiratory: Lungs have equal breath sounds bilaterally, clear to auscultation and percussion. No rales, rhonchi or wheezes noted. No increased work of breathing, no retractions or nasal flaring. Abdomen/GI: Soft, non-tender, with normal bowel sounds. No distension or tympany. No guarding or rebound. No evidence of tenderness throughout. Back: No spinal tenderness. No costovertebral tenderness. Full range of motion. Male : Normal genitalia with no discharge or lesions. Skin: Warm, dry with normal turgor. Normal color with no rashes, no lesions, and no evidence of cellulitis. MS/ Extremity: Pulses equal, no cyanosis. Neurovascular intact. Full, normal range of motion. Neuro: Awake and alert, GCS 15, oriented to person, place, time, and situation. Cranial nerves II-XII grossly intact. Motor strength 5/5 in all extremities. Sensory grossly intact. Cerebellar exam normal. Normal gait. Psych: Awake, alert, with orientation to person, place and time. Behavior, mood, and affect are within normal limits. 04:13 ECG was reviewed by the Attending Physician. keturah Vital Signs: 04:00 BP 132 / 79; Pulse 79; Resp 17; Pulse Ox 99% ; vc1 05:08 BP 132 / 79; Pulse 77; Resp 17 S; Pulse Ox 96% on R/A; aa9 05:44 BP 156 / 80; Pulse 72; Resp 19; Pulse Ox 97% on R/A; tw5 06:40 BP 118 / 75; Pulse 73; Resp 18 S; Pulse Ox 97% on R/A; aa9 MDM: 02:29 Patient medically screened. keturah 04:16 Differential diagnosis: drug withdrawal. acute psychotic break, depression, psychosis keturah secondary to non-compliance. Differential Diagnosis altered mental status. Differential diagnosis: drug overdose, seizure. Data reviewed: vital signs, nurses notes, lab test result(s), EKG. Data interpreted: body liner: rate is 90 beats/min, rhythm is regular, Pulse oximetry: on room air is 99 %. Test interpretation: by ED physician or midlevel provider: ECG. Counseling: I had a detailed discussion with the patient and/or guardian regarding: the historical points, exam findings, and any diagnostic results supporting the discharge/admit diagnosis, lab results, the need for outpatient follow up, for definitive care, a psychiatrist. 07/04 02:31 Order name: Acetaminophen; Complete Time: 05:20 [facility] 07/04 02:31 Order name: Basic Metabolic Panel; Complete Time: 05:20 [facility] 07/04 02:31 Order name: CBC with Diff; Complete Time: 05:20 [facility] 07/04 02:31 Order name: ETOH Level; Complete Time: 07:26 [facility] 07/04 02:31 Order name: Hepatic Function; Complete Time: 05:20 [facility] 07/04 02:31 Order name: PT-INR; Complete Time: 07:26 [facility] 07/04 02:31 Order name: Ptt, Activated; Complete Time: 07:26 [facility] 07/04 02:31 Order name: Salicylate; Complete Time: 05:20 [facility] 07/04 02:31 Order name: CT Head C Spine [facility] 07/04 03:18 Order name: Dilantin; Complete Time: 05:20 [facility] 07/04 02:31 Order name: EKG; Complete Time: 02:32 [facility] 07/04 02:31 Order name: EKG - Nurse/Tech; Complete Time: 04:14 [facility] 07/04 02:31 Order name: IV Saline Lock; Complete Time: 05:11 [facility] 07/04 02:31 Order name: Labs collected and sent; Complete Time: 05:11 [facility] 07/04 02:31 Order name: Suicide Screening ([place]); Complete Time: 03:08 [facility] 07/04 07:08 Order name: EKG Electrocardiogram EDUT 07/04 09:43 Order name: Social Service Consult EDMS EC:13 Rate is 90 beats/min. Rhythm is regular. QRS [place] is Normal. MA interval is normal. QRS keturah interval is normal. QT interval is normal. No Q waves. T waves are Normal. No ST changes noted. Clinical impression: Normal ECG and No evidence of ischemia. Interpreted by me. Reviewed by me. Administered Medications: 05:11 Drug: NS 0.9% 1000 ml Route: IV; Rate: 1 bolus; Site: left forearm; tw5 10:40 Follow up: IV Status: Completed infusion; IV Intake: 1000ml bp 05:11 Drug: Keppra (levETIRAcetam) 1000 mg Route: IV; Rate: per protocol; Site: left forearm; tw5 10:40 Follow up: IV Status: Completed infusion; IV Intake: 100ml bp 05:21 CANCELLED (Duplicate Order): Fosphenytoin 1 grams IVPB once; (mix in 50 to 100mL NS) keturah 05:29 Drug: Geodon (ziprasidone) 20 mg Route: IM; Site: right deltoid; tw5 10:41 Follow up: Response: No adverse reaction bp 05:30 Drug: Valium (diazepam) 5 mg Route: IVP; Site: left forearm; tw5 10:41 Follow up: Response: No adverse reaction bp 07:06 Drug: Potassium Chloride 20 mEq Route: IV; Rate: per protocol; Site: left forearm; vc1 10:40 Follow up: IV Status: Completed infusion; IV Intake: 100ml bp Disposition Summary: 07/04/22 07:26 Discharge Ordered Location: Home keturah Problem: new keturah Symptoms: have improved keturah Condition: Fair keturah Diagnosis - Major depressive disorder, recurrent, moderate keturah - Suicidal ideations keturah - Epileptic seizures related to external causes, not intractable keturah - Hypokalemia keturah - Bipolar disorder, unspecified keturah Followup: keturah - With: Private Physician - When: 2 - 3 days - Reason: Recheck today's complaints, Continuance of care, Re-evaluation by your physician Followup: keturah - With: Ha Fernandez MD - When: 2 - 3 days - Reason: Recheck today's complaints, Continuance of care, Re-evaluation by your physician Discharge Instructions: - Discharge Summary Sheet keturah - Potassium Content of Foods keturah - Seizure, Adult keturah - Seizure, Adult, [id number] keturah - Managing Bipolar Disorder keturah - Mixed Bipolar Disorder keturah - Supporting Someone With Bipolar Disorder keturah Forms: - Medication Reconciliation Form keturah - Thank You Letter keturah - Antibiotic Education keturah - Prescription Opioid Use keturah Prescriptions: - Keppra 500 mg Oral Tablet - take 1 tablet by ORAL route every 12 hours; 20 tablet; Refills: 0, Product keturah Selection Permitted - Dilantin Kapseal 100 mg Oral Capsule - take 1 capsule by ORAL route every 8 hours; 30 capsule; Refills: 0, Product keturah Selection Permitted Signatures: Dispatcher [employer] EDElroy Flores MD MD cha Wood, Tiffany tw5 Monica Persaud RN RN vc1 Faith Villela PA PA sb3 Tatiana Horta, VALERIA RN aa9 Rick Arellano RN bp Corrections: (The following items were deleted from the chart) 05:21 04:57 Fosphenytoin 1 grams IVPB once; (mix in 50 to 100mL NS) ordered. keturah keturah
[2022-07-04 12:12] VITALS: O2SAT 97
[2022-07-04 12:14] VITALS: BP 118/75
[2022-07-04] MEDS ORDERED: LIDOCAINE 1% MPF 5 ML VIAL ONE (14:05)
--- NOTE | 2022-07-04 14:30 | EKG ---
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
--- NOTE | 2022-07-04 14:30 | EKG ---
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
--- NOTE | 2022-07-04 14:35 | RAD REPORT ---
EXAM DESCRIPTION: CT - CTHCSPWOC - 07/04/2022 6:45 am CLINICAL HISTORY: Fall TECHNIQUE: Axial computed tomography images of the head/brain and cervical spine without intravenous contrast. Sagittal and coronal reformatted images were created and reviewed. This CT exam was pe rformed using one or more of the following dose reduction techniques: automated exposure control, a djustment of the mA and/or kV according to patient size, and/or use of iterative reconstruction techn ique. COMPARISON: CT Head Cervical Spine dated 01/29/2022 FINDINGS: Brain: Unremarkable. No hemorrhage. No significant white matter disease. No edema. Ventricles: Unremarkable. No ventriculomegaly. Skull: No acute fracture. Sinuses: Unremarkable as visualized. No acute sinusitis. Mastoid air cells: Unremarkable as visualized. No mastoid effusion. Vertebrae: Unremarkable. No acute fracture. Normal alignment. Discs/spinal canal/neural foramina: No acute findings. No spinal canal stenosis. Soft tissues: Unremarkable. IMPRESSION: 1. No acute intracranial or extra-axial abnormality. 2. No acute cervical spine injury. Electronically signed by: Jem Nicole MD 07/04/2022 3:45 AM CDT Due to temporary technical issues with the PACS/Fluency reporting system, reports are being signed by the in house radiologists without review as a courtesy to insure prompt reporting. The interpreting radiologist is fully responsible for the content of the report.
== END 2022-07-04 10:41 | disposition home or self-care (01) ==
LOC: ER 02:07
DX: F33.1 Major depressive disorder, recurrent, moderate (principal); R45.851 Suicidal ideations; G40.509 Epileptic seizures related to external causes, not intractable, without status epilepticus; E87.6 Hypokalemia
CPT/HCPCS: 93005 ×2; 85025; 80048; 36415; 80320; 80329 ×2; 85610; 80076; 85730; 80185; 70450; 72125; J3480; J3360; J3486; J1953; 96365; 96366; 96372; 96375; 99285; J2001

== ENCOUNTER 2022-07-04 12:40 | Emergency (ER) | payer OTHER ==
--- OUTSIDE RECORDS SUMMARY | 2022-07-04 12:44 | XMS REPORT | Continuity of Care Document ---
:1995 Author Organization [facility] t Address [address] [place] [address] Care Team Providers Name Role Phone DIANA QUILES Attending Clinician Unavailable Diana Quiles MD Attending Clinician [phone] Nallely Barros MD Attending Clinician NALLELY BARROS Attending Clinician Unavailable JAQUELINE BARERRA Attending Clinician Unavailable SHALOM SCHERER Attending Clinician Unavailable SHALOM SCHERER Attending Clinician Unavailable Doctor Unassigned, [place] Attending Clinician Unavailable Shalom Scherer MD Attending Clinician Afshin Epperson Attending Clinician DIANA QUILES Admitting Clinician Unavailable NALLELY BARROS Admitting Clinician Unavailable Payers Payer Name Policy Type Policy Number Effective Date Expiration Date S ource MEDICAID [employer] [id number] 2021 00:00:00 [facility] [id number] 2016 00:00:00 Problems Condition Condition Condition Status Onset Resolution Last Treating Co mments Source Name Details Category Date Date Treatment Clinician Date High risk High risk Disease Active [facility] social social 4-19 [facility] situation situation [facility] Medi kiesha 00 Center Seizure Seizure Disease Active [facility]: [facility] 00 [place] Epileptic Epileptic Disease Active [facility] psychosis psychosis 4-13 [facility] 00:00: Medical 00 [place] G40.909 G40.909 Diagnosis Active 2015-102016-09-19 [facility] Active 11-13 16:07:00 l 09/13/2016 00:00: Eliel bird [address] Allergies, Adverse Reactions, Alerts Allergy Allergy Status Severity Reaction(s) Onset Inactive Treating Comm ents Source Name Type Date Date Clinician No Known DA Active [facility]30 Allergie 00:00: s 00 NO KNOWN Allergy Active [facility] NO KNOWN Drug Active [facility] ALLERGIE Class ity of [facility] Social History Social Habit Start Date Stop Date Quantity Comments Source Social History 2016-09-20 2016-09-20 [facility] 05:59:00 05:59:00 Sex Ass[birth year] At [birth year] [facility] Mariah kes 00:00:00 00:00:00 [facility] Medications Ordered Filled Start Stop Current Ordering [...] Cente r capsule mouth daily. phenytoin 2021-0 2021- No 400mg QD Take [address] [facility] (DILANTIN) 4-19 04-18 capsules Luke s 200 MG ER 00:00: 00:00 (400 mg Medi kiesha capsule 00 :00 total) by Center mouth daily. phenytoin 2021-0 2021- No 400mg QD Take [address] [facility] (DILANTIN) 02-14-18 capsules Luke s 200 MG ER 00:00: 00:00 (400 mg Medi kiesha capsule 00 :00 total) by Center mouth daily. phenytoin 2021-0 2021- No 400mg QD Take [address] [facility] (DILANTIN) 02-14-18 capsules Luke s 200 MG ER 00:00: 00:00 (400 mg Medi kiesha capsule 00 :00 total) by Center mouth daily. phenytoin 2021-0 2021- No 400mg QD Take [address] [facility] (DILANTIN) 02-14-18 capsules Luke [facility] 200 MG ER 00:00: 00:00 (400 mg Medi kiesha capsule 00 :00 total) by Center mouth daily. levETIRAcet 2021-0 Yes 1500mg Q.5D Take [address] (KEPPRA) 4-18 tablets [facility] 750 MG 00:00: (1,500 mg Medica l tablet 00 total) by Center mouth 2 (two) times daily. levETIRAcet 2021-0 Yes 1500mg Q.5D Take [address] [facility] (KEPPRA) 4-18 tablets [facility] 750 MG 00:00: (1,500 mg Medica l tablet 00 total) by Center mouth 2 (two) times daily. levETIRAcet 2021-0 Yes 1500mg Q.5D Take [address] [facility] (KEPPRA) 4-18 tablets [facility] 750 MG 00:00: (1,500 mg Medica l tablet 00 total) by Center mouth 2 (two) times daily. levETIRAcet 2021-0 Yes 1500mg Q.5D Take [address] [facility] (KEPPRA) 4-18 tablets [facility] 750 MG 00:00: (1,500 mg Medica l tablet 00 total) by Center mouth 2 (two) times daily. levETIRAcet 2021-0 2022- No 1500mg Q.5D Take [address] [facility] (KEPPRA) 4-18 04-18 tablets Luke s 750 MG 00:00: 00:00 (1,500 mg Medic al tablet 00 :00 total) by Center mouth 2 (two) times daily. levETIRAcet No 1500mg Q.5D Take [address] am (KEPPRA) 02-1318 tablets Luke s 750 MG 00:00: 00:00 (1,500 mg Medic al tablet 00 :00 total) by Center mouth 2 (two) times daily. levETIRAcet No 1500mg Q.5D Take [address] am (KEPPRA) 02-13 tablets Luke s 750 MG 00:00: 00:00 (1,500 mg Medic al tablet 00 :00 total) by Center mouth 2 (two) times daily. levETIRAcet No 1500mg Q.5D Take [address] am (KEPPRA) 02-13 tablets Luke s 750 MG 00:00: 00:00 (1,500 mg Medic al tablet 00 :00 total) by Center mouth 2 (two) times daily. Vital Signs Vital Name Observation Time Observation Value Comments Source Diastolic blood 2022-02-13 15:17:00 57 mm[Hg] [facility] Heart rate 2022-02-13 15:17:00 82 /min [facility] Body temperature 2022-02-13 15:17:00 36.44 Anne [facility] Respiratory rate 2022-02-13 15:17:00 16 /min [facility] Oxygen saturation in 2022-02-13 15:17:00 100 /min [facility] Arterial blood by Medical Ce nter Pulse oximetry Systolic blood 2022-02-13 15:17:00 108 mm[Hg] [facility] Procedures Procedure Date / Time Performed Performing Clinician Sour e EEG 12-26 HR CONTINUOUS 2022-02-10 06:05:00 Nallely Barros [facility] MONITORING WITH VIDEO Medical Ce nter PHENYTOIN LEVEL, TOTAL 2022-02-09 10:51:00 Luzmaria Rodriguez [facility] EEG 12-26 HR CONTINUOUS 2022-02-09 06:15:00 Kelly Johnson [facility] MONITORING WITH VIDEO Medical Ce nter PHOSPHORUS 2022-02-09 04:28:00 Lakisha Madera [facility] CBC W/PLT COUNT & AUTO 2022-02-09 04:28:00 Lakisha Madera [facility] S [facility] DIFFERENTIAL [facility] CBC W/PLT COUNT & AUTO 2022-02-09 04:28:00 Lakisha Madera [facility] S t [facility] DIFFERENTIAL [facility] Center BASIC METABOLIC PANEL 2022-02-09 04:28:00 Lakisha Madera [facility] (7) Medical Center MAGNESIUM 2022-02-09 04:28:00 Lakisha Madera [facility] ECG 12-LEAD 2022-02-08 21:19:[address] [facility] EKG-SCANNED 2022-02-08 00:00:00 Ko Real [facility] es Scanning [facility] CT brain w/o contrast [facility] EEG [facility] Plan of Care Planned Activity Planned Date [...] Clinicians Facility Department ID 2022-02-07 Inpatient ER [facility] Neurology [id number] [facility] [facility] 20:41:50 [facility] 2022-02-07 Inpatient ER [facility] Neurology [id number] 20:28:16 [facility] 2022-02-07 Inpatient ER [facility] Neuro ICU [id number] [facility] 14:31:43 [facility] 2022-02-03 Outpatient [facility] [id number] [place] 10:44:[address] [place] [address] 2021-04-27 Inpatient [facility] [id number] [facility] 05:42:00 62 2022-02-08 2022-02-13 [facility] [id number] [facility] 12:54:00 18:44:00 Encounter Nallely Barros [facility] 2022-02-08 2022-02-13 Inpatient ER [facility] Neurology [id number] [facility] 12:54:00 18:44:00 NALLELY 2022-02-08 2022-02-13 [facility] [id number] [facility] 12:54:00 18:44:00 Encounter Nallely Barros [facility] 2022-02-08 2022-02-08 Outpatient [facility] [id number] [facility] 00:00:00 23:59:00 Reji 2021-04-27 2021-04-27 Emergency [facility] [id number] 05:42:00 05:42:00 64 2021-04-27 2021-04-27 Outpatient Nathan BARRERA [facility] NUT [id number] Univers 00:00:00 00:00:00 JAQUELINE [id number] [facility] 2021-04-27 2021-04-27 Outpatient Nathan BARRERA [facility] NUT [id number] [facility] 00:00:00 00:00:00 JAQUELINE jaspreet [facility] 2020-09-28 2020-09-28 Outpatient R [facility] [id number] Univers 09:00:00 09:00:00 jaspreet [facility] 2020-09-28 2020-09-28 Outpatient R SHALOM SCHERER [facility] [id number] Univers 09:00:00 09:00:00 SHALOM SCHERER jaspreet [facility] 2020-09-28 2020-09-28 Orders Doctor CRAWFORD [id number] 00:00:00 00:00:00 Only Unassigned, ESTER [id number] [place] [facility] [id number] 2020-09-17 2020-09-17 Outpatient R [facility] [id number] Univers 13:00:00 13:00:00 [facility] 2020-09-17 2020-09-17 Outpatient Nathan NIESHASHALOM De La Paz [facility] [id number] Univers 13:00:00 13:00:00 NIESHASHALOM [place] jaspreet [facility] 2020-09-16 2020-09-16 Outpatient R [facility] [id number] Univers 13:00:00 13:00:00 [id number] onelia [facility] 2020-09-16 2020-09-16 Outpatient R SHALOM SCHERER [facility] [id number] Univers 13:00:00 13:00:00 NIESHASHALOM [place] jaspreet [facility] 2020-08-24 2020-08-24 Office Niesha [facility] [id number] 15:09:23 16:20:08 Visit Shalom Duran [id number] Varun [id number] Marycruz [id number] [facility] 2020-08-24 2020-08-24 Outpatient SHALOM QUILES [facility] [id number] [facility] 16:00:00 16:00:00 NIESHASHALOM [place] jaspreet [facility] 2020-08-24 2020-08-24 Outpatient NIESHASHALOM De La Paz [facility] [id number] Univers 15:40:00 15:40:00 SHALOM SCHERER [id number] [facility] 2020-08-24 2020-08-24 Outpatient SHALOM QUILES [facility] [id number] [facility] 15:40:00 15:40:00 NIESHA, SHALOM [facility] 2016-09-19 2016-09-20 Outpatient [facility] [id number] [facility] 16:26:00 05:59:00 r [place] 00 [facility] 2016-09-19 2016-09-20 Outpatient [facility] [id number] [facility] 16:26:00 05:59:00 r [place] 00 [facility] 2016-09-19 2016-09-19 Outpatient Zhou [facility] [id number] 10:26:00 23:59:00 Afshin 00 Jayce Results Test Description Test Time Test Comments Results Result Comments Source PHENYTOIN LEVEL, TOTAL 2022-02-09 11:29:09 Test Item Value Reference Range Interpretation Comme nts PHENYTOIN (DILANTIN) (BEAKER) (test code = 605) 18.3 ug/mL 10.0-2 0.0 [facility] - [id number] 05:11:05 Test Item Value Reference Range Interpretation Comments MAGNESIUM (BEAKER) (test code = 1.9 mg/dL 1.6-2.6 627) [facility] ID - [id number] 05:11:05 Test Item Value Reference Range Interpretation Comments PHOSPHORUS (BEAKER) (test code = 4.9 mg/dL 2.3-4.7 H 604) [facility] ID - ADMINBASIC METABOLIC [id number] 05:11:04 Test Item Value Reference Range Interpretation Comments SODIUM (BEAKER) 143 meq/L 136-145 (test code = 381) POTASSIUM (BEAKER) 5.3 meq/L 3.5-5.1 H (test code = 379) CHLORIDE (BEAKER) 105 meq/L 98-107 (test code = 382) CO2 (BEAKER) (test 25 meq/L -29 code = 355) BLOOD UREA NITROGEN 7 [...] S NOT APPLICABLE FOR DIALYSIS PATIEN TS. [facility] ID - ADMINCBC W/PLT COUNT & AUTO [id number] 04:41:57 Test Item Value Reference Range Interpretation [...] code = 2801) Complete Blood Count Auto [id number] 07:30:00 Test Item Value Reference Range Interpretation [...] code = NRBCP) 0 % Comprehensive Metabolic [id number] 07:30:00 Test Item Value Reference Range Interpretation [...] 112 U/L 46-116 N = ALP) Ethanol [id number] 07:30:00 Test Item Value Reference Range Interpretation Comments Ethanol (test code = ETOH) < 3 mg/dL Coronavirus PCR, COVID19 [id number] 07:30:00 Test Item Value Reference Range Interpretation Comments Coronavirus PCR, For use under Emergency COVID19 Rapid (test Use Authorization (EUA) code = SARSCOV2) only. Coronavirus PCR, Reference Range: COVID19 Rapid (test Negative code = COVTQGO93.1) SARS-CoV-2 PCR Result: Negative by PCR (test code = SARS-CoV-2 PCR Result:) Comment: psych clearanceCOVID-19 Status: AsymptomaticDrug Screen,[id number] 06:32:00 Test Item Value Reference Range Interpretation [...] Negative code = UPROP) UA, Urinalysis w [id number] 06:32:00 Test Item Value Reference Range Interpretation Comments Color,Urine (test code = Yellow Y UCOL) Clarity,Urine (test code = Clear Clear UCLAR) Ph, Urine (test code = UPH) 7.0 5.0-8.0 N Specific [place],Urine 1.015 1.005-1.030 N (test code = USG) [...]
--- NOTE | 2022-07-04 13:44 | RAD REPORT ---
EXAM DESCRIPTION: CT - CTFB CLINICAL HISTORY: facial trauma COMPARISON: Head Brain Wo Cont dated 07/02/2022; Head C Spine Mpr Wo Con dated 01/29/2022 TECHNIQUE: Axial 2 mm thick images of the face were obtained with sagittal and coronal reconstructio n images. All CT scans are performed using dose optimization technique as appropriate and may include automated exposure control or mA/KV adjustment according to patient size. FINDINGS: There is a fracture of the alveolar ridge associated with the right central incisor.The ma ndible is intact. The globes and orbital contents are grossly unremarkable.The paranasal sinuses and mastoids are clear . IMPRESSION: Fracture of the right maxillary central incisor alveolar ridge.
--- NOTE | 2022-07-04 13:49 | RAD REPORT ---
EXAM DESCRIPTION: CT - Head C Spine Cap Wo Con - 07/04/2022 1:34 pm CLINICAL HISTORY: Trauma, head and neck injury. Chest, abdomen and pelvis pain. facial trauma COMPARISON: No comparisons TECHNIQUE: CT head without contrast. CT cervical spine without contrast with coronal and sagittal reformatted images. CT chest, abdomen and pelvis with coronal and sagittal reformatted images of the spine. All CT scans are performed using dose optimization technique as appropriate and may include automated exposure control or mA/KV adjustment according to patient size. FINDINGS: CT HEAD WITHOUT CONTRAST: No intracranial hemorrhage, hydrocephalus or extra-axial fluid collection. No acute large vascular te rritory infarct. The paranasal sinuses and mastoids are clear. The calvarium is intact. CT CERVICAL SPINE WITHOUT CONTRAST: No fracture or subluxation. The prevertebral soft tissues are normal in thickness. CT CHEST, ABDOMEN, PELVIS: Thorax: Chest Wall: No abnormal mass Lungs: No acute abnormality. Pleura: No effusions or pneumothorax. Harper/Mediastinum: No lymphadenopathy. Aorta/Pulmonary Arteries: Unremarkable Heart: Normal size. Abdomen/Pelvis: Liver: No acute abnormality or suspicious lesions. Biliary: No biliary ductal dilatation. Stomach: No significant focal abnormality. Duodenum: No significant focal abnormality. Pancreas: No significant abnormality. Spleen: No significant abnormality. Adrenal: No suspicious lesions. Kidney/ureter: No hydronephrosis. No renal calculi. Retroperitoneum: No retroperitoneal adenopathy. Vascular: No aneurysm. Bowel: No significant focal abnormality. Peritoneum: No ascites or free air. Bladder: Grossly unremarkable. Reproductive: No adnexal masses. Bones: No acute fracture. Other: n/a IMPRESSION: Negative for acute traumatic findings. Negative for acute traumatic findings. Reference facial CT for additional findings.
[2022-07-04 14:28] LABS: Absolute Lymphocytes (CBC) 0.8 K/uL (0.7-4.9); Hematocrit 46.9 % (39.6-49.0); Lymphocytes % 17.3 % (15.3-44.8); MCV 87.5 fL (80-100); RBC Red Blood Cell Count 5.36 M/uL (4.33-5.43)
[2022-07-04 14:31] LABS: Protime INR 1.17
[2022-07-04 14:36] LABS: Potassium 3.4 mmol/L (3.5-5.1)
--- NOTE | 2022-07-04 15:14 | EDPHYS ---
Physician Documentation [facility] Name: Mari Mercado Age: 26 yrs Sex: Male : 1995 Arrival Date: 07/04/2022 Time: 12:56 Bed 15 Private MD: ED Physician Dereje Mcgraw HPI: 07/04 13:19 This 26 yrs old Black Male presents to ER via EMS with complaints of Fall Injury, rn Facial Injury. 13:19 Details of fall: The patient fell from an upright position. Onset: The symptoms/episode rn began/occurred just prior to arrival. Associated injuries: The patient sustained injury to the head. Severity of symptoms: At their worst the symptoms were moderate, in the emergency department the symptoms have improved. The patient has experienced similar episodes in the past. The patient has been recently seen at the [facility] Emergency Department, today. Pt seen here recently, discharged a few hours ago, EMS called after bystanders saw him face-plant on concrete, unsure if seizure activity, none once they arrived. Pt reports only pain to face, no other injuries. . Historical: - Allergies: 13:18 Unable to obtain; jd3 - Home Meds: 13:18 Dilantin Oral [Active]; Keppra Oral [Active]; jd3 - PMHx: 13:18 Bipolar disorder; Seizure; jd3 - Immunization history: Last tetanus immunization: unknown. - Social history:: Smoking status: unknown. - Family history:: not pertinent. - Hospitalizations: : No recent hospitalization is reported. ROS: 13:19 Constitutional: Negative for fever, chills, and weight loss, Eyes: Negative for injury, rn pain, redness, and discharge, ENT: + pain and laceration to lower lip, + injury to teeth Neck: Negative for injury, pain, and swelling, Cardiovascular: Negative for chest pain, palpitations, and edema, Respiratory: Negative for shortness of breath, cough, wheezing, and pleuritic chest pain, Abdomen/GI: Negative for abdominal pain, nausea, vomiting, diarrhea, and constipation, Back: Negative for injury and pain, MS/Extremity: Negative for injury and deformity, Neuro: Negative for headache, weakness, numbness, tingling Exam: 13:19 Constitutional: This is a well developed, well nourished patient who is awake, alert, rn and in no acute distress. Head/Face: Normocephalic Eyes: Pupils equal round and reactive to light, extra-ocular motions intact. ENT: + complex stellate laceration approx 4 cm total inner lower lip, does not seem to go through outer lip. + fractures of front two upper teeth. Neck: In ccollar, no midline tenderness Chest/axilla: Normal chest wall appearance and motion. Nontender with no deformity. No lesions are appreciated. Cardiovascular: Regular rate and rhythm. No pulse deficits. Respiratory: No increased work of breathing, no retractions or nasal flaring. Abdomen/GI: Soft, non-tender Skin: Warm, dry MS/ Extremity: Pulses equal, no cyanosis. Neuro: Awake and alert, GCS 15 Vital Signs: 12:55 BP 134 / 82; Pulse 94; Resp 17; Pulse Ox 96% on R/A; vg1 14:00 BP 131 / 81; Pulse 81; Resp 16; Temp 98; Pulse Ox 99% on R/A; jd3 15:46 BP 136 / 52; Pulse 80; Resp 15; Pulse Ox 100% on R/A; jd3 16:48 BP 129 / 82; Pulse 86; Resp 16; Pulse Ox 100% on R/A; jd3 18:14 BP 121 / 85; Pulse 86; Resp 17 S; Pulse Ox 100% on R/A; jd3 [place] Coma Score: 13:07 Eye Response: to voice(3). Verbal Response: confused(4). Motor Response: localizes jd3 pain(5). Total: 12. 14:00 Eye Response: spontaneous(4). Verbal Response: oriented(5). Motor Response: obeys jd3 commands(6). Total: 15. 15:46 Eye Response: spontaneous(4). Verbal Response: oriented(5). Motor Response: obeys jd3 commands(6). Total: 15. 16:48 Eye Response: spontaneous(4). Verbal Response: oriented(5). Motor Response: obeys jd3 commands(6). Total: 15. Trauma Score (Adult): 13:07 Eye Response: to voice(0); Verbal Response: confused(1); Motor Response: obeys jd3 commands(2); Systolic BP: > 89 mm Hg(4); Respiratory Rate: 10 to 29 per min(4); Koko Score: 13; Trauma Score: 11 14:00 Eye Response: spontaneous(1); Verbal Response: oriented(1); Motor Response: obeys jd3 commands(2); Systolic BP: > 89 mm Hg(4); Respiratory Rate: 10 to 29 per min(4); Koko Score: 15; Trauma Score: 12 15:46 Eye Response: spontaneous(1); Verbal Response: oriented(1); Motor Response: obeys jd3 commands(2); Systolic BP: > 89 mm Hg(4); Respiratory Rate: 10 to 29 per min(4); Koko Score: 15; Trauma Score: 12 16:48 Eye Response: spontaneous(1); Verbal Response: oriented(1); Motor Response: obeys jd3 commands(2); Systolic BP: > 89 mm Hg(4); Respiratory Rate: 10 to 29 per min(4); Koko Score: 15; Trauma Score: 12 Laceration: 15:43 Wound Repair of 3.5cm ( 1.4in ) subcutaneous laceration to lower lip. Irregularly pm1 shaped.. Distal neuro/vascular/tendon intact. Anesthesia: Local anesthetic administered with 3 mls of 1% lidocaine. Wound prep: Extensive cleansing with betadine by me, Wound irrigation with saline by me, Wound explored extensively, Copious irrigation. Skin closed with 8 5-0 Vicryl using simple sutures and sterile technique. Patient tolerated well. MDM: 12:59 Patient medically screened. rn 15:12 Differential diagnosis: contusion, fracture. Data reviewed: vital signs, nurses notes, property management intern test result(s), radiologic studies, CT scan, and as a result, I will admit patient. Counseling: I had a detailed discussion with the patient and/or guardian regarding: the historical points, exam findings, and any diagnostic results supporting the discharge/admit diagnosis, radiology results, the need to transfer to another facility, for higher level of care, [facility] does not immediately have the required specialist. Response to treatment: the patient's symptoms have mildly improved after treatment, and as a result, I will admit patient. Admission orders: after a detailed discussion of the patient's condition and case, the admit orders are written by me. 18:28 ED course: Pt accepted for transfer to [facility], patient agrees to go.. rn 07/04 14:32 Order name: CBC with Automated Diff; Complete Time: 14:48 EDMS 07/04 14:32 Order name: Protime (+INR); Complete Time: 14:48 EDMS 07/04 13:00 Order name: CT Head C Spine rn 07/04 13:00 Order name: CT Facial Bones W/O Con rn 07/04 13:45 Order name: CT; Complete Time: 14:48 EDMS 07/04 13:50 Order name: CT; Complete Time: 14:48 EDMS 07/04 14:32 Order name: PTT, Activated Partial Thromb; Complete Time: 14:48 EDMS 07/04 14:36 Order name: Basic Metabolic Panel; Complete Time: 14:48 EDMS 07/04 17:58 Order name: SARS-COV-2 Antigen Rapid EDMS 07/04 13:00 Order name: IV Start; Complete Time: 14:12 rn 07/04 13:00 Order name: Glucose Level; Complete Time: 13:20 rn 07/04 13:00 Order name: Cardiac monitoring; Complete Time: 13:20 rn 07/04 13:00 Order name: O2 Sat Monitoring; Complete Time: 13:20 rn 07/04 13:05 Order name: Suture Tray at Bedside; Complete Time: 14:12 rn Administered Medications: 15:13 Drug: Lidocaine (1 %) 1 vials Volume: 5 ml; Route: Infiltration; jd3 16:00 Follow up: Response: No adverse reaction jd3 16:04 Drug: Ancef (cefazolin) 2 grams Route: IVPB; Infused Over: 30 mins; Site: left forearm; jd3 17:00 Follow up: Response: No adverse reaction; IV Status: Completed infusion jd3 Disposition: 17:50 Co-signature as Attending Physician, Dereje Mcgraw MD. rn Disposition Summary: 07/04/22 15:13 Transfer Ordered Transfer Location: [facility] rn Reason: Higher level of care rn Condition: Stable rn Problem: new rn Symptoms: have improved rn Accepting Physician: (07/04/22 20:21) jb4 Diagnosis - Fracture of alveolus of maxilla, initial encounter for open fracture rn - Fracture of tooth (traumatic) rn Forms: - Medication Reconciliation Form rn - SBAR form rn Signatures: Dispatcher [employer] MS Mcgraw, Dereje, Murray Lopez MD, rn, BATCH AND FURNACE OPERATOR BATCH AND FURNACE OPERATOR pm1 Nicola Mclaughlin RN RN jb4 Poncho Gómez RN RN jd3 Corrections: (The following items were deleted from the chart) 20:21 15:13 Dr. fonseca jb4
--- NOTE | 2022-07-04 15:14 | ER ---
Nurse's Notes [facility] Name: Mari Mercado Age: 26 yrs Sex: Male : 1995 Arrival Date: 07/04/2022 Time: 12:56 Bed 15 Private MD: Diagnosis: Fracture of alveolus of maxilla, initial encounter for open fracture;Fracture of tooth (traumatic) Presentation: 07/04 12:55 Chief complaint: EMS states: Pt was seen walking by the [facility], witness fall onto face. [place] PD was called and upon arrival pt became combative. 12:55 Care prior to arrival: Bleeding of injury controlled. Cervical collar in place. vg1 Mechanism of Injury: Fall from standing position. Trauma event details: Injury occurred in the [facility]. 12:55 Acuity: ERASMO 3 vg1 12:55 Method Of Arrival: EMS: [facility] vg1 13:17 Coronavirus screen: At this time, the client does not indicate any symptoms associated jd3 with coronavirus-19. Ebola Screen: No symptoms or risks identified at this time. Initial Sepsis Screen: Does the patient meet any 2 criteria? No. Patient's initial sepsis screen is negative. Does the patient have a suspected source of infection? No. Patient's initial sepsis screen is negative. Risk Assessment: Do you want to hurt yourself or someone else? Patient reports no desire to harm self or others. Onset of symptoms was July 04, 2022. Trauma Activation: Physician: ED Physician; Name: Lucien; Notified At: ; Arrived At: Physician: General Surgeon; Name: ; Notified At: ; Arrived At: Physician: Radiology; Name: ; Notified At: ; Arrived At: Physician: Respiratory; Name: ; Notified At: ; Arrived At: Physician: Lab; Name: ; Notified At: ; Arrived At: Historical: - Allergies: 13:18 Unable to obtain; jd3 - Home Meds: 13:18 Dilantin Oral [Active]; Keppra Oral [Active]; jd3 - PMHx: 13:18 Bipolar disorder; Seizure; jd3 - Immunization history: Last tetanus immunization: unknown. - Social history:: Smoking status: unknown. - Family history:: not pertinent. - Hospitalizations: : No recent hospitalization is reported. Screenin:07 Abuse screen: Denies threats or abuse. Nutritional screening: No deficits noted. jd3 Tuberculosis screening: No symptoms or risk factors identified. 13:19 Fall Risk Fall in past 12 months (25 points). Mental Status- Overestimates/Forgets jd3 Limitations (15 pts.). Total Wilson Fall Scale indicates Low Risk Score (25-44 pts). Fall prevention measures have been instituted. Side Rails Up X 2 Placed close to Nursing Station Frequent Obs/Assesments occuring As available Patient and Family Educated on Fall Prevention Program and strategies. Primary Survey: 13:07 NO uncontrolled hemorrhage observed. A: The client responds to verbal stimuli. Airway: jd3 patent, No supplemental oxygen in use on arrival. Oral cavity: clear, Trauma to teeth noted: upper right central incisor (#8) and upper left central incisor (#9) Trachea midline. Breathing/Chest: Spontaneous respiratory effort, equal unlabored respirations, breath sounds clear bilaterally, regular pattern, symmetrical chest rise and fall. Respiratory effort: spontaneous, unlabored, Breath sounds: clear, bilaterally. Respiratory pattern: regular, Chest inspection: symmetrical rise and fall of the chest. Circulation: No external hemorrhage present. Regular and strong central pulse, skin warm/dry/normal color. Hemorrhage: small amount of bleeding noted to bottom lip. bleeding stopped with pressure. Pulses: palpable right radial artery, right dorsalis pedis artery, left radial artery and left dorsalis pedis artery. Skin color: pink, Skin temperature: warm, Heart tones present. Disability Pupils are equal, round, reactive to light and accommodation. Client responds to verbal stimuli. Exposure/Environment: All clothing and personal items were removed. Forensic evidence collection is not deemed to be indicated at this time. Items placed in patient belonging bag. There is no evidence of uncontrolled external bleeding. Obvious injury(ies) are noted at this time: small laceration noted to bottom lip and abrasion noted to forehead above the right eye. 14:03 Reassessment Alertness and Airway: Awake and alert. The airway is patent. Breathing: jd3 Spontaneous respiratory effort, equal unlabored respirations, breath sounds clear bilaterally, regular pattern with symmetrical chest rise and fall. Circulation: No external hemorrhage noted. Regular and strong central pulse, skin warm/dry/normal color. Disability: Pupils Pupils are equal, round, reactive to light and accomodation. Alert. Secondary Survey: 13:07 HEENT: No deficits noted. Gastrointestinal: No deficits noted. : No signs and/or jd3 symptoms were reported regarding the genitourinary system. Musculoskeletal: No signs and/or symptoms reported regarding the musculoskeletal system. Assessment: 13:00 General: Appears uncomfortable, Behavior is cooperative, drowsy. Pain: Pain: Complains em6 of pain in face. Neuro: Estrada Agitation-Sedation Scale (RASS): -1 Drowsy Level of Consciousness is awake, alert, obeys commands. Cardiovascular: Heart tones present Capillary refill < 3 seconds Patient's skin is warm and dry. Rhythm is sinus rhythm. Respiratory: Airway is patent Respiratory effort is even, unlabored, Respiratory pattern is regular, symmetrical, Breath sounds are clear bilaterally. GI: No signs and/or symptoms were reported involving the gastrointestinal system. Abdomen is non-distended, Bowel sounds present X 4 quads. Abd is soft and non tender. : No signs and/or symptoms were reported regarding the genitourinary system. EENT: No signs and/or symptoms were reported regarding the EENT system. Derm: Skin Skin is pink, warm \T\ dry. Musculoskeletal: Range of motion: intact in all extremities. Injury Description: Laceration sustained to right eyebrow. 13:03 General: Appears uncomfortable, Behavior is cooperative, drowsy. Pain: Complains of jd3 pain in face. Neuro: Estrada Agitation-Sedation Scale (RASS): -1 Drowsy Level of Consciousness is awake, alert, obeys commands, Oriented to pt not answering questions choosing to only mumble yes and no.. EENT: No signs and/or symptoms were reported regarding the EENT system. Cardiovascular: Heart tones present Capillary refill < 3 seconds Patient's skin is warm and dry. Rhythm is regular. Respiratory: Airway is patent Respiratory effort is even, unlabored, Respiratory pattern is regular, symmetrical, Breath sounds are clear bilaterally. Denies cough, shortness of breath. GI: No signs and/or symptoms were reported involving the gastrointestinal system. : No signs and/or symptoms were reported regarding the genitourinary system. Derm: Skin is intact, Skin is dry, Skin is normal, Skin temperature is warm Wound noted forehead and mouth Wound is abrasion noted to forehead above right eye and laceration noted to bottom lip. Musculoskeletal: Circulation, motion, and sensation intact. Range of motion: intact in all extremities. Injury Description: Laceration sustained to lower lip is jagged, 0.5 to 2.5 cm long, not bleeding. 14:04 Reassessment: Patient and/or family updated on plan of care and expected duration. Pain jd3 level reassessed. Patient is alert, oriented x 3, equal unlabored respirations, skin warm/dry/pink. Patient states feeling better. General: Appears in no apparent distress. comfortable, Behavior is calm, cooperative, appropriate for age. Neuro: Estrada Agitation-Sedation Scale (RASS): 0 - Alert and Calm Level of Consciousness is awake, alert, obeys commands, Oriented to person, place, time, situation. 15:49 Reassessment: Patient appears in no apparent distress at this time. Patient and/or jd3 family updated on plan of care and expected duration. Pain level reassessed. Patient is alert, oriented x 3, equal unlabored respirations, skin warm/dry/pink. 16:46 Reassessment: Patient appears in no apparent distress at this time. Patient and/or jd3 family updated on plan of care and expected duration. Pain level reassessed. Patient is alert, oriented x 3, equal unlabored respirations, skin warm/dry/pink. awaiting disposition. resting in bed using cell phone. 17:45 Reassessment: Patient appears in no apparent distress at this time. Patient and/or jd3 family updated on plan of care and expected duration. Pain level reassessed. Patient is alert, oriented x 3, equal unlabored respirations, skin warm/dry/pink. 18:13 Reassessment: Patient appears in no apparent distress at this time. Patient and/or jd3 family updated on plan of care and expected duration. Pain level reassessed. Patient is alert, oriented x 3, equal unlabored respirations, skin warm/dry/pink. report given to RN at [facility]. pt signed transfer paperwork. 19:20 Reassessment: Pt is standing and pacing in the room. Respirations are even and jb4 unlabored with no s/s of pain or distress noted. 20:16 Reassessment: Patient appears in no apparent distress at this time. Patient and/or jb4 family updated on plan of care and expected duration. Pain level reassessed. Pt transferred to receiving Facility by EMS. pt is currently cooperative. Vital Signs: 12:55 BP 134 / 82; Pulse 94; Resp 17; Pulse Ox 96% on R/A; vg1 14:00 BP 131 / 81; Pulse 81; Resp 16; Temp 98; Pulse Ox 99% on R/A; jd3 15:46 BP 136 / 52; Pulse 80; Resp 15; Pulse Ox 100% on R/A; jd3 16:48 BP 129 / 82; Pulse 86; Resp 16; Pulse Ox 100% on R/A; jd3 18:14 BP 121 / 85; Pulse 86; Resp 17 S; Pulse Ox 100% on R/A; jd3 Koko Coma Score: 13:07 Eye Response: to voice(3). Verbal Response: confused(4). Motor Response: localizes jd3 pain(5). Total: 12. 14:00 Eye Response: spontaneous(4). Verbal Response: oriented(5). Motor Response: obeys jd3 commands(6). Total: 15. 15:46 Eye Response: spontaneous(4). Verbal Response: oriented(5). Motor Response: obeys jd3 commands(6). Total: 15. 16:48 Eye Response: spontaneous(4). Verbal Response: oriented(5). Motor Response: obeys jd3 commands(6). Total: 15. Trauma Score (Adult): 13:07 Eye Response: to voice(0); Verbal Response: confused(1); Motor Response: obeys jd3 commands(2); Systolic BP: > 89 mm Hg(4); Respiratory Rate: 10 to 29 per min(4); Koko Score: 13; Trauma Score: 11 14:00 Eye Response: spontaneous(1); Verbal Response: oriented(1); Motor Response: obeys jd3 commands(2); Systolic BP: > 89 mm Hg(4); Respiratory Rate: 10 to 29 per min(4); Koko Score: 15; Trauma Score: 12 15:46 Eye Response: spontaneous(1); Verbal Response: oriented(1); Motor Response: obeys jd3 commands(2); Systolic BP: > 89 mm Hg(4); Respiratory Rate: 10 to 29 per min(4); Koko Score: 15; Trauma Score: 12 16:48 Eye Response: spontaneous(1); Verbal Response: oriented(1); Motor Response: obeys jd3 commands(2); Systolic BP: > 89 mm Hg(4); Respiratory Rate: 10 to 29 per min(4); Koko Score: 15; Trauma Score: 12 ED Course: 12:55 Patient maintains SpO2 saturation greater than 95% on room air. vg1 12:56 Patient arrived in ED. em1 12:59 Dereje Mcgraw MD is Attending Physician. rn 13:01 Poncho Gómez RN is Primary Nurse. jd3 13:07 Patient has correct armband on for positive identification. Placed in gown. Bed in low jd3 position. Call light in reach. Side rails up X2. Valuables Left with patient. Client placed on continuous cardiac and pulse oximetry monitoring. NIBP monitoring applied. monitoring coordinator on. Pulse ox on. NIBP on. 13:07 Patient maintains SpO2 saturation greater than 95% on room air. Thermoregulation: warm jd3 blanket given to patient. 13:15 Triage completed. vg1 13:18 Arm band placed on. jd3 14:07 Missed attempt(s): 22 gauge in right forearm. Bleeding controlled, band aid applied, ll1 catheter tip intact. 14:11 Inserted saline lock: 22 gauge in left forearm, using aseptic technique. Blood ll1 collected. 15:26 [facility] [place] contacted to initiate transfer; call dropped. em1 15:41 [facility] contacted to initiate transfer; call dropped. em1 15:50 Assist provider with laceration repair on lower lip that was between 2.6 to 7.5 cm jd3 using sutures. Set up tray. Performed by Murray Mckeon NP Patient tolerated well. 16:20 [facility] contacted to initiate transfer; call dropped. em1 20:16 Patient transferred, IV remains in place. jb4 Administered Medications: 15:13 Drug: Lidocaine (1 %) 1 vials Volume: 5 ml; Route: Infiltration; jd3 16:00 Follow up: Response: No adverse reaction jd3 16:04 Drug: Ancef (cefazolin) 2 grams Route: IVPB; Infused Over: 30 mins; Site: left forearm; jd3 17:00 Follow up: Response: No adverse reaction; IV Status: Completed infusion jd3 Medication: 16:49 VIS not applicable for this client. jd3 Output: 16:20 Urine: 300ml (Voided); Total: 300ml. jd3 18:15 Urine: 200ml (Voided); Total: 500ml. jd3 Outcome: 15:13 ER care complete, transfer ordered by . rn 20:16 Transferred by ground EMS to [facility], Transfer form completed. X-rays sent jb4 w/ patient. 20:16 Condition: stable 20:16 Discharge instructions given to patient, Instructed on the need for transfer, Demonstrated understanding of instructions. 20:21 Patient left the ED. jb4 Signatures: Dereje Mcgraw MD MD rn Martinez, Eric em1 Nicola Mclaughlin RN RN jb4 Poncho Gómez RN RN jd3 Vidya Isidro RN RN vg1 Austin Gates RN RN ll1 Jacque Byers RN RN tp1 Norma Ryan RN RN em6 Corrections: (The following items were deleted from the chart) 13:11 13:10 Chief complaint: tp1 tp1 13:17 13:03 Derm: Skin is intact, Skin is dry, Skin is normal, Skin temperature is warm jd3 jd3 14:05 13:03 Neuro: Estrada Agitation-Sedation Scale (RASS): -1 Drowsy Level of Consciousness jd3 is awake, alert, obeys commands, Oriented to person, place, time, situation, jd3 14:05 14:04 Reassessment: Patient and/or family updated on plan of care and expected jd3 duration. Pain level reassessed. Patient is alert, oriented x 3, equal unlabored respirations, skin warm/dry/pink. jd3 16:49 15:26 [facility] [place] contacted to initiate transfer; call dropped em1 em1 18:15 14:00 BP 131 / 81; Pulse 81bpm; Resp 16bpm; Pulse Ox 99% RA; jd3 jd3 18:16 16:48 PO 250, (Water), Intake Total 250; Urine 300, (Voided), Output Total 300. jd3 jd3
[2022-07-04] MEDS ORDERED: CEFAZOLIN 2 GM in NA CHLORIDE 0.9% 100 ML IVPB ONE (16:00)
[2022-07-04 17:57] LABS: SARS-CoV-2 Antigen Rapid Res Negative (Negative)
[2022-07-04 23:09] VITALS: TEMP 98
[2022-07-04 23:11] VITALS: O2SAT 100
[2022-07-04 23:30] VITALS: BP 121/85
== END 2022-07-04 20:21 | disposition short-term general hospital (02) ==
LOC: ER 12:40
PROC: 0CQ1XZZ Repair Lower Lip, External Approach (ICD-10-PCS; principal; 2022-07-04)
DX: S02.42XA Fracture of alveolus of maxilla, initial encounter for closed fracture (principal); S02.5XXA Fracture of tooth (traumatic), initial encounter for closed fracture; S01.511A Laceration without foreign body of lip, initial encounter; F31.9 Bipolar disorder, unspecified; Z20.822 Contact with and (suspected) exposure to COVID-19
CPT/HCPCS: 85025; 80048; 36415; 85610; 85730; 70450; 71250; 72125; 70486; 76377; 87811; 12013; J0690; 96365; 99285

== ENCOUNTER 2022-09-04 21:59 | Emergency (ER) | payer OTHER ==
--- OUTSIDE RECORDS SUMMARY | 2022-09-04 22:04 | XMS REPORT | Continuity of Care Document ---
:1995 Author Organization [facility] t Address [address] [place] [address] Care Team Providers Name Role Phone DIANA QUILES Attending Clinician Unavailable FILIPE FERNANDEZ Attending Clinician Unavailable Avani Chaves Attending Clinician AVANI CHAVES Attending Clinician Unavailable Marc Issa Attending Clinician Diana Quiles MD Attending Clinician Nallely Barros MD Attending Clinician NALLELY BARROS Attending Clinician Unavailable JAQUELINE BARRERA Attending Clinician Unavailable SHALOM SCHERER Attending Clinician Unavailable SHALOM SCHERER Attending Clinician Unavailable Doctor Unassigned, [place] Attending Clinician Unavailable Shalom Scherer MD Attending Clinician DIANA QUILES Admitting Clinician Unavailable FILIPE FERNANDEZ Admitting Clinician Unavailable Marc Issa Admitting Clinician MARC ISSA Admitting Clinician Unavailable NALLELY BARROS Admitting Clinician Unavailable Payers Payer Name Policy Type Policy Number Effective Date Expiration Date [employer] [place] [employer] [id number] 2016 PLUS 00:00:00 MEDICAID [facility] [id number] 2021 00:00:00 [facility] [id number] 2016 00:00:00 Problems Condition Condition Condition Status Onset Resolution Last Treating Co mments Source Name Details Category Date Date Treatment Clinician Date FRACTURE FRACTURE Diagnosis Active 2022-07-19 Memoria Active 07-04 21:50:00 l 07/04/2022 00:00: Eliel bird [address] High risk High risk Disease [facility] situation situation 00:00: [address] Seizure Seizure Disease [facility] 00:[facility]: [address] 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 ALLERGIE Class ity of [facility] NO KNOWN Allergy Active [facility] Social History Social Habit Start Date Stop Date Quantity Comments Source Social History 2016-09-20 2016-09-20 [facility] 05:59:00 05:59:00 Sex Ass[birth year] At [birth year] [facility] 00:00:00 00:00:00 [facility] Smoking Status Start Date Stop Date Source Social History [facility] Medications Ordered Filled Start Stop Current Ordering Indication Dosage Frequency Signature Comments Components Source Medication Medication Date Date Medication? Clinician (SIG) Name Name Versed No 2 mg, Memoria 07-08 Route: IM, l 18:58: ONCE, kg, Edgardo 00 Priority: STAT, Start date: 07/08/22 13:58:00 CDT, Stop date: 07/08/22 13:58:00 CDT Haldol No 5 mg, Memoria 07-08 Route: IM, l 18:57: ONCE, kg, Theodore 00 Priority: STAT, Start date: 07/08/22 13:57:00 CDT, Stop date: 07/08/22 13:57:00 CDT phenytoin No Notes: Memori a 07-08 Hazardous l 14:00: Drug Group 2:Non-anti neoplastic Hazardous Drug -- Refer to safe handling procedure PPE Matrix (Same as: Dilantin) Do not open, crush, or chew. risperiDONE No Notes: Oliver robi 07-08 (Same as: l 02:00: Risperdal) Hazardous Drug Group 2:Non-anti neoplastic Hazardous Drug -- Refer to safe handling procedure PPE Matrix fosphenytoi No Notes: Oliver robi n + Sodium 07-07 (Same as: l Chloride 20:50: Cerebyx) Rachel nn 0.9% IV 50 00 Stated mg mL = mgPE. Refriger ate ANTICONVUL ELLI Do not confuse with celebrex. For adult patients only: Round to nearest 50 mg per Medical Staff approval Hazardous Drug Group 2:Non-anti neoplastic Hazardous Drug -- Refer to safe handling procedure PPE Matrix MEDICATION WASTE Product Size: 500 mg Product Wasted: ___ mg Keppra No 1,000 mg, Memori a 07-07 Route: l 20:49: IVPB, Drug form: INJ, ONCE, kg, Loading Dose, Priority: STAT, Start date: 07/07/22 15:49:00 CDT, Stop date: 07/07/22 15:49:00 CDT Haldol No Notes: Memoria 07-06 (Same as: l 22:27: Haldol) Ativan No Notes: Memoria 07-06 (Same as: l 22:27: Ativan) Benadryl No Notes: Memoria 07-06 (Same as: l 22:27: Benadryl) risperiDONE No Notes: Oliver robi 07-06 (Same as: l 02:00: Risperdal) Hazardous Drug Group 2:Non-anti neoplastic Hazardous Drug -- Refer to safe handling procedure PPE Matrix acetaminoph No 650 mg, Mem oria en 07-05 Route: PO, l 15:35: Drug form: TAB, ONCE, kg, Priority: STAT, Start date: 07/05/22 10:35:00 CDT, Stop date: 07/05/22 10:35:00 CDT Keppra 750 No Notes: Memor ia mg oral 07-05 Same as l tablet 14:00: Keppra phenytoin No Notes: Memori a 07-05 Hazardous l 12:50: Drug Group 2:Non-anti neoplastic Hazardous Drug -- Refer to safe handling procedure PPE Matrix (Same as: Dilantin) Do not open, crush, or chew. Isolyte S No Notes: Memori a PH-7.4 07-05 (Same as: l (Bolus) IV 08:59: Isolyte S He PH7.4, Normosol-R PH 7.4, Plasma-Lyt e A ) phenytoin 0 Yes 400mg QD Take 2 [facility] (DILANTIN) 00:00: (400 mg Medi kiesha 200 MG ER 00 total) by Cente r capsule mouth daily. phenytoin 2021-0 Yes 400mg QD Take 2 [facility] (DILANTIN) 00:00: (400 mg Medi kiesha 200 MG ER 00 total) by Cente r capsule mouth daily. phenytoin 2022-0 Yes 400mg QD Take 2 [facility] (DILANTIN) 00:00: (400 mg Medi kiesha 200 MG ER 00 total) by Cente r capsule mouth daily. phenytoin 2021-0 Yes 400mg QD Take 2 [facility] (DILANTIN) 00:00: (400 mg Medi kiesha 200 MG ER 00 total) by Cente r capsule mouth daily. phenytoin 2-0 Yes 400mg QD Take 2 [facility] (DILANTIN) 00:00: (400 mg Medi kiesha 200 MG ER 00 total) by Cente r capsule mouth daily. phenytoin 2021-0 2022- No 400mg QD Take [address] [facility] (DILANTIN) 4-19 04-18 capsules [facility] 200 MG ER 00:00: 00:00 (400 mg Medi kiesha capsule 00 :00 total) by Center mouth daily. phenytoin 2021-0 2022- No 400mg QD Take [address] [facility] (DILANTIN) 4-19 04-18 capsules [facility] 200 MG ER 00:00: 00:00 (400 mg Medi kiesha capsule 00 :00 total) by Center mouth daily. phenytoin 2-0 2022- No 400mg QD Take [address] [facility] (DILANTIN) 4-19 04-18 capsules Luke [facility] 200 MG ER 00:00: 00:00 (400 mg Medi kiesha capsule 00 :00 total) by Center mouth daily. phenytoin 2021-0 2022- No 400mg QD Take [address] [facility] (DILANTIN) 4-19 04-18 capsules Luke [facility] 200 MG ER 00:00: 00:00 (400 mg Medi kiesha capsule 00 :00 total) by Center mouth daily. phenytoin 2-0 2- No 400mg QD Take [address] [facility] (DILANTIN) 4-19 04-18 capsules [facility] 200 MG ER 00:00: 00:00 (400 mg Medi kiesha capsule 00 :00 total) by Center mouth daily. levETIRAcet 2-0 Yes 1500mg Q.5D Take [address] [facility] (KEPPRA) 4-18 tablets [facility] 750 MG 00:00: (1,500 mg Medica l tablet 00 total) by Center mouth 2 (two) times daily. levETIRAcet 2022-0 Yes 1500mg Q.5D Take [address] [facility] (KEPPRA) 4-18 tablets [facility] 750 MG 00:00: (1,500 mg Medica l tablet 00 total) by Center mouth 2 (two) times daily. levETIRAcet 2022-0 Yes 1500mg Q.5D Take [address] am (KEPPRA) 4-18 tablets [facility] 750 MG 00:00: (1,500 mg Medica l tablet 00 total) by Center mouth 2 (two) times daily. levETIRAcet 0 Yes 1500mg Q.5D Take 2 CH I [...] mouth 2 (two) times daily. levETIRAcet 2021-0 2021- No 1500mg Q.5D Take 2 C [...] mouth 2 (two) times daily. levETIRAcet 2021-0 2021- No 1500mg Q.5D Take [address] am (KEPPRA) 4-18 04-18 tablets Luke s 750 MG 00:00: 00:00 (1,500 mg Medic al tablet 00 :00 total) by Center mouth 2 (two) times daily. levETIRAcet 2021-0 2021- No 1500mg Q.5D Take [address] am (KEPPRA) 4-18 04-18 tablets [facility] 750 MG 00:00: 00:00 (1,500 mg Medic al tablet 00 :00 total) by Center mouth 2 (two) times daily. levETIRAcet 2021-0 2021- No 1500mg Q.5D Take [address] am (KEPPRA) 4-18 04-18 tablets [facility] 750 MG 00:00: 00:00 (1,500 mg Medic al tablet 00 :00 total) by Center mouth 2 (two) times daily. Vital Signs Vital Name Observation Time Observation Value Comments Source Heart Rate 2022-07-11 01:54:00 [facility] Respitory Rate 2022-07-11 01:54:00 Memori al Edgardo Systolic (mm Hg) 2022-07-11 01:54:00 Oliver rial Theodore Diastolic (mm Hg) 2022-07-11 01:54:00 Mem orial Edgardo Systolic (mm Hg) 2022-07-11 00:08:00 Oliver rial Edgardo Diastolic (mm Hg) 2022-07-11 00:08:00 Mem orial [facility] Heart Rate 2022-07-11 00:08:00 [facility] Edgardo Respitory Rate 2022-07-11 00:08:00 [facility] Heart Rate 2022-07-10 20:09:00 [facility] Respitory Rate 2022-07-10 20:09:00 Memori al Edgardo Systolic (mm Hg) 2022-07-10 20:09:00 Oliver rial Theodore Diastolic (mm Hg) 2022-07-10 20:09:00 Mem orial Edgardo Heart Rate 2022-07-10 04:12:24 [facility] Edgardo Respitory Rate 2022-07-10 04:12:24 Memori al Edgardo Systolic (mm Hg) 2022-07-10 04:12:00 Oliver rial Theodore Diastolic (mm Hg) 2022-07-10 04:12:00 Mem orial Theodore Temperature Oral (F) 2022-07-10 04:08:04 99.2 F [facility] Systolic (mm Hg) 2022-07-10 00:15:00 Oliver rial Theodore Diastolic (mm Hg) 2022-07-10 00:15:00 Mem orial Edgardo Heart Rate 2022-07-10 00:15:00 [facility] Respitory Rate 2022-07-10 00:15:00 Memori al Edgardo Temperature Oral (F) 2022-07-09 20:00:00 98.2 F [facility] Heart Rate 2022-07-09 20:00:00 [facility] Edgardo Respitory Rate 2022-07-09 20:00:00 Memori al Edgardo Systolic (mm Hg) 2022-07-09 20:00:00 Oliver rial Theodore Diastolic (mm Hg) 2022-07-09 20:00:00 Mem orial Edgardo Temperature Oral (F) 2022-07-09 15:45:00 98.1 F [facility] Diastolic blood 2022-02-13 15:17:00 57 mm[Hg] [facility] Heart rate 2022-02-13 15:17:00 82 /min [facility] Body temperature 2022-02-13 15:17:00 36.44 [facility] Respiratory rate 2022-02-13 15:17:00 16 /min [facility] Oxygen saturation in 2022-02-13 15:17:00 100 /min [facility] Arterial blood by Medical Ce nter Pulse oximetry Systolic blood 2022-02-13 15:17:00 108 mm[Hg] [facility] Procedures Procedure Date / Time Performed Performing Clinician Sour e EEG 12-26 HR CONTINUOUS 2022-02-10 06:05:00 Nallely Barros [facility] MONITORING WITH VIDEO Medical Ce nter PHENYTOIN LEVEL, TOTAL 2022-02-09 10:51:00 Luzmaria Rodriguez [facility] EEG 12-26 HR CONTINUOUS 2022-02-09 06:15:00 Kelly Johnson [facility] MONITORING WITH VIDEO Medical Ce nter BASIC METABOLIC PANEL 2022-02-09 04:28:00 [facility] (7) [facility] MAGNESIUM 2022-02-09 04:28:00 [facility] PHOSPHORUS 2022-02-09 04:28:00 [facility] CBC W/PLT COUNT & AUTO 2022-02-09 04:28:00 [facility] DIFFERENTIAL [facility] CBC W/PLT COUNT & AUTO 2022-02-09 04:28:00 [facility] ECG 12-LEAD 2022-02-08 21:19:01 Elliot Caballero [facility] EKG-SCANNED 2022-02-08 00:00:00 ProviderKo [facility] CT brain w/o contrast [facility] EEG [facility] Plan of Care Planned Activity Planned Date [...] Date/Time Type Type Clinicians Facility Department ID 2022-08-09 Outpatient [facility] [id number] [place] 08:43:22 [id number] [facility] 2022-07-17 Outpatient [facility] [id number] [place] 12:40:14 [id number] [facility] 2022-07-11 Outpatient [facility] [id number] [place] 08:19:42 [id number] [facility] 2022-07-05 Outpatient [facility] [id number] [place] 12:27:47 [id number] [facility] 2022-02-07 Inpatient ER KB, [facility] Neurology [id number] [facility] 20:41:50 [facility] 2022-02-07 Inpatient ER [facility] Neurology [id number] [facility] [facility] 20:28:16 [facility] 2022-02-07 Inpatient ER KB [facility] Neuro ICU [id number] [facility] [facility] 14:31:43 [facility] 2022-02-03 Outpatient [facility] [id number] [place] 10:44:38 [id number] [facility] 2021-04-27 Inpatient [facility] [id number] [facility] 05:42:00 2022-07-10 2022-07-19 Outpatient JIM, [facility] [id number] [facility] 21:11:00 11:59:00 FILIPE 2022-07-05 2022-07-11 Emergency [facility] [id number] Memoria 02:28:00 01:57:00 r Edgardo [address] [place] [address] 2022-07-04 2022-07-10 Outpatient Anastacio [facility] [id number] 21:28:00 20:57:00 Avani Florence Hoyos 2022-07-04 2022-07-10 Outpatient Anastacio [facility] [id number] 21:28:00 20:57:00 Avani Florence Hoyos 2022-07-04 2022-07-10 Emergency E ANASTACIO [facility] [id number] [facility] 18:51:00 20:57:00 AVANI 2022-07-04 2022-07-04 Outpatient Maegan [facility] [id number] 21:28:00 21:28:00 Marc Henriquez 2022-02-08 [facility]22[facility]13 [facility] [id number] [facility] 12:54:00 18:44:00 Encounter Papo Nallely [facility] 2022-02-08 2022-02-13 Inpatient ER [facility] Neurology [id number] [facility] 12:54:00 18:44:00 NALLELY 2022-02-08 2022-02-13 [facility] [id number] [facility] 12:54:00 18:44:00 Encounter Papo Nallely [facility] 2022-02-08 2022-02-08 Outpatient [facility] [id number] [facility] 00:00:00 23:59:00 Kale Medicin e 2021-04-27 2021-04-27 Emergency [facility] [id number] [facility] 05:42:00 05:42:00 64 2021-04-27 2021-04-27 Outpatient Nathan BARRERA [facility] N[facility] [id number] Univers 00:00:00 00:00:00 JAQUELINE [id number] [facility] 2021-04-27 2021-04-27 Outpatient Nathan BARRERA [facility] [id number] [facility] 00:00:00 00:00:00 JAQUELINE [facility] 2020-09-28 2020-09-28 Outpatient SHALOM QUILES [facility] [id number] Univers 09:00:00 09:00:00 SHALOM SCHERER [facility] 2020-09-28 2020-09-28 Orders Doctor CRAWFORD [id number] 00:00:00 00:00:00 Only Unassigned, ESTER [id number] [place] [facility] [id number] 2020-09-17 2020-09-17 Outpatient SHALOM QUILES [facility] [id number] Univers 13:00:00 13:00:00 SHALOM SCHERER jaspreet [facility] 2020-09-16 2020-09-16 Outpatient SHALOM QUILES [facility] [id number] Univers 13:00:00 13:00:00 SHALOM SCHERER [facility] 2020-08-24 2020-08-24 Office Niesha [facility] [id number] 15:09:23 16:20:08 Visit Shalom Fei Duran [id number] [place] [id number] [facility] [id number] [facility] 2020-08-24 2020-08-24 Outpatient SHALOM QUILES [facility] [id number] Univers 16:00:00 16:00:00 SHALOM SCHERER [facility] 2020-08-24 2020-08-24 Outpatient SHALOM QUILES [facility] [id number] Univers 15:40:00 15:40:00 SHALOM SCHERER [facility] 2016-09-19 2016-09-20 Outpatient [facility] [id number] Memoria 16:26:00 05:59:[address] Results Test Description Test Time Test Comments Results Result Comments Source IMMUNOLOGY 2022-07-10 13:53:00 Test Item Value Reference Range Interpretation Comme nts Coronavirus (COVID-19) NIR (test code = Not Detected (07/10/22 8:53 AM) Coronavirus (COVID-19) NIR) [facility]2022-09-10 00:35:00 Test Item Value Reference Range Interpretation Comments Lactic Acid Lvl (test code = Lactic 1.4 0.5-2.2 Acid Lvl) [facility]2022-09-10 00:35:00 Test Item Value Reference Range Interpretation Comments Glucose Lvl (test code = Glucose Lvl) 140 70-99 [facility]2022-09-10 00:35:00 Test Item Value Reference Range Interpretation Comments BUN (test code = BUN) 5 7-22 [facility]2022-09-10 00:35:00 Test Item Value Reference Range Interpretation Comments Creatinine Lvl (test code = Creatinine 0.98 0.50-1.40 Lvl) [facility]2022-09-10 00:35:00 Test Item Value Reference Range Interpretation Comments Sodium Lvl (test code = Sodium Lvl) 141 135-145 [place] 633792-09-10 00:35:00 Test Item Value Reference Range Interpretation Comments Potassium Lvl (test code = Potassium 3.6 3.5-5.1 Lvl) [place] 633792-09-10 00:35:00 Test Item Value Reference Range Interpretation Comments Chloride Lvl (test code = Chloride Lvl) 106 95-109 [place] 633792-09-10 00:35:00 Test Item Value Reference Range Interpretation Comments CO2 (test code = CO2) 29 24-32 [place] 633792-09-10 00:35:00 Test Item Value Reference Range Interpretation Comments Calcium Lvl (test code = Calcium Lvl) 9.4 8.5-10.5 [place] 633792-09-10 00:35:00 Test Item Value Reference Range Interpretation Comments AGAP (test code = AGAP) 9.6 10.0-20.0 [facility]2022-09-10 00:35:00 Test Item Value Reference Range Interpretation Comments eGFR (test code = eGFR) 107 [place] 237402-09-10 00:35:00 Test Item Value Reference Range Interpretation Comments WBC X 10x3 (test code = WBC X 10x3) 6.8 3.7-10.4 [place] 237402-09-10 00:35:00 Test Item Value Reference Range Interpretation Comments RBC X 10x6 (test code = RBC X 10x6) 5.05 4.70-6.10 [place] 237402-09-10 00:35:00 Test Item Value Reference Range Interpretation Comments Hgb (test code = Hgb) 15.2 14.0-18.0 [place] 237402-09-10 00:35:00 Test Item Value Reference Range Interpretation Comments Hct (test code = Hct) 45.0 42.0-54.0 [place] 237402-09-10 00:35:00 Test Item Value Reference Range Interpretation Comments MCV (test code = MCV) 89.1 80.0-94.0 [place] 237402-09-10 00:35:00 Test Item Value Reference Range Interpretation Comments MCH (test code = MCH) 30.1 pg 27.0-31.0 [id number] 00:35:00 Test Item Value Reference Range Interpretation Comments MCHC (test code = MCHC) 33.8 32.0-36.0 [facility] [id number] 00:35:00 Test Item Value Reference Range Interpretation Comments RDW (test code = RDW) 13.0 11.5-14.5 [place] 237402-09-10 00:35:00 Test Item Value Reference Range Interpretation Comments Platelet (test code = Platelet) 220 133-450 [facility] [id number] 00:35:00 Test Item Value Reference Range Interpretation Comments MPV (test code = MPV) 8.1 7.4-10.4 [place] 237402-09-10 00:35:00 Test Item Value Reference Range Interpretation Comments Segs (test code = Segs) 76.3 45.0-75.0 [place] 237402-09-10 00:35:00 Test Item Value Reference Range Interpretation Comments Lymphocytes (test code = Lymphocytes) 14.0 20.0-40.0 [place] 237402-09-10 00:35:00 Test Item Value Reference Range Interpretation Comments Monocytes (test code = Monocytes) 8.4 2.0-12.0 [facility] [id number] 00:35:00 Test Item Value Reference Range Interpretation Comments Eosinophils (test code = 0.5 See_Comment [A utomated message] The Eosinophils) system which ge nerated this result tra nsmitted reference range : <=4.0. The reference r la was not used to int erpret this result as normal/abnormal . [place] 237402-09-10 00:35:00 Test Item Value Reference Range Interpretation Comments Basophils (test code = 0.8 See_Comment [Aut omated message] The Basophils) system which ge nerated this result tra nsmitted reference range : <=1.0. The reference r la was not used to int erpret this result as normal/abnormal . [place] 237402-09-10 00:35:00 Test Item Value Reference Range Interpretation Comments Neutrophils # (test code = Neutrophils 5.2 1.5-8.1 #) [id number] 00:35:00 Test Item Value Reference Range Interpretation Comments Lymphocytes # (test code = Lymphocytes 1.0 1.0-5.5 #) [facility] [id number] 00:35:00 Test Item Value Reference Range Interpretation Comments Monocytes # (test code 0.6 See_Comment [Aut omated message] The = Monocytes #) system which generated this result tra nsmitted reference range : <=0.8. The reference r la was not used to int erpret this result as normal/abnormal . [id number] 00:35:00 Test Item Value Reference Range Interpretation Comments Basophils # (test code 0.1 See_Comment [Aut omated message] The = Basophils #) system which generated this result tra nsmitted reference range : <=0.2. The reference r la was not used to int erpret this result as normal/abnormal . [facility] [id number] 21:10:00 Test Item Value Reference Range Interpretation Comments Lactic Acid Lvl (test code = Lactic 3.1 0.5-2.2 Acid Lvl) [facility] [id number] 21:46:00 Test Item Value Reference Range Interpretation Comments Coronavirus (COVID-19) Not Detected (07/05/22 NIR (test code = 4:46 PM) Coronavirus (COVID-19) NIR) [facility] [id number] 12:54:00 Test Item Value Reference Range Interpretation Comments U Amph Scr (test code Negative *NA*(07/05/22 = U Amph Scr) 7:54 AM) [facility] [id number] 12:54:00 Test Item Value Reference Range Interpretation Comments U Flor Scr (test code Negative *NA*(07/05/22 = U Flor Scr) 7:54 AM) [facility] [id number] 12:54:00 Test Item Value Reference Range Interpretation Comments U Benzodiaz Scr (test Positive *ABN*(07/05/22 code = U Benzodiaz Scr) 7:54 AM) [facility] [id number] 12:54:00 Test Item Value Reference Range Interpretation Comments U Cocaine Scr (test Negative *NA*(07/05/22 code = U Cocaine Scr) 7:54 AM) [facility] [id number] 12:54:00 Test Item Value Reference Range Interpretation Comments U Cannab Scr (test Negative *NA*(07/05/22 code = U Cannab Scr) 7:54 AM) [facility] [id number] 12:54:00 Test Item Value Reference Range Interpretation Comments U Opiate Scr (test Negative *NA*(07/05/22 code = U Opiate Scr) 7:54 AM) [facility] [id number] 12:54:00 Test Item Value Reference Range Interpretation Comments U Phencyclidine Scr (test Negative *NA*(07/05/22 code = U Phencyclidine 7:54 AM) Scr) [facility] [id number] 12:54:00 Test Item Value Reference Range Interpretation Comments UDS Note (test code = See Note (07/05/22 7:54 UDS Note) AM) [facility] [id number] 12:54:00 Test Item Value Reference Range Interpretation Comments UA Color (test code = Yellow *NA*(07/05/22 7:54 UA Color) AM) [facility] [id number] 12:54:00 Test Item Value Reference Range Interpretation Comments UA Turbidity (test code = Clear (07/05/22 7:54 UA Turbidity) AM) [facility] [id number] 12:54:00 Test Item Value Reference Range Interpretation Comments UA Spec Grav (test code = UA Spec 1.020 1 Grav) [facility] [id number] 12:54:00 Test Item Value Reference Range Interpretation Comments UA pH (test code = UA pH) 6.5 1 5.0-8.0 [facility] [id number] 12:54:00 Test Item Value Reference Range Interpretation Comments UA Protein (test code = UA Negative mg/dL Protein) [facility] [id number] 12:54:00 Test Item Value Reference Range Interpretation Comments UA Glucose (test code = UA Negative mg/dL Glucose) [facility] [id number] 12:54:00 Test Item Value Reference Range Interpretation Comments UA Ketones (test code = UA >=80 mg/dL Ketones) [facility] [id number] 12:54:00 Test Item Value Reference Range Interpretation Comments UA Bili (test code = Negative *NA*(07/05/22 UA Bili) 7:54 AM) [facility] AND [id number] 12:54:00 Test Item Value Reference Range Interpretation Comments UA Blood (test code = Negative (07/05/22 7:54 UA Blood) AM) [facility] AND [id number] 12:54:00 Test Item Value Reference Range Interpretation Comments UA Urobilinogen (test code = UA 1.0 0.1-1.0 Urobilinogen) [facility] AND [id number] 12:54:00 Test Item Value Reference Range Interpretation Comments UA Nitrite (test code Negative (07/05/22 7:54 = UA Nitrite) AM) [facility] AND [id number] 12:54:00 Test Item Value Reference Range Interpretation Comments UA Leuk Est (test Negative (07/05/22 7:54 code = UA Leuk Est) AM) [facility] AND [id number] 12:54:00 Test Item Value Reference Range Interpretation Comments UA Sq Epi (test code = UA Sq Occasional /LPF Epi) [facility] AND [id number] 12:54:00 Test Item Value Reference Range Interpretation Comments UA WBC (test code = 2 See_Comment [Automa rebecca message] The UA WBC) system which ge nerated this result transmit rebecca reference range : <=5. The reference range was not used to interpr et this result as chevy l/abnormal. [facility] [id number] 12:54:00 Test Item Value Reference Range Interpretation Comments UA RBC (test code = 1 See_Comment [Automa rebecca message] The UA RBC) system which ge nerated this result transmit rebecca reference range : <=2. The reference range was not used to interpr et this result as chevy l/abnormal. [facility] [id number] 12:54:00 Test Item Value Reference Range Interpretation Comments UA Mucus (test code = UA Mucus) Few /LPF [facility] [id number] 09:26:00 Test Item Value Reference Range Interpretation Comments Glucose Lvl (test code = Glucose Lvl) 71 70-99 [place] 633792-09-07 09:26:00 Test Item Value Reference Range Interpretation Comments BUN (test code = BUN) 5 7-22 [place] 633792-09-07 09:26:00 Test Item Value Reference Range Interpretation Comments Creatinine Lvl (test code = Creatinine 0.89 0.50-1.40 Lvl) [place] 633792-09-07 09:26:00 Test Item Value Reference Range Interpretation Comments Sodium Lvl (test code = Sodium Lvl) 141 135-145 [place] 633792-09-07 09:26:00 Test Item Value Reference Range Interpretation Comments Chloride Lvl (test code = Chloride Lvl) 108 95-109 [place] 633792-09-07 09:26:00 Test Item Value Reference Range Interpretation Comments CO2 (test code = CO2) 28 24-32 [place] 633792-09-07 09:26:00 Test Item Value Reference Range Interpretation Comments AGAP (test code = AGAP) 8.9 10.0-20.0 [place] 633792-09-07 09:26:00 Test Item Value Reference Range Interpretation Comments Calcium Lvl (test code = Calcium Lvl) 8.5 8.5-10.5 [place] 633792-09-07 09:26:00 Test Item Value Reference Range Interpretation Comments Potassium Lvl (test code = Potassium 3.9 3.5-5.1 Lvl) [place] 633792-09-07 09:26:00 Test Item Value Reference Range Interpretation Comments eGFR (test code = eGFR) 120 [place] 633792-09-07 08:10:00 Test Item Value Reference Range Interpretation Comments ALANINE AMINOTRANSFERASE 41 See_Comment [A utomated message] (test code = ALANINE The sys tem which AMINOTRANSFERASE) generated this result transmitted ref erence range: <=65. Th e reference range was not used to int erpret this result as normal/abnormal . [place] 633792-09-07 08:10:00 Test Item Value Reference Range Interpretation Comments AST (test code = AST) 35 See_Comment [Auto mated message] The system which ge nerated this result transmit rebecca reference range : <=37. The reference range was not used to interpr et this result as chevy l/abnormal. [place] 633792-09-07 08:10:00 Test Item Value Reference Range Interpretation Comments Alk Phos (test code = Alk Phos) 56 39-136 [place] [address]-09-07 08:10:00 Test Item Value Reference Range Interpretation Comments Bili Total (test code = Bili Total) 0.3 0.2-1.3 [place] [address]-09-07 08:10:00 Test Item Value Reference Range Interpretation Comments Bili Direct (test code 0.1 See_Comment [Aut omated message] The = Bili Direct) system which generated this result tra nsmitted reference range : <=0.3. The reference r la was not used to int erpret this result as chevy l/abnormal. [place] [address]-09-07 08:10:00 Test Item Value Reference Range Interpretation Comments Bili Indirect (test 0.2 See_Comment [Automa rebecca message] The code = Bili Indirect) system which generated this result tra nsmitted reference range : <=1.0. The reference r la was not used to int erpret this result as normal/abnormal . [place] 633792-09-07 08:10:00 Test Item Value Reference Range Interpretation Comments Globulin (test code = Globulin) 2.7 2.7-4.2 [place] 633792-09-07 08:10:00 Test Item Value Reference Range Interpretation Comments A/G Ratio (test code = A/G Ratio) 0.9 1 0.7-1.6 [place] [address]-09-07 08:10:00 Test Item Value Reference Range Interpretation Comments Lactic Acid Lvl (test code = Lactic 0.7 0.5-2.2 Acid Lvl) [place] 237402-09-07 08:10:00 Test Item Value Reference Range Interpretation Comments PT (test code = PT) 14.9 s 12.0-14.7 [place] [address]-09-07 08:10:00 Test Item Value Reference Range Interpretation Comments INR (test code = INR) 1.18 1 0.85-1.17 [id number] 08:10:00 Test Item Value Reference Range Interpretation Comments PTT (test code = PTT) 24.3 s 22.9-35.8 [facility] [id number] 08:10:00 Test Item Value Reference Range Interpretation Comments Total CK (test code = Total CK) 360 12-191 [facility] [id number] 08:10:00 Test Item Value Reference Range Interpretation Comments HS Troponin I (test code = HS Troponin 7 I) [facility]2022-09-07 08:10:00 Test Item Value Reference Range Interpretation Comments Glucose Lvl (test code = Glucose Lvl) 58 70-99 [place] 633792-09-07 08:10:00 Test Item Value Reference Range Interpretation Comments BUN (test code = BUN) 4 7-22 [place] 633792-09-07 08:10:00 Test Item Value Reference Range Interpretation Comments Creatinine Lvl (test code = Creatinine 0.55 0.50-1.40 Lvl) [place] 633792-09-07 08:10:00 Test Item Value Reference Range Interpretation Comments Sodium Lvl (test code = Sodium Lvl) 147 135-145 [place] 633792-09-07 08:10:00 Test Item Value Reference Range Interpretation Comments Potassium Lvl (test code = Potassium 2.8 3.5-5.1 Lvl) [place] 633792-09-07 08:10:00 Test Item Value Reference Range Interpretation Comments Chloride Lvl (test code = Chloride Lvl) 119 95-109 [place] 633792-09-07 08:10:00 Test Item Value Reference Range Interpretation Comments CO2 (test code = CO2) 22 24-32 [place] 633792-09-07 08:10:00 Test Item Value Reference Range Interpretation Comments AGAP (test code = AGAP) 8.8 10.0-20.0 [place] 633792-09-07 08:10:00 Test Item Value Reference Range Interpretation Comments Calcium Lvl (test code = Calcium Lvl) 6.1 8.5-10.5 [place] 633792-09-07 08:10:00 Test Item Value Reference Range Interpretation Comments eGFR (test code = eGFR) 138 [facility]2022-09-07 08:10:00 Test Item Value Reference Range Interpretation Comments Total Protein (test code = Total 5.2 6.4-8.4 Protein) [facility]2022-09-07 08:10:00 Test Item Value Reference Range Interpretation Comments Albumin Lvl (test code = Albumin Lvl) 2.5 3.5-5.0 [place] 237402-09-07 03:17:30 Test Item Value Reference Range Interpretation Comments WBC X 10x3 (test code = WBC X 10x3) 8.7 3.7-10.4 [place] 237402-09-07 03:17:30 Test Item Value Reference Range Interpretation Comments RBC X 10x6 (test code = RBC X 10x6) 4.16 4.70-6.10 [place] 237402-09-07 03:17:30 Test Item Value Reference Range Interpretation Comments Hgb (test code = Hgb) 12.6 14.0-18.0 [place] 237402-09-07 03:17:30 Test Item Value Reference Range Interpretation Comments Hct (test code = Hct) 37.2 42.0-54.0 [place] 237402-09-07 03:17:30 Test Item Value Reference Range Interpretation Comments MCV (test code = MCV) 89.5 80.0-94.0 [place] 237402-09-07 03:17:30 Test Item Value Reference Range Interpretation Comments MCH (test code = MCH) 30.2 pg 27.0-31.0 [place] 237402-09-07 03:17:30 Test Item Value Reference Range Interpretation Comments MCHC (test code = MCHC) 33.8 32.0-36.0 [place] [address]-09-07 03:17:30 Test Item Value Reference Range Interpretation Comments RDW (test code = RDW) 13.3 11.5-14.5 [place] 237402-09-07 03:17:30 Test Item Value Reference Range Interpretation Comments Platelet (test code = Platelet) 140 133-450 [place] 237402-09-07 03:17:30 Test Item Value Reference Range Interpretation Comments MPV (test code = MPV) 7.7 7.4-10.4 [place] 237402-09-07 03:17:30 Test Item Value Reference Range Interpretation Comments Segs (test code = Segs) 79.0 45.0-75.0 [place] 237402-09-07 03:17:30 Test Item Value Reference Range Interpretation Comments Lymphocytes (test code = Lymphocytes) 8.9 20.0-40.0 [place] [address]-09-07 03:17:30 Test Item Value Reference Range Interpretation Comments Monocytes (test code = Monocytes) 8.3 2.0-12.0 [place] [address]-09-07 03:17:30 Test Item Value Reference Range Interpretation Comments Eosinophils (test code = 3.4 See_Comment [A utomated message] The Eosinophils) system which ge nerated this result tra nsmitted reference range : <=4.0. The reference r la was not used to int erpret this result as normal/abnormal . [place] [address]-09-07 03:17:30 Test Item Value Reference Range Interpretation Comments Basophils (test code = 0.4 See_Comment [Aut omated message] The Basophils) system which ge nerated this result tra nsmitted reference range : <=1.0. The reference r la was not used to int erpret this result as normal/abnormal . [place] 237402-09-07 03:17:30 Test Item Value Reference Range Interpretation Comments Neutrophils # (test code = Neutrophils 6.9 1.5-8.1 #) [place] 237402-09-07 03:17:30 Test Item Value Reference Range Interpretation Comments Lymphocytes # (test code = Lymphocytes 0.8 1.0-5.5 #) [place] [address]-09-07 03:17:30 Test Item Value Reference Range Interpretation Comments Monocytes # (test code 0.7 See_Comment [Aut omated message] The = Monocytes #) system which generated this result tra nsmitted reference range : <=0.8. The reference r la was not used to int erpret this result as normal/abnormal . [place] [address]-09-07 03:17:30 Test Item Value Reference Range Interpretation Comments Eosinophils # (test code 0.3 See_Comment [A utomated message] The = Eosinophils #) system whic h generated this result tra nsmitted reference range : <=0.5. The reference r la was not used to int erpret this result as normal/abnormal . [facility] [id number] 11:29:09 Test Item Value Reference Range Interpretation Comments PHENYTOIN (DILANTIN) (BEAKER) 18.3 ug/mL 10.0-20.0 (test code = 605) Public Information Relations Manager ID - [id number] 05:11:05 Test Item Value Reference Range Interpretation Comments MAGNESIUM (BEAKER) (test code = 1.9 mg/dL 1.6-2.6 627) Public Information Relations Manager ID - [id number] 05:11:05 Test Item Value Reference Range Interpretation Comments PHOSPHORUS (BEAKER) (test code = 4.9 mg/dL 2.3-4.7 H 604) Public Information Relations Manager ID - ADMINBASIC METABOLIC [id number] 05:11:04 Test Item Value Reference Range Interpretation [...] S NOT APPLICABLE FOR DIALYSIS PATIEN TS. Public Information Relations Manager ID - ADMINCBC W/PLT COUNT & AUTO [id number] 04:41:57 Test Item Value Reference Range Interpretation [...] code = 2801) Complete Blood Count Auto [id number] 07:30:00 Test Item Value Reference Range Interpretation [...] code = NRBCP) 0 % Comprehensive Metabolic [id number] 07:30:00 Test Item Value Reference Range Interpretation [...] code = EGFRAA) Estimated GFR (Non Afr Dacry > 60 mL/min/1.73m2 (test code = EGFRNAA) [...] 112 U/L 46-116 N = ALP) Ethanol [id number] 07:30:00 Test Item Value Reference Range Interpretation Comments Ethanol (test code = ETOH) < 3 mg/dL Coronavirus PCR, COVID19 [id number] 07:30:00 Test Item Value Reference Range Interpretation Comments Coronavirus PCR, For use under Emergency COVID19 Rapid (test Use Authorization (EUA) code = SARSCOV2) only. Coronavirus PCR, Reference Range: COVID19 Rapid (test Negative code = AYHGSOW97.1) SARS-CoV-2 PCR Result: Negative by PCR (test code = SARS-CoV-2 PCR Result:) Comment: psych clearanceCOVID-19 Status: AsymptomaticDrug Screen,[id number] 06:32:00 Test Item Value Reference Range Interpretation [...] Negative code = UPROP) UA, Urinalysis w [id number] 06:32:00 Test Item Value Reference Range Interpretation Comments Color,Urine (test code = Yellow Y UCOL) Clarity,Urine (test code = Clear Clear UCLAR) Ph, Urine (test code = UPH) 7.0 5.0-8.0 N Specific [place],Urine 1.015 1.005-1.030 N (test code = USG) [...]
[2022-09-04 22:17] LABS: Urine Blood 1+ (Negative); Urine Glucose Negative (Negative); Urine Protein 2+ (Negative); Urine Specific Gravity >=1.030 (1.005-1.030); Urine pH 5.5 (5.0-7.0)
[2022-09-04 22:40] LABS: Absolute Lymphocytes (CBC) 1.8 K/uL (0.7-4.9); Hematocrit 44.2 % (39.6-49.0); Lymphocytes % 23.5 % (15.3-44.8); MCV 87.8 fL (80-100); MPV 9.1 fL (7.6-11.3); RBC Red Blood Cell Count 5.03 M/uL (4.33-5.43)
[2022-09-04 22:41] LABS: Barbiturates NEGATIVE (NEGATIVE); Benzodiazepines NEGATIVE (NEGATIVE); Cocaine NEGATIVE (NEGATIVE); METHAMPHETAM NEGATIVE (NEGATIVE); Methadone NEGATIVE (NEGATIVE); Opiates NEGATIVE (NEGATIVE); Phencyclidine NEGATIVE (NEGATIVE); THC Cannibis NEGATIVE (NEGATIVE)
[2022-09-04 23:05] LABS: ALT/SGPT 31 U/L (12-78); AST/SGOT 18 U/L (15-37); Albumin 3.8 g/dL (3.4-5.0); Alkaline Phosphatase 60 U/L (45-117); BUN Blood Urea Nitrogen 4 mg/dL (7-18); Bicarbonate 31 mmol/L (21-32); Bilirubin Direct 0.1 mg/dL (0-0.2); Bilirubin Total 0.2 mg/dL (0.2-1.0); Glomerular Filtration Rate 78 ml/min (=/>90); Glucose Level 107 mg/dL (74-106); Phenytoin (Dilantin) Level 3.6 ug/mL (10.0-20.0); Potassium 3.4 mmol/L (3.5-5.1); Protein, Total 8.2 g/dL (6.4-8.2); Sodium Level 139 mmol/L (136-145)
[2022-09-04] MEDS ORDERED: NA CHLORIDE 0.9% 50 ML IV ONE (23:32)
[2022-09-04] MEDS ORDERED: FOSPHENYTOIN PE 500 MG/10 ML VIAL ONE (23:34)
[2022-09-04 23:56] LABS: Protime INR 1.36
--- NOTE | 2022-09-05 02:28 | EDPHYS ---
Physician Documentation [facility] Name: Mari Mercado Age: 26 yrs Sex: Male : 1995 Arrival Date: 09/04/2022 Time: 22:02 Bed 3 Private MD: ED Physician Nena Weeks HPI: 09/04 23:38 This 26 yrs old Black Male presents to ER via EMS with complaints of Altered Mental sp3 Status. 23:38 26-year-old male with history of bipolar disorder, seizure disorder presents via EMS sp3 for reported altered mental status and erratic behavior including fighting with family. In route to the ED, EMS gave 300 mg of ketamine, patient arrived he was lethargic with present but diminished gag reflex, nasal trumpet in place, and an oxygen requirement of 4 L nasal cannula to maintain saturations. Limited history and physical secondary to this. We will attempt further history once patient is more awake. No reports of trauma or seizure activity per EMS. EMS states that there protocol called for 300 mg of ketamine.. Historical: - Allergies: 22:23 Unable to obtain; bb - Home Meds: 22:23 Dilantin Oral [Active]; Keppra Oral [Active]; bb - PMHx: 22:23 Bipolar disorder; Seizure; bb - Immunization history:: Adult Immunizations unknown. - Social history:: Smoking status: unknown. ROS: 23:41 Unable to obtain ROS due to obtunded state. sp3 Exam: 23:41 Constitutional: The patient appears Initial exam patient is lethargic and does not sp3 respond to sternal rub and has a nasal trumpet and oxygen requirement in place. Pt's eyes are 4 mm and reactive pupils. No signs of trauma noted. Vital signs are normal. Heart exam and lung exam are also normal with clear lung sounds bilaterally. Abdomen is soft. Limited exam otherwise neurological exam cannot be obtained. See MDM section for further physical exam updates once patient is more awake. 23:49 ECG was reviewed by the Attending Physician. KG demonstrates normal sinus rhythm at 94 sp3 bpm with normal intervals, normal QRS, normal axis, mild J-point elevation anterior leads V2 V3 nonspecific diffuse ST/T changes without evidence of acute ischemia. Vital Signs: 22:10 BP 163 / 102; Pulse 130; Resp 14 S; Temp 100.3(A); Pulse Ox 100% on R/A; Weight 81.65 bb kg (R); Height 5 ft. 10 in. (177.80 cm) (R); 22:38 BP 142 / 104; Pulse 92; Resp 20 S; Pulse Ox 99% on R/A; kl 09/05 00:07 BP 141 / 88; Pulse 102; Resp 13; Pulse Ox 100% on 3 lpm NC; ll3 01:00 BP 133 / 89; Pulse 87; Resp 18; Pulse Ox 100% on 3 lpm NC; ll3 02:00 BP 134 / 74; Pulse 80; Resp 17; Pulse Ox 100% on 2 lpm NC; ll3 03:00 BP 133 / 84; Pulse 74; Resp 16; Pulse Ox 100% on 2 lpm NC; ll3 04:10 BP 126 / 78; Pulse 78; Resp 14; Pulse Ox 100% on 1 lpm NC; ll3 05:45 BP 119 / 80; Pulse 66; Resp 15; Pulse Ox 100% on R/A; ll3 09/04 22:10 Body Mass Index 25.83 (81.65 kg, 177.80 cm) bb MDM: 09/04 22:04 Patient medically screened. sp3 23:44 Data reviewed: vital signs, nurses notes, EMS record. ED course: 26-year-old male with sp3 seizure disorder with reportedly having disruptive behavior. Differential diagnosis includes sarah, delirium, routine agitation. In the ED patient is slowly regaining consciousness subsequent to the ketamine. He did have 1 seizure reported per nurse. Patient's phenytoin level was less than 4 and so we will give 500 mg IV fosphenytoin. Seizure spontaneously resolved and lorazepam was not given due to the fact that he had ketamine on board and was still lethargic. Of note, we will be contacting EMS vice president medical affairs for further investigation into the dosing of ketamine for this patient. Plan will be general observation and disposition once all diagnostics are complete. Diagnostics will include laboratory values, urinalysis, UDS. UDS is back and is negative. Also of note, patient's temperature was 100.3 which was later obtained. I am not highly suspicious for meningitis however we will check patient for other potential infection etiologies at this time.. 09/05 02:24 ED course: Patient is resting comfortably and is now arousable. 100.3 fever is now sp3 explainable with a positive influenza B diagnosis. UDS is negative. No more seizure activity after fosphenytoin given IV. Will discharge patient home once fully arousable and able to conduct his ADLs.. 09/04 22:05 Order name: Acetaminophen; Complete Time: 23:26 sp3 09/04 22:05 Order name: Basic Metabolic Panel; Complete Time: 23:26 sp3 09/04 22:05 Order name: CBC with Diff; Complete Time: 23:26 sp3 09/04 22:05 Order name: ETOH Level; Complete Time: 23:26 sp3 09/04 22:05 Order name: Hepatic Function; Complete Time: 23:26 sp3 09/04 22:05 Order name: PT-INR; Complete Time: 00:46 sp3 09/04 22:05 Order name: Salicylate; Complete Time: 00:46 sp3 09/04 22:05 Order name: Urine Drug Screen; Complete Time: 23:26 3 09/04 22:05 Order name: Phenytoin (dilantin); Complete Time: 23:26 3 09/04 22:17 Order name: Urine Dipstick-Ancillary; Complete Time: 23:26 EDMS 09/04 23:47 Order name: CXR XRAY sp3 09/04 23:47 Order name: Blood Culture Adult (2) sp3 09/04 23:47 Order name: Flu; Complete Time: 02:24 sp3 09/04 22:05 Order name: EKG; Complete Time: 22:06 sp3 09/04 22:05 Order name: EKG - Nurse/Tech; Complete Time: 22:51 sp3 09/04 22:05 Order name: IV Saline Lock; Complete Time: 22:51 sp3 09/04 22:05 Order name: Labs collected and sent; Complete Time: 22:51 sp3 09/04 22:05 Order name: Urine Dipstick-Ancillary (obtain specimen); Complete Time: 22:51 sp3 09/04 22:05 Order name: Seizure Precautions; Complete Time: 22:52 sp3 Administered Medications: 09/04 23:46 Drug: Fosphenytoin 500 mg Route: IVPB; Site: right antecubital; ll3 Disposition Summary: 09/05/22 02:28 Discharge Ordered Location: Home sp3 Condition: Stable sp3 Diagnosis - Influenza due to other identified influenza virus with other respiratory sp3 manifestations Followup: sp3 - With: Private Physician - When: Upon discharge from the Emergency Department - Reason: Continuance of care Discharge Instructions: - Discharge Summary Sheet sp3 - Influenza, Adult sp3 - Seizure, Adult sp3 Forms: - Medication Reconciliation Form sp3 - Thank You Letter sp3 - Antibiotic Education sp3 - Prescription Opioid Use sp3 Signatures: Dispatcher [employer] EDMS aMren Canales, RN RN bb Nena Weeks MD MD sp3 Chandler Hollingsworth RN RN ll3
--- NOTE | 2022-09-05 02:28 | ER ---
Nurse's Notes [facility] Name: Mari Mercado Age: 26 yrs Sex: Male : 1995 Arrival Date: 09/04/2022 Time: 22:02 Bed 3 Private MD: Diagnosis: Influenza due to other identified influenza virus with other respiratory manifestations Presentation: 09/04 22:10 Chief complaint: EMS states: they were toned out for report of pt with "excited bb delirium" pt uncooperative on arrival they administered ketamine 300 mg on arrival pt unresponsive with snoring respirations. Coronavirus screen: At this time, the client does not indicate any symptoms associated with coronavirus-19. Ebola Screen: No symptoms or risks identified at this time. Initial Sepsis Screen: Does the patient meet any 2 criteria? No. Patient's initial sepsis screen is negative. Does the patient have a suspected source of infection? No. Patient's initial sepsis screen is negative. Risk Assessment: Do you want to hurt yourself or someone else? Patient reports no desire to harm self or others. Onset of symptoms was September 04, 2022. 22:10 Method Of Arrival: EMS: [facility] bb 22:10 Acuity: ERASMO 2 bb Historical: - Allergies: 22:23 Unable to obtain; bb - Home Meds: 22:23 Dilantin Oral [Active]; Keppra Oral [Active]; bb - PMHx: 22:23 Bipolar disorder; Seizure; bb - Immunization history:: Adult Immunizations unknown. - Social history:: Smoking status: unknown. Screenin:38 Abuse screen: per EMS pt combative on scene. Nutritional screening: No deficits noted. kl Tuberculosis screening: No symptoms or risk factors identified. Fall Risk No fall in past 12 months (0 pts). Secondary diagnosis (15 points) seizures, IV access (20 points). Ambulatory Aid- None/Bed Rest/Nurse Assist (0 pts). Gait- Impaired (20 pts.). Mental Status- Overestimates/Forgets Limitations (15 pts.). Total Wilson Fall Scale indicates High Risk Score (45 or more points). Fall prevention measures have been instituted. Side Rails Up X 2 Placed Close to Nursing Station Frequent Obs/Assessments Occuring. Assessment: 22:37 General: Appears in no apparent distress. unkempt, well developed, Behavior is quiet. kl Pain: Unable to use pain scale. Patient is unresponsive. Neuro: Seizure activity reported prior to arrival. Cardiovascular: No deficits noted. Respiratory: No deficits noted. Airway is patent Trachea midline Respiratory effort is even, unlabored, Sputum is thin, clear. GI: No deficits noted. No signs and/or symptoms were reported involving the gastrointestinal system. : No deficits noted. No signs and/or symptoms were reported regarding the genitourinary system. EENT: No deficits noted. No signs and/or symptoms were reported regarding the EENT system. 23:26 Neuro: Seizure activity noted at this time. Seizure lasted approximately 1 minutes. ll3 Patient is post-ictal at this time. 09/05 02:21 Reassessment: Patient and/or family updated on plan of care and expected duration. Pain ll3 level reassessed. Patient is alert, oriented x 3, equal unlabored respirations, skin warm/dry/pink. 04:08 Reassessment: Pt is in bed sleeping with eyes closed, RR re even and unlabored, chest ll3 rising and falling, no s/s of distress, call light within reach. 06:56 Reassessment: No changes from previously documented assessment. Patient and/or family ll3 updated on plan of care and expected duration. Pain level reassessed. Patient is alert, oriented x 3, equal unlabored respirations, skin warm/dry/pink. 07:18 General: Appears in no apparent distress. Behavior is calm, cooperative, appropriate mb9 for age. Pain: Denies pain. Neuro: Level of Consciousness is awake, alert, obeys commands. Cardiovascular: Rhythm is sinus rhythm. Respiratory: Airway is patent Respiratory effort is even, unlabored, Respiratory pattern is regular, Sputum is thin, clear pt intermittently coughing. Derm: Skin is intact, Skin is dry, Skin is normal. Vital Signs: 09/04 22:10 BP 163 / 102; Pulse 130; Resp 14 S; Temp 100.3(A); Pulse Ox 100% on R/A; Weight 81.65 bb kg (R); Height 5 ft. 10 in. (177.80 cm) (R); 22:38 BP 142 / 104; Pulse 92; Resp 20 S; Pulse Ox 99% on R/A; kl 09/05 00:07 BP 141 / 88; Pulse 102; Resp 13; Pulse Ox 100% on 3 lpm NC; ll3 01:00 BP 133 / 89; Pulse 87; Resp 18; Pulse Ox 100% on 3 lpm NC; ll3 02:00 BP 134 / 74; Pulse 80; Resp 17; Pulse Ox 100% on 2 lpm NC; ll3 03:00 BP 133 / 84; Pulse 74; Resp 16; Pulse Ox 100% on 2 lpm NC; ll3 04:10 BP 126 / 78; Pulse 78; Resp 14; Pulse Ox 100% on 1 lpm NC; ll3 05:45 BP 119 / 80; Pulse 66; Resp 15; Pulse Ox 100% on R/A; ll3 09/04 22:10 Body Mass Index 25.83 (81.65 kg, 177.80 cm) bb ED Course: 09/04 22:02 Patient arrived in ED. ll3 22:03 Nena Weeks MD is Attending Physician. sp3 22:23 Triage completed. bb 22:23 Arm band placed on Patient placed in an exam room, on a stretcher, on oxygen, on bb monitor car operator, on pulse oximetry, RT at bedside. 22:53 Seizure precautions initiated. ll3 09/05 00:24 CXR XRAY In Process Unspecified. EDMS 00:46 Flu Sent. oe 05:45 No provider procedures requiring assistance completed. ll3 07:17 Cristina Ross, VALERIA is Primary Nurse. mb9 07:29 IV discontinued, intact, bleeding controlled, No redness/swelling at site. Pressure mb9 dressing applied. Administered Medications: 09/04 23:46 Drug: Fosphenytoin 500 mg Route: IVPB; Site: right antecubital; ll3 Medication: 09/05 05:45 VIS not applicable for this client. ll3 Outcome: 02:28 Discharge ordered by . sp3 07:29 Discharged to home via wheelchair. mb9 07:29 Condition: stable 07:29 Discharge instructions given to patient, family, Instructed on discharge instructions, follow up and referral plans. Demonstrated understanding of instructions, follow-up care. 07:30 Patient left the ED. mb9 Signatures: Dispatcher [employer] EDMS Blanca Gates RN RN kl Ballard, Brenda, RN RN bb Espinosa, Orlando oe Nena Weeks MD MD sp3 Chandler Hollingsworth RN RN ll3 Cristina Ross RN RN mb9 Corrections: (The following items were deleted from the chart) 02:21 02:21 Reassessment: No changes from previously documented assessment. Patient and/or ll3 family updated on plan of care and expected duration. Pain level reassessed. Patient is alert, oriented x 3, equal unlabored respirations, skin warm/dry/pink. ll3 02:21 00:07 BP 141 / 88; Pulse 102bpm; Resp 13bpm; Pulse Ox 100%; kl ll3
[2022-09-05 07:34] VITALS: TEMP 100.3
[2022-09-05 07:37] VITALS: O2SAT 100
[2022-09-05 07:43] VITALS: BP 119/80
--- NOTE | 2022-09-05 12:55 | RAD REPORT ---
EXAM DESCRIPTION: RAD - Chest Single View - 09/05/2022 12:22 am CLINICAL HISTORY: 6 years Male, FEVER COMPARISON: Chest radiograph dated 06/17/2021 FINDINGS: No focal lung consolidation. No pleural effusion. No pneumothorax. Cardiomediastinal silhouette is within normal limits. No acute osseous abnormality. IMPRESSION: No acute cardiopulmonary disease. Electronically signed by: Kiel Rivera DO 09/05/2022 12:32 AM CUSTOMER TRAINER Due to temporary technical issues with the PACS/Fluency reporting system, reports are being signed by the in house radiologists without review as a courtesy to insure prompt reporting. The interpreting radiologist is fully responsible for the content of the report.
--- NOTE | 2022-09-05 13:55 | EKG ---
Test Date: 2022-09-04 Test Time: 22:50:40 Photo Finisher: AARON MEASUREMENT RESULTS: Intervals: Rate: 94 WV: 130 QRSD: 86 QT: 338 QTc: 422 Beccaria: P: 86 WV: 130 QRS: 84 T: 52 INTERPRETIVE STATEMENTS: Normal sinus rhythm Normal ECG Compared to ECG 07/04/2022 03:20:28 Sinus arrhythmia no longer present Early repolarization no longer present Electronically Signed On 09-05-22 13:54:10 ORNAMENTAL BRONZE WORKER by Jorge Luis Dumont
== END 2022-09-05 07:30 | disposition home or self-care (01) ==
LOC: ER 21:59
DX: J10.1 Influenza due to other identified influenza virus with other respiratory manifestations (principal); F31.9 Bipolar disorder, unspecified
CPT/HCPCS: 93005; 87040 ×2; 85025; 80048; 36415; 80320; 80329 ×2; 85610; 80076; 80185; 81003; 80307; 87804 ×2; 71045; 96374; 99285; Q2009

== ENCOUNTER 2024-03-09 15:08 | Emergency (ER) | payer OTHER ==
--- NOTE | 2024-03-09 16:04 | RAD REPORT ---
EXAM DESCRIPTION: CT - Head Brain Wo Cont - 03/09/2024 3:45 pm CLINICAL HISTORY: head injury, seizure COMPARISON: Head Brain Wo Cont dated 08/10/2023; Facial Bones W/ Mpr dated 07/04/2022 TECHNIQUE: Noncontrast head CT images were obtained without IV contrast. Multiplanar reformats were generated and reviewed. All CT scans are performed using dose optimization technique as appropriate and may include automated exposure control or mA/KV adjustment according to patient size. FINDINGS: No intracranial hemorrhage, mass, or edema. Midline structures are unremarkable. Normal ventricular caliber for age. Olivo-white matter differentiation is preserved, without evidence of acute infarct. No abnormal extra- axial fluid collections. Mastoid air cells and visualized portions of the paranasal sinuses are clear. No acute bony findings. Left parietal scalp swelling and hematoma. IMPRESSION: No evidence of an acute intracranial process. Left parietal scalp swelling and hematoma.
[2024-03-09] MEDS ORDERED: LIDOCAINE 2% W/EPI 1:200,000 MPF 20 ML VIAL IM ONE (16:14)
[2024-03-09] MEDS ORDERED: LIDOCAINE 2% MPF 5 ML VIAL ONE (16:14)
--- NOTE | 2024-03-09 16:32 | EDPHYS ---
Physician Documentation [facility] Name: Mari Mercado Age: 28 yrs Sex: Male : 1995 Arrival Date: 03/09/2024 Time: 15:08 Bed 18 Private MD: ED Physician Kris Bolden HPI: 03/09 15:20 This 28 yrs old Black Male presents to ER via EMS with complaints of Seizure. cp 15:20 The patient presents after having a single isolated seizure, that lasted an unknown cp period of time, the episode(s) was witnessed, by family, grandmother. Character of seizure(s): Loss of consciousness: the patient experienced loss of consciousness. Seizure Hx: Seizure medications: keppra. Associated injury: Head/face: left side of the back of head, laceration. EMS care: none. Current symptoms: Currently, the patient is not experiencing any symptoms, the patient feels back to baseline. Historical: - Allergies: 15:12 No Known Allergies; mb9 - Home Meds: 15:12 unknow medication [Active]; mb9 15:28 Keppra 1,000 mg Oral tablet [Active]; mb9 - PMHx: 15:09 Bipolar disorder; Seizure; mb9 - PSHx: 15:12 None; mb9 - Immunization history:: Adult Immunizations up to date. - Infectious Disease History:: Denies. - Social history:: Smoking status: Patient denies any tobacco usage or history of. ROS: 15:25 Skin: Positive for laceration(s), of the scalp, cp 15:25 Eyes: Negative for injury, pain, redness, and discharge, cp 15:25 Constitutional: Negative for body aches, chills, fever, poor PO intake, 15:25 Cardiovascular: Negative for chest pain, 15:25 Respiratory: Negative for cough, shortness of breath, wheezing, 15:25 Abdomen/GI: Negative for abdominal pain, vomiting, diarrhea, constipation, 15:25 Neuro: Positive for history of seizure, Negative for altered mental status, 15:25 All other systems are negative, Exam: 15:30 Constitutional: The patient appears in no acute distress, alert, awake, comfortable, cp non-toxic, well developed, well nourished, 15:30 Head/face: Noted is hematoma, that is mild, of the left side of the back of head, a cp laceration(s), of the left side of the back of head, 15:30 Eyes: Periorbital structures: appear normal, Pupils: equal, round, and reactive to light and accomodation, Conjunctiva: normal, no exudate, no injection, Sclera: no appreciated abnormality, Lids and lashes: appear normal, bilaterally, 15:30 ENT: External ear(s): are unremarkable, Nose: is normal, Mouth: Lips: moist, Oral mucosa: pink and intact, moist, Posterior pharynx: is normal, airway is patent, no erythema, no exudate, 15:30 Neck: C-spine: vertebral tenderness, is not appreciated, crepitus, is not appreciated, ROM/movement: is normal, is supple, without pain, no range of motions limitations, 15:30 Chest/axilla: Inspection: normal, 15:30 Cardiovascular: Rate: tachycardic, Rhythm: regular, 15:30 Respiratory: the patient does not display signs of respiratory distress, Respirations: normal, no use of accessory muscles, no retractions, labored breathing, is not present, Breath sounds: are clear throughout, no decreased breath sounds, no stridor, no wheezing, 15:30 Abdomen/GI: Exam negative for discomfort, distension, guarding, Inspection: abdomen appears normal, 15:30 Neuro: Orientation: is normal, Mentation: is normal, Motor: moves all fours, strength is normal, Vital Signs: 15:13 Weight 83.91 kg; Height 6 ft. 0 in. ; mb9 15:16 BP 138 / 82; Pulse 101; Resp 18; Temp 98.1; Pulse Ox 96% on R/A; mb9 16:51 BP 128 / 80; Pulse 95; Resp 18; Pulse Ox 100% on R/A; mb9 15:13 Body Mass Index 25.09 (83.91 kg, 182.88 cm) mb9 Laceration: 16:30 Wound Repair of 3cm ( 1.2in ) subcutaneous laceration to left side of the back of head. cp Linear shaped.. Distal neuro/vascular/tendon intact. Anesthesia: Wound infiltrated with 4 mls of 2% lidocaine. Wound prep: Simple cleansing by il. Skin closed with 4 1-0 Flowood using staple gun. Dressed with 4x4's. Patient tolerated well. MDM: 15:12 Patient medically screened. cp 16:31 Data reviewed: vital signs, nurses notes, radiologic studies, CT scan, and as a result, cp I will discharge patient. 16:31 Differential diagnosis: seizure, intracranial bleed, skull fracture. Counseling: I had cp a detailed discussion with the patient and/or guardian regarding the historical points, exam findings, and any diagnostic results supporting the discharge/admit diagnosis, radiology results, the need for outpatient follow up, a family practitioner, to return to the emergency department if symptoms worsen or persist or if there are any questions or concerns that arise at home. Response to treatment: the patient's symptoms have markedly improved after treatment, and as a result, I will discharge patient. 03/09 15:13 Order name: CT Head Brain wo Cont; Complete Time: 16:10 cp 03/09 15:59 Order name: Wound Care: please clean head wound; Complete Time: 16:05 cp Administered Medications: 16:27 Drug: Lidocaine-Epinephrine Infiltration -2 % (1:100,000) 10 ml Infiltration once; to mb9 bedside Route: Infiltration; Disposition Summary: 03/09/24 16:32 Discharge Ordered Notes: Location: Home cp Problem: new cp Symptoms: have improved cp Condition: Stable cp Diagnosis - Other seizures cp - Laceration without foreign body of scalp, initial encounter cp Followup: cp - With: Private Physician - When: 7 - 10 days - Reason: Staple/Suture removal Discharge Instructions: - Discharge Summary Sheet cp - Head Injury, Adult cp - Laceration Care, Adult cp - Seizure, Adult cp Forms: - Medication Reconciliation Form cp - Antibiotic Education cp - Prescription Opioid Use cp - Patient Portal Instructions cp - Leadership Thank You Letter cp Signatures: Dispatcher [employer] EDMS Elroy Barron PA PA cp Cristina Ross RN RN mb9 Corrections: (The following items were deleted from the chart) 03/10 11:09 11:08 Wound Repair of 3cm ( 1.2in ) subcutaneous laceration to left side of the back of cp head. Linear shaped.. Distal neuro/vascular/tendon intact. Anesthesia: Wound infiltrated with 4 mls of 2% lidocaine. Wound prep: Simple cleansing by me. Skin closed with 4 1-0 Flowood using staple gun. Dressed with 4x4's. Patient tolerated well. cp
--- NOTE | 2024-03-09 16:32 | ER ---
Nurse's Notes [facility] Name: Mari Mercado Age: 28 yrs Sex: Male : 1995 Arrival Date: 03/09/2024 Time: 15:08 Bed 18 Private MD: Diagnosis: Other seizures;Laceration without foreign body of scalp, initial encounter Presentation: 03/09 15:10 Coronavirus screen: At this time, the client does not indicate any symptoms associated [facility] with coronavirus-19. Ebola Screen: No symptoms or risks identified at this time. Initial Sepsis Screen: Does the patient have a suspected source of infection? No. Patient's initial sepsis screen is negative. Initial Sepsis Screen: Does the patient meet any 2 criteria? No. Patient's initial sepsis screen is negative. Risk Assessment: Do you want to hurt yourself or someone else? Patient reports no desire to harm self or others. 15:10 Acuity: ERASMO 3 9 15:10 Chief complaint: EMS states: "toned out for seizure while with Grandma. Fell from mb9 standing and hit the back of head.". 15:10 Method Of Arrival: EMS: [facility] Triage Assessment: 15:12 General: Appears in no apparent distress. Behavior is calm, cooperative. Pain: Denies mb9 pain. EENT: No signs and/or symptoms were reported regarding the EENT system. Neuro: Estrada Agitation-Sedation Scale (RASS): 0 - Alert and Calm Level of Consciousness is awake, alert, obeys commands, Oriented to person, place, time, situation, Appropriate for age. Cardiovascular: Patient's skin is warm and dry. Respiratory: Airway is patent Respiratory effort is even, unlabored, Respiratory pattern is regular, symmetrical. GI: No signs and/or symptoms were reported involving the gastrointestinal system. : No signs and/or symptoms were reported regarding the genitourinary system. Derm: Skin is pink, warm \\T\\ dry. Wound noted scalp Wound is abrasion to posterior head. No active bleeding noted. Musculoskeletal: Range of motion: intact in all extremities. Historical: - Allergies: 15:12 No Known Allergies; mb9 - Home Meds: 15:12 unknow medication [Active]; mb9 15:28 Keppra 1,000 mg Oral tablet [Active]; mb9 - PMHx: 15:09 Bipolar disorder; Seizure; mb9 - PSHx: 15:12 None; mb9 - Immunization history:: Adult Immunizations up to date. - Infectious Disease History:: Denies. - Social history:: Smoking status: Patient denies any tobacco usage or history of. Screenin:12 [facility] ED Fall Risk Assessment (Adult) History of falling in the last 3 months, mb9 including since admission Yes- single mechanical fall (1 pt) Confusion or Disorientation No (0 pts) Intoxicated or Sedated No (0 pts) Impaired Gait No (0 pts) Mobility Assist Device Used No (0 pt) Altered Elimination No (0 pt) Score/Fall Risk Level 0 - 2 = Low Risk Oriented to surroundings, Maintained a safe environment, Educated pt \\T\\ family on fall prevention, incl call for assistance when getting out of bed. Abuse screen: Denies threats or abuse. Nutritional screening: No deficits noted. Tuberculosis screening: No symptoms or risk factors identified. Assessment: 16:36 Reassessment: No changes from previously documented assessment. Patient and/or family mb9 updated on plan of care and expected duration. Pain level reassessed. Patient is alert, oriented x 3, equal unlabored respirations, skin warm/dry/pink. 16:36 Reassessment: discharge pending ride home. mb9 16:52 Reassessment: No changes from previously documented assessment. Patient and/or family mb9 updated on plan of care and expected duration. Pain level reassessed. Patient is alert, oriented x 3, equal unlabored respirations, skin warm/dry/pink. Vital Signs: 15:13 Weight 83.91 kg; Height 6 ft. 0 in. ; mb9 15:16 BP 138 / 82; Pulse 101; Resp 18; Temp 98.1; Pulse Ox 96% on R/A; mb9 16:51 BP 128 / 80; Pulse 95; Resp 18; Pulse Ox 100% on R/A; mb9 15:13 Body Mass Index 25.09 (83.91 kg, 182.88 cm) mb9 ED Course: 15:09 Patient arrived in ED. iw 15:09 Cristina Ross RN is Primary Nurse. mb9 15:09 Kris Bolden MD is Attending Physician. ec2 15:09 Arm band placed on. mb9 15:10 Triage completed. mb9 15:10 Placed in gown. Bed in low position. Call light in reach. Side rails up X 1. Provided mb9 Education on: press call light if needing anything. Client placed on continuous cardiac and pulse oximetry monitoring. NIBP monitoring applied. monitoring analyst on. Door closed. Warm blanket given. Pillow given. 15:12 Elroy Barron PA is PHCP. ec2 15:12 No provider procedures requiring assistance completed. mb9 15:47 CT Head Brain wo Cont In Process Unspecified. EDMS 16:52 Patient did not have IV access during this emergency room visit. mb9 Administered Medications: 16:27 Drug: Lidocaine-Epinephrine Infiltration -2 % (1:100,000) 10 ml Infiltration once; to mb9 bedside Route: Infiltration; Medication: 15:09 VIS not applicable for this client. mb9 Outcome: 16:32 Discharge ordered by MD. cp 16:52 Discharged to home ambulatory, with family, mb9 16:52 Condition: stable 16:52 Discharge instructions given to patient, family, Instructed on discharge instructions, follow up and referral plans. Demonstrated understanding of instructions, follow-up care, 16:52 Patient left the ED. mb9 Signatures: Dispatcher [employer] Brissa Boucher RN RN iw Page, Corey, PA PA cp Breneman, Mary Beth RN RN Kris Marshall MD MD ec2 Corrections: (The following items were deleted from the chart) 15:16 15:12 Derm: Skin is pink, warm \\T\\ dry. mb9 mb9
[2024-03-09 17:24] VITALS: BP 128/80; TEMP 98.1; O2SAT 100
== END 2024-03-09 16:52 | disposition home or self-care (01) ==
LOC: ER 15:08
PROC: 0HQ0XZZ Repair Scalp Skin, External Approach (ICD-10-PCS; principal; 2024-03-09)
DX: G40.89 Other seizures (principal); S01.01XA Laceration without foreign body of scalp, initial encounter
CPT/HCPCS: 70450; 99284; J2001

== ENCOUNTER 2024-03-24 12:26 | Emergency (ER) | payer OTHER ==
--- NOTE | 2024-03-24 13:02 | ER ---
Nurse's Notes [facility] Name: Mari Mercado Age: 28 yrs Sex: Male : 1995 Arrival Date: 03/24/2024 Time: 12:26 Bed DX3 Private MD: Diagnosis: Encounter for removal of nick Presentation: 03/24 12:44 Chief complaint: Patient states: Here to have nick removed to back of head. [place] cm10 placed here on 03/09. Coronavirus screen: Client denies travel out of the [place] in the last 14 days. At this time, the client does not indicate any symptoms associated with coronavirus-19. Ebola Screen: Patient denies travel to an Ebola-affected area in the 21 days before illness onset. No symptoms or risks identified at this time. Initial Sepsis Screen: Does the patient meet any 2 criteria? No. Patient's initial sepsis screen is negative. Does the patient have a suspected source of infection? No. Patient's initial sepsis screen is negative. Risk Assessment: Do you want to hurt yourself or someone else? Patient reports no desire to harm self or others. Onset of symptoms was March 24, 2024. 12:44 Method Of Arrival: Ambulatory cm10 12:44 Acuity: ERASMO 4 cm10 Triage Assessment: 12:46 General: Appears in no apparent distress. comfortable, Behavior is calm, cooperative. cm10 Pain: Denies pain. Neuro: No deficits noted. Level of Consciousness is awake, alert, obeys commands, Oriented to person, place, time, situation, Appropriate for age. Respiratory: No deficits noted. Airway is patent Respiratory effort is even, unlabored, Respiratory pattern is regular, symmetrical. Musculoskeletal: No deficits noted. Range of motion: intact in all extremities. Historical: - Allergies: 12:45 No Known Allergies; cm10 - PMHx: 12:45 Bipolar disorder; Seizure; cm10 - Immunization history:: Adult Immunizations up to date. - Infectious Disease History:: Denies. - Social history:: Smoking status: Patient reports use of chewing tobacco. Screenin:46 [facility] ED Fall Risk Assessment (Adult) History of falling in the last 3 months, cm10 including since admission No falls in past 3 months (0 pts) Confusion or Disorientation No (0 pts) Intoxicated or Sedated No (0 pts) Impaired Gait No (0 pts) Mobility Assist Device Used No (0 pt) Altered Elimination No (0 pt) Score/Fall Risk Level 0 - 2 = Low Risk Oriented to surroundings, Maintained a safe environment, Hourly rounding (assess needs \T\ fall precautionary measures) done. Abuse screen: Denies threats or abuse. Denies injuries from another. Nutritional screening: No deficits noted. Tuberculosis screening: No symptoms or risk factors identified. Assessment: 12:57 Reassessment: No changes from previously documented assessment. Patient and/or family ll1 updated on plan of care and expected duration. Pain level reassessed. Patient is alert, oriented x 3, equal unlabored respirations, skin warm/dry/pink. removed by Dr. Verde. Vital Signs: 12:44 BP 122 / 80; Pulse 88; Resp 18; Temp 97.1; Pulse Ox 99% on R/A; Weight 80.74 kg; Height cm10 6 ft. 0 in. ; Pain 0/10; 12:44 Body Mass Index 24.14 (80.74 kg, 182.88 cm) cm10 12:44 Pain Scale: Adult cm10 ED Course: 12:28 Patient arrived in ED. ra3 12:39 Wallace Verde MD is Attending Physician. rt 12:45 Triage completed. cm10 12:46 Arm band placed on Patient placed in an exam room. cm10 12:46 Patient has correct armband on for positive identification. Provided Education on: ER cm10 processs and procedures.. 12:47 No provider procedures requiring assistance completed. Patient did not have IV access cm10 during this emergency room visit. Administered Medications: No medications were administered Medication: 12:46 VIS not applicable for this client. cm10 Outcome: 13:02 Discharge ordered by . rt 13:10 Discharged to home ambulatory, with family, ll1 13:10 Condition: good 13:10 Discharge instructions given to patient, Instructed on discharge instructions, follow up and referral plans. Demonstrated understanding of instructions, follow-up care, 13:10 Patient left the ED. ll1 Signatures: Austin Gates RN RN ll1 Wallace Verde MD MD rt Rosanne Ryan RN RN cm10 Tiara Birch ra3
--- NOTE | 2024-03-24 13:03 | EDPHYS ---
Physician Documentation [facility] Name: Mari Mercado Age: 28 yrs Sex: Male : 1995 Arrival Date: 03/24/2024 Time: 12:26 Bed DX3 Private MD: ED Physician Wallace Verde HPI: 03/24 13:56 This 28 yrs old Black Male presents to ER via Ambulatory with complaints of Suture rt Removal. 13:56 Patient presents to the ED requesting suture removal. Patient had by his report 3 rt nick placed to the posterior head 15 days ago. Reports it is well-healing. Denies other acute complaints, symptoms are mild in severity, no other aggravating or alleviating factors.. Historical: - Allergies: 12:45 No Known Allergies; cm10 - PMHx: 12:45 Bipolar disorder; Seizure; cm10 - Immunization history:: Adult Immunizations up to date. - Infectious Disease History:: Denies. - Social history:: Smoking status: Patient reports use of chewing tobacco. ROS: 13:56 Constitutional: Negative for fever, chills, and weight loss, Neck: Negative for injury, rt pain, and swelling, MS/Extremity: Negative for injury and deformity, Neuro: Negative for headache, weakness, numbness, tingling, and seizure, 13:56 Skin: Positive for Stapled laceration, Exam: 13:56 Constitutional: This is a well developed, well nourished patient who is awake, alert, rt and in no acute distress. Skin: Warm, dry with normal turgor. Normal color with no rashes, no lesions, and no evidence of cellulitis. MS/ Extremity: Pulses equal, no cyanosis. Neurovascular intact. Full, normal range of motion. Neuro: Awake and alert, GCS 15, oriented to person, place, time, and situation. Cranial nerves II-XII grossly intact. Motor strength 5/5 in all extremities. Sensory grossly intact. Cerebellar exam normal. Normal gait. 13:56 Head/face: 3 nick identified to the posterior scalp, no other nick identified, wound appears to be well-healing.. Vital Signs: 12:44 BP 122 / 80; Pulse 88; Resp 18; Temp 97.1; Pulse Ox 99% on R/A; Weight 80.74 kg; Height cm10 6 ft. 0 in. ; Pain 0/10; 12:44 Body Mass Index 24.14 (80.74 kg, 182.88 cm) cm10 12:44 Pain Scale: Adult cm10 Procedures: 13:56 Suture/Staple removal: Removed 3 nick, from scalp, site appears well healed, Patient rt tolerated well. MDM: 12:52 Patient medically screened. rt 13:56 Data reviewed: vital signs, nurses notes. ED course: Previous records states that there rt is 4 nick that were placed, patient states that there is at least 3, I cannot identify 3 nick, they were removed without difficulty. Patient to follow-up as an outpatient.. Administered Medications: No medications were administered Disposition Summary: 03/24/24 13:02 Discharge Ordered Notes: Location: Home rt Problem: new rt Symptoms: have improved rt Condition: Stable rt Diagnosis - Encounter for removal of nick rt Followup: rt - With: Private Physician - When: 2 - 3 days - Reason: Discharge Instructions: - Discharge Summary Sheet rt - Suture Removal, Care After rt Forms: - Medication Reconciliation Form rt - Antibiotic Education rt - Prescription Opioid Use rt - Patient Portal Instructions rt - Leadership Thank You Letter rt Signatures: Wallace Verde MD MD rt Rosanne Ryan RN RN cm10
[2024-03-24 13:30] VITALS: BP 122/80; TEMP 97.1; O2SAT 99
== END 2024-03-24 13:10 | disposition home or self-care (01) ==
LOC: ER 12:26
DX: Z48.02 Encounter for removal of sutures (principal)
CPT/HCPCS: 99282

== ENCOUNTER 2024-09-22 00:07 | Emergency (ER) | payer OTHER ==
[2024-09-22 00:48] LABS: Absolute Basophils 0.1 K/uL (0-0.5); Absolute Eosinophils 0.2 K/uL (0-0.5); Absolute Monocytes 0.4 K/uL (0.1-1.3); Absolute Neutrophil 3.5 K/uL (1.8-8.0); Basophils % 1.7 % (0-1.3); Eosinophils % 3.3 % (0-4.4); Hematocrit 43.3 % (39.6-49.0); Hemoglobin 14.5 g/dL (13.6-17.9); Lymphocytes % 19.6 % (15.3-44.8); MCH 29.7 pg (27.0-35.0); MCHC 33.6 g/dL (32.0-36.0); MCV 88.6 fL (80-100); MPV 8.2 fL (7.6-11.3); Neutrophils % 67.4 % (41.7-73.7); Nucleated Red Blood Cells % 0.4 % (0-0); Platelets 196 thou/uL (152-406); RBC Red Blood Cell Count 4.89 M/uL (4.33-5.43); Red Cell Distribution Width 13.4 % (12.1-15.2)
[2024-09-22 00:58] LABS: Albumin 3.8 g/dL (3.4-5.0); Anion Gap 6.6 mEq/L (5.0-15.0); Bilirubin Total 0.2 mg/dL (0.2-1.0); Potassium 3.6 mEq/L (3.5-5.1); Protein, Total 7.8 g/dL (6.4-8.2)
--- NOTE | 2024-09-22 01:28 | EDPHYS ---
Physician Documentation [facility] Name: Mari Mercado Age: 28 yrs Sex: Male : 1995 Arrival Date: 09/22/2024 Time: 00:07 Bed 17 Private MD: ED Physician Wallace Verde HPI: 09/22 03:17 This 28 yrs old Black Male presents to ER via EMS with complaints of Seizure. rt 03:17 Patient with history of seizure disorder on Keppra, Dilantin presents to the ED with a rt breakthrough seizure. Patient reportedly hit his head on concrete. Patient had return to baseline neurologic status, he has abrasions to the forehead, denies headache, acute complaints, symptoms are moderate in severity, no other aggravating alleviating factors. Patient reports compliance with his antiepileptic regiment. Historical: - Allergies: 00:11 No Known Allergies; al5 - Home Meds: 00:11 Keppra 1 Oral tab [Active]; Dilantin Oral [Active]; al5 - PMHx: 00:11 Bipolar disorder; Seizure; al5 - Immunization history:: Adult Immunizations not up to date. - Infectious Disease History:: Denies. - Social history:: Smoking status: Patient reports use of chewing tobacco. - Family history:: not pertinent. ROS: 03:17 Constitutional: Negative for fever, chills, and weight loss, Cardiovascular: Negative rt for chest pain, palpitations, and edema, Respiratory: Negative for shortness of breath, cough, wheezing, and pleuritic chest pain, Abdomen/GI: Negative for abdominal pain, nausea, vomiting, diarrhea, and constipation, MS/Extremity: Negative for injury and deformity, 03:17 Neuro: Positive for seizure activity, Negative for altered mental status, Exam: 03:17 Constitutional: This is a well developed, well nourished patient who is awake, alert, rt and in no acute distress. Chest/axilla: Normal chest wall appearance and motion. Nontender with no deformity. No lesions are appreciated. Cardiovascular: Regular rate and rhythm with a normal S1 and S2. No gallops, murmurs, or rubs. Normal PMI, no JVD. No pulse deficits. Respiratory: Lungs have equal breath sounds bilaterally, clear to auscultation and percussion. No rales, rhonchi or wheezes noted. No increased work of breathing, no retractions or nasal flaring. Abdomen/GI: Soft, non-tender, with normal bowel sounds. No distension or tympany. No guarding or rebound. No evidence of tenderness throughout. Skin: Warm, dry with normal turgor. Normal color with no rashes, no lesions, and no evidence of cellulitis. MS/ Extremity: Pulses equal, no cyanosis. Neurovascular intact. Full, normal range of motion. Neuro: Awake and alert, GCS 15, oriented to person, place, time, and situation. Cranial nerves II-XII grossly intact. Motor strength 5/5 in all extremities. Sensory grossly intact. Cerebellar exam normal. Normal gait. 03:17 Head/face: Abrasion, contusion to forehead, no laceration. Vital Signs: 00:09 BP 131 / 78; Pulse 84; Resp 18; Temp 99.2(O); Pulse Ox 100% ; Weight 72.57 kg; Height 5 al5 ft. 11 in. ; Pain 0/10; 00:15 BP 124 / 87; Pulse 83; Resp 18; Pulse Ox 100% on R/A; al5 00:57 BP 127 / 74; Pulse 90; Resp 17; Pulse Ox 98% on R/A; al5 01:00 BP 121 / 84; Pulse 90; Resp 17; Pulse Ox 98% on R/A; al5 01:15 BP 125 / 77; Pulse 78; Resp 18; Pulse Ox 100% on R/A; al5 01:41 BP 103 / 70; Pulse 78; Resp 17; Temp 98.9; Pulse Ox 100% ; Pain 0/10; bm8 00:09 Body Mass Index 22.32 (72.57 kg, 180.34 cm) al5 00:09 Pain Scale: Adult al5 01:41 Pain Scale: Adult bm8 Koko Coma Score: 00:12 Eye Response: spontaneous(4). Motor Response: obeys commands(6). Verbal Response: al5 oriented(5). Total: 15. 01:41 Eye Response: spontaneous(4). Motor Response: obeys commands(6). Verbal Response: bm8 oriented(5). Total: 15. MDM: 00:09 Medical Screening Exam initiated rt 03:17 Differential diagnosis: Seizure, intracranial hemorrhage. Data reviewed: vital signs, rt nurses notes, lab test result(s), radiologic studies. Independent interpretation of the following test(s) in the Emergency Department CT Scan: My interpretation is No intracranial hemorrhage syndrome interpretation of CT scan images. Care significantly affected by the following chronic conditions: Seizure disorder. Counseling: I had a detailed discussion with the patient and/or guardian regarding the historical points, exam findings, and any diagnostic results supporting the discharge/admit diagnosis, lab results, radiology results, the need for outpatient follow up, to return to the emergency department if symptoms worsen or persist or if there are any questions or concerns that arise at home. Response to treatment: the patient's symptoms have markedly improved after treatment. 09/22 00:09 Order name: CBC with Diff; Complete Time: 01:16 rt 09/22 00:09 Order name: CMP; Complete Time: :16 rt 09/22 00:09 Order name: CT Head C Spine rt Administered Medications: No medications were administered Disposition Summary: 09/22/24 01:28 Discharge Ordered Notes: Location: Home rt Problem: new rt Symptoms: have improved rt Condition: Stable rt Diagnosis - Breakthrough seizure rt - Closed head injury rt Followup: rt - With: Private Physician - When: 2 - 3 days - Reason: Discharge Instructions: - Discharge Summary Sheet rt - Head Injury, Adult rt - Seizure, Adult rt Forms: - Medication Reconciliation Form rt - Antibiotic Education rt - Prescription Opioid Use rt - Patient Portal Instructions rt - Leadership Thank You Letter rt Signatures: Dispatcher [employer] Wallace Rodriguez MD MD rt Tatianna Melo RN RN al5
--- NOTE | 2024-09-22 01:28 | ER ---
Nurse's Notes [facility] Name: Mari Mercado Age: 28 yrs Sex: Male : 1995 Arrival Date: 09/22/2024 Time: 00:07 Bed 17 Private MD: Diagnosis: Breakthrough seizure;Closed head injury Presentation: 09/22 00:09 Chief complaint: EMS states: toned out for a seizure. patient was at [facility] getting a al5 drink and when he came outside he started to experience a seizure. seizure was unwitnessed for an unknown amount of time. patient did hit head on the concrete, has abrasion/laceration to R eyebrow and cheek. pt aaox4 at this time. Coronavirus screen: At this time, the client does not indicate any symptoms associated with coronavirus-19. Ebola Screen: No symptoms or risks identified at this time. Initial Sepsis Screen: Does the patient meet any 2 criteria? No. Patient's initial sepsis screen is negative. Does the patient have a suspected source of infection? No. Patient's initial sepsis screen is negative. Risk Assessment: Do you want to hurt yourself or someone else? Patient reports no desire to harm self or others. Onset of symptoms was September 22, 2024. 00:09 Method Of Arrival: EMS: [email or web address] al5 00:09 Acuity: ERASMO 3 al5 Triage Assessment: 00:12 General: Appears in no apparent distress. Behavior is calm, cooperative. Pain: Denies al5 pain. EENT: No signs and/or symptoms were reported regarding the EENT system. Neuro: Estrada Agitation-Sedation Scale (RASS): 0 - Alert and Calm Level of Consciousness is awake, alert, obeys commands, Oriented to person, place, time, situation, Seizure activity reported prior to arrival. Cardiovascular: Capillary refill < 3 seconds Patient's skin is warm and dry. Respiratory: Airway is patent Respiratory effort is even, unlabored, Respiratory pattern is regular, symmetrical. GI: No signs and/or symptoms were reported involving the gastrointestinal system. : No signs and/or symptoms were reported regarding the genitourinary system. Derm: Reports abrasion/laceration to R eyebrow and cheek. Musculoskeletal: No signs and/or symptoms reported regarding the musculoskeletal system. Historical: - Allergies: 00:11 No Known Allergies; al5 - Home Meds: 00:11 Keppra 1 Oral tab [Active]; Dilantin Oral [Active]; al5 - PMHx: 00:11 Bipolar disorder; Seizure; al5 - Immunization history:: Adult Immunizations not up to date. - Infectious Disease History:: Denies. - Social history:: Smoking status: Patient reports use of chewing tobacco. - Family history:: not pertinent. Screenin:15 [facility] ED Fall Risk Assessment (Adult) History of falling in the last 3 months, al5 including since admission No falls in past 3 months (0 pts) Confusion or Disorientation No (0 pts) Intoxicated or Sedated No (0 pts) Impaired Gait No (0 pts) Mobility Assist Device Used No (0 pt) Altered Elimination No (0 pt) Score/Fall Risk Level 0 - 2 = Low Risk Oriented to surroundings, Maintained a safe environment, Hourly rounding (assess needs \T\ fall precautionary measures) done. Abuse screen: Denies threats or abuse. Denies injuries from another. Nutritional screening: No deficits noted. Tuberculosis screening: No symptoms or risk factors identified. Assessment: 00:15 Reassessment: see triage assessment. al5 01:27 Reassessment: Patient appears in no apparent distress at this time. No changes from al5 previously documented assessment. Patient and/or family updated on plan of care and expected duration. Pain level reassessed. Patient is alert, oriented x 3, equal unlabored respirations, skin warm/dry/pink. abrasions cleaned and triple antibiotic ointment placed on abrasions. md at bedside, patient to be discharged home with follow up with primary care provider. 01:41 Reassessment: Patient appears in no apparent distress at this time. Patient and/or bm8 family updated on plan of care and expected duration. Pain level reassessed. Patient is alert, oriented x 3, equal unlabored respirations, skin warm/dry/pink. Patient denies pain at this time. Patient states feeling better. Patient states symptoms have improved. Vital Signs: 00:09 BP 131 / 78; Pulse 84; Resp 18; Temp 99.2(O); Pulse Ox 100% ; Weight 72.57 kg; Height 5 al5 ft. 11 in. ; Pain 0/10; 00:15 BP 124 / 87; Pulse 83; Resp 18; Pulse Ox 100% on R/A; al5 00:57 BP 127 / 74; Pulse 90; Resp 17; Pulse Ox 98% on R/A; al5 01:00 BP 121 / 84; Pulse 90; Resp 17; Pulse Ox 98% on R/A; al5 01:15 BP 125 / 77; Pulse 78; Resp 18; Pulse Ox 100% on R/A; al5 01:41 BP 103 / 70; Pulse 78; Resp 17; Temp 98.9; Pulse Ox 100% ; Pain 0/10; bm8 00:09 Body Mass Index 22.32 (72.57 kg, 180.34 cm) al5 00:09 Pain Scale: Adult al5 01:41 Pain Scale: Adult bm8 Koko Coma Score: 00:12 Eye Response: spontaneous(4). Motor Response: obeys commands(6). Verbal Response: al5 oriented(5). Total: 15. 01:41 Eye Response: spontaneous(4). Motor Response: obeys commands(6). Verbal Response: bm8 oriented(5). Total: 15. ED Course: 00:08 Patient arrived in ED. gm2 00:08 Wallace Verde MD is Attending Physician. rt 00:09 Tatianna Melo RN is Primary Nurse. al5 00:11 Triage completed. al5 00:14 Arm band placed on right wrist. Patient placed in the treatment room, on a stretcher. al5 00:14 Door closed. Noise minimized. Visitors limited. bm8 00:14 Inserted saline lock: 20 gauge in right forearm, using aseptic technique. bm8 00:15 Patient has correct armband on for positive identification. Bed in low position. Call al5 light in reach. Side rails up X2. Seizure precautions initiated. Provided Education on: plan of care. 00:15 No provider procedures requiring assistance completed. al5 00:31 CT Head C Spine In Process Unspecified. EDMS 01:44 IV discontinued, intact, bleeding controlled, No redness/swelling at site. Pressure bm8 dressing applied. Administered Medications: No medications were administered Medication: 01:27 VIS not applicable for this client. al5 Outcome: 01:28 Discharge ordered by MD. rt 01:44 Discharged to home ambulatory, bm8 01:44 Condition: improved 01:44 Discharge instructions given to patient, Instructed on discharge instructions, follow up and referral plans. safety practices, Demonstrated understanding of instructions, follow-up care, medications, 01:45 Patient left the ED. bm8 Signatures: Dispatcher [employer] EDMS Wallace Verde MD MD rt Radha Alcantara 2 Jesus Andres, RN RN bm8 Tatianna Melo RN RN al5
--- NOTE | 2024-09-22 05:39 | RAD REPORT ---
CT HEAD: Clinical Indication: Bed Name: 17; TRAUMA Comparison: March 09, 2024 TECHNIQUE: CT images were obtained from the foramen magnum to the vertex without the use of intraveno us contrast on a multidetector CT. Coronal and sagittal reformats were performed and provided as separate series. All CT scans at this location are performed using dose optimization techniques as appropriate to perf orm the study. Radiation dose reduction technique was utilized including one or more of the following: Automated exp osure control, adjustment of the mA and/or kV according to patient size and use of iterative reconstruction technique. CT Radiation Dose DLP 1107.6 mGy-cm FINDINGS: BRAIN PARENCHYMA: There are normal bonds-white interfaces, sulci and gyri. There are no focal mass les ions on this noncontrast head CT. There is no mass effect, midline shift or edema. There are no intra-axial or extra-axial fluid collections, intraventricular or intraparenchymal hemorrhage. The pi jeannine, sellar, brainstem, cerebellum and skull base regions appear unremarkable. VENTRICLES: The lateral ventricles, third and fourth ventricles appear unremarkable. The basilar cist erns are normal. ORBITS, MASTOIDS AND PARANASAL SINUSES: The visualized orbits and paranasal sinuses are unremarkable. The mastoid air cells are clear. SKULL: There are no acute osseous abnormalities. If there is further concern for intracranial pathology or acute stroke, MRI of the brain may be perfo rmed for complete assessment. IMPRESSION: Unremarkable noncontrast head CT without mass, hemorrhage or subacute stroke noted. CT CERVICAL SPINE: Clinical Indication: Bed Name: 17; TRAUMA Comparison: None Technique: Multi-detector CT imaging of the cervical spine is performed. Coronal and sagittal reconst ructions were performed and provided as separate series. All CT scans at this location are performed using dose optimization techniques as appropriate to perf orm the study. Radiation dose reduction technique was utilized including one or more of the following: Automated exp osure control, adjustment of the mA and/or kV according to patient size and use of iterative reconstruction technique. CT Radiation Dose DLP 1107.6 mGy-cm FINDINGS: ALIGNMENT AND GENERAL ASSESSMENT: There is normal alignment of the cervical spine. There are no fract ures or subluxations. The craniocervical junction is normal. The atlanto-dental alignment appears unremarkable. The posterior elements and spinous processes are unremarkable. The facet joint, spinola minar and spinous process alignment are normal. DISK SPACES AND SOFT TISSUES: The prevertebral soft tissues are normal. C2-C3 to C7-T1 disc space levels show no definite disc pr otrusions on CT. There is no central or foraminal stenosis. MRI is the gold standard to assess for disk disease. VISUALIZED LUNG APICES: Unremarkable. CT myelogram or MRI of the cervical spine may be performed, if there is further concern. IMPRESSION: No acute fractures or subluxations of the cervical spine. Electronically signed by: Dani Samayoa MD 09/22/2024 12:52 AM [facility] Due to temporary technical issues with the PACS/oNoise reporting system, reports are being karen d by the in-house radiologist without review as a courtesy to ensure prompt reporting the interpreting radiologist is fully responsible for the content of the report. Transcribed Date/Time: 09/22/2024 5:39 AM
[2024-09-22 07:46] VITALS: O2SAT 100
[2024-09-22 07:47] VITALS: BP 103/70; TEMP 98.9
== END 2024-09-22 01:45 | disposition home or self-care (01) ==
LOC: ER 00:07
DX: G40.909 Epilepsy, unspecified, not intractable, without status epilepticus (principal); S00.91XA Abrasion of unspecified part of head, initial encounter; F17.220 Nicotine dependence, chewing tobacco, uncomplicated; W18.39XA Other fall on same level, initial encounter; Y93.9 Activity, unspecified; Y92.9 Unspecified place or not applicable
CPT/HCPCS: 36415; 70450; 72125; 80053; 85025; 99284